=== PATIENT | male | born 1970 | race Two or more races ===

== ENCOUNTER 2024-10-21 11:57 | Inpatient (IN) | payer MEDICAID, SELFPAY ==
[2024-10-21 11:59] VITALS: BMI 21.9
[2024-10-21 12:36] VITALS: BP 107/73; PULSE 85; RESP 20; TEMP 37.1; O2SAT 97
--- NOTE | 2024-10-21 12:44 | XR_ITS ---
Examination: PA chest lateral 2 views Technique: Upright PA lateral chest 2 views Exam date and time: October 21, 2024 1304 hrs. Indications: Coughing throat pain today. Findings: Extensive bilateral lung opacity, especially in the upper lung zones which appears cavitary Normal heart size The osseous structures are demineralized Impression: Extensive bilateral infiltrate, which appears cavitary in the upper lung zones, differential would include active tuberculosis Recommend high-resolution CT chest without contrast follow-up
--- NOTE | 2024-10-21 13:38 | XR_ITS ---
Examination: CT chest, without intravenous contrast. Sagittal and coronal 2-D reconstructions. Exam date and time: October 21, 2024 1358 hrs. Indications: Coughing beginning 8 months ago CTDI:vol (mGy) 9.08 DLP: (mGycm) 346 Technique: Multiple 3.0 mm axial sections of the chest to been obtained. Bone and lung density settings are obtained. Sagittal and coronal 2-D reconstructions have been obtained. Low dose protocols were performed. One or more of the following dose reduction techniques were used; automated exposure control, adjustment of the mA and/or KV according to patient size, use of iterative reconstruction technique. Findings: No thoracic aortic aneurysm dilatation Pulmonary artery segments are not enlarged Mild bilateral hilar lymphadenopathy Extensive cavitary infiltrate in the upper lung zones, the largest septated cavitary lesion in the right upper lobe measuring 5.6 x 5.2 cm Dilated bronchi throughout the lungs diffuse pneumonia particularly miliary throughout the lungs No visualized liver or splenic lesion No gallstones No pancreatic or adrenal mass No hydronephrosis Impression: Extensive cavitary miliary parenchymal disease throughout the lungs, most severe at the right apex, including septated right upper lobe cavitary lesion 5.6 x 5.2 cm Highest on the differential list is infectious processes including active tuberculosis, pulmonary neoplasm in the right upper lobe not excluded
--- NOTE | 2024-10-21 13:39 | EDRME_ITS ---
[facility]apid [facility] Screening [facility] Arrival date/time: 10/21/24 11:57 53-year-old male presents to the emergency department complains of cough ongoing x 10 months Chief Complaint: Flu Like Symptoms Time Seen by Provider: 10/21/24 12:13 Vital signs: Vital Signs Temperature 98.8 F 10/21/24 12:36 Pulse Rate 85 10/21/24 12:36 Respiratory Rate 20 10/21/24 12:36 Blood Pressure 107/73 10/21/24 12:36 Pulse Oximetry (%) 97 10/21/24 12:36 Oxygen Delivery Method Room Air 10/21/24 12:36
[2024-10-21 14:06] VITALS: BP 127/87; PULSE 75; RESP 19; TEMP 36.7; O2SAT 98
[2024-10-21 14:28] LABS: Basophils % (Auto) 1 % (0-2.5); Eosinophils # (Auto) 0.2 Thou/mm3 (0.0-0.5); Eosinophils % (Auto) 4 % (0-10); Hematocrit 40.4 % (41.0-53.0); Hemoglobin 13.9 g/dL (13.5-16.0); Immature Granulocytes % (Auto) 0 % (0-0); Immature Granulocytes Auto 0.01 Thou/mm3 (0.00-0.00); Lymphocytes # (Auto) 1.1 Thou/mm3 (1.0-4.8); Lymphocytes % (Auto) 20 % (10-50); Mean Corpuscular HGB Conc 34.4 g/dl (31.0-37.0); Mean Corpuscular Hemoglobin 29.3 pg (25.0-35.0); Mean Corpuscular Volume 85 fL (80-100); Monocytes # (Auto) 0.6 Thou/mm3 (0.0-0.8); Monocytes % (Auto) 10 % (0-12); Neutrophils # (Auto) 3.6 Thou/mm3 (1.8-7.7); Neutrophils % (Auto) 65 % (37-80); Nucleated Red Blood Cell % 0 /100 WBC (0); Platelet Count 295 Thou/mm3 (140-440); RDW Standard Deviation 38.5 fL (35.1-43.9); Red Blood Count 4.75 Miln/mm3 (4.50-5.90); White Blood Count 5.5 Thou/mm3 (3.8-10.6)
--- NOTE | 2024-10-21 14:30 | PC.NURSE ---
HEPA FILTER PLACED IN PTS ROOM.
--- NOTE | 2024-10-21 14:43 | EDNOTE_ITS ---
<Statement entered by Nuria Tsang MD - 10/21/24 15:34> As co-signing physician, I was present and available for consult prn. I concur with the plan and care as documented by the midlevel provider. Upper Respiratory Inf. RME/HPI General Chief Complaint: Flu Like Symptoms Stated Complaint: COUGH, THROAT PAIN Time Seen by Provider: 10/21/24 12:13 Arrival date/time: 10/21/24 11:57 RME / HPI RME / HPI Narrative: 53-year-old male patient came in for evaluation regarding cough. Patient has been having cough for the last 10 months, getting worse, seen by PCP, several times, and according to them were given Robitussin which only afforded mild relief. Patient also complained of generalized body weakness, weight loss for about 5 pounds for the last 5 months. Patient arrived in this country from [place] about 1 year ago. Patient denies any fever denies any night sweats denies any other complaints denies any ill contacts. Related Data Allergies Allergy/AdvReac Type Severity Reaction Status Date / Time No Known Allergies Allergy Verified 10/21/24 11:58 Review of Systems Review of Systems Narrative Review of Systems: Review of system reviewed and within normal limits except mentioned in HPI ED Exam Narrative Physical exam: VITAL SIGNS: Reviewed. GENERAL APPEARANCE: Alert and interactive, follows commands, no acute distress, HEAD AND FACE: Non-traumatic. ENT: PERRL, pink conjunctivitis, eyelid no trauma, Mucous membrane moist. NECK: Supple, nontender, no nuchal rigidity. CHEST: No tenderness, no crepitus, no paradoxical movement, no retractions. LUNGS: Clear, well ventilated, symmetric, no rales, no wheezing, no ronchi, no stridor, good breath sounds bilaterally. HEART: Regular rate, regular rhythm, no murmur, no gallops. ABDOMEN: Soft, positive bowel sounds, nondistended, no guarding, nontender, no rebound, no masses, RECTAL: Deferred. GENITAL: Deferred. NEUROLOGICAL: Gross motor function intact sensory function intact, Appropriate for age. MUSCULOSKELETAL: low back nontender, full range of motion. EXTREMITIES: Nontender, full range of motion. SKIN: Color pink, dry, no rash, no lacerations, no abrasions, no contusions. LYMPHATICS: Deferred. Course Quality Measures none Orders Category Date Time Status COVID-19 Screening Questionnaire NOW Care 10/21/24 15:11 Active Decision to Admit X1 Care 10/21/24 15:11 Active SVN NEEDED Care 10/21/24 14:42 Active Tuberculin Skin Test (PPD) q48h Care 10/21/24 14:[address] chest wo con Stat Exams 10/21/24 13:38 Completed XR chest 2V Stat Exams 10/21/24 12:44 Completed Blood Culture (Lab) Stat Lab 10/21/24 15:06 Received CBC Stat Lab 10/21/24 14:22 Completed CMP [Comprehensive Metabolic Panel] Stat Lab 10/21/24 14:22 Completed CRP [C-Reactive Protein] Stat Lab 10/21/24 14:22 Completed Cocci Serology IgM with reflex to IgG [Cocci Serology, Lab 10/21/24 14:22 Received Unk History] Stat Cult AFB Sendout- Sputum* Q8H Lab 10/21/24 14:45 Ordered Cult AFB Sendout- Sputum* Q8H Lab 10/21/24 22:45 Ordered Cult AFB Sendout- Sputum* Q8H Lab 10/22/24 06:45 Ordered Lactate (Lactic Acid) Stat Lab 10/21/24 15:03 Received Procalcitonin Stat Lab 10/21/24 15:03 Received Quantiferon-TB* Routine Lab 10/21/24 14:42 Ordered Sputum Culture and Gram Stain Q8H Lab 10/21/24 14:45 Ordered Sputum Culture and Gram Stain Q8H Lab 10/21/24 22:45 Ordered Sputum Culture and Gram Stain Q8H Lab 10/22/24 06:45 Ordered Sodium Chloride Rt Marie 10% [NS Rt Marie 10%] Med 10/21/24 14:41 Discontinued 5 ml INH X1 ONE Sodium Chloride Rt Marie 10% [NS Rt Marie 10%] Med 10/21/24 14:41 Discontinued 5 ml INH X1 ONE Tuberculin Ppd Inj [Tubersol Inj] Med 10/21/24 14:41 Discontinued 5 unit ID X1 ONE Sputum Induction PRN RT 10/21/24 14:45 Ordered Vital Signs Vital signs: Vital Signs Temperature 98.8 F 10/21/24 12:36 Pulse Rate 85 10/21/24 12:36 Respiratory Rate 20 10/21/24 12:36 Blood Pressure 107/73 10/21/24 12:36 Pulse Oximetry (%) 97 10/21/24 12:36 Oxygen Delivery Method Room Air 10/21/24 12:36 Upper Respiratory Infection MDM Narrative MDM Narrative:: 53-year-old male patient came in for evaluation regarding cough. Patient has been having cough for the last 10 months, getting worse, seen by PCP, several times, and according to them were given Robitussin which only afforded mild relief. Patient also complained of generalized body weakness, weight loss for about 5 pounds for the last 5 months. Patient arrived in this country from [place] about 1 year ago. Patient denies any fever denies any night sweats denies any other complaints denies any ill contacts. Patient's workup all came back unremarkable except for chest x-ray which showed possible active tuberculosis. CT scan of the chest also showed Extensive ca vitary miliary parenchymal disease throughout the lungs, most severe at the right apex, including septated right upper lobe cavitary lesion 5.6 x 5.2 cm Highest on the differential list is infectious processes including active tuberculosis, pulmonary neoplasm in the right upper lobe not excluded Patient was placed on isolation. Droplet precaution. Case discussed with hospitalist, and admitted the patient for workup to rule out tuberculosis. Currently patient is satting 98% on room air Patient data External records reviewed:: None Clinical information provided by:: patient Social determinants that could affect healthcare access:: none Patient has the following chronic illnesses:: None How is presenting disease/condition affected by chronic disease/condition?: no chronic disease Evaluation data The following diagnostics were reviewed and interpreted by me:: lab results and radiology exam(s) Lab and/or radiology exams considered but not ordered:: None Interpretation Summary: Patient's workup all came back unremarkable except for chest x-ray which showed possible active tuberculosis. CT scan of the chest also showed Extensive cavitary miliary parenchymal disease throughout the lungs, most severe at the right apex, including septated right upper lobe cavitary lesion 5.6 x 5.2 cm Highest on the differential list is infectious processes including active tuberculosis, pulmonary neoplasm in the right upper lobe not excluded Medications / Prescriptions Medications or Prescriptions considered but not ordered:: None Medication administrations:: Medication Administration History Discontinued Medications Sodium Chloride (Sodium Chloride Rt 10% 15 Ml Nebu) 5 ml INH X1 ONE Stop: 10/21/24 14:42 Sodium Chloride (Sodium Chloride Rt 10% 15 Ml Nebu) 5 ml INH X1 ONE Stop: 10/21/24 14:42 Tuberculin PPD (Tuberculin Ppd Inj 5 Unit/0.1 Ml Dose) 5 unit ID X1 ONE Stop: 10/21/24 14:42 None Consultations Consultation(s) initiated? (list below): No Diagnosis Upper Respiratory Differential Diagnosis: upper respiratory infection, bronchitis and other (Tuberculosis, coccidiomycosis, pulmonary tumor) Most likely diagnosis given after review of the tests above:: Rule out tuberculosis Admission Indicated Admission indicated?: indicated Explain why admission is indicated or not indicated:: Patient is to be admitted for further management Admission Request Was there a request for admission?: Yes Admission Attestation Admission request attestation: Discussed case with [Dr Rich] from Hospitalist service regarding admission. Discussed patients ED course, exam findings, labs, and radiology results. The Hospitalist [agrees] to accept the patient for admission. Disposition Plan Disposition Plan: Admit Discharge Plan Plan Patient Disposition: Admit Acute Care w/in Hospital Prescriptions/Referrals Referrals: Keon Hodgson PA-C [Primary Care Provider] - In 1 week Problem List Clinical Impression: Cavitary lesion of lung Patient/Caregiver Discharge Instructions Print Language: Mongolian Stand Alone Forms: Mary Award Info., Patient Portal Info Letter
[2024-10-21 14:57] LABS: Alanine Aminotransferase 9 U/L (10-49); Albumin, Serum 4.3 gm/dL (3.5-5.0); Albumin/Globulin Ratio 1.2 (1.2-2.2); Alkaline Phosphatase 92 U/L (46-116); Anion Gap 7 (7-16); Aspartate Amino Transferase 17 U/L (0-34); BUN/Creatinine Ratio 14 Ratio (12-20); Bilirubin,Total 0.4 mg/dL (0.3-1.2); Blood Urea Nitrogen 11 mg/dL (9-23); C-Reactive Protein 1.4 mg/dL (0.0-0.9); Calcium 9.1 mg/dL (8.3-10.6); Calcium (Corrected) 9.1 mg/dL (8.5-10.1); Carbon Dioxide 29.2 mMol/L (20.0-31.0); Chloride 102 mMol/L (98-107); Creatinine (Component) 0.8 mg/dL (0.6-1.3); Estimated Creatinine Clearance 100.9 mL/min (>60); Globulin 3.7 gm/dL (2.3-3.5); Glucose 94 mg/dL (74-106); Osmolality,Calculated 275 (275-295); Potassium 3.6 mMol/L (3.4-5.1); Sodium 138 mMol/L (136-145); eGFR > 60 See Note
[2024-10-21 15:12] LABS: Lactate (Lactic Acid) 0.7 mMol/L (0.4-2.0)
[2024-10-21 15:41] LABS: Cocci Serology, IgM Negative (Negative)
[2024-10-21 15:42] LABS: Procalcitonin 0.06 ng/ml (0.0-0.49)
--- NOTE | 2024-10-21 16:08 | PD.RESHP ---
Documentation for date of: 10/21/24 [facility] History of Present Illness Chief complaint: cough History of present illness: 53-year-old male with no past medical history presented to the ED due to progressive cough. Patient came from [place] about 1 year ago and has developed this cough productive of yellow phlegm for the past 10 months without resolution. Patient also states having recent unintentional weight loss in the past 5 months. Patient states having night sweats and chills in the past few months however none recently. Denies any exposure to tuberculosis or anyone testing positive for TB. Patient also states he is seen by a primary care physician who had x-rays done on him and states there was water in the lung . 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 Patient lives in a trailer. At this time patient denies any fevers, night sweats, shortness of breath, chest pain, abdominal pain, nausea, vomiting, diarrhea, urinary symptoms. Patient will be admitted for tuberculosis workup. ED course: Vitals on arrival noncontributory, CHEM panel unremarkable, C-reactive protein 1.4, procalcitonin normal. Cocci negative. chest x-ray which showed possible active tuberculosis. CT scan of the chest also showed Extensive cavitary miliary parenchymal disease throughout the lungs, most severe at the right apex, including septated right upper lobe cavitary lesion 5.6 x 5.2cm PMHx: None SxHx: None Social Hx: Denies smoking, denies alcohol use, denies any illicit substance use including THC FHx: Unknown Review of Systems Review of Systems Narrative Review of Systems: Narrative ROS GENERAL: Denies fevers/chills or diaphoresis. HEENT: Denies headache or visual/hearing changes. Denies nasal discharge. NEURO: Denies unusual weakness or difficulty speaking. CARDIO: Denies chest pain or palpitations. PULM: Denies SOB, coughing, or wheezing. GI: Denies abdominal pain, N/V/C/D/reflux/gas, bright red blood per rectum or melena. Reports having BMs. URO: Denies burning/itching/pain/urinary changes. MSK/EXT/SKIN: Denies joint/skeletal/muscle pain, issues/changes in upper or lower extremities, itchiness, or superficial pain. PSYCH: Cooperative, pleasant mood & affect. The rest of the review of systems is otherwise negative. Exam Vital Signs Temp Pulse Resp BP Pulse Ox O2 Del Method 98.0 F 75 19 127/87 H 98 Room Air 10/21/24 14:06 10/21/24 14:06 10/21/24 14:06 10/21/24 14:06 10/21/24 14:06 10/21/24 14:06 Narrative Exam Physical Exam GENERAL: NAD, AAOx3 HEENT: Moist mucosa. Eyes open, symmetrical, & clear CARDIO: Heart RRR, no obvious murmurs PULM: No noted coughing/dyspnea CTA B/L, no R/W/R GI: Abdomen soft, nondistended, no pain on palpation. BSx4 SKIN/MSK/EXT: No wounds/rashes/edema/amputations, no pain on palpation. Pedal pulses present B/L NEURO: AAOx3, no focal neuro deficits, able to move all 4 extremities Results: Labs 10/23/24 04:56 10/23/24 04:56 Labs: Short CBC 10/21/24 Range/Units 14:22 WBC 5.5 (3.8-10.6) Thou/mm3 Hgb 13.9 (13.5-16.0) g/dL Hct 40.4 L (41.0-53.0) % Plt Count 295 (140-440) Thou/mm3 BMP 10/21/24 14:22 Sodium 138 Potassium 3.6 Chloride 102 Carbon Dioxide 29.2 BUN 11 Creatinine 0.8 Glucose 94 Calcium 9.1 Liver Function 10/21/24 Range/Units 14:22 Total Bilirubin 0.4 (0.3-1.2) mg/dL AST 17 (0-34) U/L ALT 9 L (10-49) U/L Alkaline Phosphatase 92 (46-116) U/L Albumin 4.3 (3.5-5.0) gm/dL Quality Measures Quality Measures none Medications Home Medications and Allergies Home Medications ?Medication ?Instructions ?Recorded ?Confirmed ?Type No Known Home Medications 10/22/24 10/22/24 History Allergies Allergy/AdvReac Type Severity Reaction Status Date / Time No Known Allergies Allergy Verified 10/21/24 11:58 Visit Medications Acetaminophen (Acetaminophen 325 Mg Tablet) 650 mg PO Q6H PRN PRN Reason: Fever >100.5 Stop: 11/20/24 15:59 Acetaminophen (Acetaminophen 325 Mg Tablet) 650 mg PO Q6H PRN PRN Reason: PAIN SCALE 1-3 (mild Stop: 11/20/24 15:59 Docusate Sodium (Docusate Sod 100 Mg Capsule) 100 mg PO QDAY TORREY; Protocol Stop: 11/21/24 08:59 Ondansetron HCl (Ondansetron Inj 2 Mg/Ml Inj 2 Ml) 4 mg IV Q6H PRN; Protocol PRN Reason: NAUSEA OR VOMITING Stop: 11/20/24 15:59 Discontinued Medications Heparin Sodium (Porcine) (Heparin Sod Inj 5000 Unit/Ml Vial) 5,000 unit SC Q8HR TORREY Stop: 11/04/24 21:59 Sodium Chloride (Sodium Chloride Rt 10% 15 Ml Nebu) 5 ml INH X1 ONE Stop: 10/21/24 14:42 Sodium Chloride (Sodium Chloride Rt 10% 15 Ml Nebu) 5 ml INH X1 ONE Stop: 10/21/24 14:42 Tuberculin PPD (Tuberculin Ppd Inj 5 Unit/0.1 Ml Dose) 5 unit ID X1 ONE Stop: 10/21/24 14:42 Assessment & Plan Plan 53-year-old male with no past medical history presented to the ED due to cough, recent unintentional weight loss and tarry lesion found on chest x-ray. Admitted for TB workup. 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 Patient denies any night sweats, hemoptysis at this time, however he does state having night sweats in the past few months. Chest x-ray shows extensive bilateral infiltrate, which appears cavitary in the upper lung zones Chest CT shows Extensive cavitary miliary parenchymal disease throughout the lungs, most severe at the right apex, including septated right upper lobe cavitary lesion 5.6 x 5.2cm - AFBs ordered - f/u quantiferon - isolation precautions - Tuberculin skin test - blood cultures ordered - sputum culture ordered - f/u Flu/COVID Case discussed with my attending Dr. Aristeo Triana MD PGY-1 Disposition: Medsurg on isolation for TB work up Fluids: None Feeding: regular Thrombo prophylaxis: SCDs Gastric Ulcer prophylaxis: not indicated CODE STATUS: Full code Attending Provider Attestation/Addendum Chelsy Ramirez DO, attest that I was physically present for the rojas portions of the service and evaluated the patient with the resident and I reviewed and discussed the case with the resident and agree with the resident's findings and plans of care as documented above Patient is a 53 year old male with no significant past medical history who presented to the ED due to persistent cough. Patient had come to seek asylum about 10 months ago through [place]. Patient states that he came with a large group of people. Patient states that he has had persistent cough, night sweats and unintentional weight loss for the past few months. He had taken antibiotics a few weeks ago with temporary improvement of his productive cough. CT chest was done in ED showing extensive cavitary miliary parenchymal disease, most severe at right apex, including septated RUL cavitary lesion 5.6 x 5.2 cm. He denies seeing any blood streaked sputum. He denies previous history of tuberculosis, BCG vaccine or exposure to TB. 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 Patient lives in a trailer with his family. states that no other family members have the same symptoms as patient. He denies any nausea, vomiting, fevers, chills, productive sputum. He states that his cough is now dry. He denies any chest pain. Will admit patient for further workup of pulmonary cavitary lesion with high suspicion for tuberculosis. Will consult ID
[2024-10-21 16:23] VITALS: BP 113/79; PULSE 68; RESP 18; O2SAT 97
[2024-10-21 17:45] LABS: Cult AFB Sendout- Sputum* See Sep Rpt
[2024-10-21 18:00] VITALS: BP 124/85; PULSE 70; RESP 16; TEMP 36.7; O2SAT 98
--- NOTE | 2024-10-21 18:28 | PC.CC ---
Invas Tech assisted with Pt concerns regarding documentation needed to prove Pt is currently being admitted. Invas Tech collaborated with attending doctor in regards to Pt concerns.
--- NOTE | 2024-10-21 19:03 | PC.NURSE ---
[place], chips, and water provided.
[2024-10-21 19:30] VITALS: BP 129/80; PULSE 73; RESP 16; TEMP 36.8; O2SAT 95
--- NOTE | 2024-10-21 19:30 | PC.NURSE ---
Stefan contact with pt in Room 6, pt in gown, connected to bedside personnel monitor, whiteboard updated, call light within reach. Pt's currently at bedside.
[2024-10-21 19:58] VITALS: BMI 21.7
[2024-10-21 20:00] VITALS: BP 110/95; PULSE 78; RESP 18; TEMP 36.7; O2SAT 97
[2024-10-22] VITALS: BP 115/82; PULSE 79; RESP 17; TEMP 37.1; O2SAT 98
--- NOTE | 2024-10-22 03:13 | PC.RT ---
AFB sputum culture collected and sent to lab
[2024-10-22 04:00] VITALS: BP 128/84; PULSE 98; RESP 18; TEMP 36.6; O2SAT 96
[2024-10-22 05:42] LABS: Basophils # (Auto) 0.1 Thou/mm3 (0.0-0.2); Basophils % (Auto) 1 % (0-2.5); Eosinophils # (Auto) 0.2 Thou/mm3 (0.0-0.5); Eosinophils % (Auto) 4 % (0-10); Hematocrit 39.4 % (41.0-53.0); Hemoglobin 13.4 g/dL (13.5-16.0); Immature Granulocytes % (Auto) 0 % (0-0); Immature Granulocytes Auto 0.02 Thou/mm3 (0.00-0.00); Lymphocytes # (Auto) 1.1 Thou/mm3 (1.0-4.8); Lymphocytes % (Auto) 19 % (10-50); Mean Corpuscular Hemoglobin 28.9 pg (25.0-35.0); Mean Corpuscular Volume 85 fL (80-100); Monocytes # (Auto) 0.7 Thou/mm3 (0.0-0.8); Monocytes % (Auto) 11 % (0-12); Neutrophils % (Auto) 65 % (37-80); Nucleated Red Blood Cell % 0 /100 WBC (0); Platelet Count 293 Thou/mm3 (140-440); RDW Standard Deviation 38.3 fL (35.1-43.9); Red Blood Count 4.64 Miln/mm3 (4.50-5.90); White Blood Count 6.1 Thou/mm3 (3.8-10.6)
[2024-10-22 06:25] LABS: Alanine Aminotransferase 7 U/L (10-49); Albumin, Serum 4.1 gm/dL (3.5-5.0); Albumin/Globulin Ratio 1.2 (1.2-2.2); Alkaline Phosphatase 84 U/L (46-116); Anion Gap 7 (7-16); Aspartate Amino Transferase 13 U/L (0-34); BUN/Creatinine Ratio 16 Ratio (12-20); Bilirubin,Total 0.3 mg/dL (0.3-1.2); Blood Urea Nitrogen 13 mg/dL (9-23); Calcium 9.2 mg/dL (8.3-10.6); Calcium (Corrected) 9.2 mg/dL (8.5-10.1); Carbon Dioxide 30.5 mMol/L (20.0-31.0); Chloride 104 mMol/L (98-107); Creatinine (Component) 0.8 mg/dL (0.6-1.3); Estimated Creatinine Clearance 99.6 mL/min (>60); Globulin 3.3 gm/dL (2.3-3.5); Glucose 77 mg/dL (74-106); Osmolality,Calculated 280 (275-295); Potassium 3.5 mMol/L (3.4-5.1); Sodium 141 mMol/L (136-145); Total Protein 7.4 gm/dL (5.7-8.2); eGFR > 60 See Note
[2024-10-22 08:00] VITALS: BP 125/92; PULSE 82; RESP 16; TEMP 36.7; O2SAT 96
[2024-10-22] MEDS: ISONIAZID 300 MG TABLET PO (10:54)
[2024-10-22] MEDS: DOCUSATE SOD 100 MG CAPSULE PO (10:55)
[2024-10-22] MEDS: rifAMPin 300 MG CAPSULE 600 MG PO (10:55)
[2024-10-22] MEDS: ETHAMBUTOL HCL 400 MG TABLET 1200 MG PO (10:55)
[2024-10-22 12:00] VITALS: BP 120/86; PULSE 80; RESP 18; TEMP 36.2; O2SAT 98
--- NOTE | 2024-10-22 13:17 | PD.RESPRO ---
Documentation for date of: 10/22/24 Subjective Subjective Interval history: Seen at bedside today. Likely experiencing actual symptoms of tuberculosis. Second AFB sputum sample likely to be collected today. Will start the patient on ripe therapy and consult infectious disease Exam Vital Signs Temp Pulse Resp BP Pulse Ox O2 Del Method 97.2 F 80 18 120/86 H 98 Room Air 10/22/24 12:00 10/22/24 12:00 10/22/24 12:00 10/22/24 12:00 10/22/24 12:00 10/22/24 12:00 Narrative Exam Physical Exam GENERAL: NAD, AAOx3 HEENT: Moist mucosa. Eyes open, symmetrical, & clear CARDIO: Heart RRR, no obvious murmurs PULM: No noted coughing/dyspnea CTA B/L, no R/W/R GI: Abdomen soft, nondistended, no pain on palpation. BSx4 SKIN/MSK/EXT: No wounds/rashes/edema/amputations, no pain on palpation. Pedal pulses present B/L NEURO: AAOx3, no focal neuro deficits, able to move all 4 extremities Objective Labs 10/23/24 04:56 10/23/24 04:56 Labs: Laboratory Results - last 24 hr 10/21/24 10/21/24 10/22/24 14:22 15:03 04:28 WBC 5.5 6.1 RBC 4.75 4.64 Hgb 13.9 13.4 L Hct 40.4 L 39.4 L MCV 85 85 MCH 29.3 28.9 MCHC 34.4 34.0 RDW Std Deviation 38.5 38.3 Plt Count 295 293 Neut % (Auto) 65 65 Lymph % (Auto) 20 19 [place] % (Auto) 10 11 Eos % (Auto) 4 4 Baso % (Auto) 1 1 Neut # (Auto) 3.6 4.0 Lymph # (Auto) 1.1 1.1 [place] # (Auto) 0.6 0.7 Eos # (Auto) 0.2 0.2 Baso # (Auto) 0.0 0.1 Immature Gran # (Auto) 0.01 H 0.02 H Absolute Nucleated RBC 0.00 0.00 Immature Gran % 0 0 Nucleated RBC % 0 0 Sodium 138 141 Potassium 3.6 3.5 Chloride 102 104 Carbon Dioxide 29.2 30.5 Anion Gap 7 7 BUN 11 13 Creatinine 0.8 0.8 Estim Creat Clear Calc 100.9 99.6 eGFR > 60 > 60 BUN/Creatinine Ratio 14 16 Glucose 94 77 Calculated Osmolality 275 280 Lactic Acid 0.7 Calcium 9.1 9.2 Corrected Calcium 9.1 9.2 Total Bilirubin 0.4 0.3 AST 17 13 ALT 9 L 7 L Alkaline Phosphatase 92 84 C-Reactive Prot, Quant 1.4 H Total Protein 8.0 7.4 Albumin 4.3 4.1 Globulin 3.7 H 3.3 Albumin/Globulin Ratio 1.2 1.2 Procalcitonin 0.06 Coccidioides IgM Ab Negative Quality Measures Quality Measures none Assessment & Plan Assessment Current Active Medications: Generic Name Dose Route Start Last Admin Trade Name Freq PRN Reason Stop Dose Admin Acetaminophen 650 mg 10/21/24 16:00 Acetaminophen 325 Mg Tablet PO 11/20/24 15:59 Q6H PRN Fever >100.5 Acetaminophen 650 mg 10/21/24 16:00 Acetaminophen 325 Mg Tablet PO 11/20/24 15:59 Q6H PRN PAIN SCALE 1-3 (mild Docusate Sodium 100 mg 10/22/24 09:00 10/22/24 10:55 Docusate Sod 100 Mg Capsule PO 11/21/24 08:59 100 mg QDAY TORREY Administration Protocol Ethambutol HCl 1,200 mg 10/22/24 10:15 10/22/24 10:55 Ethambutol Hcl 400 Mg Tablet PO 11/21/24 10:14 1,200 mg QDAY TORREY Administration Isoniazid 300 mg 10/22/24 10:15 10/22/24 10:54 Isoniazid 300 Mg Tablet PO 11/21/24 10:14 300 mg QDAY TORREY Administration Ondansetron HCl 4 mg 10/21/24 16:00 Ondansetron Inj 2 Mg/Ml Inj 2 Ml IV 11/20/24 15:59 Q6H PRN NAUSEA OR VOMITING Protocol Pyrazinamide 500 mg 10/22/24 14:00 Pyrazinamide 500 Mg Tablet PO 11/21/24 13:59 TID TORREY Rifampin 600 mg 10/22/24 10:15 10/22/24 10:55 Rifampin 300 Mg Capsule PO 11/21/24 10:14 600 mg QDAY TORREY Administration Plan 53-year-old male with no past medical history presented to the ED due to cough, recent unintentional weight loss and tarry lesion found on chest x-ray. Admitted for TB workup. 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 Patient denies any night sweats, hemoptysis at this time, however he does state having night sweats in the past few months. Chest x-ray shows extensive bilateral infiltrate, which appears cavitary in the upper lung zones Chest CT shows Extensive cavitary miliary parenchymal disease throughout the lungs, most severe at the right apex, including septated right upper lobe cavitary lesion 5.6 x 5.2cm - AFBs ordered - f/u quantiferon - isolation precautions - Tuberculin skin test canceled - blood cultures ordered - sputum culture ordered - f/u Flu/COVID ?Started the patient on ripe therapy, infectious disease consultation ordered, Case discussed with my attending Dr. Aristeo Pierre M.D. PGY-3 Disposition: Medsurg on isolation for TB work up Fluids: None Feeding: regular Thrombo prophylaxis: SCDs Gastric Ulcer prophylaxis: not indicated CODE STATUS: Full code Attending Provider Attestation/Addendum Chelsy Ramirez DO, attest that I was physically present for the rojas portions of the service and evaluated the patient with the resident and I reviewed and discussed the case with the resident and agree with the resident's findings and plans of care as documented above Patient seen and evaluated this AM. Patient has no acute complaints at this time. However, due to high suspicion for TB, will start on RIPE therapy. 2AFB smears have been obtained, pending collection of 3rd. Patient remains on isolation.
[2024-10-22 14:28] LABS: Cult AFB Sendout- Sputum* See Sep Rpt
[2024-10-22] MEDS: PYRAZINAMIDE 500 MG TABLET PO ×2 (15:00→21:30)
[2024-10-22 16:00] VITALS: BP 123/79; PULSE 66; RESP 18; TEMP 36.6; O2SAT 97
[2024-10-22 20:00] VITALS: BP 127/83; PULSE 78; RESP 20; TEMP 36.8; O2SAT 96
[2024-10-22] MEDS: ACETAMINOPHEN 325 MG TABLET 650 MG PO (21:30)
[2024-10-23] VITALS: BP 114/78; PULSE 68; RESP 20; TEMP 36.2; O2SAT 97
[2024-10-23 04:00] VITALS: BP 133/85; PULSE 67; RESP 18; TEMP 36.6; O2SAT 96
[2024-10-23 05:14] LABS: Basophils # (Auto) 0.1 Thou/mm3 (0.0-0.2); Basophils % (Auto) 1 % (0-2.5); Eosinophils # (Auto) 0.3 Thou/mm3 (0.0-0.5); Eosinophils % (Auto) 5 % (0-10); Hematocrit 40.2 % (41.0-53.0); Hemoglobin 13.5 g/dL (13.5-16.0); Immature Granulocytes % (Auto) 1 % (0-0); Immature Granulocytes Auto 0.03 Thou/mm3 (0.00-0.00); Lymphocytes # (Auto) 1.2 Thou/mm3 (1.0-4.8); Lymphocytes % (Auto) 22 % (10-50); Mean Corpuscular HGB Conc 33.6 g/dl (31.0-37.0); Mean Corpuscular Volume 87 fL (80-100); Monocytes # (Auto) 0.6 Thou/mm3 (0.0-0.8); Monocytes % (Auto) 11 % (0-12); Neutrophils # (Auto) 3.3 Thou/mm3 (1.8-7.7); Neutrophils % (Auto) 60 % (37-80); Nucleated Red Blood Cell % 0 /100 WBC (0); Platelet Count 235 Thou/mm3 (140-440); RDW Standard Deviation 39.4 fL (35.1-43.9); Red Blood Count 4.65 Miln/mm3 (4.50-5.90); White Blood Count 5.5 Thou/mm3 (3.8-10.6)
[2024-10-23] MEDS: PYRAZINAMIDE 500 MG TABLET PO ×3 (05:28→21:45)
[2024-10-23 05:48] LABS: Alanine Aminotransferase 10 U/L (10-49); Albumin, Serum 4.2 gm/dL (3.5-5.0); Albumin/Globulin Ratio 1.2 (1.2-2.2); Alkaline Phosphatase 87 U/L (46-116); Anion Gap 8 (7-16); Aspartate Amino Transferase 16 U/L (0-34); BUN/Creatinine Ratio 15 Ratio (12-20); Bilirubin,Total 0.8 mg/dL (0.3-1.2); Blood Urea Nitrogen 12 mg/dL (9-23); Calcium 9.2 mg/dL (8.3-10.6); Calcium (Corrected) 9.2 mg/dL (8.5-10.1); Carbon Dioxide 28.2 mMol/L (20.0-31.0); Chloride 102 mMol/L (98-107); Creatinine (Component) 0.8 mg/dL (0.6-1.3); Estimated Creatinine Clearance 99.6 mL/min (>60); Globulin 3.5 gm/dL (2.3-3.5); Glucose 86 mg/dL (74-106); Osmolality,Calculated 274 (275-295); Potassium 3.8 mMol/L (3.4-5.1); Sodium 138 mMol/L (136-145); Total Protein 7.7 gm/dL (5.7-8.2); eGFR > 60 See Note
[2024-10-23 08:00] VITALS: BP 125/80; PULSE 80; RESP 16; TEMP 36.1; O2SAT 98
--- NOTE | 2024-10-23 09:13 | PD.IDPROG ---
Subjective Subjective Interval history: afb's appear to only be sent for culture. not stain. be sure stain performed. if pt is stain neg then even if he has tb, it is not felt to be contagious. hx noted. on tb rx Exam Vital Signs Temp Pulse Resp BP Pulse Ox O2 Del Method 97.0 F 80 16 125/80 98 Room Air 10/23/24 08:00 10/23/24 08:00 10/23/24 08:00 10/23/24 08:00 10/23/24 08:00 10/23/24 08:00 Narrative Exam thin man with no other health problems but lives at home with and 4 children, at least 2 of which are not yet in school. did not cough during visit at all, but sputum noted at bedside Objective - Internal Medicine Labs 10/23/24 04:56 10/23/24 04:56 Labs: Laboratory Results - last 24 hr 10/23/24 04:56 WBC 5.5 RBC 4.65 Hgb 13.5 Hct 40.2 L MCV 87 MCH 29.0 MCHC 33.6 RDW Std Deviation 39.4 Plt Count 235 D Neut % (Auto) 60 Lymph % (Auto) 22 [place] % (Auto) 11 Eos % (Auto) 5 Baso % (Auto) 1 Neut # (Auto) 3.3 Lymph # (Auto) 1.2 [place] # (Auto) 0.6 Eos # (Auto) 0.3 Baso # (Auto) 0.1 Immature Gran # (Auto) 0.03 H Absolute Nucleated RBC 0.00 Immature Gran % 1 H Nucleated RBC % 0 Sodium 138 Potassium 3.8 Chloride 102 Carbon Dioxide 28.2 Anion Gap 8 BUN 12 Creatinine 0.8 Estim Creat Clear Calc 99.6 eGFR > 60 BUN/Creatinine Ratio 15 Glucose 86 Calculated Osmolality 274 L Calcium 9.2 Corrected Calcium 9.2 Total Bilirubin 0.8 D AST 16 ALT 10 Alkaline Phosphatase 87 Total Protein 7.7 Albumin 4.2 Globulin 3.5 Albumin/Globulin Ratio 1.2 Assessment & Plan A&P Narrative apical pneumonia with neg cocci IgM and neg procal (insensitive to fungal and atypical antigens) if afb stains are neg. ok to treat, but should have bronch done (possibly as outpt) as that would make CA more likely will get some other tests and see again wed Time Spent With Patient Time: Total time spent is greater than 50% in coordination of care (as documented) at patient's floor/unit and/or counseling patient:
--- NOTE | 2024-10-23 09:27 | PC.SS ---
Follow up note: Pt is TB rule out. AFBs are pending.
--- NOTE | 2024-10-23 10:10 | ESPR_ITS ---
Documentation for date of: 10/23/24 Senior resident attestation: Patient is a 53-year-old male, recent immigrant from [place], who reported no significant past medical history but presented with symptoms of persistent cough, weight loss, and history of night sweats. Patient had taken antibiotics a few weeks ago with minimal improvement, but presented to the ER again due to persistent complaint of productive cough. CT in the emergency room showed cavitary miliary parenchymal disease, severe at the right apex, cavitary lesion 5.6 x 5.2 cm. Patient was admitted to the medical floor for workup of tuberculosis and placed in isolation room. #Tuberculosis rule out?sputum AFBs, QuantiFERON, PPD ordered. Patient started on RI PE therapy due to concern for active tuberculosis, and infectious especially Dr Peraza is consulted. Will follow AFB and NAAT results Patient evaluated and examined at the bedside, plan of care discussed with rest of the team including my attending physician, except as noted. Quresh PGY2 Subjective Subjective Interval history: Patient seen today at the bedside fine awake, alert, oriented x 3. No overnight events reported. Vital signs stable at this time. Labs unremarkable at this time. AFBs were sent to the [facility] patient, pending results will continue on isolation at this time and continue current RIPE therapy for TB. ID was consulted appreciate recommendations. Exam Vital Signs Temp Pulse Resp BP Pulse Ox O2 Del Method 97.0 F 80 16 125/80 98 Room Air 10/23/24 08:00 10/23/24 08:00 10/23/24 08:00 10/23/24 08:00 10/23/24 08:00 10/23/24 08:00 Narrative Exam Physical Exam GENERAL: NAD, AAOx3 HEENT: Moist mucosa. Eyes open, symmetrical, & clear CARDIO: Heart RRR, no obvious murmurs PULM: No noted coughing/dyspnea CTA B/L, no R/W/R GI: Abdomen soft, nondistended, no pain on palpation. BSx4 SKIN/MSK/EXT: No wounds/rashes/edema/amputations, no pain on palpation. Pedal pulses present B/L NEURO: AAOx3, no focal neuro deficits, able to move all 4 extremities Objective Labs 10/24/24 05:05 10/24/24 05:05 Labs: Laboratory Results - last 24 hr 10/23/24 04:56 WBC 5.5 RBC 4.65 Hgb 13.5 Hct 40.2 L MCV 87 MCH 29.0 MCHC 33.6 RDW Std Deviation 39.4 Plt Count 235 D Neut % (Auto) 60 Lymph % (Auto) 22 [place] % (Auto) 11 Eos % (Auto) 5 Baso % (Auto) 1 Neut # (Auto) 3.3 Lymph # (Auto) 1.2 [place] # (Auto) 0.6 Eos # (Auto) 0.3 Baso # (Auto) 0.1 Immature Gran # (Auto) 0.03 H Absolute Nucleated RBC 0.00 Immature Gran % 1 H Nucleated RBC % 0 Sodium 138 Potassium 3.8 Chloride 102 Carbon Dioxide 28.2 Anion Gap 8 BUN 12 Creatinine 0.8 Estim Creat Clear Calc 99.6 eGFR > 60 BUN/Creatinine Ratio 15 Glucose 86 Calculated Osmolality 274 L Calcium 9.2 Corrected Calcium 9.2 Total Bilirubin 0.8 D AST 16 ALT 10 Alkaline Phosphatase 87 Total Protein 7.7 Albumin 4.2 Globulin 3.5 Albumin/Globulin Ratio 1.2 Quality Measures Quality Measures none Assessment & Plan Assessment Current Active Medications: Generic Name Dose Route Start Last Admin Trade Name Freq PRN Reason Stop Dose Admin Acetaminophen 650 mg 10/21/24 16:00 Acetaminophen 325 Mg Tablet PO 11/20/24 15:59 Q6H PRN Fever >100.5 Acetaminophen 650 mg 10/21/24 16:00 10/22/24 21:30 Acetaminophen 325 Mg Tablet PO 11/20/24 15:59 650 mg Q6H PRN Administration PAIN SCALE 1-3 (mild Docusate Sodium 100 mg 10/22/24 09:00 10/22/24 10:55 Docusate Sod 100 Mg Capsule PO 11/21/24 08:59 100 mg QDAY TORREY Administration Protocol Ethambutol HCl 1,200 mg 10/22/24 10:15 10/22/24 10:55 Ethambutol Hcl 400 Mg Tablet PO 11/21/24 10:14 1,200 mg QDAY TORREY Administration Isoniazid 300 mg 10/22/24 10:15 10/22/24 10:54 Isoniazid 300 Mg Tablet PO 11/21/24 10:14 300 mg QDAY TORREY Administration Ondansetron HCl 4 mg 10/21/24 16:00 Ondansetron Inj 2 Mg/Ml Inj 2 Ml IV 11/20/24 15:59 Q6H PRN NAUSEA OR VOMITING Protocol Pyrazinamide 500 mg 10/22/24 14:00 10/23/24 05:28 Pyrazinamide 500 Mg Tablet PO 11/21/24 13:59 500 mg TID TORREY Administration Rifampin 600 mg 10/22/24 10:15 10/22/24 10:55 Rifampin 300 Mg Capsule PO 11/21/24 10:14 600 mg QDAY TORREY Administration Plan 53-year-old male with no past medical history presented to the ED due to cough, recent unintentional weight loss and tarry lesion found on chest x-ray. Admitted for TB workup. 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 Patient denies any night sweats, hemoptysis at this time, however he does state having night sweats in the past few months. Chest x-ray shows extensive bilateral infiltrate, which appears cavitary in the upper lung zones Chest CT shows Extensive cavitary miliary parenchymal disease throughout the lungs, most severe at the right apex, including septated right upper lobe cavitary lesion 5.6 x 5.2cm - AFBs ordered - f/u quantiferon - isolation precautions - Tuberculin skin test canceled - blood cultures ordered - sputum culture ordered - f/u Flu/COVID ?Started the patient on ripe therapy, infectious disease consultation ordered, Case discussed with my senior Dr. Rich PGY-[address] Aristeo Triana MD PGY-1 Disposition: Medsurg on isolation for TB work up Fluids: None Feeding: regular Thrombo prophylaxis: SCDs Gastric Ulcer prophylaxis: not indicated CODE STATUS: Full code Attending Provider Attestation/Addendum Chelsy Ramirez DO, attest that I was physically present for the rojas portions of the service and evaluated the patient with the resident and I reviewed and discussed the case with the resident and agree with the resident's findings and plans of care as documented above Patient seen and eval this a.m. No acute events overnight. 2 AFB sputum's have been sent, pending 1 last 1 today. Will follow-up with ID recommendations. Patient remains asymptomatic at this time. He denies any fevers, shortness of breath, chills, night sweats otherwise.
[2024-10-23] MEDS: rifAMPin 300 MG CAPSULE 600 MG PO (10:55)
[2024-10-23] MEDS: DOCUSATE SOD 100 MG CAPSULE PO (10:55)
[2024-10-23] MEDS: ETHAMBUTOL HCL 400 MG TABLET 1200 MG PO (10:55)
[2024-10-23] MEDS: ISONIAZID 300 MG TABLET PO (10:55)
[2024-10-23 12:00] VITALS: BP 125/65; PULSE 66; RESP 17; TEMP 36.5; O2SAT 95
[2024-10-23 12:00] LABS: Cult AFB Sendout- Sputum* See Sep Rpt
--- NOTE | 2024-10-23 12:01 | ESCONSULT_ITS ---
RE: WILLEM HOLLOWAY : 1970 DATE OF CONSULTATION: 10/23/2024 REFERRING PHYSICIAN: Dr. Alberts, hospitalist. REASON FOR CONSULTATION: Apical pulmonary process HISTORY OF PRESENT ILLNESS: The patient is an unfortunate 53-year-old man. He reports he lives with his and four children, two of them are very young, one is just 1 year of age. He has had illness for 10 months. He has resp sx but is not that ill at the moment. He was started on mycobacterial treatment initially by others. It usually does not speed up the process overtly. He is looking at probably 6 to 12 months of treatment if positive. This likely is TB, but he reports only a 5-pound weight loss and only recent fevers. His family members may need to be tested if he is positive. We are going to get some other tests in the next couple of days for HIV and hepatitis C, but the rojas will be making sure his sputum shows afb, but the holiday on Wednesday delays the information. so you may need to call the health department lab tomorrow to see what the results are from the AFBs. I will check on him again on wednesday if still here. note that if afb neg, the likely needs an outpt bal from pulm. cc: Dr. Alberts DT: 10:09:48 TT: 10:43:00 Ref: [id number] - TID: [id number] MTDD
[2024-10-23 12:52] LABS: HIV (1&2) Antibody Rapid Non-Reactive
[2024-10-23 12:57] LABS: Hepatitis C Antibody Non Reactive (Non React)
[2024-10-23 12:58] LABS: Hepatitis A Antibody IgM Non Reactive (Non React); Hepatitis B Core Antibody IgM Non Reactive (Non React); Hepatitis B Surface Antigen Non Reactive (Non React); Hepatitis C Antibody Non Reactive (Non React)
[2024-10-23 14:58] LABS: Cocci Serology, IgG Negative (Negative)
[2024-10-23 16:00] VITALS: BP 136/74; PULSE 77; RESP 16; TEMP 36.2; O2SAT 95
[2024-10-23 20:00] VITALS: BP 116/79; PULSE 80; RESP 18; TEMP 36.5; O2SAT 96
[2024-10-24] VITALS: BP 115/79; PULSE 81; RESP 18; TEMP 36.3; O2SAT 98
[2024-10-24 04:00] VITALS: BP 112/71; PULSE 77; RESP 18; TEMP 36.4; O2SAT 96
[2024-10-24] MEDS: PYRAZINAMIDE 500 MG TABLET PO ×3 (05:19→21:15)
[2024-10-24 06:19] LABS: Basophils % (Auto) 1 % (0-2.5); Eosinophils # (Auto) 0.3 Thou/mm3 (0.0-0.5); Eosinophils % (Auto) 6 % (0-10); Hematocrit 42.5 % (41.0-53.0); Hemoglobin 14.8 g/dL (13.5-16.0); Immature Granulocytes % (Auto) 0 % (0-0); Immature Granulocytes Auto 0.02 Thou/mm3 (0.00-0.00); Lymphocytes # (Auto) 1.4 Thou/mm3 (1.0-4.8); Lymphocytes % (Auto) 28 % (10-50); Mean Corpuscular HGB Conc 34.8 g/dl (31.0-37.0); Mean Corpuscular Hemoglobin 29.4 pg (25.0-35.0); Mean Corpuscular Volume 84 fL (80-100); Monocytes # (Auto) 0.5 Thou/mm3 (0.0-0.8); Monocytes % (Auto) 10 % (0-12); Neutrophils # (Auto) 2.9 Thou/mm3 (1.8-7.7); Neutrophils % (Auto) 56 % (37-80); Nucleated Red Blood Cell % 0 /100 WBC (0); Platelet Count 304 Thou/mm3 (140-440); RDW Standard Deviation 38.1 fL (35.1-43.9); Red Blood Count 5.04 Miln/mm3 (4.50-5.90); White Blood Count 5.1 Thou/mm3 (3.8-10.6)
[2024-10-24 07:04] LABS: Alanine Aminotransferase 11 U/L (10-49); Albumin, Serum 4.4 gm/dL (3.5-5.0); Albumin/Globulin Ratio 1.2 (1.2-2.2); Alkaline Phosphatase 94 U/L (46-116); Anion Gap 7 (7-16); Aspartate Amino Transferase 15 U/L (0-34); BUN/Creatinine Ratio 16 Ratio (12-20); Bilirubin,Total 0.6 mg/dL (0.3-1.2); Blood Urea Nitrogen 14 mg/dL (9-23); Calcium 9.3 mg/dL (8.3-10.6); Calcium (Corrected) 9.3 mg/dL (8.5-10.1); Carbon Dioxide 29.3 mMol/L (20.0-31.0); Chloride 101 mMol/L (98-107); Creatinine (Component) 0.9 mg/dL (0.6-1.3); Estimated Creatinine Clearance 88.6 mL/min (>60); Globulin 3.6 gm/dL (2.3-3.5); Glucose 82 mg/dL (74-106); Osmolality,Calculated 273 (275-295); Potassium 3.8 mMol/L (3.4-5.1); Sodium 137 mMol/L (136-145); eGFR > 60 See Note
[2024-10-24 07:32] VITALS: BP 120/80; PULSE 92; RESP 18; TEMP 36.3; O2SAT 97
--- NOTE | 2024-10-24 09:44 | PC.SS ---
Follow up note 10-23-24: Pt is rule out TB quarantine room. SS spok to patient by phone regarding his d/c plan. Pt is alert/oriented. Pt was admitted for TB R/O. Pt confirmed demographic and contact information is correct on facesheet. [place] [address] Pt resides with and family (3 dtrs and son). Pt ambulates independently without assistance or DME. Pt is ok with all ADLs. Patient?s pharmacy of choice is. Pt named his , Shelia Craven medical decision maker if he is unable. Patient?s choice is to return home upon d/c. Pt states not diabetic and is not on dialysis. Pt states he followed up with PCP last week. D/C plan: Return home Next of Kin: Shelia Craven, , phone# [phone] PCP: Dr. Keon Hodgson from [facility] Address: Correct on facesheet
[2024-10-24] MEDS: ISONIAZID 300 MG TABLET PO (09:50)
[2024-10-24] MEDS: DOCUSATE SOD 100 MG CAPSULE PO (09:50)
[2024-10-24] MEDS: ETHAMBUTOL HCL 400 MG TABLET 1200 MG PO (09:50)
[2024-10-24] MEDS: rifAMPin 300 MG CAPSULE 600 MG PO (09:50)
[2024-10-24 10:30] LABS: Quantiferon-TB* See Sep Rpt
[2024-10-24 12:00] VITALS: BP 124/78; PULSE 89; RESP 18; TEMP 36.3; O2SAT 97
--- NOTE | 2024-10-24 12:14 | PD.RESPRO ---
Documentation for date of: 10/24/24 Senior resident attestation: Patient is a 53-year-old male, recent immigrant from [place], who reported no significant past medical history but presented with symptoms of persistent cough, weight loss, and history of night sweats. Patient had taken antibiotics a few weeks ago with minimal improvement, but presented to the ER again due to persistent complaint of productive cough. CT in the emergency room showed cavitary miliary parenchymal disease, severe at the right apex, cavitary lesion 5.6 x 5.2 cm. Patient was admitted to the medical floor for workup of tuberculosis and placed in isolation room. #Tuberculosis rule out?sputum AFBs, QuantiFERON, PPD ordered. Patient started on RI PE therapy due to concern for active tuberculosis, and infectious especially Dr Peraza is consulted. Will follow AFB and NAAT results Patient evaluated and examined at the bedside, plan of care discussed with rest of the team including my attending physician, except as noted. Quresh PGY2 Subjective Subjective Interval history: Patient seen today at the bedside fine awake, alert, oriented x 3. No overnight events reported. States no active complaints. Vital signs stable at this time. Labs unremarkable at this time. AFBs were sent to the [facility] , pending results will continue on isolation at this time and continue current RIPE therapy for TB. ID was consulted appreciate recommendations. Exam Vital Signs Temp Pulse Resp BP Pulse Ox O2 Del Method 97.3 F 92 18 120/80 97 Room Air 10/24/24 07:32 10/24/24 07:32 10/24/24 07:32 10/24/24 07:32 10/24/24 07:32 10/24/24 07:32 Narrative Exam Physical Exam GENERAL: NAD, AAOx3 HEENT: Moist mucosa. Eyes open, symmetrical, & clear CARDIO: Heart RRR, no obvious murmurs PULM: No noted coughing/dyspnea CTA B/L, no R/W/R GI: Abdomen soft, nondistended, no pain on palpation. BSx4 SKIN/MSK/EXT: No wounds/rashes/edema/amputations, no pain on palpation. Pedal pulses present B/L NEURO: AAOx3, no focal neuro deficits, able to move all 4 extremities Objective Labs 10/25/24 04:47 10/25/24 04:47 Labs: Laboratory Results - last 24 hr 10/21/24 10/23/24 10/23/24 14:22 11:18 11:18 WBC RBC Hgb Hct MCV MCH MCHC RDW Std Deviation Plt Count Neut % (Auto) Lymph % (Auto) [place] % (Auto) Eos % (Auto) Baso % (Auto) Neut # (Auto) Lymph # (Auto) [place] # (Auto) Eos # (Auto) Baso # (Auto) Immature Gran # (Auto) Absolute Nucleated RBC Immature Gran % Nucleated RBC % Sodium Potassium Chloride Carbon Dioxide Anion Gap BUN Creatinine Estim Creat Clear Calc eGFR BUN/Creatinine Ratio Glucose Calculated Osmolality Calcium Corrected Calcium Total Bilirubin AST ALT Alkaline Phosphatase Total Protein Albumin Globulin Albumin/Globulin Ratio Coccidioides IgG Ab Negative Hepatitis A IgM Ab Non Reactive Hep Bs Antigen Non Reactive Hep B Core IgM Ab Non Reactive Hepatitis C Antibody Non Reactive Non Reactive HIV 1&2 Antibody Rapid Non-Reactive 10/24/24 05:05 WBC 5.1 RBC 5.04 Hgb 14.8 Hct 42.5 MCV 84 MCH 29.4 MCHC 34.8 RDW Std Deviation 38.1 Plt Count 304 D Neut % (Auto) 56 Lymph % (Auto) 28 [place] % (Auto) 10 Eos % (Auto) 6 Baso % (Auto) 1 Neut # (Auto) 2.9 Lymph # (Auto) 1.4 [place] # (Auto) 0.5 Eos # (Auto) 0.3 Baso # (Auto) 0.0 Immature Gran # (Auto) 0.02 H Absolute Nucleated RBC 0.00 Immature Gran % 0 Nucleated RBC % 0 Sodium 137 Potassium 3.8 Chloride 101 Carbon Dioxide 29.3 Anion Gap 7 BUN 14 Creatinine 0.9 Estim Creat Clear Calc 88.6 eGFR > 60 BUN/Creatinine Ratio 16 Glucose 82 Calculated Osmolality 273 L Calcium 9.3 Corrected Calcium 9.3 Total Bilirubin 0.6 AST 15 ALT 11 Alkaline Phosphatase 94 Total Protein 8.0 Albumin 4.4 Globulin 3.6 H Albumin/Globulin Ratio 1.2 [place]occid[place]ides IgG Ab Hepatitis A IgM Ab Hep Bs Antigen Hep B Core IgM Ab Hepatitis C Antibody HIV 1&2 Antibody Rapid Quality Measures Quality Measures none Assessment & Plan Assessment Current Active Medications: Generic Name Dose Route Start Last Admin Trade Name Freq PRN Reason Stop Dose Admin Acetaminophen 650 mg 10/21/24 16:00 Acetaminophen 325 Mg Tablet PO 11/20/24 15:59 Q6H PRN Fever >100.5 Acetaminophen 650 mg 10/21/24 16:00 10/22/24 21:30 Acetaminophen 325 Mg Tablet PO 11/20/24 15:59 650 mg Q6H PRN Administration PAIN SCALE 1-3 (mild Docusate Sodium 100 mg 10/22/24 09:00 10/24/24 09:50 Docusate Sod 100 Mg Capsule PO 11/21/24 08:59 100 mg QDAY TORREY Administration Protocol Ethambutol HCl 1,200 mg 10/22/24 10:15 10/24/24 09:50 Ethambutol Hcl 400 Mg Tablet PO 11/21/24 10:14 1,200 mg QDAY TORREY Administration Isoniazid 300 mg 10/22/24 10:15 10/24/24 09:50 Isoniazid 300 Mg Tablet PO 11/21/24 10:14 300 mg QDAY TORREY Administration Ondansetron HCl 4 mg 10/21/24 16:00 Ondansetron Inj 2 Mg/Ml Inj 2 Ml IV 11/20/24 15:59 Q6H PRN NAUSEA OR VOMITING Protocol Pyrazinamide 500 mg 10/22/24 14:00 10/24/24 05:19 Pyrazinamide 500 Mg Tablet PO 11/21/24 13:59 500 mg TID TORREY Administration Rifampin 600 mg 10/22/24 10:15 10/24/24 09:50 Rifampin 300 Mg Capsule PO 11/21/24 10:14 600 mg QDAY TORREY Administration Plan 53-year-old male with no past medical history presented to the ED due to cough, recent unintentional weight loss and tarry lesion found on chest x-ray. Admitted for TB workup. 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 Patient denies any night sweats, hemoptysis at this time, however he does state having night sweats in the past few months. Chest x-ray shows extensive bilateral infiltrate, which appears cavitary in the upper lung zones Chest CT shows Extensive cavitary miliary parenchymal disease throughout the lungs, most severe at the right apex, including septated right upper lobe cavitary lesion 5.6 x 5.2cm Blood culture-negative 48 hours Influenza negative, COVID-negative Sputum cultures negative - AFBs ordered - f/u quantiferon - isolation precautions - Tuberculin skin test -Follow-up HIV -Follow-up Aspergillus ?Started the patient on RIPE therapy -ID consulted, appreciate recommendation Case discussed with my senior Dr. Rich PGY-[address] Aristeo Triana MD PGY-1 Disposition: Medsurg on isolation for TB work up Fluids: None Feeding: regular Thrombo prophylaxis: SCDs Gastric Ulcer prophylaxis: not indicated CODE STATUS: Full code Attending Provider Attestation/Addendum IChelsy, , attest that I was physically present for the rojas portions of the service and evaluated the patient with the resident and I reviewed and discussed the case with the resident and agree with the resident's findings and plans of care as documented above Patient seen and evaluated this AM. He has no acute complaints. Pending AFB.
--- NOTE | 2024-10-24 14:27 | PC.PT ---
This PT opened the EMR, because patient's name is on PT schedule board and states PT eval done on 10/21, but upon chart review, Patient didnt have PT eval done nor did have PT eval ordered.
[2024-10-24 16:00] VITALS: BP 114/82; PULSE 80; RESP 18; TEMP 36.3; O2SAT 97
[2024-10-24 16:08] VITALS: BMI 21.2
[2024-10-24 20:00] VITALS: BP 122/80; PULSE 79; RESP 17; TEMP 36.9; O2SAT 97
[2024-10-25] VITALS: BP 110/80; PULSE 77; RESP 16; TEMP 36.7; O2SAT 98
[2024-10-25 04:00] VITALS: BP 119/84; PULSE 71; RESP 20; TEMP 37.2; O2SAT 98
[2024-10-25] MEDS: PYRAZINAMIDE 500 MG TABLET PO ×3 (05:06→21:46)
[2024-10-25 06:11] LABS: Basophils # (Auto) 0.1 Thou/mm3 (0.0-0.2); Basophils % (Auto) 1 % (0-2.5); Eosinophils # (Auto) 0.5 Thou/mm3 (0.0-0.5); Eosinophils % (Auto) 10 % (0-10); Hematocrit 41.2 % (41.0-53.0); Immature Granulocytes % (Auto) 1 % (0-0); Immature Granulocytes Auto 0.04 Thou/mm3 (0.00-0.00); Lymphocytes # (Auto) 1.2 Thou/mm3 (1.0-4.8); Lymphocytes % (Auto) 22 % (10-50); Mean Corpuscular Volume 85 fL (80-100); Monocytes # (Auto) 0.5 Thou/mm3 (0.0-0.8); Monocytes % (Auto) 10 % (0-12); Neutrophils # (Auto) 2.9 Thou/mm3 (1.8-7.7); Neutrophils % (Auto) 56 % (37-80); Nucleated Red Blood Cell % 0 /100 WBC (0); Platelet Count 308 Thou/mm3 (140-440); Red Blood Count 4.83 Miln/mm3 (4.50-5.90); White Blood Count 5.2 Thou/mm3 (3.8-10.6)
[2024-10-25 06:49] LABS: Alanine Aminotransferase < 7 U/L (10-49); Albumin, Serum 4.2 gm/dL (3.5-5.0); Albumin/Globulin Ratio 1.2 (1.2-2.2); Alkaline Phosphatase 100 U/L (46-116); Anion Gap 7 (7-16); Aspartate Amino Transferase 13 U/L (0-34); BUN/Creatinine Ratio 22 Ratio (12-20); Bilirubin,Total 0.4 mg/dL (0.3-1.2); Blood Urea Nitrogen 20 mg/dL (9-23); Calcium 9.3 mg/dL (8.3-10.6); Calcium (Corrected) 9.3 mg/dL (8.5-10.1); Carbon Dioxide 28.1 mMol/L (20.0-31.0); Chloride 101 mMol/L (98-107); Creatinine (Component) 0.9 mg/dL (0.6-1.3); Estimated Creatinine Clearance 86.6 mL/min (>60); Globulin 3.6 gm/dL (2.3-3.5); Glucose 88 mg/dL (74-106); Osmolality,Calculated 273 (275-295); Potassium 3.8 mMol/L (3.4-5.1); Sodium 136 mMol/L (136-145); Total Protein 7.8 gm/dL (5.7-8.2); eGFR > 60 See Note
[2024-10-25 08:00] VITALS: BP 110/73; PULSE 80; RESP 18; TEMP 36.7; O2SAT 97
--- NOTE | 2024-10-25 09:20 | PC.SS ---
Follow up note: If AFBs return and are negative pt will dc home today.
[2024-10-25] MEDS: ISONIAZID 300 MG TABLET PO (09:49)
[2024-10-25] MEDS: rifAMPin 300 MG CAPSULE 600 MG PO (09:49)
[2024-10-25] MEDS: DOCUSATE SOD 100 MG CAPSULE PO (09:49)
[2024-10-25] MEDS: ETHAMBUTOL HCL 400 MG TABLET 1200 MG PO (10:37)
[2024-10-25 11:57] VITALS: BP 104/71; PULSE 79; RESP 18; TEMP 36.7; O2SAT 95
--- NOTE | 2024-10-25 13:21 | PD.RESPRO ---
Documentation for date of: 10/25/24 Senior resident attestation: Patient is a 53-year-old male, recent immigrant from [place], who reported no significant past medical history but presented with symptoms of persistent cough, weight loss, and history of night sweats. Patient had taken antibiotics a few weeks ago with minimal improvement, but presented to the ER again due to persistent complaint of productive cough. CT in the emergency room showed cavitary miliary parenchymal disease, severe at the right apex, cavitary lesion 5.6 x 5.2 cm. Patient was admitted to the medical floor for workup of tuberculosis and placed in isolation room. #Tuberculosis rule out?sputum AFBs, QuantiFERON, PPD ordered. Patient started on RI PE therapy due to concern for active tuberculosis, and infectious especially Dr Peraza is consulted. Will follow AFB and NAAT results Patient evaluated and examined at the bedside, plan of care discussed with rest of the team including my attending physician, except as noted. Quresh PGY2 Subjective Subjective Interval history: Patient seen today at the bedside fine awake, alert, oriented x 3. No overnight events reported. States no active complaints. Vital signs stable at this time. Labs unremarkable at this time. AFBs were sent to the [facility] , pending results will continue on isolation at this time and continue current RIPE therapy for TB. ID was consulted appreciate recommendations. Exam Vital Signs Temp Pulse Resp BP Pulse Ox O2 Del Method 98.1 F 79 18 104/71 95 Room Air 10/25/24 11:57 10/25/24 11:57 10/25/24 11:57 10/25/24 11:57 10/25/24 11:57 10/25/24 11:57 Narrative Exam Physical Exam GENERAL: NAD, AAOx3 HEENT: Moist mucosa. Eyes open, symmetrical, & clear CARDIO: Heart RRR, no obvious murmurs PULM: No noted coughing/dyspnea CTA B/L, no R/W/R GI: Abdomen soft, nondistended, no pain on palpation. BSx4 SKIN/MSK/EXT: No wounds/rashes/edema/amputations, no pain on palpation. Pedal pulses present B/L NEURO: AAOx3, no focal neuro deficits, able to move all 4 extremities Objective Labs 10/26/24 05:45 10/26/24 05:45 Labs: Laboratory Results - last 24 hr 10/25/24 04:47 WBC 5.2 RBC 4.83 Hgb 14.0 Hct 41.2 MCV 85 MCH 29.0 MCHC 34.0 RDW Std Deviation 38.0 Plt Count 308 Neut % (Auto) 56 Lymph % (Auto) 22 [place] % (Auto) 10 Eos % (Auto) 10 Baso % (Auto) 1 Neut # (Auto) 2.9 Lymph # (Auto) 1.2 [place] # (Auto) 0.5 Eos # (Auto) 0.5 Baso # (Auto) 0.1 Immature Gran # (Auto) 0.04 H Absolute Nucleated RBC 0.00 Immature Gran % 1 H Nucleated RBC % 0 Sodium 136 Potassium 3.8 Chloride 101 Carbon Dioxide 28.1 Anion Gap 7 BUN 20 Creatinine 0.9 Estim Creat Clear Calc 86.6 eGFR > 60 BUN/Creatinine Ratio 22 H Glucose 88 Calculated Osmolality 273 L Calcium 9.3 Corrected Calcium 9.3 Total Bilirubin 0.4 AST 13 ALT < 7 L Alkaline Phosphatase 100 Total Protein 7.8 Albumin 4.2 Globulin 3.6 H Albumin/Globulin Ratio 1.2 Quality Measures Quality Measures none Assessment & Plan Assessment Current Active Medications: Generic Name Dose Route Start Last Admin Trade Name Freq PRN Reason Stop Dose Admin Acetaminophen 650 mg 10/21/24 16:00 Acetaminophen 325 Mg Tablet PO 11/20/24 15:59 Q6H PRN Fever >100.5 Acetaminophen 650 mg 10/21/24 16:00 10/22/24 21:30 Acetaminophen 325 Mg Tablet PO 11/20/24 15:59 650 mg Q6H PRN Administration PAIN SCALE 1-3 (mild Docusate Sodium 100 mg 10/22/24 09:00 10/25/24 09:49 Docusate Sod 100 Mg Capsule PO 11/21/24 08:59 100 mg QDAY TORREY Administration Protocol Ethambutol HCl 1,200 mg 10/22/24 10:15 10/25/24 10:37 Ethambutol Hcl 400 Mg Tablet PO 11/21/24 10:14 1,200 mg QDAY TORREY Administration Isoniazid 300 mg 10/22/24 10:15 10/25/24 09:49 Isoniazid 300 Mg Tablet PO 11/21/24 10:14 300 mg QDAY TORREY Administration Ondansetron HCl 4 mg 10/21/24 16:00 Ondansetron Inj 2 Mg/Ml Inj 2 Ml IV 11/20/24 15:59 Q6H PRN NAUSEA OR VOMITING Protocol Pyrazinamide 500 mg 10/22/24 14:00 10/25/24 05:06 Pyrazinamide 500 Mg Tablet PO 11/21/24 13:59 500 mg TID TORREY Administration Rifampin 600 mg 10/22/24 10:15 10/25/24 09:49 Rifampin 300 Mg Capsule PO 11/21/24 10:14 600 mg QDAY TORREY Administration Plan 53-year-old male with no past medical history presented to the ED due to cough, recent unintentional weight loss and tarry lesion found on chest x-ray. Admitted for TB workup. 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 Patient denies any night sweats, hemoptysis at this time, however he does state having night sweats in the past few months. Chest x-ray shows extensive bilateral infiltrate, which appears cavitary in the upper lung zones Chest CT shows Extensive cavitary miliary parenchymal disease throughout the lungs, most severe at the right apex, including septated right upper lobe cavitary lesion 5.6 x 5.2cm Blood culture-negative 48 hours Influenza negative, COVID-negative Sputum cultures negative - AFBs ordered - f/u quantiferon - isolation precautions -Tuberculin skin test -Follow-up HIV -Follow-up Aspergillus -Started the patient on RIPE therapy -ID consulted, appreciate recommendation Case discussed with my senior Dr. Rich PGY-[address] Aristeo Triana MD PGY-1 Disposition: Medsurg on isolation for TB work up Fluids: None Feeding: regular Thrombo prophylaxis: SCDs Gastric Ulcer prophylaxis: not indicated CODE STATUS: Full code Attending Provider Attestation/Addendum Chelsy Ramirez DO, attest that I was physically present for the rojas portions of the service and evaluated the patient with the resident and I reviewed and discussed the case with the resident and agree with the resident's findings and plans of care as documented above Patient seen and evaluated this AM. Patient has no active complaints. Resting in bed comfortably. Tolerating RIPE therapy. AFBS pending
--- NOTE | 2024-10-25 14:07 | ESPR_ITS ---
Subjective Subjective Interval history: afb's pending. cocci neg.neg procal can be seen in viral processes as well as other no-bacterial processes Exam Vital Signs Temp Pulse Resp BP Pulse Ox O2 Del Method 98.1 F 79 18 104/71 95 Room Air 10/25/24 11:57 10/25/24 11:57 10/25/24 11:57 10/25/24 11:57 10/25/24 11:57 10/25/24 11:57 Narrative Exam afb's pending. cocci neg. exam limited Objective - Internal Medicine Labs 10/25/24 04:47 10/25/24 04:47 Labs: Laboratory Results - last 24 hr 10/25/24 04:47 WBC 5.2 RBC 4.83 Hgb 14.0 Hct 41.2 MCV 85 MCH 29.0 MCHC 34.0 RDW Std Deviation 38.0 Plt Count 308 Neut % (Auto) 56 Lymph % (Auto) 22 [place] % (Auto) 10 Eos % (Auto) 10 Baso % (Auto) 1 Neut # (Auto) 2.9 Lymph # (Auto) 1.2 [place] # (Auto) 0.5 Eos # (Auto) 0.5 Baso # (Auto) 0.1 Immature Gran # (Auto) 0.04 H Absolute Nucleated RBC 0.00 Immature Gran % 1 H Nucleated RBC % 0 Sodium 136 Potassium 3.8 Chloride 101 Carbon Dioxide 28.1 Anion Gap 7 BUN 20 Creatinine 0.9 Estim Creat Clear Calc 86.6 eGFR > 60 BUN/Creatinine Ratio 22 H Glucose 88 Calculated Osmolality 273 L Calcium 9.3 Corrected Calcium 9.3 Total Bilirubin 0.4 AST 13 ALT < 7 L Alkaline Phosphatase 100 Total Protein 7.8 Albumin 4.2 Globulin 3.6 H Albumin/Globulin Ratio 1.2 Assessment & Plan A&P Narrative apical pneumonia with neg cocci IgM and neg procal (insensitive to fungal and atypical antigens) if afb stains are neg. ok to treat, but should have bronch done (possibly as outpt) if neg as CA also a considerationat his age will review again wednesday if still here. Time Spent With Patient Time: Total time spent is greater than 50% in coordination of care (as documented) at patient's floor/unit and/or counseling patient:
[2024-10-25 16:00] VITALS: BP 110/75; PULSE 71; RESP 18; TEMP 36.3; O2SAT 97
[2024-10-25 20:00] VITALS: BP 113/82; PULSE 70; RESP 18; TEMP 36.9; O2SAT 96
[2024-10-26] VITALS: BP 113/82; PULSE 74; RESP 18; TEMP 36.6; O2SAT 97
[2024-10-26 04:00] VITALS: BP 112/79; PULSE 81; RESP 18; TEMP 36.4; O2SAT 96
[2024-10-26] MEDS: PYRAZINAMIDE 500 MG TABLET PO ×3 (05:14→21:56)
[2024-10-26 06:06] LABS: Basophils # (Auto) 0.1 Thou/mm3 (0.0-0.2); Basophils % (Auto) 1 % (0-2.5); Eosinophils # (Auto) 0.6 Thou/mm3 (0.0-0.5); Eosinophils % (Auto) 8 % (0-10); Hematocrit 43.1 % (41.0-53.0); Hemoglobin 14.9 g/dL (13.5-16.0); Immature Granulocytes % (Auto) 1 % (0-0); Immature Granulocytes Auto 0.03 Thou/mm3 (0.00-0.00); Lymphocytes # (Auto) 1.2 Thou/mm3 (1.0-4.8); Lymphocytes % (Auto) 18 % (10-50); Mean Corpuscular HGB Conc 34.6 g/dl (31.0-37.0); Mean Corpuscular Hemoglobin 29.4 pg (25.0-35.0); Mean Corpuscular Volume 85 fL (80-100); Monocytes # (Auto) 0.5 Thou/mm3 (0.0-0.8); Monocytes % (Auto) 7 % (0-12); Neutrophils # (Auto) 4.3 Thou/mm3 (1.8-7.7); Neutrophils % (Auto) 65 % (37-80); Nucleated Red Blood Cell % 0 /100 WBC (0); Platelet Count 327 Thou/mm3 (140-440); RDW Standard Deviation 38.5 fL (35.1-43.9); Red Blood Count 5.07 Miln/mm3 (4.50-5.90); White Blood Count 6.6 Thou/mm3 (3.8-10.6)
[2024-10-26 06:41] LABS: Alanine Aminotransferase < 7 U/L (10-49); Albumin, Serum 4.4 gm/dL (3.5-5.0); Albumin/Globulin Ratio 1.2 (1.2-2.2); Alkaline Phosphatase 96 U/L (46-116); Anion Gap 7 (7-16); Aspartate Amino Transferase 14 U/L (0-34); BUN/Creatinine Ratio 15 Ratio (12-20); Bilirubin,Total 0.4 mg/dL (0.3-1.2); Blood Urea Nitrogen 12 mg/dL (9-23); Calcium 9.6 mg/dL (8.3-10.6); Calcium (Corrected) 9.6 mg/dL (8.5-10.1); Carbon Dioxide 28.9 mMol/L (20.0-31.0); Chloride 101 mMol/L (98-107); Creatinine (Component) 0.8 mg/dL (0.6-1.3); Estimated Creatinine Clearance 97.4 mL/min (>60); Globulin 3.7 gm/dL (2.3-3.5); Glucose 88 mg/dL (74-106); Osmolality,Calculated 272 (275-295); Potassium 3.8 mMol/L (3.4-5.1); Sodium 137 mMol/L (136-145); Total Protein 8.1 gm/dL (5.7-8.2); eGFR > 60 See Note
[2024-10-26 07:57] VITALS: BP 123/71; PULSE 80; RESP 17; TEMP 36.6; O2SAT 98
--- NOTE | 2024-10-26 08:42 | PC.IP ---
Pt.'s QFT and AFB sputum are postive for TB. Per Tyson DEL ROSARIO request, pt.'s EMR fax to [facility], pt. to receive 1 week of TB treatment regimen as an inpatient; after the 1 wk of treatment, collect 3 AFB sputum. [facility] will follow up with pt.'s immediate family. Dr. Harris aware of [facility]'s treatment plan and request.
[2024-10-26] MEDS: DOCUSATE SOD 100 MG CAPSULE PO (09:39)
[2024-10-26] MEDS: ETHAMBUTOL HCL 400 MG TABLET 1200 MG PO (09:40)
[2024-10-26] MEDS: ISONIAZID 300 MG TABLET PO (09:40)
[2024-10-26] MEDS: rifAMPin 300 MG CAPSULE 600 MG PO (09:44)
[2024-10-26 12:00] VITALS: BP 113/77; PULSE 80; RESP 17; TEMP 36.6; O2SAT 98
--- NOTE | 2024-10-26 12:23 | PD.RESPRO ---
Documentation for date of: 10/26/24 Senior resident attestation: Patient is a 53-year-old male, recent immigrant from [place], who reported no significant past medical history but presented with symptoms of persistent cough, weight loss, and history of night sweats. Patient had taken antibiotics a few weeks ago with minimal improvement, but presented to the ER again due to persistent complaint of productive cough. CT in the emergency room showed cavitary miliary parenchymal disease, severe at the right apex, cavitary lesion 5.6 x 5.2 cm. Patient was admitted to the medical floor for workup of tuberculosis and placed in isolation room. #Tuberculosis rule out?sputum AFBs, QuantiFERON, PPD ordered. Patient started on RI PE therapy due to concern for active tuberculosis, and infectious especially Dr Peraza is consulted. Will follow AFB and NAAT results Patient evaluated and examined at the bedside, plan of care discussed with rest of the team including my attending physician, except as noted. Quresh PGY2 Subjective Subjective Interval history: Patient seen today at the bedside fine awake, alert, oriented x 3. No overnight events reported. States no active complaints at this time. Vital signs stable at this time. Labs have been unremarkable for the past few days will switch lab draws to q. other day. AFBs came back positive for tuberculosis patient already on RI PE therapy, plan is to continue 7 days of treatment and then we will repeat AFBs as per infection control recommendations. Exam Vital Signs Temp Pulse Resp BP Pulse Ox O2 Del Method 97.9 F 80 17 113/77 98 Room Air 10/26/24 12:00 10/26/24 12:00 10/26/24 12:10/26/24 12:10/26/24 12:10/26/24 12:00 Narrative Exam Physical Exam GENERAL: NAD, AAOx3 HEENT: Moist mucosa. Eyes open, symmetrical, & clear CARDIO: Heart RRR, no obvious murmurs PULM: No noted coughing/dyspnea CTA B/L, no R/W/R GI: Abdomen soft, nondistended, no pain on palpation. BSx4 SKIN/MSK/EXT: No wounds/rashes/edema/amputations, no pain on palpation. Pedal pulses present B/L NEURO: AAOx3, no focal neuro deficits, able to move all 4 extremities Objective Labs 10/26/24 05:45 10/26/24 05:45 Labs: Laboratory Results - last 24 hr 10/21/24 10/22/24 10/23/24 17:40 11:10 11:00 WBC RBC Hgb Hct MCV MCH MCHC RDW Std Deviation Plt Count Neut % (Auto) Lymph % (Auto) [place] % (Auto) Eos % (Auto) Baso % (Auto) Neut # (Auto) Lymph # (Auto) [place] # (Auto) Eos # (Auto) Baso # (Auto) Immature Gran # (Auto) Absolute Nucleated RBC Immature Gran % Nucleated RBC % Sodium Potassium Chloride Carbon Dioxide Anion Gap BUN Creatinine Estim Creat Clear Calc eGFR BUN/Creatinine Ratio Glucose Calculated Osmolality Calcium Corrected Calcium Total Bilirubin AST ALT Alkaline Phosphatase Total Protein Albumin Globulin Albumin/Globulin Ratio Mycobacterial Culture See Sep Rpt See Sep Rpt See Sep Rpt TB Test (QFT) 10/24/24 10/26/24 10:01 05:45 WBC 6.6 RBC 5.07 Hgb 14.9 Hct 43.1 MCV 85 MCH 29.4 MCHC 34.6 RDW Std Deviation 38.5 Plt Count 327 Neut % (Auto) 65 Lymph % (Auto) 18 [place] % (Auto) 7 Eos % (Auto) 8 Baso % (Auto) 1 Neut # (Auto) 4.3 Lymph # (Auto) 1.2 [place] # (Auto) 0.5 Eos # (Auto) 0.6 H Baso # (Auto) 0.1 Immature Gran # (Auto) 0.03 H Absolute Nucleated RBC 0.00 Immature Gran % 1 H Nucleated RBC % 0 Sodium 137 Potassium 3.8 Chloride 101 Carbon Dioxide 28.9 Anion Gap 7 BUN 12 Creatinine 0.8 Estim Creat Clear Calc 97.4 eGFR > 60 BUN/Creatinine Ratio 15 Glucose 88 Calculated Osmolality 272 L Calcium 9.6 Corrected Calcium 9.6 Total Bilirubin 0.4 AST 14 ALT < 7 L Alkaline Phosphatase 96 Total Protein 8.1 Albumin 4.4 Globulin 3.7 H Albumin/Globulin Ratio 1.2 Mycobacterial Culture TB Test (QFT) See Sep Rpt Quality Measures Quality Measures none Assessment & Plan Assessment Current Active Medications: Generic Name Dose Route Start Last Admin Trade Name Freq PRN Reason Stop Dose Admin Acetaminophen 650 mg 10/21/24 16:00 Acetaminophen 325 Mg Tablet PO 11/20/24 15:59 Q6H PRN Fever >100.5 Acetaminophen 650 mg 10/21/24 16:00 10/22/24 21:30 Acetaminophen 325 Mg Tablet PO 11/20/24 15:59 650 mg Q6H PRN Administration PAIN SCALE 1-3 (mild Docusate Sodium 100 mg 10/22/24 09:00 10/26/24 09:39 Docusate Sod 100 Mg Capsule PO 11/21/24 08:59 100 mg QDAY TORREY Administration Protocol Ethambutol HCl 1,200 mg 10/22/24 10:15 10/26/24 09:40 Ethambutol Hcl 400 Mg Tablet PO 11/21/24 10:14 1,200 mg QDAY TORREY Administration Isoniazid 300 mg 10/22/24 10:15 10/26/24 09:40 Isoniazid 300 Mg Tablet PO 11/21/24 10:14 300 mg QDAY TORREY Administration Ondansetron HCl 4 mg 10/21/24 16:00 Ondansetron Inj 2 Mg/Ml Inj 2 Ml IV 11/20/24 15:59 Q6H PRN NAUSEA OR VOMITING Protocol Pyrazinamide 500 mg 10/22/24 14:00 10/26/24 05:14 Pyrazinamide 500 Mg Tablet PO 11/21/24 13:59 500 mg TID TORREY Administration Rifampin 600 mg 10/22/24 10:15 10/26/24 09:44 Rifampin 300 Mg Capsule PO 11/21/24 10:14 600 mg QDAY TORREY Administration Plan 53-year-old male with no past medical history presented to the ED due to cough, recent unintentional weight loss and tarry lesion found on chest x-ray. Admitted for TB workup. 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 Patient denies any night sweats, hemoptysis at this time, however he does state having night sweats in the past few months. Chest x-ray shows extensive bilateral infiltrate, which appears cavitary in the upper lung zones Chest CT shows Extensive cavitary miliary parenchymal disease throughout the lungs, most severe at the right apex, including septated right upper lobe cavitary lesion 5.6 x 5.2cm Blood culture-negative 48 hours Influenza negative, COVID-negative Sputum cultures negative AFBs came back positive for tuberculosis, plan is to continue 7 days of treatment and repeat AFBs -Will repeat AFBs on 10/29/2024 -f/u quantiferon -isolation precautions -Follow-up HIV -Follow-up Aspergillus -on RIPE therapy -ID consulted, appreciate recommendation Case discussed with my senior Dr. Rich PGY-[address] Aristeo Triana MD PGY-1 Disposition: Medsurg on isolation for TB work up Fluids: None Feeding: regular Thrombo prophylaxis: SCDs Gastric Ulcer prophylaxis: not indicated CODE STATUS: Full code Attending Provider Attestation/Addendum Chelsy Ramirez DO, attest that I was physically present for the rojas portions of the service and evaluated the patient with the resident and I reviewed and discussed the case with the resident and agree with the resident's findings and plans of care as documented above Patient seen and evaluated this AM. AFBs are positive x2. Per infection control, patient will need to retest after receiving 1 week of RIPE therapy. Will repeat AFBs starting 10/29. Will f/u with ID recommendations. patient is otherwise feeling well and denies any active complaints at this time.
[2024-10-26 15:33] LABS: Index Value <0.50
[2024-10-26 16:00] VITALS: BP 116/78; PULSE 78; RESP 16; TEMP 36.6; O2SAT 99
[2024-10-26 20:00] VITALS: BP 119/86; PULSE 76; RESP 20; TEMP 37; O2SAT 96
[2024-10-27] VITALS: BP 125/69; PULSE 64; RESP 20; TEMP 36.9; O2SAT 95
[2024-10-27 04:00] VITALS: BP 126/87; PULSE 85; RESP 20; TEMP 37; O2SAT 94
[2024-10-27] MEDS: PYRAZINAMIDE 500 MG TABLET PO ×3 (05:25→21:42)
[2024-10-27 06:59] LABS: Aspergillus Ag, Ser* NOT DETECTED; HIV Ag/Ab, 4th Gen NON-REACTIVE
[2024-10-27 08:00] VITALS: BP 123/82; PULSE 70; RESP 18; TEMP 36.4; O2SAT 97
[2024-10-27] MEDS: DOCUSATE SOD 100 MG CAPSULE PO (08:25)
[2024-10-27] MEDS: rifAMPin 300 MG CAPSULE 600 MG PO (08:25)
[2024-10-27] MEDS: ISONIAZID 300 MG TABLET PO (08:25)
[2024-10-27] MEDS: ETHAMBUTOL HCL 400 MG TABLET 1200 MG PO (08:25)
--- NOTE | 2024-10-27 08:57 | PC.SS ---
Follow up note: Pending AFBs on Wednesday. Pt will return home upon dc.
--- NOTE | 2024-10-27 09:20 | ESPR_ITS ---
Subjective Subjective Interval history: single pos afb noted. 3 ordered. Exam Vital Signs Temp Pulse Resp BP Pulse Ox O2 Del Method 97.5 F 70 18 123/82 97 Room Air 10/27/24 08:00 10/27/24 08:00 10/27/24 08:00 10/27/24 08:00 10/27/24 08:00 10/27/24 08:00 Narrative Exam benign exam. wearing mask as precaution but having us wear masks is more important. Objective - Internal Medicine Labs 10/26/24 05:45 10/26/24 05:45 Labs: Laboratory Results - last 24 hr 10/23/24 11:18 HIV 1&2 Ag/Ab, 4th Gen NON-REACTIVE Aspergillus Ag (EIA) NOT DETECTED Aspergillus Index Value <0.50 Assessment & Plan A&P Narrative apical pneumonia with neg cocci IgM and neg procal (insensitive to fungal and atypical antigens) and pos afb smear x 1 so far (I assume the others are pending) with single pos afb, rx to be long. 6-12 mo. recommend more afb smears next weekend as it usually takes 2 weeks to become non contagious. health dept may determine the isolation status and their criteria for release if he lives with young children (pre school age or less) then they should be tested for tb. (I think he does). will check in again on wednesday. hiv and hep c neg. citizen of [place] speaking resident interacted with family to answer all questions. Time Spent With Patient Time: Total time spent is greater than 50% in coordination of care (as documented) at patient's floor/unit and/or counseling patient:
--- NOTE | 2024-10-27 10:05 | PC.NURSE ---
Patients and daughter came to visit patient. Doctors educated and daughter about TB. We notified family the county will reach out to the for proper testing of all family members. All questions answered. Will continue to monitor patient
[2024-10-27 12:00] VITALS: BP 125/80; PULSE 68; RESP 18; TEMP 36.6; O2SAT 98
--- NOTE | 2024-10-27 14:07 | PD.RESPRO ---
Documentation for date of: 10/27/24 Senior resident attestation: Patient is a 53-year-old male, recent immigrant from [place], who reported no significant past medical history but presented with symptoms of persistent cough, weight loss, and history of night sweats. Patient had taken antibiotics a few weeks ago with minimal improvement, but presented to the ER again due to persistent complaint of productive cough. CT in the emergency room showed cavitary miliary parenchymal disease, severe at the right apex, cavitary lesion 5.6 x 5.2 cm. Patient was admitted to the medical floor for workup of tuberculosis and placed in isolation room. #Active Tuberculosis ?sputum AFBs, QuantiFERON, PPD ordered. Patient started on RI PE therapy due to concern for active tuberculosis, and infectious especially Dr Peraza is consulted. AFB smear positive and NAAT results show no rifampin resistance, per infection control will need repeat AFB on wednesday and will require hospital stay until AFB clears, also possible early discharge if at home isolation is possible, if cleared by infectious, case management made aware for need of family members testing for TB. Patient evaluated and examined at the bedside, plan of care discussed with rest of the team including my attending physician, except as noted. Quresh PGY2 Subjective Subjective Interval history: Patient seen today at the bedside fine awake, alert, oriented x 3. No overnight events reported. States no active complaints at this time. Vital signs stable at this time. Explained to the patient extensively and spoke to the family patient will require prolonged hospital stay due to tuberculosis treatment regimen. Will require follow-up AFBs to be negative. Exam Vital Signs Temp Pulse Resp BP Pulse Ox O2 Del Method 97.8 F 68 18 125/80 98 Room Air 10/27/24 12:00 10/27/24 12:00 10/27/24 12:00 10/27/24 12:10/27/24 12:10/27/24 12:00 Narrative Exam Physical Exam GENERAL: NAD, AAOx3 HEENT: Moist mucosa. Eyes open, symmetrical, & clear CARDIO: Heart RRR, no obvious murmurs PULM: No noted coughing/dyspnea CTA B/L, no R/W/R GI: Abdomen soft, nondistended, no pain on palpation. BSx4 SKIN/MSK/EXT: No wounds/rashes/edema/amputations, no pain on palpation. Pedal pulses present B/L NEURO: AAOx3, no focal neuro deficits, able to move all 4 extremities Objective Labs 10/28/24 04:44 10/28/24 04:44 Labs: Laboratory Results - last 24 hr 10/23/24 11:18 HIV 1&2 Ag/Ab, 4th Gen NON-REACTIVE Aspergillus Ag (EIA) NOT DETECTED Aspergillus Index Value <0.50 Quality Measures Quality Measures none Assessment & Plan Assessment Current Active Medications: Generic Name Dose Route Start Last Admin Trade Name Freq PRN Reason Stop Dose Admin Acetaminophen 650 mg 10/21/24 16:00 Acetaminophen 325 Mg Tablet PO 11/20/24 15:59 Q6H PRN Fever >100.5 Acetaminophen 650 mg 10/21/24 16:00 10/22/24 21:30 Acetaminophen 325 Mg Tablet PO 11/20/24 15:59 650 mg Q6H PRN Administration PAIN SCALE 1-3 (mild Docusate Sodium 100 mg 10/22/24 09:00 10/27/24 08:25 Docusate Sod 100 Mg Capsule PO 11/21/24 08:59 100 mg QDAY TORREY Administration Protocol Ethambutol HCl 1,200 mg 10/22/24 10:15 10/27/24 08:25 Ethambutol Hcl 400 Mg Tablet PO 11/21/24 10:14 1,200 mg QDAY TORREY Administration Isoniazid 300 mg 10/22/24 10:15 10/27/24 08:25 Isoniazid 300 Mg Tablet PO 11/21/24 10:14 300 mg QDAY TORREY Administration Ondansetron HCl 4 mg 10/21/24 16:00 Ondansetron Inj 2 Mg/Ml Inj 2 Ml IV 11/20/24 15:59 Q6H PRN NAUSEA OR VOMITING Protocol Pyrazinamide 500 mg 10/22/24 14:00 10/27/24 13:24 Pyrazinamide 500 Mg Tablet PO 11/21/24 13:59 500 mg TID TORREY Administration Rifampin 600 mg 10/22/24 10:15 10/27/24 08:25 Rifampin 300 Mg Capsule PO 11/21/24 10:14 600 mg QDAY TORREY Administration Plan 53-year-old male with no past medical history presented to the ED due to cough, recent unintentional weight loss and tarry lesion found on chest x-ray. Admitted for TB workup. 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 Patient denies any night sweats, hemoptysis at this time, however he does state having night sweats in the past few months. Chest x-ray shows extensive bilateral infiltrate, which appears cavitary in the upper lung zones Chest CT shows Extensive cavitary miliary parenchymal disease throughout the lungs, most severe at the right apex, including septated right upper lobe cavitary lesion 5.6 x 5.2cm Blood culture-negative 48 hours Influenza negative, COVID-negative, HIV negative, Aspergillus negative Sputum cultures negative AFBs came back positive for tuberculosis, plan is to continue 7 days of treatment and repeat AFBs -Will repeat AFBs on 10/29/2024 -f/u quantiferon -isolation precautions -on RIPE therapy -ID consulted, appreciate recommendation Case discussed with my senior Dr. Rich PGY-[address] Noel Triana MD PGY-1 Disposition: Medsurg on isolation for TB work up Fluids: None Feeding: regular Thrombo prophylaxis: SCDs Gastric Ulcer prophylaxis: not indicated CODE STATUS: Full code Attending Provider Attestation/Addendum 53-year-old male with no previous medical history who presented to the ER with cough, weight loss and night sweats. Underwent CT imaging with findings of right upper lobe cavitary lesion and subsequently found to have active TB on RIPE therapy.I reviewed above note and agree with findings and plans. I have also personally examined the patient with medicine team and went over assessment and plan with medical team including internet marketing intern and resident physician.
[2024-10-27 16:00] VITALS: BP 118/71; PULSE 72; RESP 18; TEMP 36.2; O2SAT 97
[2024-10-27 20:00] VITALS: BP 123/84; PULSE 86; RESP 17; TEMP 36.6; O2SAT 95
[2024-10-28] VITALS: BP 107/76; PULSE 74; RESP 17; TEMP 36.4; O2SAT 97
[2024-10-28 04:00] VITALS: BP 117/74; PULSE 70; RESP 19; TEMP 36.2; O2SAT 91
[2024-10-28 05:53] LABS: Basophils # (Auto) 0.1 Thou/mm3 (0.0-0.2); Basophils % (Auto) 1 % (0-2.5); Eosinophils # (Auto) 0.5 Thou/mm3 (0.0-0.5); Eosinophils % (Auto) 8 % (0-10); Hematocrit 43.4 % (41.0-53.0); Hemoglobin 14.7 g/dL (13.5-16.0); Immature Granulocytes % (Auto) 1 % (0-0); Immature Granulocytes Auto 0.04 Thou/mm3 (0.00-0.00); Lymphocytes # (Auto) 1.4 Thou/mm3 (1.0-4.8); Lymphocytes % (Auto) 22 % (10-50); Mean Corpuscular HGB Conc 33.9 g/dl (31.0-37.0); Mean Corpuscular Hemoglobin 29.1 pg (25.0-35.0); Mean Corpuscular Volume 86 fL (80-100); Monocytes # (Auto) 0.5 Thou/mm3 (0.0-0.8); Monocytes % (Auto) 8 % (0-12); Neutrophils # (Auto) 3.9 Thou/mm3 (1.8-7.7); Neutrophils % (Auto) 60 % (37-80); Nucleated Red Blood Cell % 0 /100 WBC (0); Platelet Count 341 Thou/mm3 (140-440); RDW Standard Deviation 38.7 fL (35.1-43.9); Red Blood Count 5.05 Miln/mm3 (4.50-5.90); White Blood Count 6.4 Thou/mm3 (3.8-10.6)
[2024-10-28] MEDS: PYRAZINAMIDE 500 MG TABLET PO ×3 (06:11→21:49)
[2024-10-28 06:41] LABS: Alanine Aminotransferase 9 U/L (10-49); Albumin, Serum 4.4 gm/dL (3.5-5.0); Albumin/Globulin Ratio 1.3 (1.2-2.2); Alkaline Phosphatase 104 U/L (46-116); Anion Gap 7 (7-16); Aspartate Amino Transferase 16 U/L (0-34); BUN/Creatinine Ratio 15 Ratio (12-20); Bilirubin,Total 0.3 mg/dL (0.3-1.2); Blood Urea Nitrogen 12 mg/dL (9-23); Calcium 9.2 mg/dL (8.3-10.6); Calcium (Corrected) 9.2 mg/dL (8.5-10.1); Carbon Dioxide 30.8 mMol/L (20.0-31.0); Chloride 101 mMol/L (98-107); Creatinine (Component) 0.8 mg/dL (0.6-1.3); Estimated Creatinine Clearance 97.4 mL/min (>60); Globulin 3.5 gm/dL (2.3-3.5); Glucose 87 mg/dL (74-106); Osmolality,Calculated 276 (275-295); Potassium 3.7 mMol/L (3.4-5.1); Sodium 139 mMol/L (136-145); Total Protein 7.9 gm/dL (5.7-8.2); eGFR > 60 See Note
[2024-10-28 08:00] VITALS: BP 108/75; PULSE 76; RESP 18; TEMP 36.8; O2SAT 96
[2024-10-28] MEDS: ETHAMBUTOL HCL 400 MG TABLET 1200 MG PO (09:24)
[2024-10-28] MEDS: rifAMPin 300 MG CAPSULE 600 MG PO (09:24)
[2024-10-28] MEDS: DOCUSATE SOD 100 MG CAPSULE PO (09:24)
[2024-10-28] MEDS: ISONIAZID 300 MG TABLET PO (09:24)
[2024-10-28 12:00] VITALS: BP 124/81; PULSE 74; RESP 16; TEMP 36.7; O2SAT 97
--- NOTE | 2024-10-28 13:44 | PD.RESPRO ---
Documentation for date of: 10/28/24 Subjective Subjective Interval history: Patient seen today at the bedside fine awake, alert, oriented x 3. No overnight events reported. States no active complaints at this time. Labs will be drawn every other day. AFBs were ordered for tomorrow Wednesday night to be sent on Wednesday morning. At this time we will continue RI PE therapy for Tb. Exam Vital Signs Temp Pulse Resp BP Pulse Ox O2 Del Method 98.1 F 74 16 124/81 97 Room Air 10/28/24 12:00 10/28/24 12:00 10/28/24 12:00 10/28/24 12:00 10/28/24 12:10/28/24 12:00 Narrative Exam Physical Exam GENERAL: NAD, AAOx3 HEENT: Moist mucosa. Eyes open, symmetrical, & clear CARDIO: Heart RRR, no obvious murmurs PULM: No noted coughing/dyspnea CTA B/L, no R/W/R GI: Abdomen soft, nondistended, no pain on palpation. BSx4 SKIN/MSK/EXT: No wounds/rashes/edema/amputations, no pain on palpation. Pedal pulses present B/L NEURO: AAOx3, no focal neuro deficits, able to move all 4 extremities Objective Labs 10/28/24 04:44 10/28/24 04:44 Labs: Laboratory Results - last 24 hr 10/28/24 04:44 WBC 6.4 RBC 5.05 Hgb 14.7 Hct 43.4 MCV 86 MCH 29.1 MCHC 33.9 RDW Std Deviation 38.7 Plt Count 341 Neut % (Auto) 60 Lymph % (Auto) 22 [place] % (Auto) 8 Eos % (Auto) 8 Baso % (Auto) 1 Neut # (Auto) 3.9 Lymph # (Auto) 1.4 [place] # (Auto) 0.5 Eos # (Auto) 0.5 Baso # (Auto) 0.1 Immature Gran # (Auto) 0.04 H Absolute Nucleated RBC 0.00 Immature Gran % 1 H Nucleated RBC % 0 Sodium 139 Potassium 3.7 Chloride 101 Carbon Dioxide 30.8 Anion Gap 7 BUN 12 Creatinine 0.8 Estim Creat Clear Calc 97.4 eGFR > 60 BUN/Creatinine Ratio 15 Glucose 87 Calculated Osmolality 276 Calcium 9.2 Corrected Calcium 9.2 Total Bilirubin 0.3 AST 16 ALT 9 L Alkaline Phosphatase 104 Total Protein 7.9 Albumin 4.4 Globulin 3.5 Albumin/Globulin Ratio 1.3 Quality Measures Quality Measures none Assessment & Plan Assessment Current Active Medications: Generic Name Dose Route Start Last Admin Trade Name Freq PRN Reason Stop Dose Admin Acetaminophen 650 mg 10/21/24 16:00 Acetaminophen 325 Mg Tablet PO 11/20/24 15:59 Q6H PRN Fever >100.5 Acetaminophen 650 mg 10/21/24 16:00 10/22/24 21:30 Acetaminophen 325 Mg Tablet PO 11/20/24 15:59 650 mg Q6H PRN Administration PAIN SCALE 1-3 (mild Docusate Sodium 100 mg 10/22/24 09:00 10/28/24 09:24 Docusate Sod 100 Mg Capsule PO 11/21/24 08:59 100 mg QDAY TORREY Administration Protocol Ethambutol HCl 1,200 mg 10/22/24 10:15 10/28/24 09:24 Ethambutol Hcl 400 Mg Tablet PO 11/21/24 10:14 1,200 mg QDAY TORREY Administration Isoniazid 300 mg 10/22/24 10:15 10/28/24 09:24 Isoniazid 300 Mg Tablet PO 11/21/24 10:14 300 mg QDAY TORREY Administration Ondansetron HCl 4 mg 10/21/24 16:00 Ondansetron Inj 2 Mg/Ml Inj 2 Ml IV 11/20/24 15:59 Q6H PRN NAUSEA OR VOMITING Protocol Pyrazinamide 500 mg 10/22/24 14:00 10/28/24 06:11 Pyrazinamide 500 Mg Tablet PO 11/21/24 13:59 500 mg TID TORREY Administration Rifampin 600 mg 10/22/24 10:15 10/28/24 09:24 Rifampin 300 Mg Capsule PO 11/21/24 10:14 600 mg QDAY TORREY Administration Plan 53-year-old male with no past medical history presented to the ED due to cough, recent unintentional weight loss and tarry lesion found on chest x-ray. Admitted for TB workup. 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 Patient denies any night sweats, hemoptysis at this time, however he does state having night sweats in the past few months. Chest x-ray shows extensive bilateral infiltrate, which appears cavitary in the upper lung zones Chest CT shows Extensive cavitary miliary parenchymal disease throughout the lungs, most severe at the right apex, including septated right upper lobe cavitary lesion 5.6 x 5.2cm Blood culture-negative 48 hours Influenza negative, COVID-negative, HIV negative, Aspergillus negative Sputum cultures negative AFBs came back positive for tuberculosis, plan is to continue 7 days of treatment and repeat AFBs Wednesday night, to be sent on Wednesday -Will repeat AFBs on 10/29/2024 -isolation precautions -on RIPE therapy -ID consulted, appreciate recommendation Case discussed with my attending Dr. Noel Triana MD PGY-1 Disposition: Medsurg on isolation for TB work up Fluids: None Feeding: regular Thrombo prophylaxis: SCDs Gastric Ulcer prophylaxis: not indicated CODE STATUS: Full code Attending Provider Attestation/Addendum 53-year-old male with no previous medical history who presented to the ER with cough, weight loss and night sweats. Underwent CT imaging with findings of right upper lobe cavitary lesion and subsequently found to have active TB on RIPE therapy.I reviewed above note and agree with findings and plans. I have also personally examined the patient with medicine team and went over assessment and plan with medical team including learning and development intern and resident physician.
[2024-10-28 14:40] LABS: Cult AFB Sendout- Sputum* See Sep Rpt
[2024-10-28 16:00] VITALS: BP 107/73; PULSE 76; RESP 16; TEMP 36.4; O2SAT 97
[2024-10-28 20:00] VITALS: BP 127/77; PULSE 70; RESP 16; TEMP 36.6; O2SAT 97
[2024-10-29] VITALS: BP 122/68; PULSE 70; RESP 16; TEMP 36.6; O2SAT 95
[2024-10-29 04:00] VITALS: BP 112/85; PULSE 83; RESP 16; TEMP 36.6; O2SAT 97
[2024-10-29] MEDS: PYRAZINAMIDE 500 MG TABLET PO ×3 (06:04→21:35)
[2024-10-29 08:00] VITALS: BP 118/82; PULSE 78; RESP 18; TEMP 36.2; O2SAT 98
--- NOTE | 2024-10-29 09:09 | PD.HHPROG ---
Documentation for date of: 10/29/24 Subjective - Hospitalist Subjective Interval history: No acute events overnight. Patient is on room air and denies any specific symptoms. Review of Systems Review of Systems Narrative Review of Systems: General: Denies fevers or chills. Lungs: Denies shortness of breath Abdomen: Denies diarrhea, constipation, bright red blood per rectum or melena. Neurology: Denies any changes in vision, weakness or difficulty speaking. The rest of review of system is otherwise negative except what is mentioned above Exam Vital Signs Temp Pulse Resp BP Pulse Ox O2 Del Method 97.2 F 78 18 118/82 98 Room Air 10/29/24 08:00 10/29/24 08:00 10/29/24 08:00 10/29/24 08:00 10/29/24 08:00 10/29/24 08:00 Narrative General: Alert and oriented to name, date of and place , anxious HEENT: Moist mucous membranes Neck: Supple Lungs: No accessory use, normal respiratory effort. Symmetrical chest rise. Ext: No edema Skin: No rash Objective - Hospitalist Labs Diagram: 10/28/24 04:44 10/28/24 04:44 Assessment & Plan Patient Synopsis 53-year-old male with no previous medical history who presented to the ER with cough, weight loss and night sweats. Underwent CT imaging with findings of right upper lobe cavitary lesion and subsequently found to have active TB. 1. Active tuberculosis ? AFB smears continues to be positive ? Continue RIPE therapy and plan to continue close monitoring LFTs ? On isolation and plan to repeat AFB smears tonight Healthcare Maintenance: DVT prophylaxis: Lovenox 40 mg daily GI prophylaxis: Protonix 40 mg daily Diet: Regular diet Long: Lines: PIV CODE STATUS: Full code Reason for hospitalization: Active TB on ripe therapy and in need of airborne isolation Time Spent with Patient Time: Total time spent is greater than 50% in coordination of care (as documented) at patient's floor/unit and/or counseling patient: Time with patient: 25 - 35 minutes Reason for Continued Stay Reason for continued stay: further monitoring Quality Measures Quality Measures none
[2024-10-29] MEDS: rifAMPin 300 MG CAPSULE 600 MG PO (09:13)
[2024-10-29] MEDS: ETHAMBUTOL HCL 400 MG TABLET 1200 MG PO (09:13)
[2024-10-29] MEDS: DOCUSATE SOD 100 MG CAPSULE PO (09:13)
[2024-10-29] MEDS: ISONIAZID 300 MG TABLET PO (09:13)
[2024-10-29 11:18] VITALS: BP 117/69; PULSE 67; RESP 16; TEMP 36.5; O2SAT 98
[2024-10-29 15:56] VITALS: BP 110/64; PULSE 89; RESP 16; TEMP 36.2; O2SAT 98
[2024-10-29 20:00] VITALS: BP 120/70; PULSE 77; RESP 16; TEMP 36.3; O2SAT 97
[2024-10-30] VITALS: BP 118/74; PULSE 78; RESP 16; TEMP 36.5; O2SAT 95
[2024-10-30 04:00] VITALS: BP 111/78; PULSE 72; RESP 16; TEMP 36.3; O2SAT 97
[2024-10-30] MEDS: PYRAZINAMIDE 500 MG TABLET PO (05:47)
[2024-10-30 06:09] LABS: Basophils # (Auto) 0.1 Thou/mm3 (0.0-0.2); Basophils % (Auto) 1 % (0-2.5); Eosinophils # (Auto) 0.7 Thou/mm3 (0.0-0.5); Eosinophils % (Auto) 12 % (0-10); Hematocrit 41.8 % (41.0-53.0); Hemoglobin 14.2 g/dL (13.5-16.0); Immature Granulocytes % (Auto) 1 % (0-0); Immature Granulocytes Auto 0.03 Thou/mm3 (0.00-0.00); Lymphocytes # (Auto) 1.1 Thou/mm3 (1.0-4.8); Lymphocytes % (Auto) 19 % (10-50); Mean Corpuscular Volume 86 fL (80-100); Monocytes # (Auto) 0.5 Thou/mm3 (0.0-0.8); Monocytes % (Auto) 9 % (0-12); Neutrophils # (Auto) 3.1 Thou/mm3 (1.8-7.7); Neutrophils % (Auto) 58 % (37-80); Nucleated Red Blood Cell % 0 /100 WBC (0); Platelet Count 327 Thou/mm3 (140-440); RDW Standard Deviation 38.7 fL (35.1-43.9); Red Blood Count 4.89 Miln/mm3 (4.50-5.90); White Blood Count 5.4 Thou/mm3 (3.8-10.6)
[2024-10-30 06:54] LABS: Alanine Aminotransferase 11 U/L (10-49); Albumin/Globulin Ratio 1.1 (1.2-2.2); Alkaline Phosphatase 95 U/L (46-116); Anion Gap 8 (7-16); Aspartate Amino Transferase 14 U/L (0-34); BUN/Creatinine Ratio 11 Ratio (12-20); Bilirubin,Total 0.2 mg/dL (0.3-1.2); Blood Urea Nitrogen 9 mg/dL (9-23); Calcium 8.8 mg/dL (8.3-10.6); Calcium (Corrected) 8.8 mg/dL (8.5-10.1); Chloride 102 mMol/L (98-107); Creatinine (Component) 0.8 mg/dL (0.6-1.3); Estimated Creatinine Clearance 97.4 mL/min (>60); Globulin 3.5 gm/dL (2.3-3.5); Glucose 76 mg/dL (74-106); Osmolality,Calculated 275 (275-295); Potassium 3.9 mMol/L (3.4-5.1); Sodium 139 mMol/L (136-145); Total Protein 7.5 gm/dL (5.7-8.2); eGFR > 60 See Note
[2024-10-30 08:00] VITALS: BP 113/78; PULSE 70; RESP 18; TEMP 36.5; O2SAT 96
[2024-10-30] MEDS: DOCUSATE SOD 100 MG CAPSULE PO (09:32)
[2024-10-30] MEDS: ISONIAZID 300 MG TABLET PO (09:32)
[2024-10-30] MEDS: rifAMPin 300 MG CAPSULE 600 MG PO (09:32)
[2024-10-30] MEDS: PYRAZINAMIDE 500 MG TABLET 1000 MG PO (09:33)
[2024-10-30] MEDS: ENOXAPARIN SOD INJ 40 MG/0.4 ML SYRINGE SC (09:33)
[2024-10-30] MEDS: PANTOPRAZOLE 40 MG TABLET PO (09:33)
[2024-10-30] MEDS: ETHAMBUTOL HCL 400 MG TABLET 1200 MG PO (09:33)
--- NOTE | 2024-10-30 09:35 | ESPR_ITS ---
Subjective Subjective Interval history: pos afb noted from last week. 3 ordered. only 1 available. on rx since 10/22 per orders Exam Vital Signs Temp Pulse Resp BP Pulse Ox O2 Del Method 97.7 F 70 18 113/78 96 Room Air 10/30/24 08:00 10/30/24 08:00 10/30/24 08:00 10/30/24 08:00 10/30/24 08:00 10/30/24 08:00 Narrative Exam limited eval Objective - Internal Medicine Labs 10/30/24 05:02 10/30/24 05:02 Labs: Laboratory Results - last 24 hr 10/30/24 05:02 WBC 5.4 RBC 4.89 Hgb 14.2 Hct 41.8 MCV 86 MCH 29.0 MCHC 34.0 RDW Std Deviation 38.7 Plt Count 327 Neut % (Auto) 58 Lymph % (Auto) 19 [place] % (Auto) 9 Eos % (Auto) 12 H Baso % (Auto) 1 Neut # (Auto) 3.1 Lymph # (Auto) 1.1 [place] # (Auto) 0.5 Eos # (Auto) 0.7 H Baso # (Auto) 0.1 Immature Gran # (Auto) 0.03 H Absolute Nucleated RBC 0.00 Immature Gran % 1 H Nucleated RBC % 0 Sodium 139 Potassium 3.9 Chloride 102 Carbon Dioxide 29.0 Anion Gap 8 BUN 9 Creatinine 0.8 Estim Creat Clear Calc 97.4 eGFR > 60 BUN/Creatinine Ratio 11 L Glucose 76 Calculated Osmolality 275 Calcium 8.8 Corrected Calcium 8.8 Total Bilirubin 0.2 L AST 14 ALT 11 Alkaline Phosphatase 95 Total Protein 7.5 Albumin 4.0 Globulin 3.5 Albumin/Globulin Ratio 1.1 L Assessment & Plan A&P Narrative apical pneumonia with neg cocci IgM and neg procal (insensitive to fungal and atypical antigens) and pos afb smear x 1 so far (I assume the others are pending) with single pos afb, rx to be long. 6-12 mo. recommend more afb smears this coming weekend as it usually takes 2 weeks to become non contagious. health dept may determine the isolation status and their criteria for release he lives with young children (pre school age or less) then they should be tested for tb. . will check in again on wednesday. hiv and hep c neg. persian speaking resident interacted with family to answer all questions. health dept to determine readiness for release Time Spent With Patient Time: Total time spent is greater than 50% in coordination of care (as documented) at patient's floor/unit and/or counseling patient:
[2024-10-30 12:00] VITALS: BP 107/72; PULSE 68; RESP 19; TEMP 36.6; O2SAT 96
--- NOTE | 2024-10-30 12:39 | PD.RESPRO ---
Documentation for date of: 10/30/24 Senior resident attestation: Patient is a 53-year-old male, was evaluated for cavitary lesion and weight loss night sweats, diagnosed with tuberculosis started on RIPE, infectious especially Dr Peraza is following, pending repeat AFBs, waiting for clearance from infection prevention and [facility] for release into the community. Continue to monitor liver function for medication adverse event. Patient evaluated and examined at the bedside, plan of care discussed with rest of the team including my attending physician, except as noted. Quresh PGY2 Subjective Subjective Interval history: Patient seen today at the bedside fine awake, alert, oriented x 3. No overnight events reported. States no active complaints at this time. Vital signs stable at this time. Labs unremarkable. AFBs sent today we will follow-up results. Will continue with RI PE therapy for tuberculosis. Exam Vital Signs Temp Pulse Resp BP Pulse Ox O2 Del Method 97.7 F 70 18 113/78 96 Room Air 10/30/24 08:00 10/30/24 08:00 10/30/24 08:00 10/30/24 08:00 10/30/24 08:00 10/30/24 08:00 Narrative Exam Physical Exam GENERAL: NAD, AAOx3 HEENT: Moist mucosa. Eyes open, symmetrical, & clear CARDIO: Heart RRR, no obvious murmurs PULM: No noted coughing/dyspnea CTA B/L, no R/W/R GI: Abdomen soft, nondistended, no pain on palpation. BSx4 SKIN/MSK/EXT: No wounds/rashes/edema/amputations, no pain on palpation. Pedal pulses present B/L NEURO: AAOx3, no focal neuro deficits, able to move all 4 extremities Objective Labs 10/30/24 05:02 10/30/24 05:02 Labs: Laboratory Results - last 24 hr 10/30/24 05:02 WBC 5.4 RBC 4.89 Hgb 14.2 Hct 41.8 MCV 86 MCH 29.0 MCHC 34.0 RDW Std Deviation 38.7 Plt Count 327 Neut % (Auto) 58 Lymph % (Auto) 19 [place] % (Auto) 9 Eos % (Auto) 12 H Baso % (Auto) 1 Neut # (Auto) 3.1 Lymph # (Auto) 1.1 [place] # (Auto) 0.5 Eos # (Auto) 0.7 H Baso # (Auto) 0.1 Immature Gran # (Auto) 0.03 H Absolute Nucleated RBC 0.00 Immature Gran % 1 H Nucleated RBC % 0 Sodium 139 Potassium 3.9 Chloride 102 Carbon Dioxide 29.0 Anion Gap 8 BUN 9 Creatinine 0.8 Estim Creat Clear Calc 97.4 eGFR > 60 BUN/Creatinine Ratio 11 L Glucose 76 Calculated Osmolality 275 Calcium 8.8 Corrected Calcium 8.8 Total Bilirubin 0.2 L AST 14 ALT 11 Alkaline Phosphatase 95 Total Protein 7.5 Albumin 4.0 Globulin 3.5 Albumin/Globulin Ratio 1.1 L Quality Measures Quality Measures none Assessment & Plan Assessment Current Active Medications: Generic Name Dose Route Start Last Admin Trade Name Freq PRN Reason Stop Dose Admin Acetaminophen 650 mg 10/21/24 16:00 Acetaminophen 325 Mg Tablet PO 11/20/24 15:59 Q6H PRN Fever >100.5 Acetaminophen 650 mg 10/21/24 16:00 10/22/24 21:30 Acetaminophen 325 Mg Tablet PO 11/20/24 15:59 650 mg Q6H PRN Administration PAIN SCALE 1-3 (mild Docusate Sodium 100 mg 10/22/24 09:00 10/30/24 09:32 Docusate Sod 100 Mg Capsule PO 11/21/24 08:59 100 mg QDAY TORREY Administration Protocol Enoxaparin Sodium 40 mg 10/30/24 09:00 10/30/24 09:33 Enoxaparin Sod Inj 40 Mg/0.4 Ml Syringe SC 11/13/24 08:59 40 mg QDAY TORREY Administration Ethambutol HCl 1,200 mg 10/22/24 10:15 10/30/24 09:33 Ethambutol Hcl 400 Mg Tablet PO 11/21/24 10:14 1,200 mg QDAY TORREY Administration Isoniazid 300 mg 10/22/24 10:15 10/30/24 09:32 Isoniazid 300 Mg Tablet PO 11/21/24 10:14 300 mg QDAY TORREY Administration Ondansetron HCl 4 mg 10/21/24 16:00 Ondansetron Inj 2 Mg/Ml Inj 2 Ml IV 11/20/24 15:59 Q6H PRN NAUSEA OR VOMITING Protocol Pantoprazole Sodium 40 mg 10/30/24 09:00 10/30/24 09:33 Pantoprazole 40 Mg Tablet PO 11/29/24 08:59 40 mg QDAY TORREY Administration Pyrazinamide 1,500 mg 10/31/24 09:00 Pyrazinamide 500 Mg Tablet PO 11/30/24 08:59 DAILY TORREY Rifampin 600 mg 10/22/24 10:15 10/30/24 09:32 Rifampin 300 Mg Capsule PO 11/21/24 10:14 600 mg QDAY TORREY Administration Plan 53-year-old male with no past medical history presented to the ED due to cough, recent unintentional weight loss and tarry lesion found on chest x-ray. Admitted for TB workup. 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 Patient denies any night sweats, hemoptysis at this time, however he does state having night sweats in the past few months. Chest x-ray shows extensive bilateral infiltrate, which appears cavitary in the upper lung zones Chest CT shows Extensive cavitary miliary parenchymal disease throughout the lungs, most severe at the right apex, including septated right upper lobe cavitary lesion 5.6 x 5.2cm Blood culture-negative 48 hours Influenza negative, COVID-negative, HIV negative, Aspergillus negative Sputum cultures negative AFBs came back positive for tuberculosis, plan is to continue 7 days of treatment and repeat AFBs Wednesday night, to be sent on Wednesday -Repeat AFBs (3) sent -isolation precautions -on RIPE therapy -ID consulted, appreciate recommendation Case discussed with my senior Dr. Rich PGY-[address] Aristeo Triana MD PGY-1 Disposition: Medsurg on isolation for TB work up Fluids: None Feeding: regular Thrombo prophylaxis: SCDs Gastric Ulcer prophylaxis: not indicated CODE STATUS: Full code Attending Provider Attestation/Addendum Chelsy Ramirez DO, attest that I was physically present for the rojas portions of the service and evaluated the patient with the resident and I reviewed and discussed the case with the resident and agree with the resident's findings and plans of care as documented above Patient seen and evaluated this Am. No acute events overnight. Pending repeat AFBs. Patient has no active complaints and remains on RA
[2024-10-30 15:56] LABS: Cult AFB Sendout- Sputum* See Sep Rpt
[2024-10-30 16:00] VITALS: BP 116/73; PULSE 77; RESP 18; TEMP 36.4; O2SAT 97
[2024-10-30 20:00] VITALS: BP 116/74; PULSE 71; RESP 20; TEMP 36.4; O2SAT 95
[2024-10-31] VITALS: BP 122/76; PULSE 80; RESP 21; TEMP 36.1; O2SAT 94
[2024-10-31 06:25] LABS: Cult AFB Sendout- Sputum* See Sep Rpt
[2024-10-31 08:00] VITALS: BP 122/71; PULSE 83; RESP 16; TEMP 36.9; O2SAT 96
--- NOTE | 2024-10-31 08:52 | PC.NURSE ---
[facility] 0[facility] 0700.
[2024-10-31] MEDS: ETHAMBUTOL HCL 400 MG TABLET 1200 MG PO (09:30)
[2024-10-31] MEDS: rifAMPin 300 MG CAPSULE 600 MG PO (09:30)
[2024-10-31] MEDS: PYRAZINAMIDE 500 MG TABLET 1500 MG PO (09:30)
[2024-10-31] MEDS: DOCUSATE SOD 100 MG CAPSULE PO (09:31)
[2024-10-31] MEDS: PANTOPRAZOLE 40 MG TABLET PO (09:31)
[2024-10-31] MEDS: ENOXAPARIN SOD INJ 40 MG/0.4 ML SYRINGE SC (09:31)
[2024-10-31] MEDS: ISONIAZID 300 MG TABLET PO (09:31)
[2024-10-31 12:00] VITALS: BP 108/83; PULSE 75; RESP 15; TEMP 36.2; O2SAT 96
--- NOTE | 2024-10-31 15:36 | PD.RESPRO ---
Documentation for date of: 10/31/24 -------- Senior resident attestation: Patient is a 53-year-old male, was evaluated for cavitary lesion and weight loss night sweats, diagnosed with tuberculosis started on RIPE, infectious especially Dr Peraza is following, pending repeat AFBs, waiting for clearance from infection prevention and [facility] for release into the community. Continue to monitor liver function for medication adverse event. Patient evaluated and examined at the bedside, plan of care discussed with rest of the team including my attending physician, except as noted. Quresh PGY2 Subjective Subjective Interval history: Patient seen today at the bedside fine awake, alert, oriented x 3. No overnight events reported. States no active complaints at this time. Vital signs stable at this time. Labs unremarkable. AFBs sent today we will follow-up results. Will continue with RIPE therapy for tuberculosis. Exam Vital Signs Temp Pulse Resp BP Pulse Ox O2 Del Method 97.1 F 75 15 108/83 96 Room Air 10/31/24 12:00 10/31/24 12:10/31/24 12:10/31/24 12:10/31/24 12:10/31/24 12:00 Narrative Exam Physical Exam GENERAL: NAD, AAOx3 HEENT: Moist mucosa. Eyes open, symmetrical, & clear CARDIO: Heart RRR, no obvious murmurs PULM: No noted coughing/dyspnea CTA B/L, no R/W/R GI: Abdomen soft, nondistended, no pain on palpation. BSx4 SKIN/MSK/EXT: No wounds/rashes/edema/amputations, no pain on palpation. Pedal pulses present B/L NEURO: AAOx3, no focal neuro deficits, able to move all 4 extremities Objective Labs 11/01/24 05:30 11/01/24 05:30 Quality Measures Quality Measures none Assessment & Plan Assessment Current Active Medications: Generic Name Dose Route Start Last Admin Trade Name Freq PRN Reason Stop Dose Admin Acetaminophen 650 mg 10/21/24 16:00 Acetaminophen 325 Mg Tablet PO 11/20/24 15:59 Q6H PRN Fever >100.5 Acetaminophen 650 mg 10/21/24 16:00 10/22/24 21:30 Acetaminophen 325 Mg Tablet PO 11/20/24 15:59 650 mg Q6H PRN Administration PAIN SCALE 1-3 (mild Docusate Sodium 100 mg 10/22/24 09:00 10/31/24 09:31 Docusate Sod 100 Mg Capsule PO 11/21/24 08:59 100 mg QDAY TORREY Administration Protocol Enoxaparin Sodium 40 mg 10/30/24 09:00 10/31/24 09:31 Enoxaparin Sod Inj 40 Mg/0.4 Ml Syringe SC 11/13/24 08:59 40 mg QDAY TORREY Administration Ethambutol HCl 1,200 mg 10/22/24 10:15 10/31/24 09:30 Ethambutol Hcl 400 Mg Tablet PO 11/21/24 10:14 1,200 mg QDAY TORREY Administration Isoniazid 300 mg 10/22/24 10:15 10/31/24 09:31 Isoniazid 300 Mg Tablet PO 11/21/24 10:14 300 mg QDAY TORREY Administration Ondansetron HCl 4 mg 10/21/24 16:00 Ondansetron Inj 2 Mg/Ml Inj 2 Ml IV 11/20/24 15:59 Q6H PRN NAUSEA OR VOMITING Protocol Pantoprazole Sodium 40 mg 10/30/24 09:00 10/31/24 09:31 Pantoprazole 40 Mg Tablet PO 11/29/24 08:59 40 mg QDAY TORREY Administration Pyrazinamide 1,500 mg 10/31/24 09:00 10/31/24 09:30 Pyrazinamide 500 Mg Tablet PO 11/30/24 08:59 1,500 mg DAILY TORREY Administration Rifampin 600 mg 10/22/24 10:15 10/31/24 09:30 Rifampin 300 Mg Capsule PO 11/21/24 10:14 600 mg QDAY TORREY Administration Plan 53-year-old male with no past medical history presented to the ED due to cough, recent unintentional weight loss and tarry lesion found on chest x-ray. Admitted for TB workup. 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 Patient denies any night sweats, hemoptysis at this time, however he does state having night sweats in the past few months. Chest x-ray shows extensive bilateral infiltrate, which appears cavitary in the upper lung zones Chest CT shows Extensive cavitary miliary parenchymal disease throughout the lungs, most severe at the right apex, including septated right upper lobe cavitary lesion 5.6 x 5.2cm Blood culture-negative 48 hours Influenza negative, COVID-negative, HIV negative, Aspergillus negative Sputum cultures negative AFBs came back positive for tuberculosis, plan is to continue 7 days of treatment and repeat AFBs Wednesday, to be sent on Wednesday -Repeat AFBs (3) sent -isolation precautions -on RIPE therapy -ID consulted, appreciate recommendation Case discussed with my senior Dr. Rich PGY-[address] Aristeo Triana MD PGY-1 Disposition: Medsurg on isolation for TB work up Fluids: None Feeding: regular Thrombo prophylaxis: SCDs Gastric Ulcer prophylaxis: not indicated CODE STATUS: Full code Attending Provider Attestation/Addendum IChelsy, , attest that I was physically present for the rojas portions of the service and evaluated the patient with the resident and I reviewed and discussed the case with the resident and agree with the resident's findings and plans of care as documented above No acute events overnight. Continue ripe therapy. Pending repeat AFBs.
[2024-10-31 16:00] VITALS: BP 116/75; PULSE 72; RESP 15; TEMP 36.2; O2SAT 97
--- NOTE | 2024-10-31 16:10 | PC.SS ---
Follow up note: Pending AFBs. Pt will return home upon dc.
[2024-10-31 20:00] VITALS: BP 112/69; PULSE 72; RESP 17; TEMP 36.7; O2SAT 98
[2024-11-01] VITALS (7 sets, daily range): BP systolic 114–120; BP diastolic 68–84; PULSE 64–82; RESP 16–19; TEMP 36.1–36.6; O2SAT 97–98; BMI 21.2
[2024-11-01 06:41] LABS: Basophils % (Auto) 1 % (0-2.5); Eosinophils # (Auto) 0.6 Thou/mm3 (0.0-0.5); Eosinophils % (Auto) 10 % (0-10); Hemoglobin 14.3 g/dL (13.5-16.0); Immature Granulocytes % (Auto) 1 % (0-0); Immature Granulocytes Auto 0.04 Thou/mm3 (0.00-0.00); Lymphocytes # (Auto) 0.9 Thou/mm3 (1.0-4.8); Lymphocytes % (Auto) 14 % (10-50); Mean Corpuscular Hemoglobin 28.9 pg (25.0-35.0); Mean Corpuscular Volume 85 fL (80-100); Monocytes # (Auto) 0.6 Thou/mm3 (0.0-0.8); Monocytes % (Auto) 10 % (0-12); Neutrophils # (Auto) 4.3 Thou/mm3 (1.8-7.7); Neutrophils % (Auto) 65 % (37-80); Nucleated Red Blood Cell % 0 /100 WBC (0); Platelet Count 354 Thou/mm3 (140-440); RDW Standard Deviation 38.1 fL (35.1-43.9); Red Blood Count 4.94 Miln/mm3 (4.50-5.90); White Blood Count 6.5 Thou/mm3 (3.8-10.6)
[2024-11-01 07:11] LABS: Alanine Aminotransferase 12 U/L (10-49); Albumin, Serum 4.2 gm/dL (3.5-5.0); Albumin/Globulin Ratio 1.2 (1.2-2.2); Alkaline Phosphatase 95 U/L (46-116); Anion Gap 9 (7-16); Aspartate Amino Transferase 17 U/L (0-34); BUN/Creatinine Ratio 17 Ratio (12-20); Bilirubin,Total 0.3 mg/dL (0.3-1.2); Blood Urea Nitrogen 12 mg/dL (9-23); Calcium 9.2 mg/dL (8.3-10.6); Calcium (Corrected) 9.2 mg/dL (8.5-10.1); Chloride 100 mMol/L (98-107); Creatinine (Component) 0.7 mg/dL (0.6-1.3); Estimated Creatinine Clearance 111.3 mL/min (>60); Globulin 3.5 gm/dL (2.3-3.5); Glucose 82 mg/dL (74-106); Osmolality,Calculated 274 (275-295); Potassium 3.5 mMol/L (3.4-5.1); Sodium 138 mMol/L (136-145); Total Protein 7.7 gm/dL (5.7-8.2); eGFR > 60 See Note
[2024-11-01] MEDS: DOCUSATE SOD 100 MG CAPSULE PO (08:54)
[2024-11-01] MEDS: rifAMPin 300 MG CAPSULE 600 MG PO (08:54)
[2024-11-01] MEDS: PANTOPRAZOLE 40 MG TABLET PO (08:55)
[2024-11-01] MEDS: ISONIAZID 300 MG TABLET PO (09:01)
[2024-11-01] MEDS: PYRAZINAMIDE 500 MG TABLET 1500 MG PO (11:01)
[2024-11-01] MEDS: ETHAMBUTOL HCL 400 MG TABLET 1200 MG PO (11:02)
--- NOTE | 2024-11-01 11:58 | PC.SS ---
Follow up note: Pending sputum results and AFBs. Pt will return home upon dc.
--- NOTE | 2024-11-01 15:07 | ESPR_ITS ---
Subjective Subjective Interval history: three sputums ordered 10/30 Exam Vital Signs Temp Pulse Resp BP Pulse Ox O2 Del Method 97.6 F 78 18 114/77 98 Room Air 11/01/24 12:00 11/01/24 12:00 11/01/24 12:00 11/01/24 12:00 11/01/24 12:00 11/01/24 12:00 Narrative Exam limited visit Objective - Internal Medicine Labs 11/01/24 05:30 11/01/24 05:30 Labs: Laboratory Results - last 24 hr 10/28/24 11/01/24 11:50 05:30 WBC 6.5 RBC 4.94 Hgb 14.3 Hct 42.0 MCV 85 MCH 28.9 MCHC 34.0 RDW Std Deviation 38.1 Plt Count 354 Neut % (Auto) 65 Lymph % (Auto) 14 [place] % (Auto) 10 Eos % (Auto) 10 Baso % (Auto) 1 Neut # (Auto) 4.3 Lymph # (Auto) 0.9 L [place] # (Auto) 0.6 Eos # (Auto) 0.6 H Baso # (Auto) 0.0 Immature Gran # (Auto) 0.04 H Absolute Nucleated RBC 0.00 Immature Gran % 1 H Nucleated RBC % 0 Sodium 138 Potassium 3.5 Chloride 100 Carbon Dioxide 29.0 Anion Gap 9 BUN 12 Creatinine 0.7 Estim Creat Clear Calc 111.3 eGFR > 60 BUN/Creatinine Ratio 17 Glucose 82 Calculated Osmolality 274 L Calcium 9.2 Corrected Calcium 9.2 Total Bilirubin 0.3 AST 17 ALT 12 Alkaline Phosphatase 95 Total Protein 7.7 Albumin 4.2 Globulin 3.5 Albumin/Globulin Ratio 1.2 Mycobacterial Culture See Sep Rpt Assessment & Plan A&P Narrative apical pneumonia with neg cocci IgM and neg procal (insensitive to fungal and atypical antigens) and pos afb smear x 1 so far two pos afb, rx to be long. 6-12 mo. later sputum also pos. recommend more afb smears this coming weekend as it usually takes 2 weeks to become non contagious. health dept may determine the isolation status and their criteria for release he lives with young children (pre school age or less) then they should be tested for tb. . will check in again on Wednesday. hiv and hep c neg. tongan speaking resident interacted with family to answer all questions. health dept to determine readiness for release Time Spent With Patient Time: Total time spent is greater than 50% in coordination of care (as documented) at patient's floor/unit and/or counseling patient:
--- NOTE | 2024-11-01 16:04 | ESPR_ITS ---
Documentation for date of: 11/01/24 Subjective Subjective Interval history: Patient seen today at the bedside fine awake, alert, oriented x 3. No overnight events reported. States no active complaints at this time. Vital signs stable at this time. Labs unremarkable. AFBs sent today we will follow-up results. Will continue with RIPE therapy for tuberculosis. Exam Vital Signs Temp Pulse Resp BP Pulse Ox O2 Del Method 97.6 F 80 18 118/76 98 Room Air 11/01/24 16:00 11/01/24 16:00 11/01/24 16:00 11/01/24 16:11/01/24 16:00 11/01/24 16:00 Narrative Exam Physical Exam GENERAL: NAD, AAOx3 HEENT: Moist mucosa. Eyes open, symmetrical, & clear CARDIO: Heart RRR, no obvious murmurs PULM: No noted coughing/dyspnea CTA B/L, no R/W/R GI: Abdomen soft, nondistended, no pain on palpation. BSx4 SKIN/MSK/EXT: No wounds/rashes/edema/amputations, no pain on palpation. Pedal pulses present B/L NEURO: AAOx3, no focal neuro deficits, able to move all 4 extremities Objective Labs 11/01/24 05:30 11/01/24 05:30 Labs: Laboratory Results - last 24 hr 10/28/24 11/01/24 11:50 05:30 WBC 6.5 RBC 4.94 Hgb 14.3 Hct 42.0 MCV 85 MCH 28.9 MCHC 34.0 RDW Std Deviation 38.1 Plt Count 354 Neut % (Auto) 65 Lymph % (Auto) 14 [place] % (Auto) 10 Eos % (Auto) 10 Baso % (Auto) 1 Neut # (Auto) 4.3 Lymph # (Auto) 0.9 L [place] # (Auto) 0.6 Eos # (Auto) 0.6 H Baso # (Auto) 0.0 Immature Gran # (Auto) 0.04 H Absolute Nucleated RBC 0.00 Immature Gran % 1 H Nucleated RBC % 0 Sodium 138 Potassium 3.5 Chloride 100 Carbon Dioxide 29.0 Anion Gap 9 BUN 12 Creatinine 0.7 Estim Creat Clear Calc 111.3 eGFR > 60 BUN/Creatinine Ratio 17 Glucose 82 Calculated Osmolality 274 L Calcium 9.2 Corrected Calcium 9.2 Total Bilirubin 0.3 AST 17 ALT 12 Alkaline Phosphatase 95 Total Protein 7.7 Albumin 4.2 Globulin 3.5 Albumin/Globulin Ratio 1.2 Mycobacterial Culture See Sep Rpt Quality Measures Quality Measures none Assessment & Plan Assessment Current Active Medications: Generic Name Dose Route Start Last Admin Trade Name Freq PRN Reason Stop Dose Admin Acetaminophen 650 mg 10/21/24 16:00 Acetaminophen 325 Mg Tablet PO 11/20/24 15:59 Q6H PRN Fever >100.5 Acetaminophen 650 mg 10/21/24 16:00 10/22/24 21:30 Acetaminophen 325 Mg Tablet PO 11/20/24 15:59 650 mg Q6H PRN Administration PAIN SCALE 1-3 (mild Docusate Sodium 100 mg 10/22/24 09:00 11/01/24 08:54 Docusate Sod 100 Mg Capsule PO 11/21/24 08:59 100 mg QDAY TORREY Administration Protocol Enoxaparin Sodium 40 mg 10/30/24 09:00 11/01/24 09:04 Enoxaparin Sod Inj 40 Mg/0.4 Ml Syringe SC 11/13/24 08:59 Not Given QDAY TORREY Ethambutol HCl 1,200 mg 10/22/24 10:15 11/01/24 11:02 Ethambutol Hcl 400 Mg Tablet PO 11/21/24 10:14 1,200 mg QDAY TORREY Administration Isoniazid 300 mg 10/22/24 10:15 11/01/24 09:01 Isoniazid 300 Mg Tablet PO 11/21/24 10:14 300 mg QDAY TORREY Administration Ondansetron HCl 4 mg 10/21/24 16:00 Ondansetron Inj 2 Mg/Ml Inj 2 Ml IV 11/20/24 15:59 Q6H PRN NAUSEA OR VOMITING Protocol Pantoprazole Sodium 40 mg 10/30/24 09:00 11/01/24 08:55 Pantoprazole 40 Mg Tablet PO 11/29/24 08:59 40 mg QDAY TORREY Administration Pyrazinamide 1,500 mg 10/31/24 09:00 11/01/24 11:01 Pyrazinamide 500 Mg Tablet PO 11/30/24 08:59 1,500 mg DAILY TORREY Administration Rifampin 600 mg 10/22/24 10:15 11/01/24 08:54 Rifampin 300 Mg Capsule PO 11/21/24 10:14 600 mg QDAY TORREY Administration Plan 53-year-old male with no past medical history presented to the ED due to cough, recent unintentional weight loss and tarry lesion found on chest x-ray. Admitted for TB workup. 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 Patient denies any night sweats, hemoptysis at this time, however he does state having night sweats in the past few months. Chest x-ray shows extensive bilateral infiltrate, which appears cavitary in the upper lung zones Chest CT shows Extensive cavitary miliary parenchymal disease throughout the lungs, most severe at the right apex, including septated right upper lobe cavitary lesion 5.6 x 5.2cm Blood culture-negative 48 hours Influenza negative, COVID-negative, HIV negative, Aspergillus negative Sputum cultures negative AFBs came back positive for tuberculosis, plan is to continue 7 days of treatment and repeat AFBs Wednesday night, to be sent on Wednesday -Repeat AFBs (3) sent -isolation precautions -on RIPE therapy -ID consulted, appreciate recommendation Case discussed with my senior Dr. Pierre PGY-[address] Aristeo Triana MD PGY-1 Disposition: Medsurg on isolation for TB work up Fluids: None Feeding: regular Thrombo prophylaxis: SCDs Gastric Ulcer prophylaxis: not indicated CODE STATUS: Full code Attending Provider Attestation/Addendum Chelsy Ramirez DO, attest that I was physically present for the rojas portions of the service and evaluated the patient with the resident and I reviewed and discussed the case with the resident and agree with the resident's findings and plans of care as documented above Continue current management, pending repeat AFBs. No acute events overnight.
[2024-11-02 04:00] VITALS: BP 109/78; PULSE 80; RESP 18; TEMP 36.2; O2SAT 96
[2024-11-02 08:00] VITALS: BP 132/78; PULSE 84; RESP 18; TEMP 36.2; O2SAT 96
[2024-11-02] MEDS: PYRAZINAMIDE 500 MG TABLET 1500 MG PO (09:15)
[2024-11-02] MEDS: ETHAMBUTOL HCL 400 MG TABLET 1200 MG PO (09:16)
[2024-11-02] MEDS: rifAMPin 300 MG CAPSULE 600 MG PO (09:18)
[2024-11-02] MEDS: PANTOPRAZOLE 40 MG TABLET PO (09:18)
[2024-11-02] MEDS: ENOXAPARIN SOD INJ 40 MG/0.4 ML SYRINGE SC (09:18)
[2024-11-02] MEDS: DOCUSATE SOD 100 MG CAPSULE PO (09:18)
[2024-11-02] MEDS: ISONIAZID 300 MG TABLET PO (09:18)
[2024-11-02 12:00] VITALS: BP 109/74; PULSE 88; RESP 18; TEMP 36.2; O2SAT 96
--- NOTE | 2024-11-02 14:20 | PD.RESPRO ---
Documentation for date of: 11/02/24 Senior resident attestation: Patient is a 53-year-old male, was evaluated for cavitary lesion and weight loss night sweats, diagnosed with tuberculosis started on RIPE, infectious especially Dr Peraza is following, pending repeat AFBs, waiting for clearance from infection prevention and [facility] for release into the community. Continue to monitor liver function for medication adverse event. Patient evaluated and examined at the bedside, plan of care discussed with rest of the team including my attending physician, except as noted. Quresh PGY2 Subjective Subjective Interval history: Patient seen today at the bedside fine awake, alert, oriented x 3. No overnight events reported. States no active complaints at this time. Vital signs stable at this time. Labs unremarkable. AFBs came back positive. Repeat AFBs ordered. Exam Vital Signs Temp Pulse Resp BP Pulse Ox O2 Del Method 97.2 F 88 18 109/74 96 Room Air 11/02/24 12:00 11/02/24 12:00 11/02/24 12:00 11/02/24 12:00 11/02/24 12:00 11/02/24 12:00 Narrative Exam Physical Exam GENERAL: NAD, AAOx3 HEENT: Moist mucosa. Eyes open, symmetrical, & clear CARDIO: Heart RRR, no obvious murmurs PULM: No noted coughing/dyspnea CTA B/L, no R/W/R GI: Abdomen soft, nondistended, no pain on palpation. BSx4 SKIN/MSK/EXT: No wounds/rashes/edema/amputations, no pain on palpation. Pedal pulses present B/L NEURO: AAOx3, no focal neuro deficits, able to move all 4 extremities Objective Labs 11/01/24 05:30 11/01/24 05:30 Labs: Laboratory Results - last 24 hr 10/30/24 10/31/24 15:40 00:53 Mycobacterial Culture See Sep Rpt See Sep Rpt Quality Measures Quality Measures none Assessment & Plan Assessment Current Active Medications: Generic Name Dose Route Start Last Admin Trade Name Freq PRN Reason Stop Dose Admin Acetaminophen 650 mg 10/21/24 16:00 Acetaminophen 325 Mg Tablet PO 11/20/24 15:59 Q6H PRN Fever >100.5 Acetaminophen 650 mg 10/21/24 16:00 10/22/24 21:30 Acetaminophen 325 Mg Tablet PO 11/20/24 15:59 650 mg Q6H PRN Administration PAIN SCALE 1-3 (mild Docusate Sodium 100 mg 10/22/24 09:00 11/02/24 09:18 Docusate Sod 100 Mg Capsule PO 11/21/24 08:59 100 mg QDAY TORREY Administration Protocol Enoxaparin Sodium 40 mg 10/30/24 09:00 11/02/24 09:18 Enoxaparin Sod Inj 40 Mg/0.4 Ml Syringe SC 11/13/24 08:59 40 mg QDAY TORREY Administration Ethambutol HCl 1,200 mg 10/22/24 10:15 11/02/24 09:16 Ethambutol Hcl 400 Mg Tablet PO 11/21/24 10:14 1,200 mg QDAY TORREY Administration Isoniazid 300 mg 10/22/24 10:15 11/02/24 09:18 Isoniazid 300 Mg Tablet PO 11/21/24 10:14 300 mg QDAY TORREY Administration Ondansetron HCl 4 mg 10/21/24 16:00 Ondansetron Inj 2 Mg/Ml Inj 2 Ml IV 11/20/24 15:59 Q6H PRN NAUSEA OR VOMITING Protocol Pantoprazole Sodium 40 mg 10/30/24 09:00 11/02/24 09:18 Pantoprazole 40 Mg Tablet PO 11/29/24 08:59 40 mg QDAY TORREY Administration Pyrazinamide 1,500 mg 10/31/24 09:00 11/02/24 09:15 Pyrazinamide 500 Mg Tablet PO 11/30/24 08:59 1,500 mg DAILY TORREY Administration Rifampin 600 mg 10/22/24 10:15 11/02/24 09:18 Rifampin 300 Mg Capsule PO 11/21/24 10:14 600 mg QDAY TORREY Administration Plan 53-year-old male with no past medical history presented to the ED due to cough, recent unintentional weight loss and tarry lesion found on chest x-ray. Admitted for TB workup. 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 Patient denies any night sweats, hemoptysis at this time, however he does state having night sweats in the past few months. Chest x-ray shows extensive bilateral infiltrate, which appears cavitary in the upper lung zones Chest CT shows Extensive cavitary miliary parenchymal disease throughout the lungs, most severe at the right apex, including septated right upper lobe cavitary lesion 5.6 x 5.2cm Blood culture-negative 48 hours Influenza negative, COVID-negative, HIV negative, Aspergillus negative Sputum cultures negative AFBs came back positive for tuberculosis, plan is to continue 7 days of treatment and repeat AFBs Wednesday night, to be sent on Wednesday AFBs came back positive for tuberculosis, will repeat AFBs -Repeat AFBs (3) sent -isolation precautions -on RIPE therapy -ID consulted, appreciate recommendation Case discussed with my senior Dr. Rich PGY-[address] Aristeo Triana MD PGY-1 Disposition: Medsurg on isolation for TB Fluids: None Feeding: regular Thrombo prophylaxis: SCDs Gastric Ulcer prophylaxis: not indicated CODE STATUS: Full code Attending Provider Attestation/Addendum Chelsy Ramirez DO, attest that I was physically present for the rojas portions of the service and evaluated the patient with the resident and I reviewed and discussed the case with the resident and agree with the resident's findings and plans of care as documented above Patient remains asymptomatic. No acute events overnight. Continue with current management as AFBs remain positive despite 1 week of RIPE therapy
[2024-11-02 16:00] VITALS: BP 113/87; PULSE 86; RESP 18; TEMP 36.2; O2SAT 96
[2024-11-02 20:00] VITALS: BP 131/76; PULSE 79; RESP 18; TEMP 36.2; O2SAT 95
[2024-11-03] VITALS: BP 116/74; PULSE 79; RESP 16; TEMP 36.4; O2SAT 97
--- NOTE | 2024-11-03 03:16 | PC.RT ---
Per Dr Rose PIERRE, AFB reordered with correct times for collection. To start on 11/03/2024 @ 0830 and 8hrs apart after.
[2024-11-03 04:00] VITALS: BP 114/72; PULSE 80; RESP 16; TEMP 36.3; O2SAT 95
[2024-11-03 08:00] VITALS: BP 107/60; PULSE 67; RESP 15; TEMP 36.7; O2SAT 97
--- NOTE | 2024-11-03 08:18 | ESPR_ITS ---
Documentation for date of: 11/03/24 Subjective Subjective Interval history: Overnight events, labs reviewed. The patient examined this a.m. at bedside. The patient has no active complaints. Will order sputum AFB x3 to demonstrate clearning. Exam Vital Signs Temp Pulse Resp BP Pulse Ox O2 Del Method 97.3 F 80 16 114/72 95 Room Air 11/03/24 04:00 11/03/24 04:00 11/03/24 04:00 11/03/24 04:00 11/03/24 04:00 11/03/24 04:00 Narrative Exam Physical Exam GENERAL: NAD, AAOx3 HEENT: Moist mucosa. Eyes open, symmetrical, & clear CARDIO: Heart RRR, no obvious murmurs PULM: No noted coughing/dyspnea CTA B/L, no R/W/R GI: Abdomen soft, nondistended, no pain on palpation. BSx4 SKIN/MSK/EXT: No wounds/rashes/edema/amputations, no pain on palpation. Pedal pulses present B/L NEURO: AAOx3, no focal neuro deficits, able to move all 4 extremities Objective Labs 11/01/24 05:30 11/01/24 05:30 Quality Measures Quality Measures none Assessment & Plan Assessment Current Active Medications: Generic Name Dose Route Start Last Admin Trade Name Freq PRN Reason Stop Dose Admin Acetaminophen 650 mg 10/21/24 16:00 Acetaminophen 325 Mg Tablet PO 11/20/24 15:59 Q6H PRN Fever >100.5 Acetaminophen 650 mg 10/21/24 16:00 10/22/24 21:30 Acetaminophen 325 Mg Tablet PO 11/20/24 15:59 650 mg Q6H PRN Administration PAIN SCALE 1-3 (mild Docusate Sodium 100 mg 10/22/24 09:00 11/02/24 09:18 Docusate Sod 100 Mg Capsule PO 11/21/24 08:59 100 mg QDAY TORREY Administration Protocol Enoxaparin Sodium 40 mg 10/30/24 09:00 11/02/24 09:18 Enoxaparin Sod Inj 40 Mg/0.4 Ml Syringe SC 11/13/24 08:59 40 mg QDAY TORREY Administration Ethambutol HCl 1,200 mg 10/22/24 10:15 11/02/24 09:16 Ethambutol Hcl 400 Mg Tablet PO 11/21/24 10:14 1,200 mg QDAY TORREY Administration Isoniazid 300 mg 10/22/24 10:15 11/02/24 09:18 Isoniazid 300 Mg Tablet PO 11/21/24 10:14 300 mg QDAY TORREY Administration Ondansetron HCl 4 mg 10/21/24 16:00 Ondansetron Inj 2 Mg/Ml Inj 2 Ml IV 11/20/24 15:59 Q6H PRN NAUSEA OR VOMITING Protocol Pantoprazole Sodium 40 mg 10/30/24 09:00 11/02/24 09:18 Pantoprazole 40 Mg Tablet PO 11/29/24 08:59 40 mg QDAY TORREY Administration Pyrazinamide 1,500 mg 10/31/24 09:00 11/02/24 09:15 Pyrazinamide 500 Mg Tablet PO 11/30/24 08:59 1,500 mg DAILY TORREY Administration Rifampin 600 mg 10/22/24 10:15 11/02/24 09:18 Rifampin 300 Mg Capsule PO 11/21/24 10:14 600 mg QDAY TORREY Administration Plan 53-year-old male with no past medical history presented to the ED due to cough, recent unintentional weight loss and tarry lesion found on chest x-ray. Admitted for TB workup. 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 Patient denies any night sweats, hemoptysis at this time, however he does state having night sweats in the past few months. Chest x-ray shows extensive bilateral infiltrate, which appears cavitary in the upper lung zones Chest CT shows Extensive cavitary miliary parenchymal disease throughout the lungs, most severe at the right apex, including septated right upper lobe cavitary lesion 5.6 x 5.2cm Blood culture-negative 48 hours Influenza negative, COVID-negative, HIV negative, Aspergillus negative Sputum cultures negative AFBs came back positive for tuberculosis, plan is to continue 7 days of treatment and repeat AFBs Wednesday night, to be sent on Wednesday AFBs came back positive for tuberculosis, will repeat AFBs -Repeat AFBs (3) sent -isolation precautions -on RIPE therapy -ID consulted, appreciate recommendation Case discussed with my attending Dr. Aristeo Rich PGY-2 Disposition: Medsurg on isolation for TB Fluids: None Feeding: regular Thrombo prophylaxis: SCDs Gastric Ulcer prophylaxis: not indicated CODE STATUS: Full code Attending Provider Attestation/Addendum Chelsy Ramirez DO, attest that I was physically present for the rojas portions of the service and evaluated the patient with the resident and I reviewed and discussed the case with the resident and agree with the resident's findings and plans of care as documented above No acute events overnight. AFBs remain positive. Continue with current management
[2024-11-03] MEDS: rifAMPin 300 MG CAPSULE 600 MG PO (09:23)
[2024-11-03] MEDS: PANTOPRAZOLE 40 MG TABLET PO (09:23)
[2024-11-03] MEDS: ETHAMBUTOL HCL 400 MG TABLET 1200 MG PO (09:24)
[2024-11-03] MEDS: ISONIAZID 300 MG TABLET PO (09:24)
[2024-11-03] MEDS: DOCUSATE SOD 100 MG CAPSULE PO (09:24)
[2024-11-03] MEDS: PYRAZINAMIDE 500 MG TABLET 1500 MG PO (09:25)
--- NOTE | 2024-11-03 09:31 | PD.IDPROG ---
Subjective Subjective Interval history: multiple afbs back on different days. most positive but not strongly so. status of home eval not clear. Exam Vital Signs Temp Pulse Resp BP Pulse Ox O2 Del Method 98.1 F 67 15 107/60 97 Room Air 11/03/24 08:00 11/03/24 08:00 11/03/24 08:00 11/03/24 08:00 11/03/24 08:00 11/03/24 04:00 Narrative Exam limited visit Objective - Internal Medicine Labs 11/01/24 05:30 11/01/24 05:30 Assessment & Plan A&P Narrative apical pneumonia with neg cocci IgM and neg procal (insensitive to fungal and atypical antigens) and pos afb smear rx to be long. 6-12 mo. later sputum also pos. recommend more afb smears each weekend it usually takes about 2 weeks to become non contagious. health dept may determine the isolation status and their criteria for release he lives with young children (pre school age or less) then they should be tested for tb. . will check in again on Wednesday. hiv and hep c neg. health dept to determine readiness for release Time Spent With Patient Time: Total time spent is greater than 50% in coordination of care (as documented) at patient's floor/unit and/or counseling patient:
[2024-11-03 12:00] VITALS: BP 124/61; PULSE 84; RESP 16; TEMP 36.2; O2SAT 97
--- NOTE | 2024-11-03 12:10 | PC.SS ---
Follow up note: AFBs sent out. Pt is requiring 3 negative AFBs before d/c. Pt will return home upon dc.
[2024-11-03 16:00] VITALS: BP 113/75; PULSE 71; RESP 16; TEMP 36.2; O2SAT 98
[2024-11-03 20:00] VITALS: BP 124/84; PULSE 75; RESP 18; TEMP 36.4; O2SAT 97
[2024-11-03 22:01] LABS: Cult AFB Sendout- Sputum* See Sep Rpt
--- NOTE | 2024-11-03 22:03 | PC.RT ---
1st AFB collected and sent to Lab at 2150.
[2024-11-04] VITALS: BP 112/76; PULSE 79; RESP 17; TEMP 36.4; O2SAT 97
[2024-11-04 04:00] VITALS: BP 110/77; PULSE 75; RESP 18; TEMP 36.4; O2SAT 97
[2024-11-04 06:59] LABS: Alanine Aminotransferase 13 U/L (10-49); Albumin, Serum 3.8 gm/dL (3.5-5.0); Alkaline Phosphatase 93 U/L (46-116); Aspartate Amino Transferase 14 U/L (0-34); Bilirubin,Direct < 0.1 mg/dL (0.0-0.3); Bilirubin,Total 0.2 mg/dL (0.3-1.2); Total Protein 7.2 gm/dL (5.7-8.2)
[2024-11-04 08:00] VITALS: BP 122/81; PULSE 78; RESP 18; TEMP 36.1; O2SAT 98
[2024-11-04] MEDS: DOCUSATE SOD 100 MG CAPSULE PO (09:45)
[2024-11-04] MEDS: rifAMPin 300 MG CAPSULE 600 MG PO (09:45)
[2024-11-04] MEDS: PANTOPRAZOLE 40 MG TABLET PO (09:45)
[2024-11-04] MEDS: ISONIAZID 300 MG TABLET PO (09:46)
[2024-11-04] MEDS: PYRAZINAMIDE 500 MG TABLET 1500 MG PO (11:56)
[2024-11-04] MEDS: ETHAMBUTOL HCL 400 MG TABLET 1200 MG PO (11:56)
[2024-11-04 12:00] VITALS: BP 111/71; PULSE 71; RESP 17; TEMP 36.6; O2SAT 98
--- NOTE | 2024-11-04 14:09 | PD.RESPRO ---
Documentation for date of: 11/04/24 Subjective Subjective Interval history: Overnight events, labs reviewed. The patient examined this a.m. at bedside. The patient has no active complaints. ordered AFB x3 to demonstrate clearning. pending results. Exam Vital Signs Temp Pulse Resp BP Pulse Ox O2 Del Method 97.6 F 75 18 110/77 97 Aerosol Mask 11/04/24 04:00 11/04/24 04:00 11/04/24 04:00 11/04/24 04:00 11/04/24 04:00 11/03/24 12:00 Narrative Exam Physical Exam GENERAL: NAD, AAOx3 HEENT: Moist mucosa. Eyes open, symmetrical, & clear CARDIO: Heart RRR, no obvious murmurs PULM: No noted coughing/dyspnea CTA B/L, no R/W/R GI: Abdomen soft, nondistended, no pain on palpation. BSx4 SKIN/MSK/EXT: No wounds/rashes/edema/amputations, no pain on palpation. Pedal pulses present B/L NEURO: AAOx3, no focal neuro deficits, able to move all 4 extremities Objective Labs 11/01/24 05:30 11/01/24 05:30 Labs: Laboratory Results - last 24 hr 11/04/24 06:01 Total Bilirubin 0.2 L Direct Bilirubin < 0.1 AST 14 ALT 13 Alkaline Phosphatase 93 Total Protein 7.2 Albumin 3.8 Quality Measures Quality Measures none Assessment & Plan Assessment Current Active Medications: Generic Name Dose Route Start Last Admin Trade Name Freq PRN Reason Stop Dose Admin Acetaminophen 650 mg 10/21/24 16:00 Acetaminophen 325 Mg Tablet PO 11/20/24 15:59 Q6H PRN Fever >100.5 Acetaminophen 650 mg 10/21/24 16:00 10/22/24 21:30 Acetaminophen 325 Mg Tablet PO 11/20/24 15:59 650 mg Q6H PRN Administration PAIN SCALE 1-3 (mild Docusate Sodium 100 mg 10/22/24 09:00 11/04/24 09:45 Docusate Sod 100 Mg Capsule PO 11/21/24 08:59 100 mg QDAY TORREY Administration Protocol Enoxaparin Sodium 40 mg 11/04/24 09:00 11/04/24 09:51 Enoxaparin Sod Inj 40 Mg/0.4 Ml Syringe SC 11/13/24 08:59 Not Given QDAY TORREY Ethambutol HCl 1,200 mg 10/22/24 10:15 11/04/24 11:56 Ethambutol Hcl 400 Mg Tablet PO 11/21/24 10:14 1,200 mg QDAY TORREY Administration Isoniazid 300 mg 10/22/24 10:15 11/04/24 09:46 Isoniazid 300 Mg Tablet PO 11/21/24 10:14 300 mg QDAY TORREY Administration Ondansetron HCl 4 mg 10/21/24 16:00 Ondansetron Inj 2 Mg/Ml Inj 2 Ml IV 11/20/24 15:59 Q6H PRN NAUSEA OR VOMITING Protocol Pantoprazole Sodium 40 mg 10/30/24 09:00 11/04/24 09:45 Pantoprazole 40 Mg Tablet PO 11/29/24 08:59 40 mg QDAY TORREY Administration Pyrazinamide 1,500 mg 10/31/24 09:00 11/04/24 11:56 Pyrazinamide 500 Mg Tablet PO 11/30/24 08:59 1,500 mg DAILY TORREY Administration Rifampin 600 mg 10/22/24 10:15 11/04/24 09:45 Rifampin 300 Mg Capsule PO 11/21/24 10:14 600 mg QDAY TORREY Administration Sodium Chloride 5 ml 11/03/24 20:37 Sodium Chloride Rt 10% 15 Ml Nebu INH 11/04/24 20:36 PRN PRN SPUTUM INDUCTION Plan 53-year-old male with no past medical history presented to the ED due to cough, recent unintentional weight loss and tarry lesion found on chest x-ray. Admitted for TB workup. 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 Patient denies any night sweats, hemoptysis at this time, however he does state having night sweats in the past few months. Chest x-ray shows extensive bilateral infiltrate, which appears cavitary in the upper lung zones Chest CT shows Extensive cavitary miliary parenchymal disease throughout the lungs, most severe at the right apex, including septated right upper lobe cavitary lesion 5.6 x 5.2cm Blood culture-negative 48 hours Influenza negative, COVID-negative, HIV negative, Aspergillus negative Sputum cultures negative AFBs came back positive for tuberculosis, plan is to continue 7 days of treatment and repeat AFBs Wednesday night, to be sent on Wednesday AFBs came back positive for tuberculosis, will repeat AFBs -Repeat AFBs (3) sent -isolation precautions -on RIPE therapy -ID consulted, appreciate recommendation Case discussed with my attending Dr. Cj Rich PGY-2 Disposition: Medsurg on isolation for TB Fluids: None Feeding: regular Thrombo prophylaxis: SCDs Gastric Ulcer prophylaxis: not indicated CODE STATUS: Full code Attending Provider Attestation/Addendum Discussed with housestaff. Continue treatment for tuberculosis, follow ID recs. Repeat AFB testing.
[2024-11-04 14:20] LABS: Cult AFB Sendout- Sputum* See Sep Rpt
[2024-11-04 16:00] VITALS: BP 114/72; PULSE 78; RESP 18; TEMP 36.4; O2SAT 98
[2024-11-04 18:23] LABS: Cult AFB Sendout- Sputum* See Sep Rpt
[2024-11-04 20:00] VITALS: BP 121/72; PULSE 62; RESP 18; TEMP 36.3; O2SAT 99
[2024-11-05] VITALS: BP 108/70; PULSE 64; RESP 18; TEMP 36.2; O2SAT 98
[2024-11-05 04:00] VITALS: BP 108/73; PULSE 71; RESP 18; TEMP 36.4; O2SAT 97
[2024-11-05 08:00] VITALS: BP 99/74; PULSE 83; RESP 16; TEMP 36.2; O2SAT 98
[2024-11-05] MEDS: ETHAMBUTOL HCL 400 MG TABLET 1200 MG PO (08:50)
[2024-11-05] MEDS: rifAMPin 300 MG CAPSULE 600 MG PO (08:51)
[2024-11-05] MEDS: DOCUSATE SOD 100 MG CAPSULE PO (08:51)
[2024-11-05] MEDS: PANTOPRAZOLE 40 MG TABLET PO (08:51)
[2024-11-05] MEDS: PYRAZINAMIDE 500 MG TABLET 1500 MG PO (08:51)
[2024-11-05] MEDS: ISONIAZID 300 MG TABLET PO (08:51)
[2024-11-05 12:00] VITALS: BP 95/68; PULSE 68; RESP 18; TEMP 36.7; O2SAT 97
--- NOTE | 2024-11-05 14:04 | PD.RESPRO ---
Documentation for date of: 11/05/24 Subjective Subjective Interval history: The is evaluated the bedside, asymptomatic currently. Pending [facility]/infection prevention recommendations for release. Exam Vital Signs Temp Pulse Resp BP Pulse Ox O2 Del Method 98.1 F 68 18 95/68 97 Room Air 11/05/24 12:00 11/05/24 12:00 11/05/24 12:00 11/05/24 12:00 11/05/24 12:00 11/05/24 12:00 Narrative Exam Physical Exam GENERAL: NAD, AAOx3 HEENT: Moist mucosa. Eyes open, symmetrical, & clear CARDIO: Heart RRR, no obvious murmurs PULM: No noted coughing/dyspnea CTA B/L, no R/W/R GI: Abdomen soft, nondistended, no pain on palpation. BSx4 SKIN/MSK/EXT: No wounds/rashes/edema/amputations, no pain on palpation. Pedal pulses present B/L NEURO: AAOx3, no focal neuro deficits, able to move all 4 extremities Objective Labs 11/01/24 05:30 11/01/24 05:30 Quality Measures Quality Measures none Assessment & Plan Assessment Current Active Medications: Generic Name Dose Route Start Last Admin Trade Name Freq PRN Reason Stop Dose Admin Acetaminophen 650 mg 10/21/24 16:00 Acetaminophen 325 Mg Tablet PO 11/20/24 15:59 Q6H PRN Fever >100.5 Acetaminophen 650 mg 10/21/24 16:00 10/22/24 21:30 Acetaminophen 325 Mg Tablet PO 11/20/24 15:59 650 mg Q6H PRN Administration PAIN SCALE 1-3 (mild Docusate Sodium 100 mg 10/22/24 09:00 11/05/24 08:51 Docusate Sod 100 Mg Capsule PO 11/21/24 08:59 100 mg QDAY TORREY Administration Protocol Enoxaparin Sodium 40 mg 11/04/24 09:00 11/05/24 09:00 Enoxaparin Sod Inj 40 Mg/0.4 Ml Syringe SC 11/13/24 08:59 Not Given QDAY TORREY Ethambutol HCl 1,200 mg 10/22/24 10:15 11/05/24 08:50 Ethambutol Hcl 400 Mg Tablet PO 11/21/24 10:14 1,200 mg QDAY TORREY Administration Isoniazid 300 mg 10/22/24 10:15 11/05/24 08:51 Isoniazid 300 Mg Tablet PO 11/21/24 10:14 300 mg QDAY TORREY Administration Ondansetron HCl 4 mg 10/21/24 16:00 Ondansetron Inj 2 Mg/Ml Inj 2 Ml IV 11/20/24 15:59 Q6H PRN NAUSEA OR VOMITING Protocol Pantoprazole Sodium 40 mg 10/30/24 09:00 11/05/24 08:51 Pantoprazole 40 Mg Tablet PO 11/29/24 08:59 40 mg QDAY TORREY Administration Pyrazinamide 1,500 mg 10/31/24 09:00 11/05/24 08:51 Pyrazinamide 500 Mg Tablet PO 11/30/24 08:59 1,500 mg DAILY TORREY Administration Rifampin 600 mg 10/22/24 10:15 11/05/24 08:51 Rifampin 300 Mg Capsule PO 11/21/24 10:14 600 mg QDAY TORREY Administration Plan 53-year-old male with no past medical history presented to the ED due to cough, recent unintentional weight loss and tarry lesion found on chest x-ray. Admitted for TB workup. 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 Patient denies any night sweats, hemoptysis at this time, however he does state having night sweats in the past few months. Chest x-ray shows extensive bilateral infiltrate, which appears cavitary in the upper lung zones Chest CT shows Extensive cavitary miliary parenchymal disease throughout the lungs, most severe at the right apex, including septated right upper lobe cavitary lesion 5.6 x 5.2cm Blood culture-negative 48 hours Influenza negative, COVID-negative, HIV negative, Aspergillus negative Sputum cultures negative AFBs came back positive for tuberculosis, plan is to continue 7 days of treatment and repeat AFBs Wednesday night, to be sent on Wednesday AFBs came back positive for tuberculosis, will repeat AFBs -Repeat AFBs (3) sent -isolation precautions -on RIPE therapy -ID consulted, appreciate recommendation Case discussed with my attending Dr. Cj Rich PGY-2 Disposition: Medsurg on isolation for TB Fluids: None Feeding: regular Thrombo prophylaxis: SCDs Gastric Ulcer prophylaxis: not indicated CODE STATUS: Full code Attending Provider Attestation/Addendum Discussed with housestaff. Continue treatment for tuberculosis, follow ID recs. Repeat AFB testing. Patient is not hypoxic on room air. He is afebrile. Body weight 65.22 kg
[2024-11-05 16:00] VITALS: BP 103/69; PULSE 76; RESP 16; TEMP 36.7; O2SAT 97
[2024-11-05 20:00] VITALS: BP 116/74; PULSE 60; RESP 18; TEMP 36.6; O2SAT 97
[2024-11-06] VITALS: BP 115/70; PULSE 67; RESP 18; TEMP 36.3; O2SAT 97
[2024-11-06 04:00] VITALS: BP 108/74; PULSE 74; RESP 20; TEMP 37.1; O2SAT 97
[2024-11-06 08:00] VITALS: BP 107/77; PULSE 73; RESP 17; TEMP 36.3; O2SAT 97
[2024-11-06] MEDS: ISONIAZID 300 MG TABLET PO (08:49)
[2024-11-06] MEDS: PYRAZINAMIDE 500 MG TABLET 1500 MG PO (08:50)
[2024-11-06] MEDS: DOCUSATE SOD 100 MG CAPSULE PO (08:50)
[2024-11-06] MEDS: PANTOPRAZOLE 40 MG TABLET PO (08:50)
[2024-11-06] MEDS: ETHAMBUTOL HCL 400 MG TABLET 1200 MG PO (08:50)
[2024-11-06] MEDS: rifAMPin 300 MG CAPSULE 600 MG PO (08:50)
--- NOTE | 2024-11-06 09:03 | PD.IDPROG ---
Subjective Subjective Interval history: young children at home makes release challenging. home eval pending yet Exam Vital Signs Temp Pulse Resp BP Pulse Ox O2 Del Method 98.8 F 74 20 108/74 97 Room Air 11/06/24 04:00 11/06/24 04:00 11/06/24 04:00 11/06/24 04:00 11/06/24 04:00 11/06/24 04:00 Narrative Exam limited eval Objective - Internal Medicine Labs 11/01/24 05:30 11/01/24 05:30 Assessment & Plan A&P Narrative apical pneumonia with neg cocci IgM and neg procal (insensitive to fungal and atypical antigens) and pos afb smear rx to be long. 6-12 mo. later sputum also pos. recommend more afb smears each weekend after second week it usually takes about 2 weeks to become non contagious. health dept may determine the isolation status and their criteria for release he lives with young children (pre school age or less) then they should be tested for tb. . will check in again on Wednesday. . hiv and hep c neg. health dept to determine readiness for release Time Spent With Patient Time: Total time spent is greater than 50% in coordination of care (as documented) at patient's floor/unit and/or counseling patient:
--- NOTE | 2024-11-06 09:06 | PD.IDPROG ---
Subjective Subjective Interval history: vitamin b6 fell off list, so added back Exam Vital Signs Temp Pulse Resp BP Pulse Ox O2 Del Method 98.8 F 74 20 108/74 97 Room Air 11/06/24 04:00 11/06/24 04:00 11/06/24 04:00 11/06/24 04:00 11/06/24 04:00 11/06/24 04:00 Narrative Exam limited eval today Objective - Internal Medicine Labs 11/01/24 05:30 11/01/24 05:30 Assessment & Plan A&P Narrative apical pneumonia with neg cocci IgM and neg procal (insensitive to fungal and atypical antigens) and pos afb smear rx to be long. 6-12 mo. later sputum also pos. recommend more afb smears each weekend after second week it usually takes about 2 weeks to become non contagious. health dept may determine the isolation status and their criteria for release he lives with young children (pre school age or less) then they should be tested for tb. . will check in again on Wednesday. . hiv and hep c neg. health dept to determine readiness for release Time Spent With Patient Time: Total time spent is greater than 50% in coordination of care (as documented) at patient's floor/unit and/or counseling patient:
--- NOTE | 2024-11-06 09:55 | PC.SS ---
Follow up note: AFBs Sent. Pt is requiring 3 negative AFBs. Pt will return home upon dc.
[2024-11-06 12:00] VITALS: BP 122/91; PULSE 87; RESP 17; TEMP 36.2; O2SAT 98
[2024-11-06 16:00] VITALS: BP 115/76; PULSE 67; RESP 17; TEMP 36.2; O2SAT 97
[2024-11-06 20:00] VITALS: BP 111/73; PULSE 79; RESP 16; TEMP 36.2; O2SAT 98
[2024-11-07] VITALS: BP 100/70; PULSE 65; RESP 16; TEMP 36.7; O2SAT 98
[2024-11-07 04:00] VITALS: BP 102/65; PULSE 64; RESP 16; TEMP 36.7; O2SAT 98
[2024-11-07 07:49] VITALS: BP 112/76; PULSE 84; RESP 16; TEMP 36.7; O2SAT 98
[2024-11-07] MEDS: PYRAZINAMIDE 500 MG TABLET 1500 MG PO (09:45)
[2024-11-07] MEDS: ISONIAZID 300 MG TABLET PO (09:45)
[2024-11-07] MEDS: PANTOPRAZOLE 40 MG TABLET PO (09:45)
[2024-11-07] MEDS: PYRIDOXINE 50 MG TABLET PO (09:45)
[2024-11-07] MEDS: ETHAMBUTOL HCL 400 MG TABLET 1200 MG PO (09:46)
[2024-11-07] MEDS: DOCUSATE SOD 100 MG CAPSULE PO (09:46)
[2024-11-07] MEDS: rifAMPin 300 MG CAPSULE 600 MG PO (09:50)
[2024-11-07 11:51] VITALS: BP 118/74; PULSE 88; RESP 16; TEMP 36.7; O2SAT 98
--- NOTE | 2024-11-07 15:20 | ESPR_ITS ---
Documentation for date of: 11/07/24 Subjective Subjective Interval history: The is evaluated the bedside, asymptomatic currently. Pending [facility]/infection prevention recommendations for release. Exam Vital Signs Temp Pulse Resp BP Pulse Ox O2 Del Method 98.1 F 88 16 118/74 98 Room Air 11/07/24 11:51 11/07/24 11:51 11/07/24 11:51 11/07/24 11:51 11/07/24 11:51 11/07/24 11:51 Narrative Exam Physical Exam GENERAL: NAD, AAOx3 HEENT: Moist mucosa. Eyes open, symmetrical, & clear CARDIO: Heart RRR, no obvious murmurs PULM: No noted coughing/dyspnea CTA B/L, no R/W/R GI: Abdomen soft, nondistended, no pain on palpation. BSx4 SKIN/MSK/EXT: No wounds/rashes/edema/amputations, no pain on palpation. Pedal pulses present B/L NEURO: AAOx3, no focal neuro deficits, able to move all 4 extremities Objective Labs 11/01/24 05:30 11/01/24 05:30 Quality Measures Quality Measures none Assessment & Plan Assessment Current Active Medications: Generic Name Dose Route Start Last Admin Trade Name Freq PRN Reason Stop Dose Admin Acetaminophen 650 mg 10/21/24 16:00 Acetaminophen 325 Mg Tablet PO 11/20/24 15:59 Q6H PRN Fever >100.5 Acetaminophen 650 mg 10/21/24 16:00 10/22/24 21:30 Acetaminophen 325 Mg Tablet PO 11/20/24 15:59 650 mg Q6H PRN Administration PAIN SCALE 1-3 (mild Docusate Sodium 100 mg 10/22/24 09:00 11/07/24 09:46 Docusate Sod 100 Mg Capsule PO 11/21/24 08:59 100 mg QDAY TORREY Administration Protocol Enoxaparin Sodium 40 mg 11/04/24 09:00 11/07/24 09:47 Enoxaparin Sod Inj 40 Mg/0.4 Ml Syringe SC 11/13/24 08:59 Not Given QDAY TORREY Ethambutol HCl 1,200 mg 10/22/24 10:15 11/07/24 09:46 Ethambutol Hcl 400 Mg Tablet PO 11/21/24 10:14 1,200 mg QDAY TORREY Administration Isoniazid 300 mg 10/22/24 10:15 11/07/24 09:45 Isoniazid 300 Mg Tablet PO 11/21/24 10:14 300 mg QDAY TORREY Administration Ondansetron HCl 4 mg 10/21/24 16:00 Ondansetron Inj 2 Mg/Ml Inj 2 Ml IV 11/20/24 15:59 Q6H PRN NAUSEA OR VOMITING Protocol Pantoprazole Sodium 40 mg 10/30/24 09:00 11/07/24 09:45 Pantoprazole 40 Mg Tablet PO 11/29/24 08:59 40 mg QDAY TORREY Administration Pyrazinamide 1,500 mg 10/31/24 09:00 11/07/24 09:45 Pyrazinamide 500 Mg Tablet PO 11/30/24 08:59 1,500 mg DAILY TORREY Administration Pyridoxine HCl 50 mg 11/07/24 09:00 11/07/24 09:45 Pyridoxine 50 Mg Tablet PO 01/30/26 12:00 50 mg QDAY TORREY Administration Rifampin 600 mg 10/22/24 10:15 11/07/24 09:50 Rifampin 300 Mg Capsule PO 11/21/24 10:14 600 mg QDAY TORREY Administration Plan 53-year-old male with no past medical history presented to the ED due to cough, recent unintentional weight loss and tarry lesion found on chest x-ray. Admitted for TB workup. 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 Patient denies any night sweats, hemoptysis at this time, however he does state having night sweats in the past few months. Chest x-ray shows extensive bilateral infiltrate, which appears cavitary in the upper lung zones Chest CT shows Extensive cavitary miliary parenchymal disease throughout the lungs, most severe at the right apex, including septated right upper lobe cavitary lesion 5.6 x 5.2cm Blood culture-negative 48 hours Influenza negative, COVID-negative, HIV negative, Aspergillus negative Sputum cultures negative AFBs came back positive for tuberculosis, plan is to continue 7 days of treatment and repeat AFBs Wednesday, to be sent on Wednesday AFBs came back positive for tuberculosis, will repeat AFBs -Repeat AFBs (3) sent -isolation precautions -on RIPE therapy -ID consulted, appreciate recommendation Hospital Management: Disposition: Medsurg on isolation for TB Fluids: None Feeding: regular Thrombo prophylaxis: SCDs Gastric Ulcer prophylaxis: not indicated CODE STATUS: Full code Patient seen and examined with attending Dr. Phylicia Husain, PGY-1 Attending Provider Attestation/Addendum I have discussed and was present for the essential components of the history, physical examination, diagnosis, and treatment plan with the resident. I agree with the patient's care as documented by the resident and amended herein by me. Lamont Whatley, . No acute events overnight, patient remained stable, discharge pending results of repeat AFBs, will continue RIPE therapy for now Although this document has been carefully reviewed, there may still be some phonetic and other typographical errors. These errors are purely grammatical due to imperfections in the software program and should not be construed in any way to compromise the substance of the patient's medical care during this visit.
[2024-11-07 16:00] VITALS: BP 116/74; PULSE 77; RESP 16; TEMP 36.7; O2SAT 96
--- NOTE | 2024-11-07 16:17 | PC.SS ---
Follow up note; Pt is still waiting for AFBs results. Pt will return home upon dc.
[2024-11-07 20:00] VITALS: BP 103/69; PULSE 65; RESP 17; TEMP 36.1; O2SAT 96
[2024-11-08] VITALS (7 sets, daily range): BP systolic 98–115; BP diastolic 68–83; PULSE 59–96; RESP 16–18; TEMP 36.2–36.5; O2SAT 93–98; BMI 21.2
[2024-11-08] MEDS: PANTOPRAZOLE 40 MG TABLET PO (08:39)
[2024-11-08] MEDS: DOCUSATE SOD 100 MG CAPSULE PO (08:39)
[2024-11-08] MEDS: ISONIAZID 300 MG TABLET PO (08:39)
[2024-11-08] MEDS: PYRAZINAMIDE 500 MG TABLET 1500 MG PO (08:41)
[2024-11-08] MEDS: PYRIDOXINE 50 MG TABLET PO (08:42)
[2024-11-08] MEDS: ETHAMBUTOL HCL 400 MG TABLET 1200 MG PO (08:42)
[2024-11-08] MEDS: rifAMPin 300 MG CAPSULE 600 MG PO (08:46)
--- NOTE | 2024-11-08 09:16 | PC.SS ---
Follow up note: Pending results of repeat AFBs. Per physician's's note: [facility]/Infection Prevention recommendations for release is still pending. Pt will return home upon dc. Per bedside nurse, pt has been ambulating independently without assistance to restroom.
--- NOTE | 2024-11-08 11:43 | PD.RESPRO ---
Documentation for date of: 11/08/24 Subjective Subjective Interval history: 11/08/2024: No acute overnight events to report. Patient continues to be treated for TB and we will send another 3 samples of AFB sputum to be right this weekend. Per report, patient family member also has been tested positive for TB; as result, patient's disposition has been modified. Awaiting health department recommendations based off TB results. Infectious disease physician, Dr Peraza, consulted and appreciate recommendations. Exam Vital Signs Temp Pulse Resp BP Pulse Ox O2 Del Method 97.3 F 78 18 110/74 94 L Room Air 11/08/24 08:00 11/08/24 08:00 11/08/24 08:00 11/08/24 08:00 11/08/24 08:00 11/08/24 08:00 Narrative Exam Physical Exam Deferred at this time Objective Labs 11/01/24 05:30 11/01/24 05:30 Quality Measures Quality Measures none Assessment & Plan Assessment Current Active Medications: Generic Name Dose Route Start Last Admin Trade Name Freq PRN Reason Stop Dose Admin Acetaminophen 650 mg 10/21/24 16:00 Acetaminophen 325 Mg Tablet PO 11/20/24 15:59 Q6H PRN Fever >100.5 Acetaminophen 650 mg 10/21/24 16:00 10/22/24 21:30 Acetaminophen 325 Mg Tablet PO 11/20/24 15:59 650 mg Q6H PRN Administration PAIN SCALE 1-3 (mild Docusate Sodium 100 mg 10/22/24 09:00 11/08/24 08:39 Docusate Sod 100 Mg Capsule PO 11/21/24 08:59 100 mg QDAY TORREY Administration Protocol Enoxaparin Sodium 40 mg 11/04/24 09:00 11/08/24 08:41 Enoxaparin Sod Inj 40 Mg/0.4 Ml Syringe SC 11/13/24 08:59 Not Given QDAY TORREY Ethambutol HCl 1,200 mg 10/22/24 10:15 11/08/24 08:42 Ethambutol Hcl 400 Mg Tablet PO 11/21/24 10:14 1,200 mg QDAY TORREY Administration Isoniazid 300 mg 10/22/24 10:15 11/08/24 08:39 Isoniazid 300 Mg Tablet PO 11/21/24 10:14 300 mg QDAY TORREY Administration Ondansetron HCl 4 mg 10/21/24 16:00 Ondansetron Inj 2 Mg/Ml Inj 2 Ml IV 11/20/24 15:59 Q6H PRN NAUSEA OR VOMITING Protocol Pantoprazole Sodium 40 mg 10/30/24 09:00 11/08/24 08:39 Pantoprazole 40 Mg Tablet PO 11/29/24 08:59 40 mg QDAY TORREY Administration Pyrazinamide 1,500 mg 10/31/24 09:00 11/08/24 08:41 Pyrazinamide 500 Mg Tablet PO 11/30/24 08:59 1,500 mg DAILY TORREY Administration Pyridoxine HCl 50 mg 11/07/24 09:00 11/08/24 08:42 Pyridoxine 50 Mg Tablet PO 01/30/26 12:00 50 mg QDAY TORREY Administration Rifampin 600 mg 10/22/24 10:15 11/08/24 08:46 Rifampin 300 Mg Capsule PO 11/21/24 10:14 600 mg QDAY TORREY Administration Plan 53-year-old male with no past medical history presented to the ED due to cough, recent unintentional weight loss and tarry lesion found on chest x-ray. Admitted for TB workup. 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 Patient denies any night sweats, hemoptysis at this time, however he does state having night sweats in the past few months. Chest x-ray shows extensive bilateral infiltrate, which appears cavitary in the upper lung zones Chest CT shows Extensive cavitary miliary parenchymal disease throughout the lungs, most severe at the right apex, including septated right upper lobe cavitary lesion 5.6 x 5.2cm Blood culture-negative 48 hours Influenza negative, COVID-negative, HIV negative, Aspergillus negative Sputum cultures negative AFBs came back positive for tuberculosis, plan is to continue 7 days of treatment and repeat AFBs Wednesday night, to be sent on Wednesday AFBs came back positive for tuberculosis, will repeat AFBs Plan: Repeat AFBs (3) sent Isolation precautions On RIPE therapy ID consulted, appreciate recommendation Hospital Management: Disposition: Medsurg on isolation for TB Fluids: None Diet: regular Thrombo prophylaxis: SCDs Gastric Ulcer prophylaxis: not indicated CODE STATUS: Full code Patient seen and examined with attending Dr. Phylicia Husain, PGY-1 Attending Provider Attestation/Addendum I have discussed and was present for the essential components of the history, physical examination, diagnosis, and treatment plan with the resident. I agree with the patient's care as documented by the resident and amended herein by me. Lamont Whatley, DO. Patient seen and evaluated this AM. Vital signs stable, patient afebrile overnight, patient remains in good spirits. All AFBs thus far positive. The patient's family is currently being tested, thus far a baby in the household is positive. Pending further recommendations from the [facility] which likely will not be in until the family is fully tested and results are known. Will continue RIPE therapy for now. Will continue to send AFBs weekly. Although this document has been carefully reviewed, there may still be some phonetic and other typographical errors. These errors are purely grammatical due to imperfections in the software program and should not be construed in any way to compromise the substance of the patient's medical care during this visit.
--- NOTE | 2024-11-08 12:47 | PD.IDPROG ---
Subjective Subjective Interval history: was asked today about going to a motel for rx. no objection but pt not on rx long. would be timely to get sputums for afb this weekend (often take 2 weeks to sterilize sputum). S pending note that all smears are positive. so am not expecting health dept to discharge him as he becomes their responsibility on release. they usually like the pt to stay in house a long time. Exam Vital Signs Temp Pulse Resp BP Pulse Ox O2 Del Method 97.6 F 68 17 112/83 98 Room Air 11/08/24 12:00 11/08/24 12:00 11/08/24 12:00 11/08/24 12:00 11/08/24 12:00 11/08/24 12:00 Narrative Exam limited eval Objective - Internal Medicine Labs 11/01/24 05:30 11/01/24 05:30 Assessment & Plan A&P Narrative apical pneumonia with neg cocci IgM and neg procal (insensitive to fungal and atypical antigens) and pos afb smears rx to be long. 6-12 mo. later sputum also pos. recommend more afb smears each weekend starting this weekend. it usually takes about 2 weeks to become non contagious. health dept may determine the isolation status and their criteria for release no objection to outpt f/u by health dept but it is at their discretion. he lives with young children (pre school age or less) then they should be tested for tb. apparenlty one is positive. we do not have any details though . will check in again on Wednesday. hiv and hep c neg. Time Spent With Patient Time: Total time spent is greater than 50% in coordination of care (as documented) at patient's floor/unit and/or counseling patient:
--- NOTE | 2024-11-08 22:00 | PC.NURSE ---
Spoke to Sandi RT regarding sputum induction collection for the pts. Per RT Sandi she will talk to MD Marquez regarding the order.
--- NOTE | 2024-11-08 23:35 | PC.RT ---
Specimen cup left bedside with pt, says he will collect sample tonight as he coughs up phlegm. Pt is aware of collection process and has been reminded to collect at least 5MLs of sputum
[2024-11-09 04:00] VITALS: BP 118/77; PULSE 74; RESP 18; TEMP 36.2; O2SAT 97
[2024-11-09 05:12] LABS: Cult AFB Sendout- Sputum* See Sep Rpt
--- NOTE | 2024-11-09 06:55 | PC.NURSE ---
MD Mccoy called and said he will call pharmacy to give order for pts pain meds. Will informed AM nurse.
[2024-11-09 08:00] VITALS: BP 113/77; PULSE 74; RESP 16; TEMP 36.3; O2SAT 97
[2024-11-09] MEDS: DOCUSATE SOD 100 MG CAPSULE PO (08:30)
[2024-11-09] MEDS: rifAMPin 300 MG CAPSULE 600 MG PO (08:30)
[2024-11-09] MEDS: PANTOPRAZOLE 40 MG TABLET PO (08:30)
[2024-11-09] MEDS: PYRAZINAMIDE 500 MG TABLET 1500 MG PO (08:31)
[2024-11-09] MEDS: ETHAMBUTOL HCL 400 MG TABLET 1200 MG PO (08:31)
[2024-11-09] MEDS: ISONIAZID 300 MG TABLET PO (08:31)
[2024-11-09] MEDS: PYRIDOXINE 50 MG TABLET PO (08:32)
[2024-11-09 12:00] VITALS: BP 121/82; PULSE 88; RESP 16; TEMP 36.2; O2SAT 96
--- NOTE | 2024-11-09 13:32 | PD.RESPRO ---
Documentation for date of: 11/09/24 Subjective Subjective Interval history: 11/08/2024: No acute overnight events to report. Patient continues to be treated for TB. Awaiting health department recommendations based off TB results. Infectious disease physician, Dr Peraza, consulted and appreciate recommendations. Exam Vital Signs Temp Pulse Resp BP Pulse Ox O2 Del Method 97.1 F 88 16 121/82 96 Room Air 11/09/24 12:00 11/09/24 12:00 11/09/24 12:00 11/09/24 12:00 11/09/24 12:00 11/09/24 12:00 Narrative Exam Physical Exam Deferred at this time Objective Labs 11/01/24 05:30 11/01/24 05:30 Labs: Laboratory Results - last 24 hr 11/03/24 11/04/24 11/04/24 21:50 13:35 18:19 Mycobacterial Culture See Sep Rpt See Sep Rpt See Sep Rpt Quality Measures Quality Measures none Assessment & Plan Assessment Current Active Medications: Generic Name Dose Route Start Last Admin Trade Name Freq PRN Reason Stop Dose Admin Acetaminophen 650 mg 10/21/24 16:00 Acetaminophen 325 Mg Tablet PO 11/20/24 15:59 Q6H PRN Fever >100.5 Acetaminophen 650 mg 10/21/24 16:00 10/22/24 21:30 Acetaminophen 325 Mg Tablet PO 11/20/24 15:59 650 mg Q6H PRN Administration PAIN SCALE 1-3 (mild Docusate Sodium 100 mg 10/22/24 09:00 11/09/24 08:30 Docusate Sod 100 Mg Capsule PO 11/21/24 08:59 100 mg QDAY TORREY Administration Protocol Enoxaparin Sodium 40 mg 11/04/24 09:00 11/09/24 08:32 Enoxaparin Sod Inj 40 Mg/0.4 Ml Syringe SC 11/13/24 08:59 Not Given QDAY TORREY Ethambutol HCl 1,200 mg 10/22/24 10:15 11/09/24 08:31 Ethambutol Hcl 400 Mg Tablet PO 11/21/24 10:14 1,200 mg QDAY TORREY Administration Isoniazid 300 mg 10/22/24 10:15 11/09/24 08:31 Isoniazid 300 Mg Tablet PO 11/21/24 10:14 300 mg QDAY TORREY Administration Ondansetron HCl 4 mg 10/21/24 16:00 Ondansetron Inj 2 Mg/Ml Inj 2 Ml IV 11/20/24 15:59 Q6H PRN NAUSEA OR VOMITING Protocol Pantoprazole Sodium 40 mg 10/30/24 09:00 11/09/24 08:30 Pantoprazole 40 Mg Tablet PO 11/29/24 08:59 40 mg QDAY TORREY Administration Pyrazinamide 1,500 mg 10/31/24 09:00 11/09/24 08:31 Pyrazinamide 500 Mg Tablet PO 11/30/24 08:59 1,500 mg DAILY TORREY Administration Pyridoxine HCl 50 mg 11/07/24 09:00 11/09/24 08:32 Pyridoxine 50 Mg Tablet PO 01/30/26 12:00 50 mg QDAY TORREY Administration Rifampin 600 mg 10/22/24 10:15 11/09/24 08:30 Rifampin 300 Mg Capsule PO 11/21/24 10:14 600 mg QDAY TORREY Administration Plan 53-year-old male with no past medical history presented to the ED due to cough, recent unintentional weight loss and tarry lesion found on chest x-ray. Admitted for TB workup. 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 Patient denies any night sweats, hemoptysis at this time, however he does state having night sweats in the past few months. Chest x-ray shows extensive bilateral infiltrate, which appears cavitary in the upper lung zones Chest CT shows Extensive cavitary miliary parenchymal disease throughout the lungs, most severe at the right apex, including septated right upper lobe cavitary lesion 5.6 x 5.2cm Blood culture-negative 48 hours Influenza negative, COVID-negative, HIV negative, Aspergillus negative Sputum cultures negative AFBs came back positive for tuberculosis, plan is to continue 7 days of treatment and repeat AFBs Wednesday night, to be sent on Wednesday AFBs came back positive for tuberculosis, will repeat AFBs Plan: Repeat AFBs (3) pending Isolation precautions On RIPE therapy ID consulted, appreciate recommendation Hospital Management: Disposition: Medsurg on isolation for TB Fluids: None Diet: regular Thrombo prophylaxis: SCDs Gastric Ulcer prophylaxis: not indicated CODE STATUS: Full code Patient seen and examined with attending Dr. Phylicia Husain, PGY-1 Attending Provider Attestation/Addendum I have discussed and was present for the essential components of the history, physical examination, diagnosis, and treatment plan with the resident. I agree with the patient's care as documented by the resident and amended herein by me. Lamont Whatley, DO. Patient seen and evaluated this AM. No change today, vital signs stable, patient afebrile. See note from previous day but essentially the patient's family is currently being worked up for tuberculosis, there is at least 1 known positive child in the family, the rest of the results are pending. All AFBs for our patient have come back positive thus far. Once the patient's family's testing results are known the county can make a decision and formulate a plan for discharge and quarantine. For now, infectious disease consulted, appreciate recommendations, will continue RIPE therapy. Although this document has been carefully reviewed, there may still be some phonetic and other typographical errors. These errors are purely grammatical due to imperfections in the software program and should not be construed in any way to compromise the substance of the patient's medical care during this visit.
[2024-11-09 14:21] LABS: Cult AFB Sendout- Sputum* See Sep Rpt
[2024-11-09 16:00] VITALS: BP 113/73; PULSE 74; RESP 16; TEMP 36.2; O2SAT 97
--- NOTE | 2024-11-09 19:21 | PC.NURSE ---
Spoke to pts and daughter iraj translated, explained to pt that I need to change his IV site DT been there for a long time and to prevent getting infection, pts refused saying if im going to removed that old one and dont put a new one again because it hurts when I insert a new one, explained to him that he needs emergency access and I need to put another one but pt still refused. He said just leave that old one and he understand the consequences.
[2024-11-09 20:00] VITALS: BP 114/73; PULSE 69; RESP 17; TEMP 36.5; O2SAT 96
[2024-11-09 22:15] LABS: Cult AFB Sendout- Sputum* See Sep Rpt
[2024-11-10] VITALS: BP 107/71; PULSE 68; RESP 18; TEMP 36.2; O2SAT 98
[2024-11-10 04:00] VITALS: BP 111/72; PULSE 68; RESP 17; TEMP 36.3; O2SAT 96
--- NOTE | 2024-11-10 06:09 | PD.IDPROG ---
Subjective Subjective Interval history: afb/s pending. Exam Vital Signs Temp Pulse Resp BP Pulse Ox O2 Del Method 97.4 F 68 17 111/72 96 Room Air 11/10/24 04:00 11/10/24 04:00 11/10/24 04:00 11/10/24 04:00 11/10/24 04:00 11/10/24 04:00 Narrative Exam limited eval Objective - Internal Medicine Labs 11/01/24 05:30 11/01/24 05:30 Labs: Laboratory Results - last 24 hr 11/03/24 11/04/24 11/04/24 21:50 13:35 18:19 Mycobacterial Culture See Sep Rpt See Sep Rpt See Sep Rpt Assessment & Plan A&P Narrative apical pneumonia with neg cocci IgM and neg procal (insensitive to fungal and atypical antigens) and pos afb smears with repeats pending at this time rx to be long. 6-12 mo. later sputum also pos. recommend more afb smears each /Wednesday starting this /Wednesday. it usually takes about 2 weeks to become non contagious. health dept may determine the isolation status and their criteria for release no objection to outpt f/u by health dept but it is at their discretion. he lives with young children (pre school age or less) then they should be tested for tb. apparently one is positive. we do not have any details though . will check in again on Wednesday. hiv and hep c neg. Time Spent With Patient Time: Total time spent is greater than 50% in coordination of care (as documented) at patient's floor/unit and/or counseling patient:
[2024-11-10 08:00] VITALS: BP 120/78; PULSE 78; RESP 17; TEMP 36.7; O2SAT 98
--- NOTE | 2024-11-10 09:20 | PD.ADDPROG ---
Addendum Progress Note Addendum Date of report being addended: 11/10/24 Narrative: called health dept lab. they have 2 sputums from the other day. will get one more as precaution.
--- NOTE | 2024-11-10 09:20 | PC.SS ---
Follow up note: Waiting for state clearance for TB results. Pt will be return home upon dc.
[2024-11-10] MEDS: ENOXAPARIN SOD INJ 40 MG/0.4 ML SYRINGE SC (10:45)
[2024-11-10] MEDS: PYRAZINAMIDE 500 MG TABLET 1500 MG PO (10:45)
[2024-11-10] MEDS: DOCUSATE SOD 100 MG CAPSULE PO (10:45)
[2024-11-10] MEDS: PANTOPRAZOLE 40 MG TABLET PO (10:45)
[2024-11-10] MEDS: ETHAMBUTOL HCL 400 MG TABLET 1200 MG PO (10:47)
[2024-11-10] MEDS: PYRIDOXINE 50 MG TABLET PO (10:52)
[2024-11-10] MEDS: rifAMPin 300 MG CAPSULE 600 MG PO (11:12)
[2024-11-10] MEDS: ISONIAZID 300 MG TABLET PO (11:13)
--- NOTE | 2024-11-10 11:34 | ESPR_ITS ---
<Statement entered by Sidney Cohen MD - 11/17/24 09:14> I reviewed above note and agree with findings and plans. I have also personally examined the patient with medicine team and went over assessment and plan with medical team including business services intern and resident physician. <Statement entered by Michael Carrera MD - 11/11/24 17:32> I discussed with and supervised the business services intern physician involved in the care of this patient. Patient assessment and plan was discussed with entire medicine team, including my attending. I agree with the assessment and plan as documented by business services intern doctor. Patient care was discussed with my attending physician Dr. Noel Carrera, PGY-2 Documentation for date of: 11/10/24 Subjective Subjective Interval history: 11/10/2024: No acute overnight events to report. Patient continues to be treated for TB. Awaiting health department recommendations based off TB results. Infectious disease physician, Dr Peraza, consulted and appreciate recommendations. Exam Vital Signs Temp Pulse Resp BP Pulse Ox O2 Del Method 98.0 F 78 17 120/78 98 Room Air 11/10/24 08:00 11/10/24 08:00 11/10/24 08:00 11/10/24 08:00 11/10/24 08:00 11/10/24 08:00 Narrative Exam Physical Exam Deferred at this time Objective Labs 11/01/24 05:30 11/01/24 05:30 Quality Measures Quality Measures none Assessment & Plan Assessment Current Active Medications: Generic Name Dose Route Start Last Admin Trade Name Freq PRN Reason Stop Dose Admin Acetaminophen 650 mg 10/21/24 16:00 Acetaminophen 325 Mg Tablet PO 11/20/24 15:59 Q6H PRN Fever >100.5 Acetaminophen 650 mg 10/21/24 16:00 10/22/24 21:30 Acetaminophen 325 Mg Tablet PO 11/20/24 15:59 650 mg Q6H PRN Administration PAIN SCALE 1-3 (mild Docusate Sodium 100 mg 10/22/24 09:00 11/10/24 10:45 Docusate Sod 100 Mg Capsule PO 11/21/24 08:59 100 mg QDAY TORREY Administration Protocol Enoxaparin Sodium 40 mg 11/04/24 09:00 11/10/24 10:45 Enoxaparin Sod Inj 40 Mg/0.4 Ml Syringe SC 11/13/24 08:59 40 mg QDAY TORREY Administration Ethambutol HCl 1,200 mg 10/22/24 10:15 11/10/24 10:47 Ethambutol Hcl 400 Mg Tablet PO 11/21/24 10:14 1,200 mg QDAY TORREY Administration Isoniazid 300 mg 10/22/24 10:15 11/10/24 11:13 Isoniazid 300 Mg Tablet PO 11/21/24 10:14 300 mg QDAY TORREY Administration Ondansetron HCl 4 mg 10/21/24 16:00 Ondansetron Inj 2 Mg/Ml Inj 2 Ml IV 11/20/24 15:59 Q6H PRN NAUSEA OR VOMITING Protocol Pantoprazole Sodium 40 mg 10/30/24 09:00 11/10/24 10:45 Pantoprazole 40 Mg Tablet PO 11/29/24 08:59 40 mg QDAY TORREY Administration Pyrazinamide 1,500 mg 10/31/24 09:00 11/10/24 10:45 Pyrazinamide 500 Mg Tablet PO 11/30/24 08:59 1,500 mg DAILY TORREY Administration Pyridoxine HCl 50 mg 11/07/24 09:00 11/10/24 10:52 Pyridoxine 50 Mg Tablet PO 01/30/26 12:00 50 mg QDAY TORREY Administration Rifampin 600 mg 10/22/24 10:15 11/10/24 11:12 Rifampin 300 Mg Capsule PO 11/21/24 10:14 600 mg QDAY TORREY Administration Plan 53-year-old male with no past medical history presented to the ED due to cough, recent unintentional weight loss and tarry lesion found on chest x-ray. Admitted for TB workup. 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 Patient denies any night sweats, hemoptysis at this time, however he does state having night sweats in the past few months. Chest x-ray shows extensive bilateral infiltrate, which appears cavitary in the upper lung zones Chest CT shows Extensive cavitary miliary parenchymal disease throughout the lungs, most severe at the right apex, including septated right upper lobe cavitary lesion 5.6 x 5.2cm Blood culture-negative 48 hours Influenza negative, COVID-negative, HIV negative, Aspergillus negative Sputum cultures negative AFBs came back positive for tuberculosis, plan is to continue 7 days of treatment and repeat AFBs Wednesday night, to be sent on Wednesday AFBs came back positive for tuberculosis, will repeat AFBs Plan: Repeat AFBs (3) pending Isolation precautions On RIPE therapy ID consulted, appreciate recommendation Hospital Management: Disposition: Medsurg on isolation for TB Fluids: None Diet: regular Thrombo prophylaxis: SCDs Gastric Ulcer prophylaxis: not indicated CODE STATUS: Full code Patient seen and examined with attending Dr. Cohen and senior resident Dr. Debi Husain, PGY-1
[2024-11-10 12:00] VITALS: BP 124/83; PULSE 84; RESP 17; TEMP 36.1; O2SAT 96
[2024-11-10 15:01] LABS: Cult AFB Sendout- Sputum* See Sep Rpt
[2024-11-10 16:00] VITALS: BP 117/63; PULSE 67; RESP 17; TEMP 36.9; O2SAT 98
[2024-11-10 20:00] VITALS: BP 117/76; PULSE 66; RESP 18; TEMP 36.3; O2SAT 97
[2024-11-11] VITALS: BP 124/73; PULSE 67; RESP 20; TEMP 36.4; O2SAT 94
[2024-11-11 04:00] VITALS: BP 113/68; PULSE 72; RESP 17; TEMP 36.1; O2SAT 95
[2024-11-11 07:52] VITALS: BP 117/76; PULSE 72; RESP 18; TEMP 36.1; O2SAT 97
[2024-11-11] MEDS: rifAMPin 300 MG CAPSULE 600 MG PO (09:12)
[2024-11-11] MEDS: ETHAMBUTOL HCL 400 MG TABLET 1200 MG PO (09:13)
[2024-11-11] MEDS: PYRAZINAMIDE 500 MG TABLET 1500 MG PO (09:13)
[2024-11-11] MEDS: DOCUSATE SOD 100 MG CAPSULE PO (09:14)
[2024-11-11] MEDS: PANTOPRAZOLE 40 MG TABLET PO (09:14)
[2024-11-11] MEDS: PYRIDOXINE 50 MG TABLET PO (09:14)
[2024-11-11] MEDS: ISONIAZID 300 MG TABLET PO (10:51)
[2024-11-11 11:57] VITALS: BP 123/78; PULSE 65; RESP 18; TEMP 36.2; O2SAT 98
--- NOTE | 2024-11-11 13:14 | ESPR_ITS ---
<Statement entered by Sidney Cohen MD - 11/17/24 13:44> I reviewed above note and agree with findings and plans. I have also personally examined the patient with medicine team and went over assessment and plan with medical team including r d internship and resident physician. Documentation for date of: 11/11/24 Subjective Subjective Interval history: 11/11/2024: No acute overnight events to report. Patient continues to be treated for TB. Awaiting health department recommendations based off TB results. Infectious disease physician, Dr Peraza, consulted and appreciate recommendations. AFB smears from 11/08 to 11/10 have been sent and are pending; hope is that they will be sterilized. Will consider sending additional set sometime next week. Exam Vital Signs Temp Pulse Resp BP Pulse Ox O2 Del Method 97.2 F 65 18 123/78 98 Room Air 11/11/24 11:57 11/11/24 11:57 11/11/24 11:57 11/11/24 11:57 11/11/24 11:57 11/11/24 11:57 Narrative Exam Physical Exam Deferred at this time Objective Labs 11/01/24 05:30 11/01/24 05:30 Quality Measures Quality Measures none Assessment & Plan Assessment Current Active Medications: Generic Name Dose Route Start Last Admin Trade Name Freq PRN Reason Stop Dose Admin Acetaminophen 650 mg 10/21/24 16:00 Acetaminophen 325 Mg Tablet PO 11/20/24 15:59 Q6H PRN Fever >100.5 Acetaminophen 650 mg 10/21/24 16:00 10/22/24 21:30 Acetaminophen 325 Mg Tablet PO 11/20/24 15:59 650 mg Q6H PRN Administration PAIN SCALE 1-3 (mild Docusate Sodium 100 mg 10/22/24 09:00 11/11/24 09:14 Docusate Sod 100 Mg Capsule PO 11/21/24 08:59 100 mg QDAY TORREY Administration Protocol Enoxaparin Sodium 40 mg 11/04/24 09:00 11/11/24 10:21 Enoxaparin Sod Inj 40 Mg/0.4 Ml Syringe SC 11/13/24 08:59 Not Given QDAY TORREY Ethambutol HCl 1,200 mg 10/22/24 10:15 11/11/24 09:13 Ethambutol Hcl 400 Mg Tablet PO 11/21/24 10:14 1,200 mg QDAY TORREY Administration Isoniazid 300 mg 10/22/24 10:15 11/11/24 10:51 Isoniazid 300 Mg Tablet PO 11/21/24 10:14 300 mg QDAY TORREY Administration Ondansetron HCl 4 mg 10/21/24 16:00 Ondansetron Inj 2 Mg/Ml Inj 2 Ml IV 11/20/24 15:59 Q6H PRN NAUSEA OR VOMITING Protocol Pantoprazole Sodium 40 mg 10/30/24 09:00 11/11/24 09:14 Pantoprazole 40 Mg Tablet PO 11/29/24 08:59 40 mg QDAY TORREY Administration Pyrazinamide 1,500 mg 10/31/24 09:00 11/11/24 09:13 Pyrazinamide 500 Mg Tablet PO 11/30/24 08:59 1,500 mg DAILY TORREY Administration Pyridoxine HCl 50 mg 11/07/24 09:00 11/11/24 09:14 Pyridoxine 50 Mg Tablet PO 01/30/26 12:00 50 mg QDAY TORREY Administration Rifampin 600 mg 10/22/24 10:15 11/11/24 09:12 Rifampin 300 Mg Capsule PO 11/21/24 10:14 600 mg QDAY TORREY Administration Plan 53-year-old male with no past medical history presented to the ED due to cough, recent unintentional weight loss and tarry lesion found on chest x-ray. Admitted for TB workup. 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 Patient denies any night sweats, hemoptysis at this time, however he does state having night sweats in the past few months. Chest x-ray shows extensive bilateral infiltrate, which appears cavitary in the upper lung zones Chest CT shows Extensive cavitary miliary parenchymal disease throughout the lungs, most severe at the right apex, including septated right upper lobe cavitary lesion 5.6 x 5.2cm Blood culture-negative 48 hours Influenza negative, COVID-negative, HIV negative, Aspergillus negative Sputum cultures negative AFBs came back positive for tuberculosis, plan is to continue 7 days of treatment and repeat AFBs Wednesday night, to be sent on Wednesday AFBs came back positive for tuberculosis, will repeat AFBs Plan: Repeat AFBs (3) pending Isolation precautions On RIPE therapy ID consulted, appreciate recommendation Hospital Management: Fluids: None Diet: regular GI prophylaxis: not indicated DVT prophylaxis: Lovenox Disposition: Medsurg on isolation for TB Code: Full Patient seen and examined with attending Dr. Noel Husain, PGY-1
[2024-11-11 16:00] VITALS: BP 119/72; PULSE 73; RESP 18; TEMP 36.2; O2SAT 98
[2024-11-11 20:00] VITALS: BP 120/76; PULSE 70; RESP 18; TEMP 36.6; O2SAT 97
[2024-11-12] VITALS: BP 108/74; PULSE 68; RESP 18; TEMP 36.6; O2SAT 97
[2024-11-12 04:00] VITALS: BP 117/75; PULSE 67; RESP 16; TEMP 36.1; O2SAT 99
[2024-11-12 08:00] VITALS: BP 109/65; PULSE 69; RESP 16; TEMP 36.2; O2SAT 95
[2024-11-12] MEDS: DOCUSATE SOD 100 MG CAPSULE PO (09:04)
[2024-11-12] MEDS: ISONIAZID 300 MG TABLET PO (09:04)
[2024-11-12] MEDS: ENOXAPARIN SOD INJ 40 MG/0.4 ML SYRINGE SC (09:04)
[2024-11-12] MEDS: PANTOPRAZOLE 40 MG TABLET PO (09:04)
[2024-11-12] MEDS: ETHAMBUTOL HCL 400 MG TABLET 1200 MG PO (09:04)
[2024-11-12] MEDS: PYRAZINAMIDE 500 MG TABLET 1500 MG PO (09:04)
[2024-11-12] MEDS: PYRIDOXINE 50 MG TABLET PO (09:05)
[2024-11-12] MEDS: rifAMPin 300 MG CAPSULE 600 MG PO (09:09)
[2024-11-12 12:00] VITALS: BP 115/72; PULSE 70; RESP 18; TEMP 36.6; O2SAT 98
[2024-11-12 16:00] VITALS: BP 109/67; PULSE 69; RESP 16; TEMP 36.2; O2SAT 97
--- NOTE | 2024-11-12 18:47 | ESPR_ITS ---
<Statement entered by Sidney Cohen MD - 11/20/24 15:02> I reviewed above note and agree with findings and plans. I have also personally examined the patient with medicine team and went over assessment and plan with medical team including undergraduate internship and resident physician. Documentation for date of: 11/12/24 Subjective Subjective Interval history: No acute overnight events to report. Patient continues to be treated for TB. AFB smears from 11/08 to 11/10 have been sent and are pending. Infectious disease Dr. Peraza following up on patient. Exam Vital Signs Temp Pulse Resp BP Pulse Ox O2 Del Method 97.2 F 69 16 109/67 97 Room Air 11/12/24 16:00 11/12/24 16:00 11/12/24 16:00 11/12/24 16:00 11/12/24 16:00 11/12/24 16:00 Narrative Exam Physical Exam Deferred at this time Objective Labs 11/01/24 05:30 11/01/24 05:30 Quality Measures Quality Measures none Assessment & Plan Assessment Current Active Medications: Generic Name Dose Route Start Last Admin Trade Name Freq PRN Reason Stop Dose Admin Acetaminophen 650 mg 10/21/24 16:00 Acetaminophen 325 Mg Tablet PO 11/20/24 15:59 Q6H PRN Fever >100.5 Acetaminophen 650 mg 10/21/24 16:00 10/22/24 21:30 Acetaminophen 325 Mg Tablet PO 11/20/24 15:59 650 mg Q6H PRN Administration PAIN SCALE 1-3 (mild Docusate Sodium 100 mg 10/22/24 09:00 11/12/24 09:04 Docusate Sod 100 Mg Capsule PO 11/21/24 08:59 100 mg QDAY TORREY Administration Protocol Enoxaparin Sodium 40 mg 11/04/24 09:00 11/12/24 09:04 Enoxaparin Sod Inj 40 Mg/0.4 Ml Syringe SC 11/13/24 08:59 40 mg QDAY TORREY Administration Ethambutol HCl 1,200 mg 10/22/24 10:15 11/12/24 09:04 Ethambutol Hcl 400 Mg Tablet PO 11/21/24 10:14 1,200 mg QDAY TORREY Administration Isoniazid 300 mg 10/22/24 10:15 11/12/24 09:04 Isoniazid 300 Mg Tablet PO 11/21/24 10:14 300 mg QDAY TORREY Administration Ondansetron HCl 4 mg 10/21/24 16:00 Ondansetron Inj 2 Mg/Ml Inj 2 Ml IV 11/20/24 15:59 Q6H PRN NAUSEA OR VOMITING Protocol Pantoprazole Sodium 40 mg 10/30/24 09:00 11/12/24 09:04 Pantoprazole 40 Mg Tablet PO 11/29/24 08:59 40 mg QDAY TORREY Administration Pyrazinamide 1,500 mg 10/31/24 09:00 11/12/24 09:04 Pyrazinamide 500 Mg Tablet PO 11/30/24 08:59 1,500 mg DAILY TORREY Administration Pyridoxine HCl 50 mg 11/07/24 09:00 11/12/24 09:05 Pyridoxine 50 Mg Tablet PO 01/30/26 12:00 50 mg QDAY TORREY Administration Rifampin 600 mg 10/22/24 10:15 11/12/24 09:09 Rifampin 300 Mg Capsule PO 11/21/24 10:14 600 mg QDAY TORREY Administration Plan 53-year-old male with no past medical history presented to the ED due to cough, recent unintentional weight loss and tarry lesion found on chest x-ray. Admitted for TB workup. 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 Patient denies any night sweats, hemoptysis at this time, however he does state having night sweats in the past few months. Chest x-ray shows extensive bilateral infiltrate, which appears cavitary in the upper lung zones Chest CT shows Extensive cavitary miliary parenchymal disease throughout the lungs, most severe at the right apex, including septated right upper lobe cavitary lesion 5.6 x 5.2cm Blood culture-negative 48 hours Influenza negative, COVID-negative, HIV negative, Aspergillus negative Sputum cultures negative AFBs came back positive for tuberculosis, plan is to continue 7 days of treatment and repeat AFBs Wednesday night, to be sent on Wednesday AFBs came back positive for tuberculosis, will repeat AFBs Plan: Repeat AFBs (3) pending Isolation precautions On RIPE therapy ID consulted, appreciate recommendation Hospital Management: Fluids: None Diet: regular GI prophylaxis: not indicated DVT prophylaxis: Lovenox Disposition: Medsurg on isolation for TB Code: Full This patient care was discussed with my attending Dr. Noel Carrera MD PGY-2 Disclaimer: Minor errors in laminating machine operator may be present since this note was dictated by speech recognition software.
[2024-11-12 20:00] VITALS: BP 111/71; PULSE 65; RESP 16; TEMP 36.2; O2SAT 94
[2024-11-13] VITALS: BP 108/67; PULSE 61; RESP 16; TEMP 36.3; O2SAT 95
[2024-11-13 04:00] VITALS: BP 108/71; PULSE 65; RESP 16; TEMP 36.4; O2SAT 99
[2024-11-13 08:00] VITALS: BP 115/71; PULSE 65; RESP 18; TEMP 36.3; O2SAT 98
--- NOTE | 2024-11-13 08:52 | PD.IDPROG ---
Subjective Subjective Interval history: afb still pos from late last week Exam Vital Signs Temp Pulse Resp BP Pulse Ox O2 Del Method 97.3 F 65 18 115/71 98 Room Air 11/13/24 08:00 11/13/24 08:00 11/13/24 08:00 11/13/24 08:00 11/13/24 08:00 11/13/24 08:00 Narrative Exam limited visit Objective - Internal Medicine Labs 11/01/24 05:30 11/01/24 05:30 Labs: Laboratory Results - last 24 hr 11/08/24 11/09/24 11/09/24 04:31 14:11 22:00 Mycobacterial Culture See Sep Rpt See Sep Rpt See Sep Rpt Assessment & Plan A&P Narrative apical pneumonia with neg cocci IgM and neg procal (insensitive to fungal and atypical antigens) and pos afb smears with repeats also pos. cx pending rx to be long. 6-12 mo. later sputum also pos. recommend more afb smears each /Wednesday . it usually takes about 2 weeks to become non contagious. health dept may determine the isolation status and their criteria for release no objection to outpt f/u by health dept but it is at their discretion. he lives with young children (pre school age or less) then they should be tested for tb. apparently one is positive. we do not have any details though . will check in again on Wednesday. hiv and hep c neg. Time Spent With Patient Time: Total time spent is greater than 50% in coordination of care (as documented) at patient's floor/unit and/or counseling patient:
[2024-11-13] MEDS: ETHAMBUTOL HCL 400 MG TABLET 1200 MG PO (10:46)
[2024-11-13] MEDS: PYRIDOXINE 50 MG TABLET PO (10:46)
[2024-11-13] MEDS: PANTOPRAZOLE 40 MG TABLET PO (10:46)
[2024-11-13] MEDS: ISONIAZID 300 MG TABLET PO (10:46)
[2024-11-13] MEDS: rifAMPin 300 MG CAPSULE 600 MG PO (10:46)
[2024-11-13] MEDS: DOCUSATE SOD 100 MG CAPSULE PO (10:46)
[2024-11-13] MEDS: PYRAZINAMIDE 500 MG TABLET 1500 MG PO (10:47)
[2024-11-13 12:00] VITALS: BP 104/74; PULSE 62; RESP 17; TEMP 36.2; O2SAT 97
--- NOTE | 2024-11-13 15:32 | ESPR_ITS ---
<Statement entered by Sidney Cohen MD - 11/20/24 15:03> I reviewed above note and agree with findings and plans. I have also personally examined the patient with medicine team and went over assessment and plan with medical team including internal wholesaler and resident physician. Documentation for date of: 11/13/24 Subjective Subjective Interval history: 11/13/2024: No acute overnight events reported. Patient's last set of AFB results came back positive; moreover, will need to order additional set. Plan is to send next set starting tomorrow 11/14. Infectious disease consult in place; appreciate recommendations. Exam Vital Signs Temp Pulse Resp BP Pulse Ox O2 Del Method 97.1 F 62 17 104/74 97 Room Air 11/13/24 12:00 11/13/24 12:00 11/13/24 12:00 11/13/24 12:00 11/13/24 12:00 11/13/24 12:00 Narrative Exam Physical Exam Deferred at this time Objective Labs 11/01/24 05:30 11/01/24 05:30 Labs: Laboratory Results - last 24 hr 11/08/24 11/09/24 11/09/24 04:31 14:11 22:00 Mycobacterial Culture See Sep Rpt See Sep Rpt See Sep Rpt Quality Measures Quality Measures none Assessment & Plan Assessment Current Active Medications: Generic Name Dose Route Start Last Admin Trade Name Freq PRN Reason Stop Dose Admin Acetaminophen 650 mg 10/21/24 16:00 Acetaminophen 325 Mg Tablet PO 11/20/24 15:59 Q6H PRN Fever >100.5 Acetaminophen 650 mg 10/21/24 16:00 10/22/24 21:30 Acetaminophen 325 Mg Tablet PO 11/20/24 15:59 650 mg Q6H PRN Administration PAIN SCALE 1-3 (mild Docusate Sodium 100 mg 10/22/24 09:00 11/13/24 10:46 Docusate Sod 100 Mg Capsule PO 11/21/24 08:59 100 mg QDAY TORREY Administration Protocol Ethambutol HCl 1,200 mg 10/22/24 10:15 11/13/24 10:46 Ethambutol Hcl 400 Mg Tablet PO 11/21/24 10:14 1,200 mg QDAY TORREY Administration Isoniazid 300 mg 10/22/24 10:15 11/13/24 10:46 Isoniazid 300 Mg Tablet PO 11/21/24 10:14 300 mg QDAY TORREY Administration Ondansetron HCl 4 mg 10/21/24 16:00 Ondansetron Inj 2 Mg/Ml Inj 2 Ml IV 11/20/24 15:59 Q6H PRN NAUSEA OR VOMITING Protocol Pantoprazole Sodium 40 mg 10/30/24 09:00 11/13/24 10:46 Pantoprazole 40 Mg Tablet PO 11/29/24 08:59 40 mg QDAY TORREY Administration Pyrazinamide 1,500 mg 10/31/24 09:00 11/13/24 10:47 Pyrazinamide 500 Mg Tablet PO 11/30/24 08:59 1,500 mg DAILY TORREY Administration Pyridoxine HCl 50 mg 11/07/24 09:00 11/13/24 10:46 Pyridoxine 50 Mg Tablet PO 01/30/26 12:00 50 mg QDAY TORREY Administration Rifampin 600 mg 10/22/24 10:15 11/13/24 10:46 Rifampin 300 Mg Capsule PO 11/21/24 10:14 600 mg QDAY TORREY Administration Plan 53-year-old male with no past medical history presented to the ED due to cough, recent unintentional weight loss and tarry lesion found on chest x-ray. Admitted for TB workup. 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 Patient denies any night sweats, hemoptysis at this time, however he does state having night sweats in the past few months. Chest x-ray shows extensive bilateral infiltrate, which appears cavitary in the upper lung zones Chest CT shows Extensive cavitary miliary parenchymal disease throughout the lungs, most severe at the right apex, including septated right upper lobe cavitary lesion 5.6 x 5.2cm Blood culture-negative 48 hours Influenza negative, COVID-negative, HIV negative, Aspergillus negative Sputum cultures negative AFBs came back positive for tuberculosis, plan is to continue 7 days of treatment and repeat AFBs Wednesday night, to be sent on Wednesday AFBs came back positive for tuberculosis, will repeat AFBs AFBs from 11/09 + resulted on 11/13 are positive for tuberculosis Plan: Next AFB will be sent 11/14 Isolation precautions On RIPE therapy ID consulted, appreciate recommendation Hospital Management: Fluids: None Diet: regular GI prophylaxis: not indicated DVT prophylaxis: Lovenox Disposition: Medsurg on isolation for TB Code: Full Patient seen and examined with attending Dr. Noel Husain, PGY-1
[2024-11-13 16:00] VITALS: BP 110/82; PULSE 88; RESP 17; TEMP 36.3; O2SAT 96
[2024-11-13 20:00] VITALS: BP 103/70; PULSE 62; RESP 20; TEMP 37; O2SAT 97
[2024-11-14] VITALS: BP 109/68; PULSE 67; RESP 18; TEMP 37.1; O2SAT 92
[2024-11-14 04:00] VITALS: BP 109/73; PULSE 69; RESP 18; TEMP 37; O2SAT 97
[2024-11-14 08:00] VITALS: BP 117/79; PULSE 64; RESP 16; TEMP 36.2; O2SAT 96
[2024-11-14] MEDS: ETHAMBUTOL HCL 400 MG TABLET 1200 MG PO (08:59)
[2024-11-14] MEDS: PANTOPRAZOLE 40 MG TABLET PO (08:59)
[2024-11-14] MEDS: rifAMPin 300 MG CAPSULE 600 MG PO (08:59)
[2024-11-14] MEDS: ISONIAZID 300 MG TABLET PO (08:59)
[2024-11-14] MEDS: PYRAZINAMIDE 500 MG TABLET 1500 MG PO (08:59)
[2024-11-14] MEDS: PYRIDOXINE 50 MG TABLET PO (08:59)
[2024-11-14] MEDS: DOCUSATE SOD 100 MG CAPSULE PO (08:59)
[2024-11-14 12:00] VITALS: BP 100/67; PULSE 60; RESP 16; TEMP 36.3; O2SAT 98
--- NOTE | 2024-11-14 13:57 | ESPR_ITS ---
<Statement entered by Sidney Cohen MD - 11/20/24 15:04> I reviewed above note and agree with findings and plans. I have also personally examined the patient with medicine team and went over assessment and plan with medical team including production intern and resident physician. Documentation for date of: 11/14/24 Subjective Subjective Interval history: 11/14/2024: No acute overnight events reported. Patient's last set of AFB results came back positive; moreover, next set will be sent out starting at 22:00 on 11/14. Infectious disease consult in place; appreciate recommendations. Exam Vital Signs Temp Pulse Resp BP Pulse Ox O2 Del Method 97.1 F 64 16 117/79 96 Room Air 11/14/24 08:00 11/14/24 08:00 11/14/24 08:00 11/14/24 08:00 11/14/24 08:00 11/14/24 08:00 Narrative Exam Physical Exam Deferred at this time Objective Labs 11/01/24 05:30 11/01/24 05:30 Quality Measures Quality Measures none Assessment & Plan Assessment Current Active Medications: Generic Name Dose Route Start Last Admin Trade Name Freq PRN Reason Stop Dose Admin Acetaminophen 650 mg 10/21/24 16:00 Acetaminophen 325 Mg Tablet PO 11/20/24 15:59 Q6H PRN Fever >100.5 Acetaminophen 650 mg 10/21/24 16:00 10/22/24 21:30 Acetaminophen 325 Mg Tablet PO 11/20/24 15:59 650 mg Q6H PRN Administration PAIN SCALE 1-3 (mild Docusate Sodium 100 mg 10/22/24 09:00 11/14/24 08:59 Docusate Sod 100 Mg Capsule PO 11/21/24 08:59 100 mg QDAY TORREY Administration Protocol Ethambutol HCl 1,200 mg 10/22/24 10:15 11/14/24 08:59 Ethambutol Hcl 400 Mg Tablet PO 11/21/24 10:14 1,200 mg QDAY TORREY Administration Isoniazid 300 mg 10/22/24 10:15 11/14/24 08:59 Isoniazid 300 Mg Tablet PO 11/21/24 10:14 300 mg QDAY TORREY Administration Ondansetron HCl 4 mg 10/21/24 16:00 Ondansetron Inj 2 Mg/Ml Inj 2 Ml IV 11/20/24 15:59 Q6H PRN NAUSEA OR VOMITING Protocol Pantoprazole Sodium 40 mg 10/30/24 09:00 11/14/24 08:59 Pantoprazole 40 Mg Tablet PO 11/29/24 08:59 40 mg QDAY TORREY Administration Pyrazinamide 1,500 mg 10/31/24 09:00 11/14/24 08:59 Pyrazinamide 500 Mg Tablet PO 11/30/24 08:59 1,500 mg DAILY TORREY Administration Pyridoxine HCl 50 mg 11/07/24 09:00 11/14/24 08:59 Pyridoxine 50 Mg Tablet PO 01/30/26 12:00 50 mg QDAY TORREY Administration Rifampin 600 mg 10/22/24 10:15 11/14/24 08:59 Rifampin 300 Mg Capsule PO 11/21/24 10:14 600 mg QDAY TORREY Administration Plan 53-year-old male with no past medical history presented to the ED due to cough, recent unintentional weight loss and tarry lesion found on chest x-ray. Admitted for TB workup. 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 Patient denies any night sweats, hemoptysis at this time, however he does state having night sweats in the past few months. Chest x-ray shows extensive bilateral infiltrate, which appears cavitary in the upper lung zones Chest CT shows Extensive cavitary miliary parenchymal disease throughout the lungs, most severe at the right apex, including septated right upper lobe cavitary lesion 5.6 x 5.2cm Blood culture-negative 48 hours Influenza negative, COVID-negative, HIV negative, Aspergillus negative Sputum cultures negative AFBs came back positive for tuberculosis, plan is to continue 7 days of treatment and repeat AFBs Wednesday night, to be sent on Wednesday AFBs came back positive for tuberculosis, will repeat AFBs AFBs from 11/09 + resulted on 11/13 are positive for tuberculosis Plan: Next AFB sent 11/14 Isolation precautions On RIPE therapy ID consulted, appreciate recommendation Hospital Management: Fluids: None Diet: regular GI prophylaxis: not indicated DVT prophylaxis: Lovenox Disposition: Medsurg on isolation for TB Code: Full Patient seen and examined with attending Dr. Noel Husain, PGY-1
[2024-11-14 16:00] VITALS: BP 115/67; PULSE 60; RESP 16; TEMP 36; O2SAT 100
[2024-11-14 18:52] LABS: Cult AFB Sendout- Sputum* See Sep Rpt
[2024-11-14 20:00] VITALS: BP 114/66; PULSE 60; RESP 20; TEMP 36.6; O2SAT 98
--- NOTE | 2024-11-14 23:32 | PC.RT ---
spoke to DR. Bullard to verify AFB order, per . we still need X3 q8 afbs, first one done at 22:30 pt able to expectorate thin frothy yellow sputum, sent to lab.
[2024-11-14 23:38] LABS: Cult AFB Sendout- Sputum* See Sep Rpt
[2024-11-15] VITALS: BP 103/62; PULSE 71; RESP 20; TEMP 36.6; O2SAT 92
[2024-11-15 03:56] LABS: Cult AFB Sendout- Sputum* See Sep Rpt
[2024-11-15 04:00] VITALS: BP 119/67; PULSE 68; RESP 18; TEMP 36.6; O2SAT 98
[2024-11-15 06:50] LABS: Cult AFB Sendout- Sputum* See Sep Rpt
[2024-11-15 08:00] VITALS: BP 114/77; PULSE 67; RESP 17; TEMP 36.7; O2SAT 98
[2024-11-15] MEDS: rifAMPin 300 MG CAPSULE 600 MG PO (09:04)
[2024-11-15] MEDS: PYRAZINAMIDE 500 MG TABLET 1500 MG PO (09:05)
[2024-11-15] MEDS: PYRIDOXINE 50 MG TABLET PO (09:05)
[2024-11-15] MEDS: ETHAMBUTOL HCL 400 MG TABLET 1200 MG PO (09:05)
[2024-11-15] MEDS: DOCUSATE SOD 100 MG CAPSULE PO (09:05)
[2024-11-15] MEDS: ISONIAZID 300 MG TABLET PO (09:05)
[2024-11-15] MEDS: PANTOPRAZOLE 40 MG TABLET PO (09:05)
--- NOTE | 2024-11-15 09:24 | PC.SS ---
Follow up note: AFBs sent out Wednesday. [place] the [place]. SS spoke to nurse yesterday, pt has been ambulating independently.
[2024-11-15 12:00] VITALS: BP 113/77; PULSE 65; RESP 17; TEMP 36.7; O2SAT 98
--- NOTE | 2024-11-15 12:37 | PC.NURSE ---
Notified RT I left patients sputum specimen outside patients room. RT will come and send specimen to lab. Will continue to monitor patient.
[2024-11-15 13:41] VITALS: BMI 21.2
--- NOTE | 2024-11-15 13:50 | ESPR_ITS ---
<Statement entered by Michael Carrera MD - 11/16/24 14:56> I discussed with and supervised the financial services intern physician involved in the care of this patient. Patient assessment and plan was discussed with entire medicine team, including my attending. I agree with the assessment and plan as documented by financial services intern doctor. Patient care was discussed with my attending physician Dr. Clyde Carrera, PGY-2 Documentation for date of: 11/15/24 Subjective Subjective Interval history: 11/15/2024: No acute overnight events reported. Next set of AFB tests are being sent out. Patient continues to be treated with RIPE; infectious disease consulted - appreciate recommendations. Exam Vital Signs Temp Pulse Resp BP Pulse Ox O2 Del Method 98.0 F 65 17 113/77 98 Room Air 11/15/24 12:00 11/15/24 12:00 11/15/24 12:00 11/15/24 12:00 11/15/24 12:00 11/15/24 12:00 Narrative Exam Physical Exam Deferred at this time Objective Labs 11/01/24 05:30 11/01/24 05:30 Labs: Laboratory Results - last 24 hr 11/10/24 13:40 Mycobacterial Culture See Sep Rpt Quality Measures Quality Measures none Assessment & Plan Assessment Current Active Medications: Generic Name Dose Route Start Last Admin Trade Name Freq PRN Reason Stop Dose Admin Acetaminophen 650 mg 10/21/24 16:00 Acetaminophen 325 Mg Tablet PO 11/20/24 15:59 Q6H PRN Fever >100.5 Acetaminophen 650 mg 10/21/24 16:00 10/22/24 21:30 Acetaminophen 325 Mg Tablet PO 11/20/24 15:59 650 mg Q6H PRN Administration PAIN SCALE 1-3 (mild Docusate Sodium 100 mg 10/22/24 09:00 11/15/24 09:05 Docusate Sod 100 Mg Capsule PO 11/21/24 08:59 100 mg QDAY TORREY Administration Protocol Ethambutol HCl 1,200 mg 10/22/24 10:15 11/15/24 09:05 Ethambutol Hcl 400 Mg Tablet PO 11/21/24 10:14 1,200 mg QDAY TORREY Administration Isoniazid 300 mg 10/22/24 10:15 11/15/24 09:05 Isoniazid 300 Mg Tablet PO 11/21/24 10:14 300 mg QDAY TORREY Administration Ondansetron HCl 4 mg 10/21/24 16:00 Ondansetron Inj 2 Mg/Ml Inj 2 Ml IV 11/20/24 15:59 Q6H PRN NAUSEA OR VOMITING Protocol Pantoprazole Sodium 40 mg 10/30/24 09:00 11/15/24 09:05 Pantoprazole 40 Mg Tablet PO 11/29/24 08:59 40 mg QDAY TORREY Administration Pyrazinamide 1,500 mg 10/31/24 09:00 11/15/24 09:05 Pyrazinamide 500 Mg Tablet PO 11/30/24 08:59 1,500 mg DAILY TORREY Administration Pyridoxine HCl 50 mg 11/07/24 09:00 11/15/24 09:05 Pyridoxine 50 Mg Tablet PO 01/30/26 12:00 50 mg QDAY TORREY Administration Rifampin 600 mg 10/22/24 10:15 11/15/24 09:04 Rifampin 300 Mg Capsule PO 11/21/24 10:14 600 mg QDAY TORREY Administration Sodium Chloride 15 ml 11/14/24 15:46 Sodium Chloride Rt 10% 15 Ml Nebu INH 12/14/24 15:45 PRN PRN SOLN Plan 53-year-old male with no past medical history presented to the ED due to cough, recent unintentional weight loss and tarry lesion found on chest x-ray. Admitted for TB workup. 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 Patient denies any night sweats, hemoptysis at this time, however he does state having night sweats in the past few months. Chest x-ray shows extensive bilateral infiltrate, which appears cavitary in the upper lung zones Chest CT shows Extensive cavitary miliary parenchymal disease throughout the lungs, most severe at the right apex, including septated right upper lobe cavitary lesion 5.6 x 5.2cm Blood culture-negative 48 hours Influenza negative, COVID-negative, HIV negative, Aspergillus negative Sputum cultures negative AFBs came back positive for tuberculosis, plan is to continue 7 days of treatment and repeat AFBs Wednesday night, to be sent on Wednesday AFBs came back positive for tuberculosis, will repeat AFBs AFBs from 11/09 + resulted on 11/13 are positive for tuberculosis Plan: Next AFB sent 11/14 no-11/15 Isolation precautions On RIPE therapy ID consulted, appreciate recommendation Hospital Management: Fluids: None Diet: regular GI prophylaxis: not indicated DVT prophylaxis: Lovenox Disposition: Medsurg on isolation for TB Code: Full Patient seen and examined with attending Dr. Tang and senior resident Dr. Debi Husain, PGY-1 Attending Provider Attestation/Addendum I attest that I was physically present for the evaluation, physical examination, lab and imaging review of the patient with the residents. I discussed the case with the residents and agree with the findings and plans of care as documented above. Indiana Tang MD
--- NOTE | 2024-11-15 14:37 | PD.IDPROG ---
Subjective Subjective Interval history: on rx for active tb. await full eval of home situation. Exam Vital Signs Temp Pulse Resp BP Pulse Ox O2 Del Method 98.0 F 65 17 113/77 98 Room Air 11/15/24 12:00 11/15/24 12:00 11/15/24 12:00 11/15/24 12:00 11/15/24 12:00 11/15/24 12:00 Narrative Exam limited visit Objective - Internal Medicine Labs 11/01/24 05:30 11/01/24 05:30 Labs: Laboratory Results - last 24 hr 11/10/24 13:40 Mycobacterial Culture See Sep Rpt Assessment & Plan A&P Narrative apical pneumonia with neg cocci IgM and neg procal (insensitive to fungal and atypical antigens) and pos afb smears with repeats also pos. cx pending rx to be long. 6-12 mo. later sputum also pos. recommend more afb smears each /Wednesday . it usually takes about 2 weeks to become non contagious. health dept may determine the isolation status and their criteria for release no objection to outpt f/u by health dept but it is at their discretion. he lives with young children (pre school age or less) then they should be tested for tb. apparently one is positive. we do not have any details though . will check in again on Wednesday. hiv and hep c neg. Time Spent With Patient Time: Total time spent is greater than 50% in coordination of care (as documented) at patient's floor/unit and/or counseling patient:
[2024-11-15 15:28] LABS: Cult AFB Sendout- Sputum* See Sep Rpt
[2024-11-15 16:00] VITALS: BP 118/70; PULSE 68; RESP 18; TEMP 36.6; O2SAT 99
[2024-11-15 20:00] VITALS: BP 105/66; PULSE 63; RESP 18; TEMP 36.7; O2SAT 97
--- NOTE | 2024-11-15 21:43 | PC.NURSE ---
Pt refused IV insertion at this time.
[2024-11-16] VITALS: BP 111/73; PULSE 61; RESP 18; TEMP 36.6; O2SAT 98
[2024-11-16 04:00] VITALS: BP 113/76; PULSE 72; RESP 18; TEMP 36.5; O2SAT 98
[2024-11-16 08:00] VITALS: BP 108/75; PULSE 76; RESP 16; TEMP 36.6; O2SAT 97
[2024-11-16] MEDS: PYRAZINAMIDE 500 MG TABLET 1500 MG PO (10:19)
[2024-11-16] MEDS: ISONIAZID 300 MG TABLET PO (10:20)
[2024-11-16] MEDS: DOCUSATE SOD 100 MG CAPSULE PO (10:20)
[2024-11-16] MEDS: ETHAMBUTOL HCL 400 MG TABLET 1200 MG PO (10:20)
[2024-11-16] MEDS: rifAMPin 300 MG CAPSULE 600 MG PO (10:20)
[2024-11-16] MEDS: PANTOPRAZOLE 40 MG TABLET PO (10:20)
[2024-11-16] MEDS: PYRIDOXINE 50 MG TABLET PO (10:21)
[2024-11-16 12:00] VITALS: BP 110/75; PULSE 80; RESP 18; TEMP 36.3; O2SAT 96
--- NOTE | 2024-11-16 14:16 | ESPR_ITS ---
<Statement entered by Michael Carrera MD - 11/16/24 18:23> I discussed with and supervised the advertising intern physician involved in the care of this patient. Patient assessment and plan was discussed with entire medicine team, including my attending. I agree with the assessment and plan as documented by advertising intern doctor. Patient care was discussed with my attending physician Dr. Eduar Carrera, PGY-2 Documentation for date of: 11/16/24 Subjective Subjective Interval history: 11/16/2024: No acute overnight events reported. Awaiting results from latest AFB set. Patient continues to be treated with RIPE; infectious disease consulted - appreciate recommendations. Exam Vital Signs Temp Pulse Resp BP Pulse Ox O2 Del Method 97.4 F 80 18 110/75 96 Room Air 11/16/24 12:00 11/16/24 12:00 11/16/24 12:00 11/16/24 12:00 11/16/24 12:00 11/16/24 12:00 Narrative Exam Physical Exam Deferred at this time Objective Labs 11/01/24 05:30 11/01/24 05:30 Quality Measures Quality Measures none Assessment & Plan Assessment Current Active Medications: Generic Name Dose Route Start Last Admin Trade Name Freq PRN Reason Stop Dose Admin Acetaminophen 650 mg 10/21/24 16:00 Acetaminophen 325 Mg Tablet PO 11/20/24 15:59 Q6H PRN Fever >100.5 Acetaminophen 650 mg 10/21/24 16:00 10/22/24 21:30 Acetaminophen 325 Mg Tablet PO 11/20/24 15:59 650 mg Q6H PRN Administration PAIN SCALE 1-3 (mild Docusate Sodium 100 mg 10/22/24 09:00 11/16/24 10:20 Docusate Sod 100 Mg Capsule PO 11/21/24 08:59 100 mg QDAY TORREY Administration Protocol Ethambutol HCl 1,200 mg 10/22/24 10:15 11/16/24 10:20 Ethambutol Hcl 400 Mg Tablet PO 11/21/24 10:14 1,200 mg QDAY TORREY Administration Isoniazid 300 mg 10/22/24 10:15 11/16/24 10:20 Isoniazid 300 Mg Tablet PO 11/21/24 10:14 300 mg QDAY TORREY Administration Ondansetron HCl 4 mg 10/21/24 16:00 Ondansetron Inj 2 Mg/Ml Inj 2 Ml IV 11/20/24 15:59 Q6H PRN NAUSEA OR VOMITING Protocol Pantoprazole Sodium 40 mg 10/30/24 09:00 11/16/24 10:20 Pantoprazole 40 Mg Tablet PO 11/29/24 08:59 40 mg QDAY TORREY Administration Pyrazinamide 1,500 mg 10/31/24 09:00 11/16/24 10:19 Pyrazinamide 500 Mg Tablet PO 11/30/24 08:59 1,500 mg DAILY TORREY Administration Pyridoxine HCl 50 mg 11/07/24 09:00 11/16/24 10:21 Pyridoxine 50 Mg Tablet PO 01/30/26 12:00 50 mg QDAY TORREY Administration Rifampin 600 mg 10/22/24 10:15 11/16/24 10:20 Rifampin 300 Mg Capsule PO 11/21/24 10:14 600 mg QDAY TORREY Administration Sodium Chloride 15 ml 11/14/24 15:46 Sodium Chloride Rt 10% 15 Ml Nebu INH 12/14/24 15:45 PRN PRN SOLN Plan 53-year-old male with no past medical history presented to the ED due to cough, recent unintentional weight loss and tarry lesion found on chest x-ray. Admitted for TB workup. 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 Patient denies any night sweats, hemoptysis at this time, however he does state having night sweats in the past few months. Chest x-ray shows extensive bilateral infiltrate, which appears cavitary in the upper lung zones Chest CT shows Extensive cavitary miliary parenchymal disease throughout the lungs, most severe at the right apex, including septated right upper lobe cavitary lesion 5.6 x 5.2cm Blood culture-negative 48 hours Influenza negative, COVID-negative, HIV negative, Aspergillus negative Sputum cultures negative AFBs came back positive for tuberculosis, plan is to continue 7 days of treatment and repeat AFBs Wednesday night, to be sent on Wednesday AFBs came back positive for tuberculosis, will repeat AFBs AFBs from 11/09 + resulted on 2/10 are positive for tuberculosis Plan: Pending AFB 11/14-11/15 sent out Isolation precautions On RIPE therapy ID consulted, appreciate recommendation Hospital Management: Fluids: None Diet: regular GI prophylaxis: not indicated DVT prophylaxis: Lovenox Disposition: Medsurg on isolation for TB Code: Full Patient seen and examined with attending Dr. Tang and senior resident Dr. Debi Husain, PGY-1 Attending Provider Attestation/Addendum I attest that I was physically present for the evaluation, physical examination, lab and imaging review of the patient with the residents. I discussed the case with the residents and agree with the findings and plans of care as documented above. Patient is a 54 years old male with no known past medical history presented with cough and weight loss and was admitted for management of pulmonary tuberculosis. Continues to be on ripe therapy. AFB from 11/13 are positive for Mycobacterium tuberculosis. Send another sputum for AFB. Continues to be on isolation. Being followed by ID. Indiana Tang MD
[2024-11-16 16:00] VITALS: BP 108/70; PULSE 63; RESP 18; TEMP 36.1; O2SAT 96
[2024-11-16 20:00] VITALS: BP 99/73; PULSE 69; RESP 16; TEMP 36.3; O2SAT 97
[2024-11-17] VITALS: BP 114/68; PULSE 68; RESP 18; TEMP 36.2; O2SAT 96
[2024-11-17 04:00] VITALS: BP 103/75; PULSE 67; RESP 16; TEMP 36.1; O2SAT 97
[2024-11-17 08:00] VITALS: BP 113/74; PULSE 82; RESP 18; TEMP 36.4; O2SAT 97
[2024-11-17] MEDS: rifAMPin 300 MG CAPSULE 600 MG PO (08:09)
[2024-11-17] MEDS: ISONIAZID 300 MG TABLET PO (08:09)
[2024-11-17] MEDS: PYRAZINAMIDE 500 MG TABLET 1500 MG PO (08:09)
[2024-11-17] MEDS: DOCUSATE SOD 100 MG CAPSULE PO (08:09)
[2024-11-17] MEDS: ETHAMBUTOL HCL 400 MG TABLET 1200 MG PO (08:09)
[2024-11-17] MEDS: PYRIDOXINE 50 MG TABLET PO (08:09)
[2024-11-17] MEDS: PANTOPRAZOLE 40 MG TABLET PO (08:10)
--- NOTE | 2024-11-17 08:55 | PC.IP ---
Follow up with Tyson DEL ROSARIO from [facility] regarding discharging planning. Per Tyson DEL ROSARIO, waiting on the pt.'s child that tested positive for TB to start treatment/medication. Tyson DEL ROSARIO will be following with pt.'s to see if the child has started treatment.
--- NOTE | 2024-11-17 09:03 | PD.IDPROG ---
Subjective Subjective Interval history: afb #'s low on smear. will look again in about a week. Exam Vital Signs Temp Pulse Resp BP Pulse Ox O2 Del Method 97.0 F 67 16 103/75 97 Room Air 11/17/24 04:00 11/17/24 04:00 11/17/24 04:00 11/17/24 04:00 11/17/24 04:00 11/17/24 04:00 Narrative Exam limited visit Objective - Internal Medicine Labs 11/01/24 05:30 11/01/24 05:30 Labs: Laboratory Results - last 24 hr 11/14/24 11/14/24 11/15/24 18:20 22:30 03:15 Mycobacterial Culture See Sep Rpt See Sep Rpt See Sep Rpt 11/15/24 11/15/24 06:32 15:18 Mycobacterial Culture See Sep Rpt See Sep Rpt Assessment & Plan A&P Narrative apical pneumonia with neg cocci IgM and neg procal (insensitive to fungal and atypical antigens) and pos afb smears with repeats also pos. cx pending rx to be long. 6-12 mo. later sputum also pos. recommend more afb smears each /Wednesday . it usually takes about 2 weeks to become non contagious. health dept may determine the isolation status and their criteria for release no objection to outpt f/u by health dept but it is at their discretion. he lives with young children (pre school age or less) then they should be tested for tb. apparently one is positive. we do not have any details though . will check in again on Wednesday. hiv and hep c neg. Time Spent With Patient Time: Total time spent is greater than 50% in coordination of care (as documented) at patient's floor/unit and/or counseling patient:
--- NOTE | 2024-11-17 09:15 | PC.SS ---
Follow up note: AFBs results to come back possibly by Wednesday. Pt will return home upon dc.
[2024-11-17 11:51] VITALS: BP 112/72; PULSE 85; RESP 18; TEMP 36.4; O2SAT 97
--- NOTE | 2024-11-17 14:34 | ESPR_ITS ---
<Statement entered by Michael Carrera MD - 11/18/24 16:55> I discussed with and supervised the paid internship physician involved in the care of this patient. Patient assessment and plan was discussed with entire medicine team, including my attending. I agree with the assessment and plan as documented by paid internship doctor. Patient care was discussed with my attending physician Dr. Clyde Carrera, PGY-2 Documentation for date of: 11/17/24 Subjective Subjective Interval history: 11/17/2024: No acute overnight events reported. Last set of AFB 11/14-11/15 is still positive. Will send out another set of AFBs. Exam Vital Signs Temp Pulse Resp BP Pulse Ox O2 Del Method 97.6 F 85 18 112/72 97 Room Air 11/17/24 11:51 11/17/24 11:51 11/17/24 11:51 11/17/24 11:51 11/17/24 11:51 11/17/24 11:51 Narrative Exam Physical Exam Deferred at this time Objective Labs 11/01/24 05:30 11/01/24 05:30 Labs: Laboratory Results - last 24 hr 11/14/24 11/14/24 11/15/24 18:20 22:30 03:15 Mycobacterial Culture See Sep Rpt See Sep Rpt See Sep Rpt 11/15/24 11/15/24 06:32 15:18 Mycobacterial Culture See Sep Rpt See Sep Rpt Quality Measures Quality Measures none Assessment & Plan Assessment Current Active Medications: Generic Name Dose Route Start Last Admin Trade Name Freq PRN Reason Stop Dose Admin Acetaminophen 650 mg 10/21/24 16:00 Acetaminophen 325 Mg Tablet PO 11/20/24 15:59 Q6H PRN Fever >100.5 Acetaminophen 650 mg 10/21/24 16:00 10/22/24 21:30 Acetaminophen 325 Mg Tablet PO 11/20/24 15:59 650 mg Q6H PRN Administration PAIN SCALE 1-3 (mild Docusate Sodium 100 mg 10/22/24 09:00 11/17/24 08:09 Docusate Sod 100 Mg Capsule PO 11/21/24 08:59 100 mg QDAY TORREY Administration Protocol Ethambutol HCl 1,200 mg 10/22/24 10:15 11/17/24 08:09 Ethambutol Hcl 400 Mg Tablet PO 11/21/24 10:14 1,200 mg QDAY TORREY Administration Isoniazid 300 mg 10/22/24 10:15 11/17/24 08:09 Isoniazid 300 Mg Tablet PO 11/21/24 10:14 300 mg QDAY TORREY Administration Ondansetron HCl 4 mg 10/21/24 16:00 Ondansetron Inj 2 Mg/Ml Inj 2 Ml IV 11/20/24 15:59 Q6H PRN NAUSEA OR VOMITING Protocol Pantoprazole Sodium 40 mg 10/30/24 09:00 11/17/24 08:10 Pantoprazole 40 Mg Tablet PO 11/29/24 08:59 40 mg QDAY TORREY Administration Pyrazinamide 1,500 mg 10/31/24 09:00 11/17/24 08:09 Pyrazinamide 500 Mg Tablet PO 11/30/24 08:59 1,500 mg DAILY TORREY Administration Pyridoxine HCl 50 mg 11/07/24 09:00 11/17/24 08:09 Pyridoxine 50 Mg Tablet PO 01/30/26 12:00 50 mg QDAY TORREY Administration Rifampin 600 mg 10/22/24 10:15 11/17/24 08:09 Rifampin 300 Mg Capsule PO 11/21/24 10:14 600 mg QDAY TORREY Administration Sodium Chloride 5 ml 11/17/24 10:37 Sodium Chloride Rt 10% 15 Ml Nebu INH 12/17/24 10:36 PRN PRN SPUTUM INDUCTION Plan 53-year-old male with no past medical history presented to the ED due to cough, recent unintentional weight loss and tarry lesion found on chest x-ray. Admitted for TB workup. 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 Patient denies any night sweats, hemoptysis at this time, however he does state having night sweats in the past few months. Chest x-ray shows extensive bilateral infiltrate, which appears cavitary in the upper lung zones Chest CT shows Extensive cavitary miliary parenchymal disease throughout the lungs, most severe at the right apex, including septated right upper lobe cavitary lesion 5.6 x 5.2cm Blood culture-negative 48 hours Influenza negative, COVID-negative, HIV negative, Aspergillus negative Sputum cultures negative AFBs came back positive for tuberculosis, plan is to continue 7 days of treatment and repeat AFBs Wednesday night, to be sent on Wednesday AFBs came back positive for tuberculosis, will repeat AFBs AFBs from 11/09 + resulted on 11/13 are positive for tuberculosis Plan: Pending AFB 11/17-11/18 sent out Isolation precautions On RIPE therapy ID consulted, appreciate recommendation Hospital Management: Fluids: None Diet: regular GI prophylaxis: not indicated DVT prophylaxis: Lovenox Disposition: Medsur on isolation for TB Code: Full Patient seen and examined with attending Dr. Tang and senior resident Dr. Debi Husain, PGY-1 Attending Provider Attestation/Addendum I attest that I was physically present for the evaluation, physical examination, lab and imaging review of the patient with the residents. I discussed the case with the residents and agree with the findings and plans of care as documented above. At bedside today, patient appears comfortable. Denies any complaints. Saturating well on room air. Continues to be on ripe therapy. Continues to be on isolation. Indiana Tang MD
[2024-11-17 16:00] VITALS: BP 110/82; PULSE 75; RESP 18; TEMP 36.1; O2SAT 99
[2024-11-17 20:00] VITALS: BP 100/77; PULSE 64; RESP 18; TEMP 36.3; O2SAT 98
[2024-11-17] MEDS: ONDANSETRON ODT 4 MG TABRAP PO (21:48)
[2024-11-18] VITALS: BP 116/76; PULSE 60; RESP 16; TEMP 36.1; O2SAT 97
[2024-11-18 04:00] VITALS: BP 120/71; PULSE 69; RESP 20; TEMP 37.2; O2SAT 96
[2024-11-18 08:00] VITALS: BP 115/79; PULSE 76; RESP 17; TEMP 36.3; O2SAT 99
[2024-11-18] MEDS: PYRAZINAMIDE 500 MG TABLET 1500 MG PO (10:25)
[2024-11-18] MEDS: ISONIAZID 300 MG TABLET PO (10:25)
[2024-11-18] MEDS: rifAMPin 300 MG CAPSULE 600 MG PO (10:25)
[2024-11-18] MEDS: PYRIDOXINE 50 MG TABLET PO (10:26)
[2024-11-18] MEDS: ETHAMBUTOL HCL 400 MG TABLET 1200 MG PO (10:26)
[2024-11-18 11:59] VITALS: BP 113/75; PULSE 74; RESP 18; TEMP 36.2; O2SAT 97
[2024-11-18] MEDS: ONDANSETRON ODT 4 MG TABRAP PO (12:16)
--- NOTE | 2024-11-18 14:16 | ESPR_ITS ---
<Statement entered by Michael Carrera MD - 11/19/24 06:28> I discussed with and supervised the statistics intern physician involved in the care of this patient. Patient assessment and plan was discussed with entire medicine team, including my attending. I agree with the assessment and plan as documented by statistics intern doctor. Patient care was discussed with my attending physician Dr. Eduar Carrera, PGY-2 Documentation for date of: 11/18/24 Subjective Subjective Interval history: 11/18/2024: No acute overnight events reported. Patient updated regarding AFB samples which are being sent out again; patient understands the reason he is still under isolation. Next set 11/17 - 11/18 have been sent; will monitor for results. Exam Vital Signs Temp Pulse Resp BP Pulse Ox O2 Del Method 97.2 F 74 18 113/75 97 Room Air 11/18/24 11:59 11/18/24 11:59 11/18/24 11:59 11/18/24 11:59 11/18/24 11:59 11/18/24 11:59 Narrative Exam Physical Exam Deferred at this time Objective Labs 11/01/24 05:30 11/01/24 05:30 Quality Measures Quality Measures none Assessment & Plan Assessment Current Active Medications: Generic Name Dose Route Start Last Admin Trade Name Freq PRN Reason Stop Dose Admin Acetaminophen 650 mg 10/21/24 16:00 Acetaminophen 325 Mg Tablet PO 11/20/24 15:59 Q6H PRN Fever >100.5 Acetaminophen 650 mg 10/21/24 16:00 10/22/24 21:30 Acetaminophen 325 Mg Tablet PO 11/20/24 15:59 650 mg Q6H PRN Administration PAIN SCALE 1-3 (mild Ethambutol HCl 1,200 mg 10/22/24 10:15 11/18/24 10:26 Ethambutol Hcl 400 Mg Tablet PO 11/21/24 10:14 1,200 mg QDAY TORREY Administration Isoniazid 300 mg 10/22/24 10:15 11/18/24 10:25 Isoniazid 300 Mg Tablet PO 11/21/24 10:14 300 mg QDAY TORREY Administration Ondansetron HCl 4 mg 11/17/24 19:56 11/18/24 12:16 Ondansetron Odt 4 Mg Tabrap PO 12/17/24 19:55 4 mg Q6HR PRN Administration NAUSEA OR VOMITING Protocol Pyrazinamide 1,500 mg 10/31/24 09:00 11/18/24 10:25 Pyrazinamide 500 Mg Tablet PO 11/30/24 08:59 1,500 mg DAILY TORREY Administration Pyridoxine HCl 50 mg 11/07/24 09:00 11/18/24 10:26 Pyridoxine 50 Mg Tablet PO 01/30/26 12:00 50 mg QDAY TORREY Administration Rifampin 600 mg 10/22/24 10:15 11/18/24 10:25 Rifampin 300 Mg Capsule PO 11/21/24 10:14 600 mg QDAY TORREY Administration Sodium Chloride 5 ml 11/17/24 10:37 Sodium Chloride Rt 10% 15 Ml Nebu INH 12/17/24 10:36 PRN PRN SPUTUM INDUCTION Plan 53-year-old male with no past medical history presented to the ED due to cough, recent unintentional weight loss and tarry lesion found on chest x-ray. Admitted for TB workup. 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 Patient denies any night sweats, hemoptysis at this time, however he does state having night sweats in the past few months. Chest x-ray shows extensive bilateral infiltrate, which appears cavitary in the upper lung zones Chest CT shows Extensive cavitary miliary parenchymal disease throughout the lungs, most severe at the right apex, including septated right upper lobe cavitary lesion 5.6 x 5.2cm Blood culture-negative 48 hours Influenza negative, COVID-negative, HIV negative, Aspergillus negative Sputum cultures negative AFBs came back positive for tuberculosis, plan is to continue 7 days of treatment and repeat AFBs Wednesday night, to be sent on Wednesday AFBs came back positive for tuberculosis, will repeat AFBs AFBs from 11/09 + resulted on 11/13 are positive for tuberculosis Plan: Pending AFB 11/17-11/18 results Isolation precautions On RIPE therapy ID consulted, appreciate recommendation Hospital Management: Fluids: None Diet: regular GI prophylaxis: not indicated DVT prophylaxis: Lovenox Disposition: Medsurg on isolation for TB Code: Full Patient seen and examined with attending Dr. Tang and senior resident Dr. Debi Husain, PGY-1 Attending Provider Attestation/Addendum I attest that I was physically present for the evaluation, physical examination, lab and imaging review of the patient with the residents. I discussed the case with the residents and agree with the findings and plans of care as documented above. Patient continues to be stable at bedside. Has normal vitals, saturating well on room air. As per case management, health department stated that once the patient started starts therapy for tuberculosis patient will be able to discharge home. Discussed with patient and his family on phone, they stated that the child has not been started on any therapy yet. Patient continues to be on isolation and ripe therapy. Indiana Tang MD
[2024-11-18 16:00] VITALS: BP 111/74; PULSE 76; RESP 18; TEMP 36.2; O2SAT 98
--- NOTE | 2024-11-18 19:47 | PC.NURSE ---
patient c/o chest pain and upper back pain, deep breaths making it worse. pain is about 4-5/10 per patient. Patient states it started yesterday morning 11/17 when he was having nausea and vomited his medication with his food. He had some nausea today again with the medication but no vomiting. Patient states pain worse today. Called Dr. Marquez regarding this, patient's vitals are stable. Patient has no other complaints at this time. Request that in the AM when he has his medication to have a mclain meal with it.
[2024-11-18] MEDS: ACETAMINOPHEN 325 MG TABLET 650 MG PO (19:59)
[2024-11-18 20:00] VITALS: BP 126/83; PULSE 89; RESP 30; TEMP 36.2; O2SAT 97
[2024-11-19] VITALS: BP 105/72; PULSE 63; RESP 16; TEMP 36.2; O2SAT 95
[2024-11-19 04:00] VITALS: BP 105/71; PULSE 68; RESP 18; TEMP 36.4; O2SAT 97
[2024-11-19 08:00] VITALS: BP 107/70; PULSE 77; RESP 16; TEMP 36.3; O2SAT 96
[2024-11-19] MEDS: rifAMPin 300 MG CAPSULE 600 MG PO (08:35)
[2024-11-19] MEDS: ISONIAZID 300 MG TABLET PO (08:36)
[2024-11-19] MEDS: PYRIDOXINE 50 MG TABLET PO (08:36)
[2024-11-19] MEDS: ETHAMBUTOL HCL 400 MG TABLET 1200 MG PO (08:36)
[2024-11-19] MEDS: PYRAZINAMIDE 500 MG TABLET 1500 MG PO (08:37)
[2024-11-19] MEDS: ONDANSETRON ODT 4 MG TABRAP PO (08:59)
--- NOTE | 2024-11-19 10:38 | ESPR_ITS ---
<Statement entered by Michael Carrera MD - 11/20/24 07:02> I discussed with and supervised the kinesiology internship physician involved in the care of this patient. Patient assessment and plan was discussed with entire medicine team, including my attending. I agree with the assessment and plan as documented by kinesiology internship doctor. Patient care was discussed with my attending physician Dr. Clyde Carrera, PGY-2 Documentation for date of: 11/19/24 Subjective Subjective Interval history: Patient is Telugu-speaking and interaction facilitated by registered healthcare store sales consultant. Patient was seen and examined at bedside this AM. No acute exents overnight. Patient tolerating diet, adequate urine output and mentation is at baseline. Patient complains of generalized chest pain 2/10 and shortness of breath at rest for the past 2 days Will order troponin and EKG. AFB from 11/17 - 11/18 currently pending. Exam Vital Signs Temp Pulse Resp BP Pulse Ox O2 Del Method 97.3 F 77 16 107/70 96 Room Air 11/19/24 08:00 11/19/24 08:00 11/19/24 08:00 11/19/24 08:00 11/19/24 08:00 11/19/24 08:00 Narrative Exam Constitutional Alert, oriented x 3 and comfortable. Middle-age male HEENT Vision grossly intact. Patent nares. Trachea midline Respiratory Chest normal on inspection and clear auscultation bilaterally Cardiovascular S1 and S2 audible, RRR. No murmurs carotid bruit. No gross JVD. Abdominal Soft and non tender to palpation in all quadrants. BS + Genitourinary No bladder tenderness, no flank pain. Normal to palpation Musculoskeletal Extremities tone within normal limits. No LE edema. Neurological CN II - XII grossly intact. Extremity motor and sensation grossly intact. Skin Warm, dry and intact. No apparent lesions. Psychiatric Patient has good affect, is cooperative Objective Labs 11/20/24 05:33 11/20/24 05:33 Quality Measures Quality Measures none Assessment & Plan Assessment Current Active Medications: Generic Name Dose Route Start Last Admin Trade Name Freq PRN Reason Stop Dose Admin Acetaminophen 650 mg 10/21/24 16:00 Acetaminophen 325 Mg Tablet PO 11/20/24 15:59 Q6H PRN Fever >100.5 Acetaminophen 650 mg 10/21/24 16:00 11/18/24 19:59 Acetaminophen 325 Mg Tablet PO 02/17/25 15:59 650 mg Q6H PRN Administration PAIN SCALE 1-3 (mild Ethambutol HCl 1,200 mg 10/22/24 10:15 11/19/24 08:36 Ethambutol Hcl 400 Mg Tablet PO 11/21/24 10:14 1,200 mg QDAY TORREY Administration Isoniazid 300 mg 10/22/24 10:15 11/19/24 08:36 Isoniazid 300 Mg Tablet PO 11/21/24 10:14 300 mg QDAY TORREY Administration Ondansetron HCl 4 mg 11/17/24 19:56 11/19/24 08:59 Ondansetron Odt 4 Mg Tabrap PO 12/17/24 19:55 4 mg Q6HR PRN Administration NAUSEA OR VOMITING Protocol Pyrazinamide 1,500 mg 10/31/24 09:00 11/19/24 08:37 Pyrazinamide 500 Mg Tablet PO 11/30/24 08:59 1,500 mg DAILY TORREY Administration Pyridoxine HCl 50 mg 11/07/24 09:00 11/19/24 08:36 Pyridoxine 50 Mg Tablet PO 01/30/26 12:00 50 mg QDAY TORREY Administration Rifampin 600 mg 10/22/24 10:15 11/19/24 08:35 Rifampin 300 Mg Capsule PO 11/21/24 10:14 600 mg QDAY TORREY Administration Sodium Chloride 5 ml 11/17/24 10:37 Sodium Chloride Rt 10% 15 Ml Nebu INH 12/17/24 10:36 PRN PRN SPUTUM INDUCTION Plan 53-year-old male with no past medical history presented to the ED due to cough, recent unintentional weight loss and tarry lesion found on chest x-ray. Admitted for TB workup. 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 Patient denies any night sweats, hemoptysis at this time, however he does state having night sweats in the past few months. Chest x-ray shows extensive bilateral infiltrate, which appears cavitary in the upper lung zones Chest CT shows Extensive cavitary miliary parenchymal disease throughout the lungs, most severe at the right apex, including septated right upper lobe cavitary lesion 5.6 x 5.2cm Blood culture-negative 48 hours Influenza negative, COVID-negative, HIV negative, Aspergillus negative Sputum cultures negative AFBs came back positive for tuberculosis, plan is to continue 7 days of treatment and repeat AFBs Wednesday night, to be sent on Wednesday AFBs came back positive for tuberculosis, will repeat AFBs AFBs from 11/09 + resulted on 11/13 are positive for tuberculosis Plan: Pending AFB 11/17-11/18 results Isolation precautions On RIPE therapy ID consulted, appreciate recommendation #Chest pain #Shortness of breath Patient complains of generalized chest pain 11/13 and shortness of breath at rest for the past 2 days Will order troponin and EKG. Troponin <0.002 EKG significant for rate 71, sinus rhythm, early repolarization abnormality. Health maintenance: Disposition: Pending negative AFBs Diet: Regular Lines: pIVs GI Prophylaxis: None Thrombo Prophylaxis: Lovenox Code status: FULL CODE Plan of care discussed with Attending Dr. Tang and PGY2 Dr. Debi Garcia MD PGY 1 Attending Provider Attestation/Addendum I attest that I was physically present for the evaluation, physical examination, lab and imaging review of the patient with the residents. I discussed the case with the residents and agree with the findings and plans of care as documented above. Patient is comfortable, saturating well in room air at bedside. He did complain of some chest pain bilaterally in the morning, EKG and troponin were obtained both unremarkable. We will closely monitor him for further episodes. Continues to be on ripe therapy and isolation. Awaiting clearance by health department. Indiana Tang MD
--- NOTE | 2024-11-19 10:45 | EKG_ITS ---
[facility] Test Date: 2024-11-19 Pat Name: WILLEM HOLLOWAY [facility] Gender: Male [employer]: KATHLEEN : 1970 Requested By: Michael Carrera Order Number: [id number] Reading MD: Michael Carrera Measurements Intervals Mack Rate: 71 P: 50 AK: 180 QRS: 81 QRSD: 88 T: 70 QT: 362 QTc: 394 Interpretive Statements SINUS RHYTHM EARLY REPOLARIZATION [ST ELEVATION WITH NORMALLY INFLECTED T WAVE] No previous ECG available for comparison /[id number]/[email or web address]/[id number]
[2024-11-19 12:00] VITALS: BP 106/74; PULSE 76; RESP 16; TEMP 36.3; O2SAT 97
[2024-11-19 12:20] LABS: Troponin I < 0.002 ng/mL (0.0-0.045)
[2024-11-19] MEDS: ENOXAPARIN SOD INJ 40 MG/0.4 ML SYRINGE SC (14:39)
[2024-11-19 16:00] VITALS: BP 112/76; PULSE 69; RESP 16; TEMP 36.3; O2SAT 97
[2024-11-19 20:00] VITALS: BP 98/77; PULSE 68; RESP 18; TEMP 36.6; O2SAT 96
[2024-11-20] VITALS: BP 103/70; PULSE 74; RESP 18; TEMP 36.4; O2SAT 96
[2024-11-20 04:00] VITALS: BP 124/84; PULSE 73; RESP 18; TEMP 36.2; O2SAT 96
[2024-11-20 06:57] LABS: Basophils # (Auto) 0.1 Thou/mm3 (0.0-0.2); Basophils % (Auto) 1 % (0-2.5); Eosinophils # (Auto) 0.5 Thou/mm3 (0.0-0.5); Eosinophils % (Auto) 9 % (0-10); Hematocrit 40.7 % (41.0-53.0); Hemoglobin 13.8 g/dL (13.5-16.0); Immature Granulocytes % (Auto) 1 % (0-0); Immature Granulocytes Auto 0.04 Thou/mm3 (0.00-0.00); Lymphocytes # (Auto) 1.1 Thou/mm3 (1.0-4.8); Lymphocytes % (Auto) 20 % (10-50); Mean Corpuscular HGB Conc 33.9 g/dl (31.0-37.0); Mean Corpuscular Hemoglobin 29.4 pg (25.0-35.0); Mean Corpuscular Volume 87 fL (80-100); Monocytes # (Auto) 0.5 Thou/mm3 (0.0-0.8); Monocytes % (Auto) 9 % (0-12); Neutrophils # (Auto) 3.3 Thou/mm3 (1.8-7.7); Neutrophils % (Auto) 61 % (37-80); Nucleated Red Blood Cell % 0 /100 WBC (0); Platelet Count 227 Thou/mm3 (140-440); RDW Standard Deviation 39.4 fL (35.1-43.9); White Blood Count 5.4 Thou/mm3 (3.8-10.6)
[2024-11-20 07:01] LABS: Anion Gap 7 (7-16); BUN/Creatinine Ratio 16 Ratio (12-20); Blood Urea Nitrogen 11 mg/dL (9-23); Calcium 8.9 mg/dL (8.3-10.6); Carbon Dioxide 29.9 mMol/L (20.0-31.0); Chloride 102 mMol/L (98-107); Creatinine (Component) 0.7 mg/dL (0.6-1.3); Glucose 81 mg/dL (74-106); Osmolality,Calculated 275 (275-295); Potassium 3.6 mMol/L (3.4-5.1); Sodium 139 mMol/L (136-145); eGFR > 60 See Note
[2024-11-20 08:00] VITALS: BP 111/70; PULSE 65; RESP 16; TEMP 36.1; O2SAT 97
--- NOTE | 2024-11-20 09:23 | ESPR_ITS ---
Subjective Subjective Interval history: s pending. be sure to renew the tb meds as they may tomorrow. Exam Vital Signs Temp Pulse Resp BP Pulse Ox O2 Del Method 96.9 F 65 16 111/70 97 Room Air 11/20/24 08:00 11/20/24 08:00 11/20/24 08:00 11/20/24 08:00 11/20/24 08:00 11/20/24 08:00 Narrative Exam limited visit Objective - Internal Medicine Labs 11/20/24 05:33 11/20/24 05:33 Labs: Laboratory Results - last 24 hr 11/19/24 11/20/24 11:33 05:33 WBC 5.4 RBC 4.70 Hgb 13.8 Hct 40.7 L MCV 87 MCH 29.4 MCHC 33.9 RDW Std Deviation 39.4 Plt Count 227 D Neut % (Auto) 61 Lymph % (Auto) 20 [place] % (Auto) 9 Eos % (Auto) 9 Baso % (Auto) 1 Neut # (Auto) 3.3 Lymph # (Auto) 1.1 [place] # (Auto) 0.5 Eos # (Auto) 0.5 Baso # (Auto) 0.1 Immature Gran # (Auto) 0.04 H Absolute Nucleated RBC 0.00 Immature Gran % 1 H Nucleated RBC % 0 Sodium 139 Potassium 3.6 Chloride 102 Carbon Dioxide 29.9 Anion Gap 7 BUN 11 Creatinine 0.7 Estim Creat Clear Calc 110.0 eGFR > 60 BUN/Creatinine Ratio 16 Glucose 81 Calculated Osmolality 275 Calcium 8.9 Troponin I < 0.002 Assessment & Plan A&P Narrative apical pneumonia with neg cocci IgM and neg procal (insensitive to fungal and atypical antigens) and pos afb smears with repeats also pos. cx pending rx to be long. 6-12 mo. later sputum also pos. recommend more afb smears each /Wednesday . it usually takes about 2 weeks to become non contagious. health dept may determine the isolation status and their criteria for release no objection to outpt f/u by health dept but it is at their discretion. he lives with young children (pre school age or less) then they should be tested for tb. apparently one is positive (by word of mouth) we do not have any details though . will check in again on Wednesday. hiv and hep c neg. Time Spent With Patient Time: Total time spent is greater than 50% in coordination of care (as documented) at patient's floor/unit and/or counseling patient:
--- NOTE | 2024-11-20 10:28 | PC.SS ---
Dr. Tang requested SS contact patient's family to confirm if child in the home has begun TB medication. SS contacted patient's spouse Shelia [phone] to confirm, she explained she has not received medication. She further explained medication would not be available until 11/21/24 due to holiday. Patient's spouse Shelia stated both children (8YO, 8month old)in the home tested positive for TB. Patient's spouse Bubban stated she was concerned with patient and his inability to tolerate medication. She reports patient continues to vomit after consuming medication and believes it is inappropriate for patient to discharge.
[2024-11-20] MEDS: ENOXAPARIN SOD INJ 40 MG/0.4 ML SYRINGE SC (11:20)
[2024-11-20] MEDS: PYRAZINAMIDE 500 MG TABLET 1500 MG PO (11:20)
[2024-11-20] MEDS: ETHAMBUTOL HCL 400 MG TABLET 1200 MG PO (11:21)
[2024-11-20] MEDS: ACETAMINOPHEN 325 MG TABLET 650 MG PO (11:21)
[2024-11-20] MEDS: PYRIDOXINE 50 MG TABLET PO (11:21)
[2024-11-20] MEDS: ISONIAZID 300 MG TABLET PO (11:22)
[2024-11-20] MEDS: rifAMPin 300 MG CAPSULE 600 MG PO (11:22)
[2024-11-20] MEDS: ONDANSETRON ODT 4 MG TABRAP PO (11:31)
[2024-11-20 12:00] VITALS: BP 126/81; PULSE 91; RESP 19; TEMP 36; O2SAT 98
[2024-11-20 15:58] VITALS: BP 110/66; PULSE 62; RESP 18; TEMP 36.4; O2SAT 95
--- NOTE | 2024-11-20 17:47 | ESPR_ITS ---
Documentation for date of: 11/20/24 Subjective Subjective Interval history: Per caseworkers, at-home children's have not received TB medications. Per family, due to holiday they were unable to get in contact with their doctor. Exam Vital Signs Temp Pulse Resp BP Pulse Ox O2 Del Method 97.6 F 62 18 110/66 95 Room Air 11/20/24 15:58 11/20/24 15:58 11/20/24 15:58 11/20/24 15:58 11/20/24 15:58 11/20/24 15:58 Narrative Exam Constitutional Alert, oriented x 3 and comfortable. Middle-age male HEENT Vision grossly intact. Patent nares. Trachea midline Respiratory Chest normal on inspection and clear auscultation bilaterally Cardiovascular S1 and S2 audible, RRR. No murmurs carotid bruit. No gross JVD. Abdominal Soft and non tender to palpation in all quadrants. BS + Genitourinary No bladder tenderness, no flank pain. Normal to palpation Musculoskeletal Extremities tone within normal limits. No LE edema. Neurological CN II - XII grossly intact. Extremity motor and sensation grossly intact. Skin Warm, dry and intact. No apparent lesions. Psychiatric Patient has good affect, is cooperative Objective Labs 11/20/24 05:33 11/20/24 05:33 Labs: Laboratory Results - last 24 hr 11/20/24 05:33 WBC 5.4 RBC 4.70 Hgb 13.8 Hct 40.7 L MCV 87 MCH 29.4 MCHC 33.9 RDW Std Deviation 39.4 Plt Count 227 D Neut % (Auto) 61 Lymph % (Auto) 20 [place] % (Auto) 9 Eos % (Auto) 9 Baso % (Auto) 1 Neut # (Auto) 3.3 Lymph # (Auto) 1.1 [place] # (Auto) 0.5 Eos # (Auto) 0.5 Baso # (Auto) 0.1 Immature Gran # (Auto) 0.04 H Absolute Nucleated RBC 0.00 Immature Gran % 1 H Nucleated RBC % 0 Sodium 139 Potassium 3.6 Chloride 102 Carbon Dioxide 29.9 Anion Gap 7 BUN 11 Creatinine 0.7 Estim Creat Clear Calc 110.0 eGFR > 60 BUN/Creatinine Ratio 16 Glucose 81 Calculated Osmolality 275 Calcium 8.9 Quality Measures Quality Measures none Assessment & Plan Assessment Current Active Medications: Generic Name Dose Route Start Last Admin Trade Name Freq PRN Reason Stop Dose Admin Enoxaparin Sodium 40 mg 11/19/24 14:15 11/20/24 11:20 Enoxaparin Sod Inj 40 Mg/0.4 Ml Syringe SC 12/03/24 14:14 40 mg QDAY TORREY Administration Ethambutol HCl 1,200 mg 10/22/24 10:15 11/20/24 11:21 Ethambutol Hcl 400 Mg Tablet PO 11/21/24 10:14 1,200 mg QDAY TORREY Administration Isoniazid 300 mg 10/22/24 10:15 11/20/24 11:22 Isoniazid 300 Mg Tablet PO 11/21/24 10:14 300 mg QDAY TORREY Administration Ondansetron HCl 4 mg 11/17/24 19:56 11/20/24 11:31 Ondansetron Odt 4 Mg Tabrap PO 12/17/24 19:55 4 mg Q6HR PRN Administration NAUSEA OR VOMITING Protocol Pyrazinamide 1,500 mg 10/31/24 09:00 11/20/24 11:20 Pyrazinamide 500 Mg Tablet PO 11/30/24 08:59 1,500 mg DAILY TORREY Administration Pyridoxine HCl 50 mg 11/07/24 09:00 11/20/24 11:21 Pyridoxine 50 Mg Tablet PO 01/30/26 12:00 50 mg QDAY TORREY Administration Rifampin 600 mg 10/22/24 10:15 11/20/24 11:22 Rifampin 300 Mg Capsule PO 11/21/24 10:14 600 mg QDAY TORREY Administration Sodium Chloride 5 ml 11/17/24 10:37 Sodium Chloride Rt 10% 15 Ml Nebu INH 12/17/24 10:36 PRN PRN SPUTUM INDUCTION Plan 53-year-old male with no past medical history presented to the ED due to cough, recent unintentional weight loss and tarry lesion found on chest x-ray. Admitted for TB workup. 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 Patient denies any night sweats, hemoptysis at this time, however he does state having night sweats in the past few months. Chest x-ray shows extensive bilateral infiltrate, which appears cavitary in the upper lung zones Chest CT shows Extensive cavitary miliary parenchymal disease throughout the lungs, most severe at the right apex, including septated right upper lobe cavitary lesion 5.6 x 5.2cm Blood culture-negative 48 hours Influenza negative, COVID-negative, HIV negative, Aspergillus negative Sputum cultures negative AFBs came back positive for tuberculosis, plan is to continue 7 days of treatment and repeat AFBs Wednesday night, to be sent on Wednesday AFBs came back positive for tuberculosis, will repeat AFBs AFBs from 11/09 + resulted on 11/13 are positive for tuberculosis Plan: Pending AFB 11/17-11/18 results Isolation precautions On RIPE therapy ID consulted, appreciate recommendation #Chest pain #Shortness of breath Patient complains of generalized chest pain 11/13 and shortness of breath at rest for the past 2 days Will order troponin and EKG. Troponin <0.002 EKG significant for rate 71, sinus rhythm, early repolarization abnormality. Health maintenance: Disposition: Pending negative AFBs Diet: Regular Lines: pIVs GI Prophylaxis: None Thrombo Prophylaxis: Lovenox Code status: FULL CODE Plan of care discussed with Attending Dr. Tang and PGY2 Dr. Debi Garcia MD PGY 1 Attending Provider Attestation/Addendum I attest that I was physically present for the evaluation, physical examination, lab and imaging review of the patient with the residents. I discussed the case with the residents and agree with the findings and plans of care as documented above. Indiana Tang MD
[2024-11-20 20:00] VITALS: BP 123/59; PULSE 82; RESP 18; TEMP 36; O2SAT 97
[2024-11-21] VITALS: BP 117/72; PULSE 61; RESP 16; TEMP 36.5; O2SAT 98
[2024-11-21 04:00] VITALS: BP 128/84; PULSE 74; RESP 18; TEMP 36.4; O2SAT 96
[2024-11-21 08:00] VITALS: BP 111/72; PULSE 71; RESP 18; TEMP 36.3; O2SAT 95
[2024-11-21] MEDS: PYRIDOXINE 50 MG TABLET PO (10:11)
[2024-11-21] MEDS: ETHAMBUTOL HCL 400 MG TABLET 1200 MG PO (10:11)
[2024-11-21] MEDS: PYRAZINAMIDE 500 MG TABLET 1500 MG PO (10:11)
[2024-11-21] MEDS: rifAMPin 300 MG CAPSULE 600 MG PO (10:11)
[2024-11-21] MEDS: ISONIAZID 300 MG TABLET PO (10:12)
[2024-11-21] MEDS: ONDANSETRON ODT 4 MG TABRAP PO (10:12)
[2024-11-21 12:00] VITALS: BP 113/71; PULSE 94; RESP 18; TEMP 36.2; O2SAT 95
--- NOTE | 2024-11-21 12:48 | ESPR_ITS ---
<Statement entered by Michael Carrera MD - 11/22/24 13:46> I discussed with and supervised the legal internship physician involved in the care of this patient. Patient assessment and plan was discussed with entire medicine team, including my attending. I agree with the assessment and plan as documented by legal internship doctor. Patient care was discussed with my attending physician Dr. Clyde Carrera, PGY-2 Documentation for date of: 11/21/24 Subjective Subjective Interval history: 11/21/2024: No acute overnight events to report. Patient remains asymptomatic and continues to be treated with RIPE. Per social work job titles, patient's child is in the process of receiving treatment. Once that issue is settled, the patient may be able to discharge. Exam Vital Signs Temp Pulse Resp BP Pulse Ox O2 Del Method 97.2 F 94 18 113/71 95 Room Air 11/21/24 12:00 11/21/24 12:00 11/21/24 12:00 11/21/24 12:00 11/21/24 12:00 11/21/24 12:00 Narrative Exam Physical Exam Deferred at this time Objective Labs 11/20/24 05:33 11/20/24 05:33 Quality Measures Quality Measures none Assessment & Plan Assessment Current Active Medications: Generic Name Dose Route Start Last Admin Trade Name Freq PRN Reason Stop Dose Admin Enoxaparin Sodium 40 mg 11/19/24 14:15 11/21/24 10:18 Enoxaparin Sod Inj 40 Mg/0.4 Ml Syringe SC 12/03/24 14:14 Not Given QDAY TORREY Ethambutol HCl 1,200 mg 10/22/24 10:15 11/21/24 10:11 Ethambutol Hcl 400 Mg Tablet PO 12/01/24 10:14 1,200 mg QDAY TORREY Administration Isoniazid 300 mg 10/22/24 10:15 11/21/24 10:12 Isoniazid 300 Mg Tablet PO 12/01/24 10:14 300 mg QDAY TORREY Administration Ondansetron HCl 4 mg 11/17/24 19:56 11/21/24 10:12 Ondansetron Odt 4 Mg Tabrap PO 12/17/24 19:55 4 mg Q6HR PRN Administration NAUSEA OR VOMITING Protocol Pyrazinamide 1,500 mg 10/31/24 09:00 11/21/24 10:11 Pyrazinamide 500 Mg Tablet PO 11/30/24 08:59 1,500 mg DAILY TORREY Administration Pyridoxine HCl 50 mg 11/07/24 09:00 11/21/24 10:11 Pyridoxine 50 Mg Tablet PO 01/30/26 12:00 50 mg QDAY TORREY Administration Rifampin 600 mg 10/22/24 10:15 11/21/24 10:11 Rifampin 300 Mg Capsule PO 12/01/24 10:14 600 mg QDAY TORREY Administration Sodium Chloride 5 ml 11/17/24 10:37 Sodium Chloride Rt 10% 15 Ml Nebu INH 12/17/24 10:36 PRN PRN SPUTUM INDUCTION Plan 53-year-old male with no past medical history presented to the ED due to cough, recent unintentional weight loss and tarry lesion found on chest x-ray. Admitted for TB workup. 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 Patient denies any night sweats, hemoptysis at this time, however he does state having night sweats in the past few months. Chest x-ray shows extensive bilateral infiltrate, which appears cavitary in the upper lung zones Chest CT shows Extensive cavitary miliary parenchymal disease throughout the lungs, most severe at the right apex, including septated right upper lobe cavitary lesion 5.6 x 5.2cm Blood culture-negative 48 hours Influenza negative, COVID-negative, HIV negative, Aspergillus negative Sputum cultures negative AFBs came back positive for tuberculosis, plan is to continue 7 days of treatment and repeat AFBs Wednesday night, to be sent on Wednesday AFBs came back positive for tuberculosis, will repeat AFBs AFBs from 11/09 + resulted on 11/13 are positive for tuberculosis AFB 11/17-11/18 results are positive Plan: Will resend by the end of this week Isolation precautions On RIPE therapy ID consulted, appreciate recommendation #Chest pain, stable #Shortness of breath, stable Patient complains of generalized chest pain 2/10 and shortness of breath at rest for the past 2 days Will order troponin and EKG. Troponin <0.002 EKG significant for rate 71, sinus rhythm, early repolarization abnormality. Plan: Will monitor for acute changes Health Management: Disposition: Pending negative AFBs Diet: Regular Lines: pIVs GI Prophylaxis: None Thrombo Prophylaxis: Lovenox Code status: FULL CODE Patient seen and examined with attending Dr. Tang and senior resident Dr. Debi Husain, PGY-1 Attending Provider Attestation/Addendum I attest that I was physically present for the evaluation, physical examination, lab and imaging review of the patient with the residents. I discussed the case with the residents and agree with the findings and plans of care as documented above. Indiana Tang MD
[2024-11-21 16:00] VITALS: BP 128/88; PULSE 74; RESP 18; TEMP 36.2; O2SAT 94
[2024-11-21] MEDS: ACETAMINOPHEN 325 MG TABLET 650 MG PO (19:51)
[2024-11-21 20:00] VITALS: BP 114/77; PULSE 79; RESP 18; TEMP 36.9; O2SAT 96
[2024-11-22] VITALS: BP 107/75; PULSE 72; RESP 16; TEMP 36.3; O2SAT 98
[2024-11-22 04:00] VITALS: BP 108/75; PULSE 67; RESP 18; TEMP 36.2; O2SAT 97
[2024-11-22 08:00] VITALS: BP 114/66; PULSE 79; RESP 18; TEMP 36.1; O2SAT 95
[2024-11-22 08:50] VITALS: BMI 21.2
[2024-11-22] MEDS: ISONIAZID 300 MG TABLET PO (09:08)
[2024-11-22] MEDS: ETHAMBUTOL HCL 400 MG TABLET 1200 MG PO (09:08)
[2024-11-22] MEDS: rifAMPin 300 MG CAPSULE 600 MG PO (09:08)
[2024-11-22] MEDS: PYRIDOXINE 50 MG TABLET PO (09:09)
[2024-11-22] MEDS: PYRAZINAMIDE 500 MG TABLET 1500 MG PO (09:09)
[2024-11-22] MEDS: ONDANSETRON ODT 4 MG TABRAP PO (09:09)
--- NOTE | 2024-11-22 11:37 | PD.RESPRO ---
Documentation for date of: 11/22/24 Subjective Subjective Interval history: 11/22/2024: No acute events to report. Recent the patient's AFB sent (11/22 - 11/23). Per delinquency prevention social worker and infection control, patient's family number needs to be treated or patient needs negative AFBs in order to be discharged safely. Will continue monitor for any acute changes. Exam Vital Signs Temp Pulse Resp BP Pulse Ox O2 Del Method 96.9 F 79 18 114/66 95 Room Air 11/22/24 08:00 11/22/24 08:00 11/22/24 08:00 11/22/24 08:00 11/22/24 08:00 11/22/24 08:00 Narrative Exam Physical Exam Deferred at this time Objective Labs 11/20/24 05:33 11/20/24 05:33 Quality Measures Quality Measures none Assessment & Plan Assessment Current Active Medications: Generic Name Dose Route Start Last Admin Trade Name Freq PRN Reason Stop Dose Admin Acetaminophen 650 mg 11/21/24 17:29 11/21/24 19:51 Acetaminophen 325 Mg Tablet PO 12/21/24 17:28 650 mg Q6HR PRN Administration PAIN Enoxaparin Sodium 40 mg 11/19/24 14:15 11/21/24 10:18 Enoxaparin Sod Inj 40 Mg/0.4 Ml Syringe SC 12/03/24 14:14 Not Given QDAY TORREY Ethambutol HCl 1,200 mg 10/22/24 10:15 11/22/24 09:08 Ethambutol Hcl 400 Mg Tablet PO 12/01/24 10:14 1,200 mg QDAY TORREY Administration Isoniazid 300 mg 10/22/24 10:15 11/22/24 09:08 Isoniazid 300 Mg Tablet PO 12/01/24 10:14 300 mg QDAY TORREY Administration Ondansetron HCl 4 mg 11/17/24 19:56 11/22/24 09:09 Ondansetron Odt 4 Mg Tabrap PO 12/17/24 19:55 4 mg Q6HR PRN Administration NAUSEA OR VOMITING Protocol Pyrazinamide 1,500 mg 10/31/24 09:00 11/22/24 09:09 Pyrazinamide 500 Mg Tablet PO 11/30/24 08:59 1,500 mg DAILY TORREY Administration Pyridoxine HCl 50 mg 11/07/24 09:00 11/22/24 09:09 Pyridoxine 50 Mg Tablet PO 01/30/26 12:00 50 mg QDAY TORREY Administration Rifampin 600 mg 10/22/24 10:15 11/22/24 09:08 Rifampin 300 Mg Capsule PO 12/01/24 10:14 600 mg QDAY TORREY Administration Sodium Chloride 5 ml 11/22/24 08:42 Sodium Chloride Rt 10% 15 Ml Nebu INH 12/22/24 08:41 PRN PRN secretions Plan 53-year-old male with no past medical history presented to the ED due to cough, recent unintentional weight loss and tarry lesion found on chest x-ray. Admitted for TB workup. 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 Patient denies any night sweats, hemoptysis at this time, however he does state having night sweats in the past few months. Chest x-ray shows extensive bilateral infiltrate, which appears cavitary in the upper lung zones Chest CT shows Extensive cavitary miliary parenchymal disease throughout the lungs, most severe at the right apex, including septated right upper lobe cavitary lesion 5.6 x 5.2cm Blood culture-negative 48 hours Influenza negative, COVID-negative, HIV negative, Aspergillus negative Sputum cultures negative AFBs came back positive for tuberculosis, plan is to continue 7 days of treatment and repeat AFBs Wednesday night, to be sent on Wednesday AFBs came back positive for tuberculosis, will repeat AFBs AFBs from 11/09 + resulted on 11/13 are positive for tuberculosis AFB 11/17-11/18 results are positive Plan: Resent AFB 11/22-11/23 set Isolation precautions On RIPE therapy ID consulted, appreciate recommendation #Chest pain, stable #Shortness of breath, stable Patient complains of generalized chest pain 2/10 and shortness of breath at rest for the past 2 days Will order troponin and EKG. Troponin <0.002 EKG significant for rate 71, sinus rhythm, early repolarization abnormality. Plan: Will monitor for acute changes Health Management: Disposition: Pending negative AFBs Diet: Regular Lines: pIVs GI Prophylaxis: None Thrombo Prophylaxis: Lovenox Code status: FULL CODE Patient seen and examined with attending Dr. Alberts and senior resident Dr. Debi Husain, PGY-1 Attending Provider Attestation/Addendum Chelsy Ramirez DO, attest that I was physically present for the rojas portions of the service and evaluated the patient with the resident and I reviewed and discussed the case with the resident and agree with the resident's findings and plans of care as documented above Patient sen and evaluated this AM. He states that he is doing well. He reported some soreness in his left shoulder, but improved with topical ointment. Anticipating discharge on Wednesday per infection control.
[2024-11-22 12:00] VITALS: BP 112/76; PULSE 73; RESP 18; TEMP 36.4; O2SAT 98
--- NOTE | 2024-11-22 13:54 | PD.IDPROG ---
Subjective Subjective Interval history: will get more afb's and await cx and S. pos cx noted. Exam Vital Signs Temp Pulse Resp BP Pulse Ox O2 Del Method 97.5 F 73 18 112/76 98 Room Air 11/22/24 12:00 11/22/24 12:00 11/22/24 12:00 11/22/24 12:00 11/22/24 12:00 11/22/24 12:00 Narrative Exam limited eval today Objective - Internal Medicine Labs 11/20/24 05:33 11/20/24 05:33 Assessment & Plan A&P Narrative apical pneumonia with neg cocci IgM and neg procal (insensitive to fungal and atypical antigens) and pos afb smears with repeats also pos. cx pos from 10/21 rx to be long. 6-12 mo. later sputum also pos. recommend more afb smears each /Wednesday . it usually takes about 2 weeks to become non contagious. health dept may determine the isolation status and their criteria for release no objection to outpt f/u by health dept but it is at their discretion. hotel stays can help if that can be arranged he lives with young children (pre school age or less) then they should be tested for tb. apparently one is positive (by word of mouth) we do not have any details though . will check in again on Wednesday. hiv and hep c neg. Time Spent With Patient Time: Total time spent is greater than 50% in coordination of care (as documented) at patient's floor/unit and/or counseling patient:
[2024-11-22 14:09] LABS: Cult AFB Sendout- Sputum* See Sep Rpt
[2024-11-22 14:49] LABS: Cult AFB Sendout- Sputum* See Sep Rpt
--- NOTE | 2024-11-22 15:09 | PC.SS ---
Follow up note: Pt is waiting for [facility] clearance. AFBs were sent out today. Pt will return home upon dc. SS spoke to nurse, Faye who is covering for bedside nurse, Bere and she explained pt has been ambulating independently without assistance in his room.
[2024-11-22 16:00] VITALS: BP 114/77; PULSE 70; RESP 19; TEMP 36.2; O2SAT 97
[2024-11-22 20:00] VITALS: BP 106/77; PULSE 72; RESP 18; TEMP 36.4; O2SAT 97
[2024-11-22 22:18] LABS: Cult AFB Sendout- Sputum* See Sep Rpt
[2024-11-23] VITALS: BP 115/66; PULSE 75; RESP 20; TEMP 36.4; O2SAT 97
--- NOTE | 2024-11-23 02:15 | PC.RT ---
pt able to expectorate AFB obtained at 22:15 and sent to lab.
[2024-11-23 04:00] VITALS: BP 117/83; PULSE 80; RESP 18; TEMP 36.4; O2SAT 97
[2024-11-23 08:00] VITALS: BP 103/77; PULSE 71; RESP 16; TEMP 36.6; O2SAT 92
[2024-11-23] MEDS: ETHAMBUTOL HCL 400 MG TABLET 1200 MG PO (08:27)
[2024-11-23] MEDS: PYRAZINAMIDE 500 MG TABLET 1500 MG PO (08:27)
[2024-11-23] MEDS: PYRIDOXINE 50 MG TABLET PO (08:27)
[2024-11-23] MEDS: ISONIAZID 300 MG TABLET PO (08:27)
[2024-11-23] MEDS: rifAMPin 300 MG CAPSULE 600 MG PO (08:27)
[2024-11-23] MEDS: ONDANSETRON ODT 4 MG TABRAP PO (08:27)
--- NOTE | 2024-11-23 11:07 | ESPR_ITS ---
<Statement entered by Michael Carrera MD - 11/24/24 07:36> I discussed with and supervised the mba internship physician involved in the care of this patient. Patient assessment and plan was discussed with entire medicine team, including my attending. I agree with the assessment and plan as documented by mba internship doctor. Patient care was discussed with my attending physician Dr. Aristeo Carrera, PGY-2 Documentation for date of: 11/23/24 Subjective Subjective Interval history: Patient is Vincentian-speaking and interaction facilitated by registered healthcare machine operator hay stacker. Patient was seen and examined at bedside this AM. No acute exents overnight. Patient tolerating diet, adequate urine output and mentation is at baseline. Patient currently asymptomatic. Denies cough, shortness of breath, chest pain and palpitations. Pending results of AFBs from 11/22 - 11/23. Possible discharge on 11/28/2024 pending [facility] department recommendations. Exam Vital Signs Temp Pulse Resp BP Pulse Ox O2 Del Method 97.9 F 71 16 139/86 H 92 L Room Air 11/23/24 08:00 11/23/24 08:00 11/23/24 08:00 11/23/24 08:00 11/23/24 08:00 11/23/24 08:00 Narrative Exam Constitutional Alert, oriented x 3 and comfortable. Middle-age male HEENT Vision grossly intact. Patent nares. Trachea midline Respiratory Chest normal on inspection and clear auscultation bilaterally Cardiovascular S1 and S2 audible, RRR. No murmurs carotid bruit. No gross JVD. Abdominal Soft and non tender to palpation in all quadrants. BS + Genitourinary No bladder tenderness, no flank pain. Normal to palpation Musculoskeletal Extremities tone within normal limits. No LE edema. Neurological CN II - XII grossly intact. Extremity motor and sensation grossly intact. Skin Warm, dry and intact. No apparent lesions. Psychiatric Patient has good affect, is cooperative Objective Labs 11/20/24 05:33 11/20/24 05:33 Labs: Laboratory Results - last 24 hr 11/22/24 09:12 Mycobacterial Culture Cancelled Quality Measures Quality Measures none Assessment & Plan Assessment Current Active Medications: Generic Name Dose Route Start Last Admin Trade Name Freq PRN Reason Stop Dose Admin Acetaminophen 650 mg 11/21/24 17:29 11/21/24 19:51 Acetaminophen 325 Mg Tablet PO 12/21/24 17:28 650 mg Q6HR PRN Administration PAIN Enoxaparin Sodium 40 mg 11/19/24 14:15 11/23/24 08:28 Enoxaparin Sod Inj 40 Mg/0.4 Ml Syringe SC 12/03/24 14:14 Not Given QDAY TORREY Ethambutol HCl 1,200 mg 10/22/24 10:15 11/23/24 08:27 Ethambutol Hcl 400 Mg Tablet PO 12/01/24 10:14 1,200 mg QDAY TORREY Administration Isoniazid 300 mg 10/22/24 10:15 11/23/24 08:27 Isoniazid 300 Mg Tablet PO 12/01/24 10:14 300 mg QDAY TORREY Administration Ondansetron HCl 4 mg 11/17/24 19:56 11/23/24 08:27 Ondansetron Odt 4 Mg Tabrap PO 12/17/24 19:55 4 mg Q6HR PRN Administration NAUSEA OR VOMITING Protocol Pyrazinamide 1,500 mg 10/31/24 09:00 11/23/24 08:27 Pyrazinamide 500 Mg Tablet PO 11/30/24 08:59 1,500 mg DAILY TORREY Administration Pyridoxine HCl 50 mg 11/07/24 09:00 11/23/24 08:27 Pyridoxine 50 Mg Tablet PO 01/30/26 12:00 50 mg QDAY TORREY Administration Rifampin 600 mg 10/22/24 10:15 11/23/24 08:27 Rifampin 300 Mg Capsule PO 12/01/24 10:14 600 mg QDAY TORREY Administration Sodium Chloride 5 ml 11/22/24 08:42 Sodium Chloride Rt 10% 15 Ml Nebu INH 12/22/24 08:41 PRN PRN secretions Plan 53-year-old male with no past medical history presented to the ED due to cough, recent unintentional weight loss and tarry lesion found on chest x-ray. Admitted for TB workup. 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 Patient denies any night sweats, hemoptysis at this time, however he does state having night sweats in the past few months. Chest x-ray shows extensive bilateral infiltrate, which appears cavitary in the upper lung zones Chest CT shows Extensive cavitary miliary parenchymal disease throughout the lungs, most severe at the right apex, including septated right upper lobe cavitary lesion 5.6 x 5.2cm Blood culture-negative 48 hours Influenza negative, COVID-negative, HIV negative, Aspergillus negative Sputum cultures negative AFBs came back positive for tuberculosis, plan is to continue 7 days of treatment and repeat AFBs Wednesday night, to be sent on Wednesday AFBs came back positive for tuberculosis, will repeat AFBs AFBs from 11/09 + resulted on 11/13 are positive for tuberculosis AFB 11/17-11/18 results are positive Possible discharge on 11/28/2024 pending [facility] department recommendations. Plan: - Pending AFB 11/22-11/23 results - Isolation precautions - On RIPE therapy - ID consulted, appreciate recommendation #Chest pain- resolved #Shortness of breath - resolved Patient complained of generalized chest pain 2/10 and shortness of breath at rest for the past 2 days Troponin <0.002 EKG significant for rate 71, sinus rhythm, early repolarization abnormality. No further workup warranted. Health maintenance: Disposition: Pending AFB 11/22-11/23 results. Possible discharge on 11/28/2024 pending [facility] department recommendations. Diet: Regular Lines: pIVs GI Prophylaxis: None Thrombo Prophylaxis: Enoxaparin 40 Mg SC daily Code status: FULL CODE Plan of care discussed with Attending Dr. Alberts and PGY2 Dr. Debi Garcia MD PGY 1 Attending Provider Attestation/Addendum James, Chelsy Alberts DO, attest that I was physically present for the rojas portions of the service and evaluated the patient with the resident and I reviewed and discussed the case with the resident and agree with the resident's findings and plans of care as documented above No acute events overnight. Will order ALT as requested by [facility]. Plan for DC on Wednesday.
[2024-11-23 12:00] VITALS: BP 110/71; PULSE 70; RESP 16; TEMP 36.3; O2SAT 93
[2024-11-23 13:00] LABS: Cult AFB Sendout- Sputum* See Sep Rpt
[2024-11-23 16:00] VITALS: BP 105/64; PULSE 64; RESP 17; TEMP 36.3; O2SAT 97
[2024-11-23 16:13] LABS: Alanine Aminotransferase 25 U/L (10-49); Albumin, Serum 3.7 gm/dL (3.5-5.0); Alkaline Phosphatase 101 U/L (46-116); Aspartate Amino Transferase 28 U/L (0-34); Bilirubin,Direct 0.2 mg/dL (0.0-0.3); Bilirubin,Total 0.4 mg/dL (0.3-1.2); Total Protein 7.1 gm/dL (5.7-8.2)
--- NOTE | 2024-11-23 16:19 | PC.SS ---
Follow up note: More AFBs were ordered. Pt will return home once he cleared from [facility].
[2024-11-23 20:00] VITALS: BP 109/67; PULSE 79; RESP 18; TEMP 36.6; O2SAT 95
[2024-11-24] VITALS: BP 120/73; PULSE 77; RESP 18; TEMP 36.2; O2SAT 96
[2024-11-24 04:00] VITALS: BP 121/73; PULSE 82; RESP 17; TEMP 36.3; O2SAT 97
[2024-11-24] MEDS: MG HYD/AL HYD/SIME (Maalox Reg) SUSP 30 ML UDC PO (04:15)
[2024-11-24 07:53] VITALS: BP 104/67; PULSE 67; RESP 16; TEMP 36.5; O2SAT 98
[2024-11-24] MEDS: ETHAMBUTOL HCL 400 MG TABLET 1200 MG PO (08:20)
[2024-11-24] MEDS: PYRAZINAMIDE 500 MG TABLET 1500 MG PO (08:21)
[2024-11-24] MEDS: PYRIDOXINE 50 MG TABLET PO (08:21)
[2024-11-24] MEDS: ONDANSETRON ODT 4 MG TABRAP PO (08:22)
[2024-11-24] MEDS: ISONIAZID 300 MG TABLET PO (08:22)
[2024-11-24] MEDS: rifAMPin 300 MG CAPSULE 600 MG PO (08:22)
--- NOTE | 2024-11-24 10:03 | PC.SS ---
Follow up note: Pending [facility] Clearance possible d/c is Wednesday. Pt will return home upon dc.
--- NOTE | 2024-11-24 11:34 | ESPR_ITS ---
<Statement entered by Michael Carrera MD - 11/24/24 15:57> I discussed with and supervised the internet marketing coordinator physician involved in the care of this patient. Patient assessment and plan was discussed with entire medicine team, including my attending. I agree with the assessment and plan as documented by internet marketing coordinator doctor. Patient care was discussed with my attending physician Dr. Aristeo Carrera, PGY-2 Documentation for date of: 11/24/24 Subjective Subjective Interval history: Patient is North Korean-speaking and interaction facilitated by registered healthcare billing representative. Patient was seen and examined at bedside this AM. No acute exents overnight. Patient tolerating diet, adequate urine output and mentation is at baseline. Patient currently asymptomatic. Denies cough, shortness of breath, chest pain and palpitations. Pending results of AFBs from 11/22 - 11/23. Possible discharge on 11/28/[address] [facility] department recommendations. Exam Vital Signs Temp Pulse Resp BP Pulse Ox O2 Del Method 97.7 F 67 16 104/67 98 Room Air 11/24/24 07:53 11/24/24 07:53 11/24/24 07:53 11/24/24 07:53 11/24/24 07:53 11/24/24 07:53 Narrative Exam Constitutional Alert, oriented x 3 and comfortable. Middle-age male HEENT Vision grossly intact. Patent nares. Trachea midline Respiratory Chest normal on inspection and clear auscultation bilaterally Cardiovascular S1 and S2 audible, RRR. No murmurs carotid bruit. No gross JVD. Abdominal Soft and non tender to palpation in all quadrants. BS + Genitourinary No bladder tenderness, no flank pain. Normal to palpation Musculoskeletal Extremities tone within normal limits. No LE edema. Neurological CN II - XII grossly intact. Extremity motor and sensation grossly intact. Skin Warm, dry and intact. No apparent lesions. Psychiatric Patient has good affect, is cooperative Objective Labs 11/20/24 05:33 11/20/24 05:33 Labs: Laboratory Results - last 24 hr 11/23/24 15:12 Total Bilirubin 0.4 Direct Bilirubin 0.2 AST 28 ALT 25 Alkaline Phosphatase 101 Total Protein 7.1 Albumin 3.7 Quality Measures Quality Measures none Assessment & Plan Assessment Current Active Medications: Generic Name Dose Route Start Last Admin Trade Name Freq PRN Reason Stop Dose Admin Acetaminophen 650 mg 11/21/24 17:29 11/21/24 19:51 Acetaminophen 325 Mg Tablet PO 12/21/24 17:28 650 mg Q6HR PRN Administration PAIN Enoxaparin Sodium 40 mg 11/19/24 14:15 11/24/24 08:23 Enoxaparin Sod Inj 40 Mg/0.4 Ml Syringe SC 12/03/24 14:14 Not Given QDAY TORREY Ethambutol HCl 1,200 mg 10/22/24 10:15 11/24/24 08:20 Ethambutol Hcl 400 Mg Tablet PO 12/01/24 10:14 1,200 mg QDAY TORREY Administration Isoniazid 300 mg 10/22/24 10:15 11/24/24 08:22 Isoniazid 300 Mg Tablet PO 12/01/24 10:14 300 mg QDAY TORREY Administration Ondansetron HCl 4 mg 11/17/24 19:56 11/24/24 08:22 Ondansetron Odt 4 Mg Tabrap PO 12/17/24 19:55 4 mg Q6HR PRN Administration NAUSEA OR VOMITING Protocol Pyrazinamide 1,500 mg 10/31/24 09:00 11/24/24 08:21 Pyrazinamide 500 Mg Tablet PO 11/30/24 08:59 1,500 mg DAILY TORREY Administration Pyridoxine HCl 50 mg 11/07/24 09:00 11/24/24 08:21 Pyridoxine 50 Mg Tablet PO 01/30/26 12:00 50 mg QDAY TORREY Administration Rifampin 600 mg 10/22/24 10:15 11/24/24 08:22 Rifampin 300 Mg Capsule PO 12/01/24 10:14 600 mg QDAY TORREY Administration Sodium Chloride 5 ml 11/22/24 08:42 Sodium Chloride Rt 10% 15 Ml Nebu INH 12/22/24 08:41 PRN PRN secretions Plan 53-year-old male with no past medical history presented to the ED due to cough, recent unintentional weight loss and tarry lesion found on chest x-ray. Admitted for TB workup. 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 Patient denies any night sweats, hemoptysis at this time, however he does state having night sweats in the past few months. Chest x-ray shows extensive bilateral infiltrate, which appears cavitary in the upper lung zones Chest CT shows Extensive cavitary miliary parenchymal disease throughout the lungs, most severe at the right apex, including septated right upper lobe cavitary lesion 5.6 x 5.2cm Blood culture-negative 48 hours Influenza negative, COVID-negative, HIV negative, Aspergillus negative Sputum cultures negative AFBs came back positive for tuberculosis, plan is to continue 7 days of treatment and repeat AFBs Wednesday night, to be sent on Wednesday AFBs came back positive for tuberculosis, will repeat AFBs AFBs from 11/09 + resulted on 11/13 are positive for tuberculosis AFB 11/17-11/18 results are positive Possible discharge on 11/28/[address] [facility] department recommendations. [11/24/2024] direct bilirubin 0.2, AST 28, ALT 25, ALP 101. Plan: - Pending AFB 11/22-11/23 results - Isolation precautions - On RIPE therapy - ID consulted, appreciate recommendation #Chest pain- resolved #Shortness of breath - resolved Patient complained of generalized chest pain 2/10 and shortness of breath at rest for the past 2 days Troponin <0.002 EKG significant for rate 71, sinus rhythm, early repolarization abnormality. No further workup warranted. Health maintenance: Disposition: Pending AFB 11/22-11/23 results. Possible discharge on 11/28/[address] [facility] department recommendations. Diet: Regular Lines: pIVs GI Prophylaxis: None Thrombo Prophylaxis: Enoxaparin 40 Mg SC daily Code status: FULL CODE Plan of care discussed with Attending Dr. Alberts and PGY2 Dr. Debi Garcia MD PGY 1 Attending Provider Attestation/Addendum I, Chelsy Alberts, DO, attest that I was physically present for the rojas portions of the service and evaluated the patient with the resident and I reviewed and discussed the case with the resident and agree with the resident's findings and plans of care as documented above Patient seen and evaluated this AM. No acute events overnight. He denies any nause or vomiting. Continue with current managment.
[2024-11-24 12:00] VITALS: BP 116/83; RESP 15; TEMP 36.2; O2SAT 98
[2024-11-24 16:00] VITALS: BP 104/77; PULSE 78; RESP 17; TEMP 36.6; O2SAT 98
[2024-11-24 20:00] VITALS: BP 106/65; PULSE 64; RESP 20; TEMP 36.4; O2SAT 97
[2024-11-25] VITALS: BP 109/68; PULSE 61; RESP 18; TEMP 36.4; O2SAT 99
[2024-11-25 04:00] VITALS: BP 116/72; PULSE 62; RESP 16; TEMP 36.2; O2SAT 96
[2024-11-25 07:31] VITALS: BP 105/65; PULSE 72; RESP 16; TEMP 36.2; O2SAT 96
[2024-11-25] MEDS: PYRIDOXINE 50 MG TABLET PO (08:07)
[2024-11-25] MEDS: PYRAZINAMIDE 500 MG TABLET 1500 MG PO (08:08)
[2024-11-25] MEDS: ETHAMBUTOL HCL 400 MG TABLET 1200 MG PO (08:08)
[2024-11-25] MEDS: ISONIAZID 300 MG TABLET PO (08:08)
[2024-11-25] MEDS: ONDANSETRON ODT 4 MG TABRAP PO (08:09)
[2024-11-25] MEDS: rifAMPin 300 MG CAPSULE 600 MG PO (08:09)
--- NOTE | 2024-11-25 08:53 | ESPR_ITS ---
<Statement entered by Michael Carrera MD - 11/25/24 17:05> I discussed with and supervised the cad intern physician involved in the care of this patient. Patient assessment and plan was discussed with entire medicine team, including my attending. I agree with the assessment and plan as documented by cad intern doctor. Patient care was discussed with my attending physician Dr. Aristeo Carrera, PGY-2 Documentation for date of: 11/25/24 Subjective Subjective Interval history: Patient is Nigerian-speaking and interaction facilitated by registered healthcare cider maker. Patient was seen and examined at bedside this AM. No acute exents overnight. Patient tolerating diet, adequate urine output and mentation is at baseline. Patient currently asymptomatic. Denies cough, shortness of breath, chest pain and palpitations. Pending results of AFBs from 11/22 - 11/23. Possible discharge on 11/28/[address] [facility] department recommendations. Exam Vital Signs Temp Pulse Resp BP Pulse Ox O2 Del Method 97.1 F 72 16 105/65 96 Room Air 11/25/24 07:31 11/25/24 07:31 11/25/24 07:31 11/25/24 07:31 11/25/24 07:31 11/25/24 07:31 Narrative Exam Constitutional Alert, oriented x 3 and comfortable. Middle-aged male HEENT Vision grossly intact. Patent nares. Trachea midline Respiratory Chest normal on inspection and clear auscultation bilaterally Cardiovascular S1 and S2 audible, RRR. No murmurs carotid bruit. No gross JVD. Abdominal Soft and non tender to palpation in all quadrants. BS + Genitourinary No bladder tenderness, no flank pain. Normal to palpation Musculoskeletal Extremities tone within normal limits. No LE edema. Neurological CN II - XII grossly intact. Extremity motor and sensation grossly intact. Skin Warm, dry and intact. No apparent lesions. Psychiatric Patient has good affect, is cooperative Objective Labs 11/20/24 05:33 11/20/24 05:33 Quality Measures Quality Measures none Assessment & Plan Assessment Current Active Medications: Generic Name Dose Route Start Last Admin Trade Name Freq PRN Reason Stop Dose Admin Acetaminophen 650 mg 11/21/24 17:29 11/21/24 19:51 Acetaminophen 325 Mg Tablet PO 12/21/24 17:28 650 mg Q6HR PRN Administration PAIN Enoxaparin Sodium 40 mg 11/19/24 14:15 11/25/24 08:19 Enoxaparin Sod Inj 40 Mg/0.4 Ml Syringe SC 12/03/24 14:14 Not Given QDAY TORREY Ethambutol HCl 1,200 mg 10/22/24 10:15 11/25/24 08:08 Ethambutol Hcl 400 Mg Tablet PO 12/01/24 10:14 1,200 mg QDAY TORREY Administration Isoniazid 300 mg 10/22/24 10:15 11/25/24 08:08 Isoniazid 300 Mg Tablet PO 12/01/24 10:14 300 mg QDAY TORREY Administration Ondansetron HCl 4 mg 11/17/24 19:56 11/25/24 08:09 Ondansetron Odt 4 Mg Tabrap PO 12/17/24 19:55 4 mg Q6HR PRN Administration NAUSEA OR VOMITING Protocol Pyrazinamide 1,500 mg 10/31/24 09:00 11/25/24 08:08 Pyrazinamide 500 Mg Tablet PO 11/30/24 08:59 1,500 mg DAILY TORREY Administration Pyridoxine HCl 50 mg 11/07/24 09:00 11/25/24 08:07 Pyridoxine 50 Mg Tablet PO 01/30/26 12:00 50 mg QDAY TORREY Administration Rifampin 600 mg 10/22/24 10:15 11/25/24 08:09 Rifampin 300 Mg Capsule PO 12/01/24 10:14 600 mg QDAY TORREY Administration Sodium Chloride 5 ml 11/22/24 08:42 Sodium Chloride Rt 10% 15 Ml Nebu INH 12/22/24 08:41 PRN PRN secretions Plan 53-year-old male with no past medical history presented to the ED due to cough, recent unintentional weight loss and tarry lesion found on chest x-ray. Admitted for TB workup. 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 Patient denies any night sweats, hemoptysis at this time, however he does state having night sweats in the past few months. Chest x-ray shows extensive bilateral infiltrate, which appears cavitary in the upper lung zones Chest CT shows Extensive cavitary miliary parenchymal disease throughout the lungs, most severe at the right apex, including septated right upper lobe cavitary lesion 5.6 x 5.2cm Blood culture-negative 48 hours Influenza negative, COVID-negative, HIV negative, Aspergillus negative Sputum cultures negative AFBs positive for tuberculosis, plan is to continue 7 days of treatment and repeat AFBs Wednesday night, to be sent on Wednesday AFBs positive for tuberculosis, will repeat AFBs AFBs from 11/09 + resulted on 11/13 are positive for tuberculosis AFB 11/17-11/18 results are positive Possible discharge on 11/28/[address] [facility] department recommendations. [11/24/2024] direct bilirubin 0.2, AST 28, ALT 25, ALP 101. Plan: - Pending AFB 11/22-11/23 results - Isolation precautions - On RIPE therapy - ID consulted, appreciate recommendation #Chest pain- resolved #Shortness of breath - resolved Patient complained of generalized chest pain 2/10 and shortness of breath at rest for the past 2 days Troponin <0.002 EKG significant for rate 71, sinus rhythm, early repolarization abnormality. No further workup warranted. Health maintenance: Disposition: Pending AFB 11/22-11/23 results. Possible discharge on 11/28/[address] [facility] department recommendations. Diet: Regular Lines: pIVs GI Prophylaxis: None Thrombo Prophylaxis: Enoxaparin 40 Mg SC daily Code status: FULL CODE Plan of care discussed with Attending Dr. Alberts and PGY2 Dr. Debi Garcia MD PGY 1 Attending Provider Attestation/Addendum James, Chelsy Alberts DO, attest that I was physically present for the rojas portions of the service and evaluated the patient with the resident and I reviewed and discussed the case with the resident and agree with the resident's findings and plans of care as documented above Patient seen and evaluated this AM. No acute events overnight. Continue with current management and plan for discharge on Wednesday.
[2024-11-25 13:45] VITALS: BP 116/74; PULSE 86; RESP 16; TEMP 36.2; O2SAT 96
[2024-11-25 22:00] VITALS: BP 117/77; PULSE 68; RESP 18; TEMP 36.6; O2SAT 98
[2024-11-26] VITALS: BP 114/74; PULSE 62; RESP 16; TEMP 36.1; O2SAT 97
[2024-11-26 06:00] VITALS: BP 110/74; PULSE 64; RESP 18; TEMP 36.4; O2SAT 98
[2024-11-26] MEDS: rifAMPin 300 MG CAPSULE 600 MG PO (08:23)
[2024-11-26] MEDS: ISONIAZID 300 MG TABLET PO (08:24)
[2024-11-26] MEDS: ETHAMBUTOL HCL 400 MG TABLET 1200 MG PO (08:24)
[2024-11-26] MEDS: PYRIDOXINE 50 MG TABLET PO (08:24)
[2024-11-26] MEDS: PYRAZINAMIDE 500 MG TABLET 1500 MG PO (08:24)
[2024-11-26] MEDS: ONDANSETRON ODT 4 MG TABRAP PO (08:24)
--- NOTE | 2024-11-26 10:41 | ESPR_ITS ---
Documentation for date of: 11/26/24 Subjective Subjective Interval history: No overnight events. Patient is hemodynamically stable, on room air, saturating 98%. Most recent labs are stable with no clinically significant changes. Patient denies any new or worsening symptoms. AFBs from 11/22 - 11/23 are still pending. Possible discharge on 11/28/2024 based on pulmonary public health department recommendation. Exam Vital Signs Temp Pulse Resp BP Pulse Ox O2 Del Method 97.6 F 64 18 110/74 98 Room Air 11/26/24 06:00 11/26/24 06:00 11/26/24 06:00 11/26/24 06:00 11/26/24 06:00 11/26/24 06:00 Narrative Exam Constitutional Alert, oriented x 3 and comfortable. Middle-aged male HEENT Vision grossly intact. Patent nares. Trachea midline Respiratory Chest normal on inspection and clear auscultation bilaterally Cardiovascular S1 and S2 audible, RRR. No murmurs carotid bruit. No gross JVD. Abdominal Soft and non tender to palpation in all quadrants. BS + Genitourinary No bladder tenderness, no flank pain. Normal to palpation Musculoskeletal Extremities tone within normal limits. No LE edema. Neurological CN II - XII grossly intact. Extremity motor and sensation grossly intact. Skin Warm, dry and intact. No apparent lesions. Psychiatric Patient has good affect, is cooperative Objective Labs 11/20/24 05:33 11/20/24 05:33 Quality Measures Quality Measures none Assessment & Plan Assessment Current Active Medications: Generic Name Dose Route Start Last Admin Trade Name Freq PRN Reason Stop Dose Admin Acetaminophen 650 mg 11/21/24 17:29 11/21/24 19:51 Acetaminophen 325 Mg Tablet PO 12/21/24 17:28 650 mg Q6HR PRN Administration PAIN Enoxaparin Sodium 40 mg 11/19/24 14:15 11/26/24 08:25 Enoxaparin Sod Inj 40 Mg/0.4 Ml Syringe SC 12/03/24 14:14 Not Given QDAY TORREY Ethambutol HCl 1,200 mg 10/22/24 10:15 11/26/24 08:24 Ethambutol Hcl 400 Mg Tablet PO 12/01/24 10:14 1,200 mg QDAY TORREY Administration Isoniazid 300 mg 10/22/24 10:15 11/26/24 08:24 Isoniazid 300 Mg Tablet PO 12/01/24 10:14 300 mg QDAY TORREY Administration Ondansetron HCl 4 mg 11/17/24 19:56 11/26/24 08:24 Ondansetron Odt 4 Mg Tabrap PO 12/17/24 19:55 4 mg Q6HR PRN Administration NAUSEA OR VOMITING Protocol Pyrazinamide 1,500 mg 10/31/24 09:00 11/26/24 08:24 Pyrazinamide 500 Mg Tablet PO 11/30/24 08:59 1,500 mg DAILY TORREY Administration Pyridoxine HCl 50 mg 11/07/24 09:00 11/26/24 08:24 Pyridoxine 50 Mg Tablet PO 01/30/26 12:00 50 mg QDAY TORREY Administration Rifampin 600 mg 10/22/24 10:15 11/26/24 08:23 Rifampin 300 Mg Capsule PO 12/01/24 10:14 600 mg QDAY TORREY Administration Sodium Chloride 5 ml 11/22/24 08:42 Sodium Chloride Rt 10% 15 Ml Nebu INH 12/22/24 08:41 PRN PRN secretions Plan 53-year-old male with no past medical history presented to the ED due to cough, recent unintentional weight loss and tarry lesion found on chest x-ray. Admitted for TB workup. 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 Patient denies any night sweats, hemoptysis at this time, however he does state having night sweats in the past few months. Chest x-ray shows extensive bilateral infiltrate, which appears cavitary in the upper lung zones Chest CT shows Extensive cavitary miliary parenchymal disease throughout the lungs, most severe at the right apex, including septated right upper lobe cavitary lesion 5.6 x 5.2cm Blood culture-negative 48 hours Influenza negative, COVID-negative, HIV negative, Aspergillus negative Sputum cultures negative AFBs positive for tuberculosis, plan is to continue 7 days of treatment and repeat AFBs Wednesday night, to be sent on Wednesday AFBs positive for tuberculosis, will repeat AFBs AFBs from 11/09 + resulted on 11/13 are positive for tuberculosis AFB 11/17-11/18 results are positive Possible discharge on 11/28/[address] [facility] department recommendations. [11/24/2024] direct bilirubin 0.2, AST 28, ALT 25, ALP 101. Plan: - Pending AFB 11/22-11/23 results - Isolation precautions - On RIPE therapy - ID consulted, appreciate recommendation #Chest pain- resolved #Shortness of breath - resolved Patient complained of generalized chest pain 2/10 and shortness of breath at rest for the past 2 days Troponin <0.002 EKG significant for rate 71, sinus rhythm, early repolarization abnormality. No further workup warranted. Health maintenance: Disposition: Pending AFB 11/22-11/23 results. Possible discharge on 11/28/[address] [facility] department recommendations. Diet: Regular Lines: pIVs GI Prophylaxis: None Thrombo Prophylaxis: Enoxaparin 40 Mg SC daily Code status: FULL CODE IAden MD PGY3 reviewed and discussed the case with attending physician Dr. Alberts Attending Provider Attestation/Addendum IChelsy, DO, attest that I was physically present for the rojas portions of the service and evaluated the patient with the resident and I reviewed and discussed the case with the resident and agree with the resident's findings and plans of care as documented above Patient seen and evaluated this AM. No acute events overnight. Pending [facility] clearance.
[2024-11-26 14:00] VITALS: BP 111/67; PULSE 68; RESP 18; TEMP 36.2; O2SAT 95
[2024-11-26 22:00] VITALS: BP 108/74; PULSE 64; RESP 15; TEMP 36.2; O2SAT 98
[2024-11-27 06:00] VITALS: BP 112/73; PULSE 70; RESP 15; TEMP 36.9; O2SAT 98
[2024-11-27 08:01] LABS: Basophils % (Auto) 1 % (0-2.5); Eosinophils # (Auto) 0.4 Thou/mm3 (0.0-0.5); Eosinophils % (Auto) 9 % (0-10); Hematocrit 40.7 % (41.0-53.0); Immature Granulocytes % (Auto) 1 % (0-0); Immature Granulocytes Auto 0.06 Thou/mm3 (0.00-0.00); Lymphocytes # (Auto) 1.2 Thou/mm3 (1.0-4.8); Lymphocytes % (Auto) 26 % (10-50); Mean Corpuscular HGB Conc 34.4 g/dl (31.0-37.0); Mean Corpuscular Hemoglobin 29.4 pg (25.0-35.0); Mean Corpuscular Volume 86 fL (80-100); Monocytes # (Auto) 0.5 Thou/mm3 (0.0-0.8); Monocytes % (Auto) 10 % (0-12); Neutrophils # (Auto) 2.6 Thou/mm3 (1.8-7.7); Neutrophils % (Auto) 54 % (37-80); Nucleated Red Blood Cell % 0 /100 WBC (0); Platelet Count 256 Thou/mm3 (140-440); RDW Standard Deviation 39.6 fL (35.1-43.9); Red Blood Count 4.76 Miln/mm3 (4.50-5.90); White Blood Count 4.8 Thou/mm3 (3.8-10.6)
[2024-11-27 08:25] LABS: Alanine Aminotransferase 23 U/L (10-49); Albumin, Serum 3.7 gm/dL (3.5-5.0); Albumin/Globulin Ratio 1.1 (1.2-2.2); Alkaline Phosphatase 83 U/L (46-116); Anion Gap 6 (7-16); Aspartate Amino Transferase 22 U/L (0-34); BUN/Creatinine Ratio 11 Ratio (12-20); Bilirubin,Total 0.3 mg/dL (0.3-1.2); Blood Urea Nitrogen 8 mg/dL (9-23); Calcium 8.8 mg/dL (8.3-10.6); Carbon Dioxide 31.8 mMol/L (20.0-31.0); Chloride 101 mMol/L (98-107); Creatinine (Component) 0.7 mg/dL (0.6-1.3); Globulin 3.3 gm/dL (2.3-3.5); Glucose 86 mg/dL (74-106); Osmolality,Calculated 274 (275-295); Potassium 3.8 mMol/L (3.4-5.1); Sodium 139 mMol/L (136-145); eGFR > 60 See Note
[2024-11-27] MEDS: rifAMPin 300 MG CAPSULE 600 MG PO (08:28)
[2024-11-27] MEDS: ETHAMBUTOL HCL 400 MG TABLET 1200 MG PO (08:28)
[2024-11-27] MEDS: ISONIAZID 300 MG TABLET PO (08:28)
[2024-11-27] MEDS: PYRAZINAMIDE 500 MG TABLET 1500 MG PO (08:29)
[2024-11-27] MEDS: PYRIDOXINE 50 MG TABLET PO (08:29)
--- NOTE | 2024-11-27 09:18 | ESPR_ITS ---
Documentation for date of: 11/27/24 Subjective Subjective Interval history: 11/27/2024: No acute overnight events to report. Patient is expected to be discharged on 11/28 pending [facility] clearance. Exam Vital Signs Temp Pulse Resp BP Pulse Ox O2 Del Method 98.5 F 70 15 112/73 98 Room Air 11/27/24 06:00 11/27/24 06:00 11/27/24 06:00 11/27/24 06:00 11/27/24 06:00 11/27/24 06:00 Narrative Exam Physical Exam Deferred at this time Objective Labs 11/27/24 07:32 11/27/24 07:32 Labs: Laboratory Results - last 24 hr 11/22/24 11/22/24 11/22/24 14:00 14:34 22:15 WBC RBC Hgb Hct MCV MCH MCHC RDW Std Deviation Plt Count Neut % (Auto) Lymph % (Auto) [place] % (Auto) Eos % (Auto) Baso % (Auto) Neut # (Auto) Lymph # (Auto) [place] # (Auto) Eos # (Auto) Baso # (Auto) Immature Gran # (Auto) Absolute Nucleated RBC Immature Gran % Nucleated RBC % Sodium Potassium Chloride Carbon Dioxide Anion Gap BUN Creatinine Estim Creat Clear Calc eGFR BUN/Creatinine Ratio Glucose Calculated Osmolality Calcium Corrected Calcium Total Bilirubin AST ALT Alkaline Phosphatase Total Protein Albumin Globulin Albumin/Globulin Ratio Mycobacterial Culture See Sep Rpt See Sep Rpt See Sep Rpt 11/23/24 11/27/24 12:45 07:32 WBC 4.8 RBC 4.76 Hgb 14.0 Hct 40.7 L MCV 86 MCH 29.4 MCHC 34.4 RDW Std Deviation 39.6 Plt Count 256 Neut % (Auto) 54 Lymph % (Auto) 26 [place] % (Auto) 10 Eos % (Auto) 9 Baso % (Auto) 1 Neut # (Auto) 2.6 Lymph # (Auto) 1.2 [place] # (Auto) 0.5 Eos # (Auto) 0.4 Baso # (Auto) 0.0 Immature Gran # (Auto) 0.06 H Absolute Nucleated RBC 0.00 Immature Gran % 1 H Nucleated RBC % 0 Sodium 139 Potassium 3.8 Chloride 101 Carbon Dioxide 31.8 H Anion Gap 6 L BUN 8 L Creatinine 0.7 Estim Creat Clear Calc 110.0 eGFR > 60 BUN/Creatinine Ratio 11 L Glucose 86 Calculated Osmolality 274 L Calcium 8.8 Corrected Calcium 9.0 Total Bilirubin 0.3 AST 22 ALT 23 Alkaline Phosphatase 83 Total Protein 7.0 Albumin 3.7 Globulin 3.3 Albumin/Globulin Ratio 1.1 L Mycobacterial Culture See Sep Rpt Quality Measures Quality Measures none Assessment & Plan Assessment Current Active Medications: Generic Name Dose Route Start Last Admin Trade Name Freq PRN Reason Stop Dose Admin Acetaminophen 650 mg 11/21/24 17:29 11/21/24 19:51 Acetaminophen 325 Mg Tablet PO 12/21/24 17:28 650 mg Q6HR PRN Administration PAIN Enoxaparin Sodium 40 mg 11/19/24 14:15 11/27/24 08:28 Enoxaparin Sod Inj 40 Mg/0.4 Ml Syringe SC 12/03/24 14:14 Not Given QDAY TORREY Ethambutol HCl 1,200 mg 10/22/24 10:15 11/27/24 08:28 Ethambutol Hcl 400 Mg Tablet PO 12/01/24 10:14 1,200 mg QDAY TORREY Administration Isoniazid 300 mg 10/22/24 10:15 11/27/24 08:28 Isoniazid 300 Mg Tablet PO 12/01/24 10:14 300 mg QDAY TORREY Administration Ondansetron HCl 4 mg 11/17/24 19:56 11/26/24 08:24 Ondansetron Odt 4 Mg Tabrap PO 12/17/24 19:55 4 mg Q6HR PRN Administration NAUSEA OR VOMITING Protocol Pyrazinamide 1,500 mg 10/31/24 09:00 11/27/24 08:29 Pyrazinamide 500 Mg Tablet PO 11/30/24 08:59 1,500 mg DAILY TORREY Administration Pyridoxine HCl 50 mg 11/07/24 09:00 11/27/24 08:29 Pyridoxine 50 Mg Tablet PO 01/30/26 12:00 50 mg QDAY TORREY Administration Rifampin 600 mg 10/22/24 10:15 11/27/24 08:28 Rifampin 300 Mg Capsule PO 12/01/24 10:14 600 mg QDAY TORREY Administration Sodium Chloride 5 ml 11/22/24 08:42 Sodium Chloride Rt 10% 15 Ml Nebu INH 12/22/24 08:41 PRN PRN secretions Plan 53-year-old male with no past medical history presented to the ED due to cough, recent unintentional weight loss and tarry lesion found on chest x-ray. Admitted for TB workup. 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 Patient denies any night sweats, hemoptysis at this time, however he does state having night sweats in the past few months. Chest x-ray shows extensive bilateral infiltrate, which appears cavitary in the upper lung zones Chest CT shows Extensive cavitary miliary parenchymal disease throughout the lungs, most severe at the right apex, including septated right upper lobe cavitary lesion 5.6 x 5.2cm Blood culture-negative 48 hours Influenza negative, COVID-negative, HIV negative, Aspergillus negative Sputum cultures negative AFBs positive for tuberculosis, plan is to continue 7 days of treatment and repeat AFBs Wednesday night, to be sent on Wednesday AFBs positive for tuberculosis, will repeat AFBs AFBs from 11/09 resulted on 11/13 are positive for tuberculosis AFB 11/17-11/18 results are positive Possible discharge on 11/28/2024 pending [facility] department recommendations. Plan: pending AFB 11/22-11/23 results Isolation precautions On RIPE therapy ID consulted, appreciate recommendation #Chest pain- resolved #Shortness of breath - resolved Patient complained of generalized chest pain 2/10 and shortness of breath at rest for the past 2 days Troponin <0.002 EKG significant for rate 71, sinus rhythm, early repolarization abnormality. No further workup warranted. Hospital Management: Disposition: Pending AFB 11/22-11/23 results. Possible discharge on 11/28/2024 pending [facility] department recommendations. Diet: Regular Lines: pIVs GI Prophylaxis: None DVT prophylaxis: Enoxaparin 40 Mg SC daily Code status: FULL CODE Patient seen and examined with attending Dr. Aristeo Husain, PGY-1 Attending Provider Attestation/Addendum Chelsy Ramirez DO, attest that I was physically present for the rojas portions of the service and evaluated the patient with the resident and I reviewed and discussed the case with the resident and agree with the resident's findings and plans of care as documented above Patient seen and evaluated this AM. No acute events overnight. Pending county clearance. No episodes of vomiting.
--- NOTE | 2024-11-27 09:48 | PC.SS ---
Update: Patient TB results positive. Possible d/c tomorrow.
--- NOTE | 2024-11-27 10:13 | PD.IDPROG ---
Subjective Subjective Interval history: tb looks S so we can stop the ethambutol. Exam Vital Signs Temp Pulse Resp BP Pulse Ox O2 Del Method 98.5 F 70 15 112/73 98 Room Air 11/27/24 06:00 11/27/24 06:00 11/27/24 06:00 11/27/24 06:00 11/27/24 06:00 11/27/24 06:00 Narrative Exam limited visit Objective - Internal Medicine Labs 11/27/24 07:32 11/27/24 07:32 Labs: Laboratory Results - last 24 hr 11/22/24 11/22/24 11/22/24 14:00 14:34 22:15 WBC RBC Hgb Hct MCV MCH MCHC RDW Std Deviation Plt Count Neut % (Auto) Lymph % (Auto) [place] % (Auto) Eos % (Auto) Baso % (Auto) Neut # (Auto) Lymph # (Auto) [place] # (Auto) Eos # (Auto) Baso # (Auto) Immature Gran # (Auto) Absolute Nucleated RBC Immature Gran % Nucleated RBC % Sodium Potassium Chloride Carbon Dioxide Anion Gap BUN Creatinine Estim Creat Clear Calc eGFR BUN/Creatinine Ratio Glucose Calculated Osmolality Calcium Corrected Calcium Total Bilirubin AST ALT Alkaline Phosphatase Total Protein Albumin Globulin Albumin/Globulin Ratio Mycobacterial Culture See Jun Rpt See Jun Rpt See Jun Rpt 11/23/24 11/27/24 12:45 07:32 WBC 4.8 RBC 4.76 Hgb 14.0 Hct 40.7 L MCV 86 MCH 29.4 MCHC 34.4 RDW Std Deviation 39.6 Plt Count 256 Neut % (Auto) 54 Lymph % (Auto) 26 [place] % (Auto) 10 Eos % (Auto) 9 Baso % (Auto) 1 Neut # (Auto) 2.6 Lymph # (Auto) 1.2 [place] # (Auto) 0.5 Eos # (Auto) 0.4 Baso # (Auto) 0.0 Immature Gran # (Auto) 0.06 H Absolute Nucleated RBC 0.00 Immature Gran % 1 H Nucleated RBC % 0 Sodium 139 Potassium 3.8 Chloride 101 Carbon Dioxide 31.8 H Anion Gap 6 L BUN 8 L Creatinine 0.7 Estim Creat Clear Calc 110.0 eGFR > 60 BUN/Creatinine Ratio 11 L Glucose 86 Calculated Osmolality 274 L Calcium 8.8 Corrected Calcium 9.0 Total Bilirubin 0.3 AST 22 ALT 23 Alkaline Phosphatase 83 Total Protein 7.0 Albumin 3.7 Globulin 3.3 Albumin/Globulin Ratio 1.1 L Mycobacterial Culture See Sep Rpt Assessment & Plan A&P Narrative apical pneumonia with neg cocci IgM and neg procal (insensitive to fungal and atypical antigens) and pos afb smears with repeats also pos. cx pos from 10/21 rx to be long. 6-12 mo. later sputum also pos. recommend more afb smears each /Wednesday . it usually takes about 2 weeks to become non contagious. health dept may determine the isolation status and their criteria for release no objection to outpt f/u by health dept but it is at their discretion. hotel stays can help if that can be arranged he lives with young children (pre school age or less) then they should be tested for tb. apparently one is positive (by word of mouth) we do not have any details though . will check in again on Wednesday. hiv and hep c neg. Time Spent With Patient Time: Total time spent is greater than 50% in coordination of care (as documented) at patient's floor/unit and/or counseling patient:
[2024-11-27 12:00] VITALS: BP 100/68; PULSE 68; RESP 18; TEMP 36.3; O2SAT 98
--- NOTE | 2024-11-27 14:46 | PC.IP ---
Per Jh DEL ROSARIO notified IP Department that Dr. Orr wants patient's child that tested positive for active TB, to start TB medication prior pt. being discharged. Also continue sputum collection for AFBs. Raven Sanchez RN was notified of Dr. Orr's request.
[2024-11-27 22:00] VITALS: BP 104/62; PULSE 77; RESP 16; TEMP 36.4; O2SAT 98
[2024-11-28 06:00] VITALS: BP 100/68; PULSE 61; RESP 16; TEMP 36.3; O2SAT 97
[2024-11-28] MEDS: rifAMPin 300 MG CAPSULE 600 MG PO (09:22)
[2024-11-28] MEDS: ONDANSETRON ODT 4 MG TABRAP PO (09:22)
[2024-11-28] MEDS: ISONIAZID 300 MG TABLET PO (09:22)
[2024-11-28] MEDS: PYRAZINAMIDE 500 MG TABLET 1500 MG PO (09:23)
[2024-11-28] MEDS: PYRIDOXINE 50 MG TABLET PO (11:15)
[2024-11-28 14:00] VITALS: BP 109/63; PULSE 80; RESP 17; TEMP 36.3; O2SAT 94
--- NOTE | 2024-11-28 14:23 | PC.SS ---
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 They want him to go in tomorrow 11/29/24 at 0930 for intake paperwork. Pt is to bring ID and insurance cards. SS updated team, pt is pending to urinate on his own prior to DC.
--- NOTE | 2024-11-28 15:46 | PC.SS ---
SS utilizing [id number] contacted pts Shelia in regards to the family in house starting medications. Per Shelia, 1 child has started medication, 1 child will start this evening, and the 3rd child has an appointment on 12/01 at 0930 to get medication. was negative and reports she does not need medication. SS updated team.
--- NOTE | 2024-11-28 15:50 | ESPR_ITS ---
<Statement entered by Michael Carrera MD - 11/29/24 05:59> I discussed with and supervised the jewelry internship physician involved in the care of this patient. Patient assessment and plan was discussed with entire medicine team, including my attending. I agree with the assessment and plan as documented by jewelry internship doctor. Patient care was discussed with my attending physician Dr. Aristeo Carrera, PGY-2 Documentation for date of: 11/28/24 Subjective Subjective Interval history: 11/28/2024: No acute overnight events to report. Patient continues to be at baseline clinical status. Discontinued ethambutol per ID recommendations. Per social services designee; patient has three children of differing age; one is getting treatment for TB, the other is about to start treatment and the last child is going to be seen this week by PCP. Will continue to monitor for any acute changes. Exam Vital Signs Temp Pulse Resp BP Pulse Ox O2 Del Method 97.4 F 80 17 109/63 94 L Room Air 11/28/24 14:00 11/28/24 14:00 11/28/24 14:00 11/28/24 14:00 11/28/24 14:00 11/28/24 14:00 Narrative Exam Physical Exam Deferred at this time Objective Labs 11/27/24 07:32 11/27/24 07:32 Quality Measures Quality Measures none Assessment & Plan Assessment Current Active Medications: Generic Name Dose Route Start Last Admin Trade Name Freq PRN Reason Stop Dose Admin Acetaminophen 650 mg 11/21/24 17:29 11/21/24 19:51 Acetaminophen 325 Mg Tablet PO 12/21/24 17:28 650 mg Q6HR PRN Administration PAIN Enoxaparin Sodium 40 mg 11/19/24 14:15 11/28/24 09:25 Enoxaparin Sod Inj 40 Mg/0.4 Ml Syringe SC 12/03/24 14:14 Not Given QDAY TORREY Isoniazid 300 mg 10/22/24 10:15 11/28/24 09:22 Isoniazid 300 Mg Tablet PO 12/01/24 10:14 300 mg QDAY TORREY Administration Ondansetron HCl 4 mg 11/17/24 19:56 11/28/24 09:22 Ondansetron Odt 4 Mg Tabrap PO 12/17/24 19:55 4 mg Q6HR PRN Administration NAUSEA OR VOMITING Protocol Pyrazinamide 1,500 mg 10/31/24 09:00 11/28/24 09:23 Pyrazinamide 500 Mg Tablet PO 11/30/24 08:59 1,500 mg DAILY TORREY Administration Pyridoxine HCl 50 mg 11/07/24 09:00 11/28/24 11:15 Pyridoxine 50 Mg Tablet PO 01/30/26 12:00 50 mg QDAY TORREY Administration Rifampin 600 mg 10/22/24 10:15 11/28/24 09:22 Rifampin 300 Mg Capsule PO 12/01/24 10:14 600 mg QDAY TORREY Administration Sodium Chloride 5 ml 11/22/24 08:42 Sodium Chloride Rt 10% 15 Ml Nebu INH 12/22/24 08:41 PRN PRN secretions Plan 53-year-old male with no past medical history presented to the ED due to cough, recent unintentional weight loss and tarry lesion found on chest x-ray. Admitted for TB workup. 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 Patient denies any night sweats, hemoptysis at this time, however he does state having night sweats in the past few months. Chest x-ray shows extensive bilateral infiltrate, which appears cavitary in the upper lung zones Chest CT shows Extensive cavitary miliary parenchymal disease throughout the lungs, most severe at the right apex, including septated right upper lobe cavitary lesion 5.6 x 5.2cm Blood culture-negative 48 hours Influenza negative, COVID-negative, HIV negative, Aspergillus negative Sputum cultures negative AFBs positive for tuberculosis, plan is to continue 7 days of treatment and repeat AFBs Wednesday night, to be sent on Wednesday AFBs positive for tuberculosis, will repeat AFBs AFBs from 11/09 + resulted on 11/13 are positive for tuberculosis AFB 11/17-11/18 results are positive Possible discharge on 11/29/2024 pending [facility] recommendations. Plan: pending AFB 11/22-11/23 results Isolation precautions On Rifampin, isoniazid, pyrazinamid and pyridoxine therapy ID consulted, appreciate recommendation #Chest pain- resolved #Shortness of breath - resolved Patient complained of generalized chest pain 2/10 and shortness of breath at rest for the past 2 days Troponin <0.002 EKG significant for rate 71, sinus rhythm, early repolarization abnormality. No further workup warranted. Hospital Management: Disposition: Pending AFB 11/22-11/23 results. Possible discharge on 11/28/2024 pending [facility] department recommendations. Diet: Regular Lines: pIVs GI Prophylaxis: None DVT prophylaxis: Enoxaparin 40 Mg SC daily Code status: FULL CODE Patient seen and examined with attending Dr. Alberts and senior resident Dr. Debi Husain, PGY-1 Attending Provider Attestation/Addendum I, Chelsy Alberts, DO, attest that I was physically present for the rojas portions of the service and evaluated the patient with the resident and I reviewed and discussed the case with the resident and agree with the resident's findings and plans of care as documented above Patient seen and evaluated this AM. He states that his 11yo has started treatment and another one of his children is starting treatment today. His third child is to f/u with PCP. His and 18yo have tested negative. Pending [facility] clearance for discharge. AFBs remain positive. Currently on rifampin, INH and pyrazinamide. Ethambutol discontinued by ID.
[2024-11-28 22:00] VITALS: BP 99/71; PULSE 62; RESP 18; TEMP 36.6; O2SAT 98
[2024-11-29 06:00] VITALS: BP 122/75; PULSE 98; RESP 18; TEMP 36.6; O2SAT 95
[2024-11-29] MEDS: PYRIDOXINE 50 MG TABLET PO (08:10)
[2024-11-29] MEDS: ISONIAZID 300 MG TABLET PO (08:10)
[2024-11-29] MEDS: rifAMPin 300 MG CAPSULE 600 MG PO (08:10)
[2024-11-29] MEDS: ONDANSETRON ODT 4 MG TABRAP PO (08:10)
[2024-11-29] MEDS: PYRAZINAMIDE 500 MG TABLET 1500 MG PO (08:10)
--- NOTE | 2024-11-29 10:00 | PC.SS ---
Follow up note: Waiting for [facility] clearance. Waiting for his child to start treatment. Pt will return home upon dc.
--- NOTE | 2024-11-29 10:17 | ESPR_ITS ---
Documentation for date of: 11/29/24 Subjective Subjective Interval history: 11/29/2024: No acute overnight events to report. Patient continues to be at baseline clinical status. Dr. Peraza ordered weekly AFB cultures which are to be sent from 11/29-11/30. Pending recommendations from Health Department. Exam Vital Signs Temp Pulse Resp BP Pulse Ox O2 Del Method 97.3 F 66 17 110/77 99 Room Air 11/30/24 08:00 11/30/24 08:00 11/30/24 08:00 11/30/24 08:00 11/30/24 08:00 11/30/24 08:00 Narrative Exam Physical Exam Deferred at this time Objective Labs 11/27/24 07:32 11/27/24 07:32 Labs: Laboratory Results - last 24 hr 11/30/24 00:15 Mycobacterial Culture See Sep Rpt Quality Measures Quality Measures none Assessment & Plan Assessment Current Active Medications: Generic Name Dose Route Start Last Admin Trade Name Freq PRN Reason Stop Dose Admin Acetaminophen 650 mg 11/21/24 17:29 11/21/24 19:51 Acetaminophen 325 Mg Tablet PO 12/21/24 17:28 650 mg Q6HR PRN Administration PAIN Enoxaparin Sodium 40 mg 11/19/24 14:15 11/29/24 17:44 Enoxaparin Sod Inj 40 Mg/0.4 Ml Syringe SC 12/03/24 14:14 Not Given QDAY TORREY Isoniazid 300 mg 10/22/24 10:15 11/30/24 09:19 Isoniazid 300 Mg Tablet PO 12/01/24 10:14 300 mg QDAY TORREY Administration Ondansetron HCl 4 mg 11/17/24 19:56 11/29/24 08:10 Ondansetron Odt 4 Mg Tabrap PO 12/17/24 19:55 4 mg Q6HR PRN Administration NAUSEA OR VOMITING Protocol Pyridoxine HCl 50 mg 11/07/24 09:00 11/30/24 09:13 Pyridoxine 50 Mg Tablet PO 01/30/26 12:00 50 mg QDAY TORREY Administration Rifampin 600 mg 10/22/24 10:15 11/30/24 09:19 Rifampin 300 Mg Capsule PO 12/01/24 10:14 600 mg QDAY TORREY Administration Sodium Chloride 5 ml 11/22/24 08:42 Sodium Chloride Rt 10% 15 Ml Nebu INH 12/22/24 08:41 PRN PRN secretions Sodium Chloride 5 ml 11/29/24 19:07 Sodium Chloride Rt 10% 15 Ml Nebu INH 12/29/24 19:06 PRN PRN sputum Plan 53-year-old male with no past medical history presented to the ED due to cough, recent unintentional weight loss and tarry lesion found on chest x-ray. Admitted for TB workup. 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 Patient denies any night sweats, hemoptysis at this time, however he does state having night sweats in the past few months. Chest x-ray shows extensive bilateral infiltrate, which appears cavitary in the upper lung zones Chest CT shows Extensive cavitary miliary parenchymal disease throughout the lungs, most severe at the right apex, including septated right upper lobe cavitary lesion 5.6 x 5.2cm Blood culture-negative 48 hours Influenza negative, COVID-negative, HIV negative, Aspergillus negative Sputum cultures negative AFBs positive for tuberculosis, plan is to continue 7 days of treatment and repeat AFBs Wednesday night, to be sent on Wednesday AFBs positive for tuberculosis, will repeat AFBs AFBs from 11/09 + resulted on 11/13 are positive for tuberculosis AFB 11/17-11/18 results are positive Possible discharge on 11/30/2024 pending [facility] department recommendations. Plan: pending AFB 11/22-11/23 results Isolation precautions On Rifampin, isoniazid, pyrazinamid and pyridoxine therapy ID consulted, appreciate recommendation #Chest pain- resolved #Shortness of breath - resolved Patient complained of generalized chest pain 2/10 and shortness of breath at rest for the past 2 days Troponin <0.002 EKG significant for rate 71, sinus rhythm, early repolarization abnormality. No further workup warranted. Hospital Management: Disposition: Pending AFB 11/22-11/23 results. Possible discharge on 11/28/2024 pending [facility] department recommendations. Diet: Regular Lines: pIVs GI Prophylaxis: None DVT prophylaxis: Enoxaparin 40 Mg SC daily Code status: FULL CODE Patient seen and examined with attending Dr. Mata and senior resident Dr. Debi Husain, PGY-1 Attending Provider Attestation/Addendum I reviewed labs, imaging, EKG, home medications and prior available records. Face to face evaluation was performed by me. I have personally examined the patient and discussed assessment and plan with the IM team. I reviewed the resident note and agree with the plan with exceptions as below. Active tuberculosis Social problem Chest pain at rest, resolved AFB samples continue to be positive Discussed with social media job titles: Needs all his family members to be started on treatment before he can be discharged ID is following Continue other Dyazide/rifampin/pyrazinamide. Continue vitamin B6
[2024-11-29 12:00] VITALS: BP 137/82; PULSE 90; RESP 18; TEMP 36.3; O2SAT 99
--- NOTE | 2024-11-29 13:35 | PD.IDPROG ---
Subjective Subjective Interval history: ordered more afb's for tonite and tomorrow am. if not collected, consider bal if unable to produce sputum. cx still pos from early nov. Exam Vital Signs Temp Pulse Resp BP Pulse Ox O2 Del Method 97.4 F 90 18 137/82 H 99 Room Air 11/29/24 12:00 11/29/24 12:00 11/29/24 12:00 11/29/24 12:00 11/29/24 12:00 11/29/24 12:00 Narrative Exam limited eval Objective - Internal Medicine Labs 11/27/24 07:32 11/27/24 07:32 Assessment & Plan A&P Narrative pulm tb, neg cocci IgM and neg procal (insensitive to fungal and atypical antigens) and pos afb smears with repeats also pos. cx pos from 10/21 and 11/06 rx to be long. 6-12 mo. later sputum also pos. recommend more afb smears each /Wednesday . it usually takes about 2 weeks to become non contagious. health dept may determine the isolation status and their criteria for release no objection to outpt f/u by health dept but it is at their discretion. hotel stays can help if that can be arranged he lives with young children (pre school age or less) then they should be tested for tb. apparently one is positive (by word of mouth) we do not have any details though . will check in again on Wednesday. hiv and hep c neg. Time Spent With Patient Time: Total time spent is greater than 50% in coordination of care (as documented) at patient's floor/unit and/or counseling patient:
--- NOTE | 2024-11-29 13:54 | PC.NURSE ---
Addendum entered by Nasima Vick RN 11/29/24 17:54: afb sputum checks Original Note: LEOBARDO FROM [facility] CALLED AND NOTIFIED ME PATIENT NEEDS TO CONTINUE ASB SPUTUM CHECKS. ORDERS ARE IN FOR ASB CHECKS AND NEED TO BE DONE 8 HOURS APART FROM EACH COLLECTION. DR. SRINIVASAN HAS TO GIVE THE OK FOR DISCHARGE. [facility] DOES NOT WANT SPUTUM CHECKS TO BE THE REASON [facility] WILL NOT ALLOW DISCHARGE. PROVIDED PATIENT WITH SPECIMIN CUP. WILL CONTINUE TO MONITOR PATIENT.
[2024-11-29 15:42] VITALS: BMI 21.2
[2024-11-29 16:48] LABS: Cult AFB Sendout- Sputum* See Sep Rpt
[2024-11-29 22:00] VITALS: BP 128/78; PULSE 83; RESP 18; TEMP 36.1; O2SAT 97
[2024-11-30 00:37] LABS: Cult AFB Sendout- Sputum* See Sep Rpt
[2024-11-30 06:00] VITALS: BP 98/76; PULSE 83; RESP 18; TEMP 36.2; O2SAT 95
[2024-11-30 08:00] VITALS: BP 110/77; PULSE 66; RESP 17; TEMP 36.3; O2SAT 99
[2024-11-30] MEDS: PYRIDOXINE 50 MG TABLET PO (09:13)
[2024-11-30] MEDS: ISONIAZID 300 MG TABLET PO (09:19)
[2024-11-30] MEDS: rifAMPin 300 MG CAPSULE 600 MG PO (09:19)
--- NOTE | 2024-11-30 10:18 | PD.RESPRO ---
Documentation for date of: 11/30/24 Subjective Subjective Interval history: 11/30/2024: No acute overnight events to report. Patient continues to be at baseline clinical status. AFB cultures sent from 11/29-11/30 sent out. Pending recommendations from Health Department. Exam Vital Signs Temp Pulse Resp BP Pulse Ox O2 Del Method 97.3 F 66 17 110/77 99 Room Air 11/30/24 08:00 11/30/24 08:00 11/30/24 08:00 11/30/24 08:00 11/30/24 08:00 11/30/24 08:00 Narrative Exam Physical Exam Deferred at this time Objective Labs 11/27/24 07:32 11/27/24 07:32 Labs: Laboratory Results - last 24 hr 11/30/24 00:15 Mycobacterial Culture See Sep Rpt Quality Measures Quality Measures none Assessment & Plan Assessment Current Active Medications: Generic Name Dose Route Start Last Admin Trade Name Freq PRN Reason Stop Dose Admin Acetaminophen 650 mg 11/21/24 17:29 11/21/24 19:51 Acetaminophen 325 Mg Tablet PO 12/21/24 17:28 650 mg Q6HR PRN Administration PAIN Enoxaparin Sodium 40 mg 11/19/24 14:15 11/29/24 17:44 Enoxaparin Sod Inj 40 Mg/0.4 Ml Syringe SC 12/03/24 14:14 Not Given QDAY TORREY Isoniazid 300 mg 10/22/24 10:15 11/30/24 09:19 Isoniazid 300 Mg Tablet PO 12/01/24 10:14 300 mg QDAY TORREY Administration Ondansetron HCl 4 mg 11/17/24 19:56 11/29/24 08:10 Ondansetron Odt 4 Mg Tabrap PO 12/17/24 19:55 4 mg Q6HR PRN Administration NAUSEA OR VOMITING Protocol Pyridoxine HCl 50 mg 11/07/24 09:00 11/30/24 09:13 Pyridoxine 50 Mg Tablet PO 01/30/26 12:00 50 mg QDAY TORREY Administration Rifampin 600 mg 10/22/24 10:15 11/30/24 09:19 Rifampin 300 Mg Capsule PO 12/01/24 10:14 600 mg QDAY TORREY Administration Sodium Chloride 5 ml 11/22/24 08:42 Sodium Chloride Rt 10% 15 Ml Nebu INH 12/22/24 08:41 PRN PRN secretions Sodium Chloride 5 ml 11/29/24 19:07 Sodium Chloride Rt 10% 15 Ml Nebu INH 12/29/24 19:06 PRN PRN sputum Plan 53-year-old male with no past medical history presented to the ED due to cough, recent unintentional weight loss and tarry lesion found on chest x-ray. Admitted for TB workup. 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 Patient denies any night sweats, hemoptysis at this time, however he does state having night sweats in the past few months. Chest x-ray shows extensive bilateral infiltrate, which appears cavitary in the upper lung zones Chest CT shows Extensive cavitary miliary parenchymal disease throughout the lungs, most severe at the right apex, including septated right upper lobe cavitary lesion 5.6 x 5.2cm Blood culture-negative 48 hours Influenza negative, COVID-negative, HIV negative, Aspergillus negative Sputum cultures negative AFBs positive for tuberculosis, plan is to continue 7 days of treatment and repeat AFBs Wednesday night, to be sent on Wednesday AFBs positive for tuberculosis, will repeat AFBs AFBs from 11/09 + resulted on 11/13 are positive for tuberculosis AFB 11/17-11/18 results are positive Possible discharge on 12/01/2024 pending [facility] department recommendations. Plan: pending AFB 11/22-11/23 results Isolation precautions On Rifampin, isoniazid, pyrazinamid and pyridoxine therapy ID consulted, appreciate recommendation #Chest pain- resolved #Shortness of breath - resolved Patient complained of generalized chest pain 2/10 and shortness of breath at rest for the past 2 days Troponin <0.002 EKG significant for rate 71, sinus rhythm, early repolarization abnormality. No further workup warranted. Hospital Management: Disposition: Pending AFB 11/22-11/23 results. Possible discharge on 11/28/2024 pending [facility] department recommendations. Diet: Regular Lines: pIVs GI Prophylaxis: None DVT prophylaxis: Enoxaparin 40 Mg SC daily Code status: FULL CODE Patient seen and examined with attending Dr. Mata and senior resident Dr. Debi Husain, PGY-1 Attending Provider Attestation/Addendum I reviewed labs, imaging, EKG, home medications and prior available records. Face to face evaluation was performed by me. I have personally examined the patient and discussed assessment and plan with the IM team. I reviewed the resident note and agree with the plan with exceptions as below. Active tuberculosis Social problem Chest pain at rest, resolved AFB samples continue to be positive Discussed with social scientist: Needs all his family members to be started on treatment before he can be discharged ID is following Continue other Dyazide/rifampin/pyrazinamide. Continue vitamin B6
[2024-11-30 11:42] LABS: Cult AFB Sendout- Sputum* See Sep Rpt
--- NOTE | 2024-11-30 12:39 | PC.SS ---
Follow up note: Weekly AFBs have been ordered. AFBs have been sent. Pt will return home upon dc.
[2024-11-30 14:00] VITALS: BP 110/77; PULSE 63; RESP 17; TEMP 36.3; O2SAT 99
[2024-11-30 16:08] VITALS: BP 119/73; PULSE 64; RESP 17; TEMP 36.3; O2SAT 98
[2024-11-30 22:00] VITALS: BP 115/70; PULSE 62; RESP 16; TEMP 36.1; O2SAT 98
[2024-12-01 06:00] VITALS: BP 118/67; PULSE 68; RESP 18; TEMP 36.2; O2SAT 98
[2024-12-01] MEDS: PYRIDOXINE 50 MG TABLET PO (08:15)
[2024-12-01] MEDS: ISONIAZID 300 MG TABLET PO (08:15)
[2024-12-01] MEDS: rifAMPin 300 MG CAPSULE 600 MG PO (08:15)
[2024-12-01] MEDS: ONDANSETRON ODT 4 MG TABRAP PO (08:16)
--- NOTE | 2024-12-01 08:55 | PD.IDPROG ---
Subjective Subjective Interval history: cx pos from 11/09. current afb's from the other day 11/09 lab has samples. being processed. Exam Vital Signs Temp Pulse Resp BP Pulse Ox O2 Del Method 97.2 F 68 18 118/67 98 Room Air 12/01/24 06:00 12/01/24 06:00 12/01/24 06:00 12/01/24 06:00 12/01/24 06:00 12/01/24 06:00 Narrative Exam limited eval Objective - Internal Medicine Labs 11/27/24 07:32 11/27/24 07:32 Assessment & Plan A&P Narrative pulm tb, neg cocci IgM and neg procal (insensitive to fungal and atypical antigens) and pos afb smears with repeats also pos. cx pos from 10/21 and 11/06 cx and smear pos from 11/09. current smears and subsequent cx in process. tb grows slowly and only in the dark, so cx are not checked daily but once a week and are incubated in the dark. rx to be long. 6-12 mo. later sputum also pos. recommend more afb smears each /Wednesday . it usually takes about 2 weeks to become non contagious. health dept may determine the isolation status and their criteria for release no objection to outpt f/u by health dept but it is at their discretion. hotel stays can help if that can be arranged he lives with young children (pre school age or less) then they should be tested for tb. apparently one is positive (by word of mouth) we do not have any details though . will check in again on Wednesday. hiv and hep c neg. Time Spent With Patient Time: Total time spent is greater than 50% in coordination of care (as documented) at patient's floor/unit and/or counseling patient:
--- NOTE | 2024-12-01 10:28 | ESPR_ITS ---
Documentation for date of: 12/01/24 Subjective Subjective Interval history: 12/01/2024: No acute overnight events to report. Patient is stable and we are still pending AFB cultures which were sent from 11/29 to 11/30 to result. Exam Vital Signs Temp Pulse Resp BP Pulse Ox O2 Del Method 97.2 F 68 18 118/67 98 Room Air 12/01/24 06:00 12/01/24 06:00 12/01/24 06:00 12/01/24 06:00 12/01/24 06:00 12/01/24 06:00 Narrative Exam Physical Exam Deferred at this time Objective Labs 11/27/24 07:32 11/27/24 07:32 Quality Measures Quality Measures none Assessment & Plan Assessment Current Active Medications: Generic Name Dose Route Start Last Admin Trade Name Freq PRN Reason Stop Dose Admin Acetaminophen 650 mg 11/21/24 17:29 11/21/24 19:51 Acetaminophen 325 Mg Tablet PO 12/21/24 17:28 650 mg Q6HR PRN Administration PAIN Enoxaparin Sodium 40 mg 11/19/24 14:15 12/01/24 08:20 Enoxaparin Sod Inj 40 Mg/0.4 Ml Syringe SC 12/03/24 14:14 Not Given QDAY TORREY Ondansetron HCl 4 mg 11/17/24 19:56 12/01/24 08:16 Ondansetron Odt 4 Mg Tabrap PO 12/17/24 19:55 4 mg Q6HR PRN Administration NAUSEA OR VOMITING Protocol Pyridoxine HCl 50 mg 11/07/24 09:00 12/01/24 08:15 Pyridoxine 50 Mg Tablet PO 01/30/26 12:00 50 mg QDAY TORREY Administration Sodium Chloride 5 ml 11/22/24 08:42 Sodium Chloride Rt 10% 15 Ml Nebu INH 12/22/24 08:41 PRN PRN secretions Sodium Chloride 5 ml 11/29/24 19:07 Sodium Chloride Rt 10% 15 Ml Nebu INH 12/29/24 19:06 PRN PRN sputum Plan 53-year-old male with no past medical history presented to the ED due to cough, recent unintentional weight loss and tarry lesion found on chest x-ray. Admitted for TB workup. 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 Patient denies any night sweats, hemoptysis at this time, however he does state having night sweats in the past few months. Chest x-ray shows extensive bilateral infiltrate, which appears cavitary in the upper lung zones Chest CT shows Extensive cavitary miliary parenchymal disease throughout the lungs, most severe at the right apex, including septated right upper lobe cavitary lesion 5.6 x 5.2cm Blood culture-negative 48 hours Influenza negative, COVID-negative, HIV negative, Aspergillus negative Sputum cultures negative AFBs positive for tuberculosis, plan is to continue 7 days of treatment and repeat AFBs Wednesday night, to be sent on Wednesday AFBs positive for tuberculosis, will repeat AFBs AFBs from 11/09 + resulted on 11/13 are positive for tuberculosis AFB 11/17-11/18 results are positive Possible discharge on pending [facility] department recommendations. Plan: pending AFB 11/29-11/30 results Isolation precautions On Rifampin, isoniazid, pyrazinamid and pyridoxine therapy ID consulted, appreciate recommendation #Chest pain- resolved #Shortness of breath - resolved Patient complained of generalized chest pain 2/10 and shortness of breath at rest for the past 2 days Troponin <0.002 EKG significant for rate 71, sinus rhythm, early repolarization abnormality. No further workup warranted. Hospital Management: Disposition: Pending AFB 11/29-11/30 results. Possible discharge on pending [facility] recommendations. Diet: Regular Lines: pIVs GI Prophylaxis: None DVT prophylaxis: Enoxaparin 40 Mg SC daily Code status: FULL CODE Patient seen and examined with attending Dr. Mata and senior resident Dr. Debi Husain, PGY-1 Attending Provider Attestation/Addendum I reviewed labs, imaging, EKG, home medications and prior available records. Face to face evaluation was performed by me. I have personally examined the patient and discussed assessment and plan with the IM team. I reviewed the resident note and agree with the plan with exceptions as below. Active tuberculosis Social problem Chest pain at rest, resolved AFB samples continue to be positive A new set of AFB was sent and results are pending Discussed with social media campaign manager: Needs all his family members to be started on treatment before he can be discharged ID is following Continue other Dyazide/rifampin/pyrazinamide. Continue vitamin B6
--- NOTE | 2024-12-01 11:36 | PC.SS ---
Follow up note: AFBs have been sent and waiting for results. Pt will return home once he cleared by [facility].
--- NOTE | 2024-12-01 11:44 | PC.IP ---
Faxed and emailed 2nd TB Treatment Discharge Plan to [facility] per her request.
[2024-12-01 14:00] VITALS: BP 112/79; PULSE 76; RESP 16; TEMP 36.6; O2SAT 98
[2024-12-01] MEDS: MG HYD/AL HYD/SIME (Maalox Reg) SUSP 30 ML UDC PO (20:28)
[2024-12-01 22:00] VITALS: BP 132/80; PULSE 75; RESP 16; TEMP 36.6; O2SAT 97
[2024-12-02 05:42] VITALS: BP 107/71; PULSE 69; RESP 20; TEMP 36.9; O2SAT 95
[2024-12-02] MEDS: PYRAZINAMIDE 500 MG TABLET 1500 MG PO (09:32)
[2024-12-02] MEDS: ISONIAZID 300 MG TABLET PO (09:33)
[2024-12-02] MEDS: rifAMPin 300 MG CAPSULE 600 MG PO (09:33)
[2024-12-02] MEDS: ONDANSETRON ODT 4 MG TABRAP PO (09:35)
[2024-12-02] MEDS: PYRIDOXINE 50 MG TABLET PO (11:09)
[2024-12-02 14:00] VITALS: BP 107/71; BP 109/80; PULSE 74; RESP 20; TEMP 36.7; O2SAT 97
--- NOTE | 2024-12-02 15:29 | ESPR_ITS ---
<Statement entered by Falguni Borja MD - 12/03/24 03:43> Patient was seen and examined by me personally. I have directly supervised and reviewed the above documentation by the team resident and agree with its findings with any exceptions or additional findings as below. Plan of care was discussed with the attending, Dr. Guevara. Patient is a 53-year-old male with no past medical history presented to the ED due to cough, recent unintentional weight loss and lesion found on chest x-ray, found to have TB and receiving RIP therapy. Meds fell off today so they were renewed. Last AFB was sent 11/29 and waiting on send-out results for this set. Patient otherwise reports feeling very well, denies phelgm, denies chest pain. Falguni Borja, PGY-2 Documentation for date of: 12/02/24 Subjective Subjective Interval history: 12/02/2024: Patient was seen and examined by the bedside. No acute overnight events. Patient is feeling well. Reports no cough and no phlegm. Patient is stable and we are still pending AFB cultures which were sent from 11/29 to 11/30 to result. Exam Vital Signs Temp Pulse Resp BP Pulse Ox O2 Del Method 98.4 F 69 20 107/71 95 Room Air 12/02/24 05:42 12/02/24 05:42 12/02/24 05:42 12/02/24 05:42 12/02/24 05:42 12/02/24 05:42 Narrative Exam Physical Exam General: Awake and in no acute distress. Conversational and non-toxic appearing. HEENT: Normocephalic, atraumatic, mucous membranes moist. Heart: Regular rate and rhythm, no murmurs. Lungs: Clear to auscultation with no wheezing or crackles. Abdomen: Soft, nondistended, nontender, positive bowel sounds. ?No guarding or rebound tenderness. Neurologic: Alert and oriented x3, no gross neurological deficit, and patient able to move all 4 extremities. Extremities: No edema. Skin: No rash or ecchymoses. Objective Labs 11/27/24 07:32 11/27/24 07:32 Quality Measures Quality Measures VTE prophylaxis Assessment & Plan Assessment Current Active Medications: Generic Name Dose Route Start Last Admin Trade Name Freq PRN Reason Stop Dose Admin Acetaminophen 650 mg 11/21/24 17:29 11/21/24 19:51 Acetaminophen 325 Mg Tablet PO 12/21/24 17:28 650 mg Q6HR PRN Administration PAIN Enoxaparin Sodium 40 mg 11/19/24 14:15 12/02/24 09:35 Enoxaparin Sod Inj 40 Mg/0.4 Ml Syringe SC 12/03/24 14:14 Not Given QDAY TORREY Isoniazid 300 mg 12/02/24 09:00 12/02/24 09:33 Isoniazid 300 Mg Tablet PO 01/01/25 08:59 300 mg QDAY TORREY Administration Ondansetron HCl 4 mg 11/17/24 19:56 12/02/24 09:35 Ondansetron Odt 4 Mg Tabrap PO 12/17/24 19:55 4 mg Q6HR PRN Administration NAUSEA OR VOMITING Protocol Pyrazinamide 1,500 mg 12/02/24 09:00 12/02/24 09:32 Pyrazinamide 500 Mg Tablet PO 01/01/25 08:59 1,500 mg DAILY TORREY Administration Pyridoxine HCl 50 mg 11/07/24 09:00 12/02/24 11:09 Pyridoxine 50 Mg Tablet PO 01/30/26 12:00 50 mg QDAY TORREY Administration Rifampin 600 mg 12/02/24 09:00 12/02/24 09:33 Rifampin 300 Mg Capsule PO 01/01/25 08:59 600 mg QDAY TORREY Administration Sodium Chloride 5 ml 11/29/24 19:07 Sodium Chloride Rt 10% 15 Ml Nebu INH 12/29/24 19:06 PRN PRN sputum Plan 53-year-old male with no past medical history presented to the ED due to cough, recent unintentional weight loss and tarry lesion found on chest x-ray. Admitted for TB workup. 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 Patient denies any night sweats, hemoptysis at this time, however he does state having night sweats in the past few months. Chest x-ray shows extensive bilateral infiltrate, which appears cavitary in the upper lung zones Chest CT shows Extensive cavitary miliary parenchymal disease throughout the lungs, most severe at the right apex, including septated right upper lobe cavitary lesion 5.6 x 5.2cm Blood culture-negative 48 hours Influenza negative, COVID-negative, HIV negative, Aspergillus negative Sputum cultures negative AFBs positive for tuberculosis, plan is to continue 7 days of treatment and repeat AFBs Wednesday night, to be sent on Wednesday AFBs positive for tuberculosis, will repeat AFBs AFBs from 11/09 + resulted on 11/13 are positive for tuberculosis AFB 11/17-11/18 results are positive Possible discharge depending on Afb results. Plan: pending AFB 11/29-11/30 results Isolation precautions On Rifampin, isoniazid, pyrazinamid and pyridoxine therapy ID consulted, appreciate recommendation #Chest pain, resolved #Shortness of breath, resolved Patient complained of generalized chest pain 2/10 and shortness of breath at rest for the past 2 days Troponin <0.002 EKG sinus rhythm, early repolarization abnormality. No further workup warranted. Hospital Management: Disposition: Pending AFB 11/29-11/30 results. Possible discharge pending [facility] department recommendations. Diet: Regular Lines: pIVs GI Prophylaxis: None DVT prophylaxis: Enoxaparin 40 Mg SC daily Code status: FULL CODE Plan of care discussed with attending Dr. Guevara, PGY-[address] Borja. Landy Espinoza MD, PGY 1. Attending Provider Attestation/Addendum I have examined the patient, reviewed labs and imaging findings, discussed the case with the resident(s), and reviewed entered orders. I agree with the plan of care as outlined in this note. Dr. Ismael MD
[2024-12-02 20:13] VITALS: BP 116/75; PULSE 71; RESP 18; TEMP 36.6; O2SAT 98
[2024-12-03] MEDS: MG HYD/AL HYD/SIME (Maalox Reg) SUSP 30 ML UDC PO (05:00)
[2024-12-03 06:00] VITALS: BP 110/74; PULSE 78; RESP 18; TEMP 37; O2SAT 95
[2024-12-03] MEDS: ISONIAZID 300 MG TABLET PO (09:15)
[2024-12-03] MEDS: rifAMPin 300 MG CAPSULE 600 MG PO (09:15)
[2024-12-03] MEDS: PYRIDOXINE 50 MG TABLET PO (09:15)
[2024-12-03] MEDS: PYRAZINAMIDE 500 MG TABLET 1500 MG PO (09:15)
--- NOTE | 2024-12-03 11:38 | ESPR_ITS ---
Documentation for date of: 12/03/24 Subjective Subjective Interval history: Patient was seen and examined in [facility] today. There were no major overnight events and patient is doing great this morning. He has no complaints aside from some reflux. He has been compliant with medication and he was explained that we are waiting for the lead test sputum smear results as well as County recommendations prior to discharge. Exam Vital Signs Temp Pulse Resp BP Pulse Ox O2 Del Method 98.6 F 78 18 110/74 95 Room Air 12/03/24 06:00 12/03/24 06:00 12/03/24 06:00 12/03/24 06:00 12/03/24 06:00 12/03/24 06:00 Narrative Exam Constitutional: Well nourished and in no acute distress CVS: RRR, S1 and S2 present, no murmurs, rubs or gallops . RESP: CTAB, no SOB, no rales, rhonchi or wheezing. No respiratory Distress GI: Normal BS, Nontender/Nondistended. MSK: Full range of motion, No trauma or deformities or masses. Skin: Warm to touch, Dry. No rashes or lesions. No hematomas Neuro: coroner forensic technician II-XII grossly intact. Sensation grossly intact. Psych: (AAO) x3 . Appropriate mood and affect. Objective Labs 11/27/24 07:32 11/27/24 07:32 Quality Measures Quality Measures VTE prophylaxis Assessment & Plan Assessment Current Active Medications: Generic Name Dose Route Start Last Admin Trade Name Freq PRN Reason Stop Dose Admin Acetaminophen 650 mg 11/21/24 17:29 11/21/24 19:51 Acetaminophen 325 Mg Tablet PO 12/21/24 17:28 650 mg Q6HR PRN Administration PAIN Enoxaparin Sodium 40 mg 11/19/24 14:15 12/03/24 09:26 Enoxaparin Sod Inj 40 Mg/0.4 Ml Syringe SC 12/03/24 14:14 Not Given QDAY TORREY Isoniazid 300 mg 12/02/24 09:00 12/03/24 09:15 Isoniazid 300 Mg Tablet PO 01/01/25 08:59 300 mg QDAY TORREY Administration Ondansetron HCl 4 mg 11/17/24 19:56 12/02/24 09:35 Ondansetron Odt 4 Mg Tabrap PO 12/17/24 19:55 4 mg Q6HR PRN Administration NAUSEA OR VOMITING Protocol Pyrazinamide 1,500 mg 12/02/24 09:00 12/03/24 09:15 Pyrazinamide 500 Mg Tablet PO 01/01/25 08:59 1,500 mg DAILY TORREY Administration Pyridoxine HCl 50 mg 11/07/24 09:00 12/03/24 09:15 Pyridoxine 50 Mg Tablet PO 01/30/26 12:00 50 mg QDAY TORREY Administration Rifampin 600 mg 12/02/24 09:00 12/03/24 09:15 Rifampin 300 Mg Capsule PO 01/01/25 08:59 600 mg QDAY TORREY Administration Sodium Chloride 5 ml 11/29/24 19:07 Sodium Chloride Rt 10% 15 Ml Nebu INH 12/29/24 19:06 PRN PRN sputum Plan 53-year-old male with no past medical history presented to the ED due to cough, recent unintentional weight loss and tarry lesion found on chest x-ray. Admitted for TB workup. 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 Patient denies any night sweats, hemoptysis at this time, however he does state having night sweats in the past few months. Chest x-ray shows extensive bilateral infiltrate, which appears cavitary in the upper lung zones Chest CT shows Extensive cavitary miliary parenchymal disease throughout the lungs, most severe at the right apex, including septated right upper lobe cavitary lesion 5.6 x 5.2cm Blood culture-negative 48 hours Influenza negative, COVID-negative, HIV negative, Aspergillus negative Sputum cultures negative AFBs positive for tuberculosis, plan is to continue 7 days of treatment and repeat AFBs Wednesday night, to be sent on Wednesday AFBs positive for tuberculosis, will repeat AFBs AFBs from 11/09 + resulted on 11/13 are positive for tuberculosis AFB 11/17-11/18 results are positive ?12/03/2024?still pending results. Patient is doing okay Possible discharge depending on Afb results. Plan: pending AFB 11/29-11/30 results Isolation precautions On Rifampin, isoniazid, pyrazinamid and pyridoxine therapy ID consulted, appreciate recommendation #Chest pain, resolved #Shortness of breath, resolved Patient complained of generalized chest pain 2/10 and shortness of breath at rest for the past 2 days Troponin <0.002 EKG sinus rhythm, early repolarization abnormality. No further workup warranted. Hospital Management: Disposition: Pending AFB 11/29-11/30 results. Possible discharge pending [facility] department recommendations. Diet: Regular Lines: pIVs GI Prophylaxis: None DVT prophylaxis: Enoxaparin 40 Mg SC daily Code status: FULL CODE I discussed patient's care with attending physician, Dr Aristeo Steward PGY3 Attending Provider Attestation/Addendum I, Chelsy Alberts, DO, attest that I was physically present for the rojas portions of the service and evaluated the patient with the resident and I reviewed and discussed the case with the resident and agree with the resident's findings and plans of care as documented above Patient seen and evaluated this AM. He states he is feeling well. He denies any nausea or vomiting today. He reports that he has had some acid reflux today. Encouraged patient to sit upright after meals for 0.5-1hr prior to laying down in bed. Patient is anxious to go home otherwise. Pending [facility] clearance
[2024-12-03 14:00] VITALS: BP 120/71; PULSE 75; RESP 17; TEMP 36.3; O2SAT 96
[2024-12-03] MEDS: FAMOTIDINE 20 MG TABLET PO (20:28)
[2024-12-03 22:00] VITALS: BP 113/70; PULSE 63; RESP 18; TEMP 36.6; O2SAT 99
[2024-12-04 06:00] VITALS: BP 115/71; PULSE 80; RESP 17; TEMP 36.3; O2SAT 96
[2024-12-04 07:34] LABS: Cult AFB Sendout- Sputum* See Sep Rpt
--- NOTE | 2024-12-04 09:07 | PD.IDPROG ---
Subjective Subjective Interval history: rare afb seen on smear, but likely have to wait for culture. status of home eval not clear to me Exam Vital Signs Temp Pulse Resp BP Pulse Ox O2 Del Method 97.3 F 80 17 115/71 96 Room Air 12/04/24 06:00 12/04/24 06:00 12/04/24 06:00 12/04/24 06:00 12/04/24 06:00 12/04/24 06:00 Narrative Exam limited eval Objective - Internal Medicine Labs 11/27/24 07:32 11/27/24 07:32 Labs: Laboratory Results - last 24 hr 11/29/24 11/29/24 11/30/24 15:00 21:00 09:32 Mycobacterial Culture See Sep Rpt See Sep Rpt See Sep Rpt Assessment & Plan A&P Narrative pulm tb, neg cocci IgM and neg procal (insensitive to fungal and atypical antigens) and pos afb smears with repeats also pos. cx pos from 10/21 and 11/06 smear pos late nov 2024. but cx pending cx pos from 11/15 but in broth only, tb grows slowly and only in the dark, so cx are not checked daily but once a week and are incubated in the dark. broth cx generally mean not much there rx to be long. 6-12 mo. later sputum also pos. recommend more afb smears each /Wednesday. health dept may determine the isolation status and their criteria for release no objection to outpt f/u by health dept but it is at their discretion. hotel stays can help if that can be arranged he lives with young children (pre school age or less) then they should be tested for tb. apparently one is positive (by word of mouth) we do not have any details though . will check in again on Wednesday and will order hiv tests then. ok to cut lab to once a week to minimize phlebotomy. hiv and hep c neg. Time Spent With Patient Time: Total time spent is greater than 50% in coordination of care (as documented) at patient's floor/unit and/or counseling patient:
[2024-12-04] MEDS: rifAMPin 300 MG CAPSULE 600 MG PO (10:06)
[2024-12-04] MEDS: ISONIAZID 300 MG TABLET PO (10:07)
[2024-12-04] MEDS: PYRAZINAMIDE 500 MG TABLET 1500 MG PO (10:07)
[2024-12-04] MEDS: PYRIDOXINE 50 MG TABLET PO (10:07)
[2024-12-04] MEDS: FAMOTIDINE 20 MG TABLET PO ×2 (10:11→20:07)
--- NOTE | 2024-12-04 10:15 | PD.RESPRO ---
Documentation for date of: 12/324 Subjective Subjective Interval history: Patient was seen and examined bedside today. There were no major overnight events the patient had no complaints this morning. Patient's sputum smears were positive for TB which were drawn on 11/29 - 11/30. Patient did not have anymore episodes of hematemesis. Due to patient continuing to be positive in sputum will follow-up with Department of Health as well as ID about current regimen. Exam Vital Signs Temp Pulse Resp BP Pulse Ox O2 Del Method 97.5 F 60 14 109/74 97 Room Air 12/05/24 06:00 12/05/24 06:00 12/05/24 06:00 12/05/24 06:00 12/05/24 06:00 12/05/24 06:00 Narrative Exam Constitutional: Well nourished and in no acute distress Head: Normocephalic/Atraumatic Eyes: PERRL , no conjunctival injection , symmetrical lids. ENMT: Moist Mucous Membranes, No trauma or injury. Neck: Supple to palpation, No JVD CVS: RRR, S1 and S2 present, no murmurs, rubs or gallops . RESP: CTAB, no SOB, no rales, rhonchi or wheezing. No respiratory Distress GI: Normal BS, Nontender/Nondistended. MSK: Full range of motion, No trauma or deformities or masses. Skin: Warm to touch, Dry. No rashes or lesions. No hematomas Neuro: case assembler II-XII grossly intact. Sensation grossly intact. Psych: (AAO) x3 . Appropriate mood and affect. Objective Labs 11/27/24 07:32 11/27/24 07:32 Quality Measures Quality Measures VTE prophylaxis Assessment & Plan Assessment Current Active Medications: Generic Name Dose Route Start Last Admin Trade Name Freq PRN Reason Stop Dose Admin Acetaminophen 650 mg 11/21/24 17:29 11/21/24 19:51 Acetaminophen 325 Mg Tablet PO 12/21/24 17:28 650 mg Q6HR PRN Administration PAIN Famotidine 20 mg 12/03/24 20:10 12/05/24 08:56 Famotidine 20 Mg Tablet PO 01/02/25 20:09 20 mg BID TORREY Administration Isoniazid 300 mg 12/02/24 09:00 12/05/24 08:55 Isoniazid 300 Mg Tablet PO 01/01/25 08:59 300 mg QDAY TORREY Administration Ondansetron HCl 4 mg 11/17/24 19:56 12/02/24 09:35 Ondansetron Odt 4 Mg Tabrap PO 12/17/24 19:55 4 mg Q6HR PRN Administration NAUSEA OR VOMITING Protocol Pyrazinamide 1,500 mg 12/02/24 09:00 12/05/24 08:55 Pyrazinamide 500 Mg Tablet PO 01/01/25 08:59 1,500 mg DAILY TORREY Administration Pyridoxine HCl 50 mg 11/07/24 09:00 12/05/24 08:56 Pyridoxine 50 Mg Tablet PO 01/30/26 12:00 50 mg QDAY TORREY Administration Rifampin 600 mg 12/02/24 09:00 12/05/24 08:56 Rifampin 300 Mg Capsule PO 01/01/25 08:59 600 mg QDAY TORREY Administration Sodium Chloride 5 ml 11/29/24 19:07 Sodium Chloride Rt 10% 15 Ml Nebu INH 12/29/24 19:06 PRN PRN sputum Plan 53-year-old male with no past medical history presented to the ED due to cough, recent unintentional weight loss and tarry lesion found on chest x-ray. Admitted for TB workup. 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 Patient denies any night sweats, hemoptysis at this time, however he does state having night sweats in the past few months. Chest x-ray shows extensive bilateral infiltrate, which appears cavitary in the upper lung zones Chest CT shows Extensive cavitary miliary parenchymal disease throughout the lungs, most severe at the right apex, including septated right upper lobe cavitary lesion 5.6 x 5.2cm Blood culture-negative 48 hours Influenza negative, COVID-negative, HIV negative, Aspergillus negative Sputum cultures negative AFBs positive for tuberculosis, plan is to continue 7 days of treatment and repeat AFBs Wednesday night, to be sent on Wednesday AFBs positive for tuberculosis, will repeat AFBs AFBs from 11/09 + resulted on 11/13 are positive for tuberculosis AFB 11/17-11/18 results are positive ?12/03/2024?still pending results. Patient is doing okay - 12/04/24 AFP results from 11/29 Resulted positive Possible discharge depending on Afb results. Patient was on ripe therapy from 10/22/2024 however ethambutol was discontinued on the as per ID recommendations history of sensitivity of the strain. Plan: AFB 11/29-11/30 results were positive Will follow-up with ID for any recommendations and changes to regimen Isolation precautions On Rifampin, isoniazid, pyrazinamid and pyridoxine therapy ID consulted, appreciate recommendation Will follow-up with infectious control to determine the next steps. #Chest pain, resolved #Shortness of breath, resolved Patient complained of generalized chest pain 2/10 and shortness of breath at rest for the past 2 days Troponin <0.002 EKG sinus rhythm, early repolarization abnormality. No further workup warranted. Hospital Management: Disposition: Pending AFB 11/29-11/30 results. Possible discharge pending [facility] department recommendations. Diet: Regular Lines: pIVs GI Prophylaxis: None DVT prophylaxis: Enoxaparin 40 Mg SC daily Code status: FULL CODE I discussed patient's care with attending physician, Dr Ismael Steward PGY3 Attending Provider Attestation/Addendum I have examined the patient, reviewed labs and imaging findings, discussed the case with the resident(s), and reviewed entered orders. I agree with the plan of care as outlined in this note. Dr. Ismael MD
--- NOTE | 2024-12-04 11:16 | PC.SS ---
Follow up note: SS received call from who explained her 7 year old dtr started treatment on Wednesday from [facility]. SS has informed Anika from infection prevention. Anika who explained patient's information has been sent to [facility] and is waiting for physician (Dr. Orr from [facility]) to review info. Pt will return home upon dc.
[2024-12-04 14:00] VITALS: BP 119/86; RESP 18; TEMP 36.1; O2SAT 97
[2024-12-04 22:00] VITALS: BP 117/71; PULSE 83; RESP 15; TEMP 36.3; O2SAT 97
[2024-12-05 06:00] VITALS: BP 109/74; PULSE 60; RESP 14; TEMP 36.4; O2SAT 97
[2024-12-05] MEDS: PYRAZINAMIDE 500 MG TABLET 1500 MG PO (08:55)
[2024-12-05] MEDS: ISONIAZID 300 MG TABLET PO (08:55)
[2024-12-05] MEDS: rifAMPin 300 MG CAPSULE 600 MG PO (08:56)
[2024-12-05] MEDS: PYRIDOXINE 50 MG TABLET PO (08:56)
[2024-12-05] MEDS: FAMOTIDINE 20 MG TABLET PO ×2 (08:56→21:44)
--- NOTE | 2024-12-05 11:02 | PC.SS ---
Follow up note: SS followed up with Anika from infection prevention who explained she has followed up with Kaleb, public health nurse. The [facility] physician is reviewing patient's information and is following up with patient's family. Pending response from [facility]. Pt will return home at nd.
--- NOTE | 2024-12-05 13:04 | PD.RESDS ---
Planned Discharge Date 12/05/24 DS: Providers Provider Date of admission: 10/21/24 16:00 Primary care physician: Keon Hodgson PA-C Admitting Provider: Chelsy Alberts DO Attending Provider on Admission: Jon Guevara MD Consults: 10/22/24 10:02 Consult to Infectious Diseases Stat Comment: Consulting Provider: Nik Peraza 10/24/24 09:37 Referral Registered Dietitian Stat Comment: Attending Provider on DC: Terrell Steward MD Discharging Provider: Terrell Steward MD DS: Diagnosis Problem List Completed Was Problem List Reviewed/Reconciled?: Yes Hospital Course Hospital Course Hospital course: Patient is a 53-year-old male with no significant past medical history came to the ED on that was admitted on 10/21/2024 with progressive cough. Patient came from [place] about a year prior to presentation and developed progressive productive yellow phlegm that did not resolve despite that persisted for 10 months. Patient also experienced progressive weight loss for 5 months with night sweats and chills. 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 Patient denies recent months denied alcohol or any other illicit substance use. We found that the patient was positive for acid-fast bacilli on sputum collection and as per infectious control regulations we kept the patient on isolation and started patient on treatment for tuberculosis. Patient has been was followed closely throughout his stay as his cough improved and he responded well to therapy with isoniazid pyrazinamide and rifampin. Patient was initially started on ethambutol but sensitivity showed that the tuberculosis during was sensitive and therefore a tablet so was discontinued. Infectious diseases following the patient throughout the case and recommended a long course of 6 to 12 months of RIP therapy. Patient's stay was prolonged as his family was also infected with tuberculosis including his 3 kids for which they needed to be started on therapy prior for the patient to be able to go home on isolation. Patient was stable by the time of discharge and agreed with the planning of isolation. Problems during this stay #Pulmonary tuberculosis Plan: Continue isoniazid 300 mg p.o. daily for at least another 3 months Pyridoxine 50 mg p.o. daily for at least another 3 months Pyrazinamide 1500 mg p.o. daily for least another 3 months Rifampin 600 mg p.o. daily for least another 3 months Follow-up with your PCP and followed the isolation rules as per health department recommendations Follow-up with infectious disease specialist I discussed patient's care with attending physician, Dr Ismael Steward PGY3 Time Spent with Patient Time attestation: Total time spent providing and/or coordinating discharge services: Exam Vital Signs Temp Pulse Resp BP Pulse Ox O2 Del Method 97.5 F 60 14 109/74 97 Room Air 12/05/24 06:00 12/05/24 06:00 12/05/24 06:00 12/05/24 06:00 12/05/24 06:00 12/05/24 06:00 Narrative Exam Constitutional: Well nourished and in no acute distress Head: Normocephalic/Atraumatic Eyes: PERRL , no conjunctival injection , symmetrical lids. ENMT: Moist Mucous Membranes, No trauma or injury. Neck: Supple to palpation, No JVD CVS: RRR, S1 and S2 present, no murmurs, rubs or gallops . RESP: CTAB, no SOB, no rales, rhonchi or wheezing. No respiratory Distress GI: Normal BS, Nontender/Nondistended. MSK: Full range of motion, No trauma or deformities or masses. Skin: Warm to touch, Dry. No rashes or lesions. No hematomas Neuro: night assistant II-XII grossly intact. Sensation grossly intact. Psych: (AAO) x3 . Appropriate mood and affect. Discharge Plan Plan Patient Disposition: HOME (Self Care) Patient condition on transfer: Stable Care Plan Goals: Continue taking Isoniazid, pyrazinamide, pyridoxine and rifampin as directed You will need to take medications for 6-12 months - please follow-up with your PCP to refill these medications Follow-up with Health Department recommendations regarding isolation If you develop new or worsening shortness of breath, chest pain, fever/chills or loss of consciousness - please come back to the ED immediately Prescriptions/Referrals Prescriptions/Med Rec: New isoniazid 300 mg Tablet 300 mg PO QDAY 30 Days Qty: 30 0RF rifampin 300 mg Capsule 600 mg PO QDAY 30 Days Qty: 60 0RF pyridoxine (vitamin B6) 50 mg Tablet 50 mg PO QDAY 30 Days Qty: 30 0RF pyrazinamide 500 mg Tablet 1,500 mg PO DAILY 30 Days Qty: 90 0RF No Action No Known Home Medications Referrals: Keon Hodgson PA-C [Primary Care Provider] - Patient/Caregiver Discharge Instructions Education Materials: Tuberculosis Prevent Spread, Medicine for Tuberculosis, Tuberculosis (TB) Print Language: [place] Stand Alone Forms: Mary Award Info., Patient Portal Info Letter Discharge Order Discharge Orders: Discharge (Routine); Ordered 12/05/24 Ordered By: Terrell Steward Quality Discharge Quality Measures VTE prophylaxis
--- NOTE | 2024-12-05 13:08 | PC.IP ---
Received the Tuberculosis Discharge Treatment Plan signed by Dr. Orr, via email from Jh DEL ROSARIO from [facility]. Marlena Lott Estimator Binding and Jh Burgess Med/Surg Charge Nurse were notified. The Tuberculosis Discharge Treatment Plan placed in Pt.'s chart.
[2024-12-05 14:00] VITALS: BP 122/84; PULSE 81; RESP 18; TEMP 36.2; O2SAT 94
--- NOTE | 2024-12-05 15:49 | PC.NURSE ---
Discharge cancelled by county. Dr. Gueavra,Dr. Steward and explained to patient why he is not going to discharge today. Will continue to monitor patient.
--- NOTE | 2024-12-05 16:20 | PD.RESPRO ---
Documentation for date of: 12/05/24 Subjective Subjective Interval history: Patient was seen and examined in [facility] today. There were no major overnight events and patient feels okay this morning. He has not had any more episodes of hemoptysis. After further communications with Department of Health and the resent results of persistant TB on AFB the decision was made to start patient back on ethambutol which he will continue to need upon discharge. Exam Vital Signs Temp Pulse Resp BP Pulse Ox O2 Del Method 97.2 F 81 18 122/84 94 L Room Air 12/05/24 14:00 12/05/24 14:00 12/05/24 14:00 12/05/24 14:00 12/05/24 14:00 12/05/24 14:00 Narrative Exam Constitutional: Well nourished and in no acute distress CVS: RRR, S1 and S2 present, no murmurs, rubs or gallops . RESP: CTAB, no SOB, no rales, rhonchi or wheezing. No respiratory Distress GI: Normal BS, Nontender/Nondistended. MSK: Full range of motion, No trauma or deformities or masses. Skin: Warm to touch, Dry. No rashes or lesions. 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 Sensation grossly intact. Psych: (AAO) x3 . Appropriate mood and affect. Objective Labs 11/27/24 07:32 11/27/24 07:32 Quality Measures Quality Measures VTE prophylaxis Assessment & Plan Assessment Current Active Medications: Generic Name Dose Route Start Last Admin Trade Name Freq PRN Reason Stop Dose Admin Acetaminophen 650 mg 11/21/24 17:29 11/21/24 19:51 Acetaminophen 325 Mg Tablet PO 12/21/24 17:28 650 mg Q6HR PRN Administration PAIN Ethambutol HCl 1,000 mg 12/05/24 16:00 Ethambutol Hcl 400 Mg Tablet PO 01/04/25 15:59 QDAY TORREY Famotidine 20 mg 12/03/24 20:10 12/05/24 08:56 Famotidine 20 Mg Tablet PO 01/02/25 20:09 20 mg BID TORREY Administration Isoniazid 300 mg 12/02/24 09:00 12/05/24 08:55 Isoniazid 300 Mg Tablet PO 01/01/25 08:59 300 mg QDAY TORREY Administration Ondansetron HCl 4 mg 11/17/24 19:56 12/02/24 09:35 Ondansetron Odt 4 Mg Tabrap PO 12/17/24 19:55 4 mg Q6HR PRN Administration NAUSEA OR VOMITING Protocol Pyrazinamide 1,500 mg 12/02/24 09:00 12/05/24 08:55 Pyrazinamide 500 Mg Tablet PO 01/01/25 08:59 1,500 mg DAILY TORREY Administration Pyridoxine HCl 50 mg 11/07/24 09:00 12/05/24 08:56 Pyridoxine 50 Mg Tablet PO 01/30/26 12:00 50 mg QDAY TORREY Administration Rifampin 600 mg 12/02/24 09:00 12/05/24 08:56 Rifampin 300 Mg Capsule PO 01/01/25 08:59 600 mg QDAY TORREY Administration Sodium Chloride 5 ml 11/29/24 19:07 Sodium Chloride Rt 10% 15 Ml Nebu INH 12/29/24 19:06 PRN PRN sputum Plan 53-year-old male with no past medical history presented to the ED due to cough, recent unintentional weight loss and tarry lesion found on chest x-ray. Admitted for TB workup. 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 Patient denies any night sweats, hemoptysis at this time, however he does state having night sweats in the past few months. Chest x-ray shows extensive bilateral infiltrate, which appears cavitary in the upper lung zones Chest CT shows Extensive cavitary miliary parenchymal disease throughout the lungs, most severe at the right apex, including septated right upper lobe cavitary lesion 5.6 x 5.2cm Blood culture-negative 48 hours Influenza negative, COVID-negative, HIV negative, Aspergillus negative Sputum cultures negative AFBs positive for tuberculosis, plan is to continue 7 days of treatment and repeat AFBs Wednesday night, to be sent on Wednesday AFBs positive for tuberculosis, will repeat AFBs AFBs from 11/09 + resulted on 11/13 are positive for tuberculosis AFB 11/17-11/18 results are positive ?12/03/2024?still pending results. Patient is doing okay - 12/04/24 AFP results from 11/29 Resulted positive Possible discharge depending on Afb results. Patient was on ripe therapy from 10/22/2024 however ethambutol was discontinued on 11/27 as per ID recommendations as per sensitivity of the strain. Plan: AFB 11/29-11/30 results were positive Will follow-up with ID for any recommendations and changes to regimen Isolation precautions On Rifampin, isoniazid, pyrazinamid and pyridoxine therapy since 10/22/24 and restarted ethambutol today 12/05/2024 ID consulted, appreciate recommendation Will follow-up with infectious control to determine the next steps. Patient will likely need to continue isolating at home with his family for a total of at least 6 months up to to 12 months since diagnosis of TB. (From 10/22/24 up to 04/2025-10/2025) #Chest pain, resolved #Shortness of breath, resolved Patient complained of generalized chest pain 2/10 and shortness of breath at rest for the past 2 days Troponin <0.002 EKG sinus rhythm, early repolarization abnormality. No further workup warranted. Hospital Management: Disposition: Pending [facility] department recommendations. Diet: Regular Lines: pIVs GI Prophylaxis: None DVT prophylaxis: Enoxaparin 40 Mg SC daily Code status: FULL CODE I discussed patient's care with attending physician, Dr Ismael Steward PGY3 Attending Provider Attestation/Addendum I have examined the patient, reviewed labs and imaging findings, discussed the case with the resident(s), and reviewed entered orders. I agree with the plan of care as outlined in this note, with these additional summaries/recommendations: Patient seen at bedside. No acute overnight events. Patient was planned for discharge today although I received a call from the replaced by [facility] department stating patient is not cleared for discharge. They report since patient was taken off Ethambutol that he is not safe to discharge home with family. They recommend restarting ethambutol today and will keep us updated on when patient can go home. Patient was updated and although he is sad he is not being discharged she understands. We will keep patient updated daily. Dr. Ismael MD
[2024-12-05] MEDS: ETHAMBUTOL HCL 400 MG TABLET 1000 MG PO (17:22)
[2024-12-05 21:56] VITALS: BP 117/74; PULSE 72; RESP 18; TEMP 36.1; O2SAT 97
[2024-12-05 23:49] VITALS: BP 112/76; PULSE 64; RESP 17; TEMP 36.6; O2SAT 98
--- NOTE | 2024-12-06 03:41 | PC.NURSE ---
computer downtime from 0200 to 0300 a.m.
[2024-12-06] MEDS: FAMOTIDINE 20 MG TABLET PO (08:49)
[2024-12-06] MEDS: ISONIAZID 300 MG TABLET PO (08:49)
[2024-12-06] MEDS: PYRAZINAMIDE 500 MG TABLET 1500 MG PO (08:49)
[2024-12-06] MEDS: rifAMPin 300 MG CAPSULE 600 MG PO (08:49)
[2024-12-06] MEDS: ONDANSETRON ODT 4 MG TABRAP PO (08:49)
[2024-12-06] MEDS: PYRIDOXINE 50 MG TABLET PO (08:49)
[2024-12-06] MEDS: ETHAMBUTOL HCL 400 MG TABLET 1000 MG PO (08:50)
[2024-12-06 09:40] VITALS: BMI 21.2
--- NOTE | 2024-12-06 13:34 | PD.IDPROG ---
Subjective Subjective Interval history: organism is s to inh and rif, so no value to ethambutol. pza is added to speed clearance of sputum. rare organisms continue to be seen on cx. stopped ethambutol. health dept will have to make more sensible case for extension of ethambutol to me Exam Vital Signs Temp Pulse Resp BP Pulse Ox O2 Del Method 97.9 F 64 17 112/76 98 Room Air 12/05/24 23:49 12/05/24 23:49 12/05/24 23:49 12/05/24 23:49 12/05/24 23:49 12/05/24 23:49 Narrative Exam limited visit. stopped ethambutol. pza is used to speed clearance of sputum. not ethambutol. organism is s to inh and rif. Objective - Internal Medicine Labs 11/27/24 07:32 11/27/24 07:32 Assessment & Plan A&P Narrative pulm tb, neg cocci IgM and neg procal (insensitive to fungal and atypical antigens) and pos afb smears with repeats also pos. cx pos from 10/21 and 11/06 smear pos late nov 2024. but cx noted. organism is S to inh and rif, so no need for ethambutol. pza is used to speed clearance of sputumcan leave on that agent pending sputum clearance. ethambutol is not added to speed clearance but in case of r to inh and rifampin cx pos from 11/15 but in broth only, tb grows slowly and only in the dark, so cx are not checked daily but once a week and are incubated in the dark. broth cx generally mean not much there rx to be long. 6-12 mo. later sputum also pos. recommend more afb smears each /Wednesday. health dept may determine the isolation status and their criteria for release no objection to outpt f/u by health dept but disccharge is at their discretion. hotel stays can help if that can be arranged and if it is appropriate for the setting he lives with young children (pre school age or less) then they should be tested for tb. apparently one is positive (by word of mouth) we do not have any details though . will check in again on Wednesday. ok to cut lab to once a week to minimize phlebotomy. hiv and hep c neg. Time Spent With Patient Time: Total time spent is greater than 50% in coordination of care (as documented) at patient's floor/unit and/or counseling patient:
[2024-12-06 14:00] VITALS: BP 122/78; PULSE 80; RESP 20; TEMP 36.1; O2SAT 98
--- NOTE | 2024-12-06 14:20 | PC.IP ---
Dr. Steward notified IP that Dr. Peraza discontinued Ethambutol. IP notified Jh DEL ROSARIO from [facility]. Jh DEL ROSARIO stated she will notified Dr. Orr and will notified care team if Dr. Orr wants to discontinue Ethambutol. Dr. Steward made aware that we are waiting on Dr. Orr's response.
--- NOTE | 2024-12-06 14:30 | ESPR_ITS ---
Documentation for date of: 12/06/24 Subjective Subjective Interval history: Patient was seen and examined in [facility] today. There were no major overnight events the patient had no complaints this morning. Patient was given a dose of ethambutol this morning. Waiting to hear back from Department of Health and ID recommendations to refine patient's antibiotic regimen prior to discharge. Exam Vital Signs Temp Pulse Resp BP Pulse Ox O2 Del Method 97.9 F 64 17 112/76 98 Room Air 12/05/24 23:49 12/05/24 23:49 12/05/24 23:49 12/05/24 23:49 12/05/24 23:49 12/05/24 23:49 Narrative Exam Constitutional: Well nourished and in no acute distress CVS: RRR, S1 and S2 present, no murmurs, rubs or gallops . RESP: CTAB, no SOB, no rales, rhonchi or wheezing. No respiratory Distress GI: Normal BS, Nontender/Nondistended. MSK: Full range of motion, No trauma or deformities or masses. Skin: Warm to touch, Dry. No rashes or lesions. 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 Sensation grossly intact. Psych: (AAO) x3 . Appropriate mood and affect. Objective Labs 11/27/24 07:32 11/27/24 07:32 Quality Measures Quality Measures VTE prophylaxis Assessment & Plan Assessment Current Active Medications: Generic Name Dose Route Start Last Admin Trade Name Freq PRN Reason Stop Dose Admin Acetaminophen 650 mg 11/21/24 17:29 11/21/24 19:51 Acetaminophen 325 Mg Tablet PO 12/21/24 17:28 650 mg Q6HR PRN Administration PAIN Isoniazid 300 mg 12/02/24 09:00 12/06/24 08:49 Isoniazid 300 Mg Tablet PO 01/01/25 08:59 300 mg QDAY TORREY Administration Ondansetron HCl 4 mg 11/17/24 19:56 12/06/24 08:49 Ondansetron Odt 4 Mg Tabrap PO 12/17/24 19:55 4 mg Q6HR PRN Administration NAUSEA OR VOMITING Protocol Pyrazinamide 1,500 mg 12/02/24 09:00 12/06/24 08:49 Pyrazinamide 500 Mg Tablet PO 01/01/25 08:59 1,500 mg DAILY TORREY Administration Pyridoxine HCl 50 mg 11/07/24 09:00 12/06/24 08:49 Pyridoxine 50 Mg Tablet PO 01/30/26 12:00 50 mg QDAY TORREY Administration Rifampin 600 mg 12/02/24 09:00 12/06/24 08:49 Rifampin 300 Mg Capsule PO 01/01/25 08:59 600 mg QDAY TORREY Administration Sodium Chloride 5 ml 11/29/24 19:07 Sodium Chloride Rt 10% 15 Ml Nebu INH 12/29/24 19:06 PRN PRN sputum Plan 53-year-old male with no past medical history presented to the ED due to cough, recent unintentional weight loss and tarry lesion found on chest x-ray. Admitted for TB workup. 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 Patient denies any night sweats, hemoptysis at this time, however he does state having night sweats in the past few months. Chest x-ray shows extensive bilateral infiltrate, which appears cavitary in the upper lung zones Chest CT shows Extensive cavitary miliary parenchymal disease throughout the lungs, most severe at the right apex, including septated right upper lobe cavitary lesion 5.6 x 5.2cm Blood culture-negative 48 hours Influenza negative, COVID-negative, HIV negative, Aspergillus negative Sputum cultures negative AFBs positive for tuberculosis, plan is to continue 7 days of treatment and repeat AFBs Wednesday night, to be sent on Wednesday AFBs positive for tuberculosis, will repeat AFBs AFBs from 11/09 + resulted on 11/13 are positive for tuberculosis AFB 11/17-11/18 results are positive ?12/03/2024?still pending results. Patient is doing okay - 12/04/24 AFP results from 11/29 Resulted positive Possible discharge depending on Afb results. Patient was on ripe therapy from 10/22/2024 however ethambutol was discontinued on 11/27 as per ID recommendations as per sensitivity of the strain. Plan: AFB 11/29-11/30 results were positive Will follow-up with ID for any recommendations and changes to regimen Isolation precautions On Rifampin, isoniazid, pyrazinamid and pyridoxine therapy since 10/22/24 and r estarted ethambutol today 12/05/2024 ID consulted, appreciate recommendation Will follow-up with infectious control to determine the next steps. Patient will likely need to continue isolating at home with his family for a total of at least 6 months up to to 12 months since diagnosis of TB. (From 10/22/24 up to 04/2025-10/2025) 12/06/2024?patient stable, received ethambutol along with RIP therapy. Pending recommendations from ID and Department of Health prior to arranging safe discharge. #Chest pain, resolved #Shortness of breath, resolved Patient complained of generalized chest pain 2/10 and shortness of breath at rest for the past 2 days Troponin <0.002 EKG sinus rhythm, early repolarization abnormality. No further workup warranted. Hospital Management: Disposition: Pending [facility] department recommendations. Diet: Regular Lines: pIVs GI Prophylaxis: None DVT prophylaxis: Enoxaparin 40 Mg SC daily Code status: FULL CODE I discussed patient's care with attending physician, Dr Ismael Steward PGY3 Attending Provider Attestation/Addendum I have examined the patient, reviewed labs and imaging findings, discussed the case with the resident(s), and reviewed entered orders. I agree with the plan of care as outlined in this note, with these additional summaries/recommendations: Patient seen at bedside. No acute overnight events. Patient has no new symptoms to report today. He is anxious to be discharged. We are currently working with in-house infectious disease and [facility] department for safe discharge. [facility] recommends patient receive Ethambutol although there does not appear to indication based off sensitivities. Nonetheless patient is anxious to be discharged and we will give Ethambutol today until the plan is developed for safe discharge. Patient updated on plan and in agreement. Dr. Ismael MD
[2024-12-06 15:21] LABS: Cult AFB Sendout- Sputum* See Sep Rpt
[2024-12-06 18:45] LABS: Cult AFB Sendout- Sputum* See Sep Rpt
[2024-12-06 21:58] VITALS: BMI 22.4
[2024-12-06 22:00] VITALS: BP 112/72; PULSE 78; RESP 18; TEMP 36.4; O2SAT 98
[2024-12-06 23:32] LABS: Cult AFB Sendout- Sputum* See Sep Rpt
--- NOTE | 2024-12-07 01:18 | PC.RT ---
pt expectorated sputum for AFB, thin frothy white obtained at 23:09, sent to lab.
[2024-12-07 05:49] VITALS: BP 107/75; PULSE 75; RESP 17; TEMP 36.3; O2SAT 96
[2024-12-07 07:21] LABS: Cult AFB Sendout- Sputum* See Sep Rpt
--- NOTE | 2024-12-07 07:22 | PC.IP ---
Per Jh DEL ROSARIO from [facility], Dr. Orr wants to continue EMB. until PZA susceptibility results
--- NOTE | 2024-12-07 07:29 | PC.IP ---
Email received this morning, from to continue Ethambutol administration. Spoke to Dr. Guevara and made aware.
--- NOTE | 2024-12-07 07:35 | PC.RT ---
AFB #3 sent to lab
[2024-12-07] MEDS: ISONIAZID 300 MG TABLET PO (08:43)
[2024-12-07] MEDS: PYRAZINAMIDE 500 MG TABLET 1500 MG PO (08:43)
[2024-12-07] MEDS: rifAMPin 300 MG CAPSULE 600 MG PO (08:43)
[2024-12-07] MEDS: ONDANSETRON ODT 4 MG TABRAP PO (08:43)
[2024-12-07] MEDS: ETHAMBUTOL HCL 400 MG TABLET 1000 MG PO (08:44)
[2024-12-07] MEDS: PYRIDOXINE 50 MG TABLET PO (08:44)
--- NOTE | 2024-12-07 09:27 | PC.SS ---
Follow up note: Collected last of the 3 samples of AFBs. Pt will return home pending clearance from [facility].
[2024-12-07 14:00] VITALS: BP 109/82; PULSE 76; RESP 17; TEMP 36.1; O2SAT 96
--- NOTE | 2024-12-07 15:57 | ESPR_ITS ---
Documentation for date of: 12/07/24 Subjective Subjective Interval history: Patient was seen and examined in [facility] today. There were no major overnight events the patient had no complaints this morning. He continues to not have any more episodes of hemoptysis. Patient had questions about the reason why he is still in the hospital and all questions were answered and explained that we are pending Department of Health recommendations on requirements prior to discharge. Patient understands Exam Vital Signs Temp Pulse Resp BP Pulse Ox O2 Del Method 97.3 F 75 17 107/75 96 Room Air 12/07/24 05:49 12/07/24 05:49 12/07/24 05:49 12/07/24 05:49 12/07/24 05:49 12/07/24 05:49 Narrative Exam Constitutional: Well nourished and in no acute distress CVS: RRR, S1 and S2 present, no murmurs, rubs or gallops . RESP: CTAB, no SOB, no rales, rhonchi or wheezing. No respiratory Distress GI: Normal BS, Nontender/Nondistended. MSK: Full range of motion, No trauma or deformities or masses. Skin: Warm to touch, Dry. No rashes or lesions. 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 Sensation grossly intact. Psych: (AAO) x3 . Appropriate mood and affect. Objective Labs 11/27/24 07:32 11/27/24 07:32 Quality Measures Quality Measures VTE prophylaxis Assessment & Plan Assessment Current Active Medications: Generic Name Dose Route Start Last Admin Trade Name Freq PRN Reason Stop Dose Admin Acetaminophen 650 mg 11/21/24 17:29 11/21/24 19:51 Acetaminophen 325 Mg Tablet PO 12/21/24 17:28 650 mg Q6HR PRN Administration PAIN Isoniazid 300 mg 12/02/24 09:00 12/07/24 08:43 Isoniazid 300 Mg Tablet PO 01/01/25 08:59 300 mg QDAY TORREY Administration Ondansetron HCl 4 mg 11/17/24 19:56 12/07/24 08:43 Ondansetron Odt 4 Mg Tabrap PO 12/17/24 19:55 4 mg Q6HR PRN Administration NAUSEA OR VOMITING Protocol Pyrazinamide 1,500 mg 12/02/24 09:00 12/07/24 08:43 Pyrazinamide 500 Mg Tablet PO 01/01/25 08:59 1,500 mg DAILY TORREY Administration Pyridoxine HCl 50 mg 11/07/24 09:00 12/07/24 08:44 Pyridoxine 50 Mg Tablet PO 01/30/26 12:00 50 mg QDAY TORREY Administration Rifampin 600 mg 12/02/24 09:00 12/07/24 08:43 Rifampin 300 Mg Capsule PO 01/01/25 08:59 600 mg QDAY TORREY Administration Sodium Chloride 5 ml 11/29/24 19:07 Sodium Chloride Rt 10% 15 Ml Nebu INH 12/29/24 19:06 PRN PRN sputum Plan 53-year-old male with no past medical history presented to the ED due to cough, recent unintentional weight loss and tarry lesion found on chest x-ray. Admitted for TB workup. 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 Patient denies any night sweats, hemoptysis at this time, however he does state having night sweats in the past few months. Chest x-ray shows extensive bilateral infiltrate, which appears cavitary in the upper lung zones Chest CT shows Extensive cavitary miliary parenchymal disease throughout the lungs, most severe at the right apex, including septated right upper lobe cavitary lesion 5.6 x 5.2cm Blood culture-negative 48 hours Influenza negative, COVID-negative, HIV negative, Aspergillus negative Sputum cultures negative AFBs positive for tuberculosis, plan is to continue 7 days of treatment and repeat AFBs Wednesday night, to be sent on Wednesday AFBs positive for tuberculosis, will repeat AFBs AFBs from 11/09 + resulted on 11/13 are positive for tuberculosis AFB 11/17-11/18 results are positive ?12/03/2024?still pending results. Patient is doing okay - 12/04/24 AFP results from 11/29 Resulted positive Patient was on ripe therapy from 10/22/2024 however ethambutol was discontinued on 11/27 as per ID recommendations as per sensitivity of the strain. Plan: AFB 11/29-11/30 results were positive Isolation precautions On Rifampin, isoniazid, pyrazinamid and pyridoxine therapy since 10/22/24 and r estarted ethambutol today 12/05/2024 ID consulted, appreciate recommendation Will follow-up with infectious control to determine the next steps. Patient will likely need to continue isolating at home with his family for a total of at least 6 months up to to 12 months since diagnosis of TB. (From 10/22/24 up to 04/2025-10/2025) 12/06/2024?patient stable, received ethambutol along with RIP therapy. Pending recommendations from ID and Department of Health prior to arranging safe discharge. 12/06/2024?repeat AFB were sent out yesterday12/06, pending results. Attempt was made to contact Dr. Orr to discuss further steps moving forward. Will continue to attempt communications #Chest pain, resolved #Shortness of breath, resolved Patient complained of generalized chest pain 2/10 and shortness of breath at rest for the past 2 days Troponin <0.002 EKG sinus rhythm, early repolarization abnormality. No further workup warranted. Hospital Management: Disposition: Pending [facility] department recommendations. Diet: Regular Lines: pIVs GI Prophylaxis: None DVT prophylaxis: Enoxaparin 40 Mg SC daily Code status: FULL CODE I discussed patient's care with attending physician, Dr Ismael Steward PGY3 Attending Provider Attestation/Addendum I have examined the patient, reviewed labs and imaging findings, discussed the case with the resident(s), and reviewed entered orders. I agree with the plan of care as outlined in this note, with these additional summaries/recommendations: Patient seen at bedside. No acute overnight events. Patient has no new symptoms to report today. He is anxious to be discharged. We are currently working with in-house infectious disease and Counts include 234 beds at the [facility] department for safe discharge. Counts include 234 beds at the [facility] recommends patient receive Ethambutol although there does not appear to indication based off sensitivities. Nonetheless patient is anxious to be discharged and we will give Ethambutol today until plan is developed for safe discharge. [facility] department also reports patient is not safe to discharge home until AFBs clear. We will order additional AFBs tomorrow 12/08/24. Patient updated on plan and in agreement. Dr. Ismael MD
[2024-12-07 21:49] VITALS: BP 119/82; PULSE 86; RESP 18; TEMP 36.8; O2SAT 92
[2024-12-08 06:00] VITALS: BP 119/82; PULSE 86; RESP 18; TEMP 36.8; O2SAT 92
[2024-12-08] MEDS: PYRIDOXINE 50 MG TABLET PO (08:24)
[2024-12-08] MEDS: PYRAZINAMIDE 500 MG TABLET 1500 MG PO (08:24)
[2024-12-08] MEDS: ONDANSETRON ODT 4 MG TABRAP PO (08:25)
[2024-12-08] MEDS: rifAMPin 300 MG CAPSULE 600 MG PO (08:25)
[2024-12-08] MEDS: ISONIAZID 300 MG TABLET PO (08:25)
--- NOTE | 2024-12-08 09:00 | PD.IDPROG ---
Subjective Subjective Interval history: single dose of ethambutol given today by primary team despite my prior note. rationale for use of that agent not clear. pza used to speed clearance of sputum. ethambutol added in case of rif or inh R. neither seen. ?There is a recent report in [facility] that suggests that sputum smears on rx are not that predictive of contagiousness. I wonder if the health dept gets that journal. Exam Vital Signs Temp Pulse Resp BP Pulse Ox O2 Del Method 98.2 F 86 18 119/82 92 L Room Air 12/08/24 06:00 12/08/24 06:00 12/08/24 06:00 12/08/24 06:00 12/08/24 06:00 12/08/24 06:00 Narrative Exam no distress. minimal cough admitted, is better per pt. sputums noted. not yet smear neg. smear may not be that predictive of contagiousness while on rx Objective - Internal Medicine Labs 11/27/24 07:32 11/27/24 07:32 Assessment & Plan A&P Narrative pulm tb, neg cocci IgMand IgG and neg procal (insensitive to fungal and atypical antigens) and pos afb smears with repeats also pos. cx pos from 10/21 and 11/06 smear pos late nov 2024. but cx noted. organism is S to inh and rif, so no need for ethambutol. pza is used to speed clearance of sputum so will stop that agent at this point in time. ethambutol is not added to speed clearance but in case of r to inh and rifampin (not seen) cx pos from 11/15 but in broth only, tb grows slowly and only in the dark, so cx are not checked daily but once a week and are incubated in the dark. brothonly pos cx generally mean: not much there rx to be long. 6-12 mo. later sputum also pos. recommend more afb smears each /Wednesday. health dept may determine the isolation status and their criteria for release no objection to outpt f/u by health dept but discharge is at their discretion. hotel stays can help if that can be arranged and if it is appropriate for the setting (again up to health dept). he lives with young children (pre school age or less) then they should be tested for tb. apparently one is positive (by word of mouth) we do not have any details though . will check in again on Wednesday. ok to cut lab to once a week to minimize phlebotomy. hiv and hep c neg. stopped ethambutol again as well as pza. organism is S to inh and rif, so ok to use 2 agents at this point.poor documentation of rationale for ethambutol noted. if health dept insists on it, just document that as they never leave a note at all. dr do is also not ID trained to my knowledge. Time Spent With Patient Time: Total time spent is greater than 50% in coordination of care (as documented) at patient's floor/unit and/or counseling patient:
--- NOTE | 2024-12-08 12:02 | PC.SS ---
Follow up note: Physicians were able to speak with Dr. Orr from [facility] and they are waiting for at least 1 AFB to be be negative. Pt will return home upon dc. Per Kate Watts pt is able to ambulate.
[2024-12-08 14:00] VITALS: BP 116/84; PULSE 67; RESP 18; TEMP 36.1; O2SAT 95
--- NOTE | 2024-12-08 14:18 | ESPR_ITS ---
Documentation for date of: 12/08/24 Subjective Subjective Interval history: Patient was seen and examined in [facility] today. There were no major overnight events the patient had no complaints this morning. Received a phone call back from Department of Health, Dr Orr ([phone]) at 8:30 this morning to discuss further planning. Dr. Orr explains that patient needs at least 1 negative AFB now that he is on treatment to consider discharging. He also elaborates that given the fact the patient continues to be positive on cultures he is now a relatively high risk case for which he would rather have the patient on ethambutol for the duration of treatment. Last AFB smears were collected on 12/07/2024. Pending results, will continue current management. Exam Vital Signs Temp Pulse Resp BP Pulse Ox O2 Del Method 98.2 F 86 18 119/82 92 L Room Air 12/08/24 06:00 12/08/24 06:00 12/08/24 06:00 12/08/24 06:00 12/08/24 06:00 12/08/24 06:00 Narrative Exam Constitutional: Well nourished and in no acute distress CVS: RRR, S1 and S2 present, no murmurs, rubs or gallops . RESP: CTAB, no SOB, no rales, rhonchi or wheezing. No respiratory Distress GI: Normal BS, Nontender/Nondistended. MSK: Full range of motion, No trauma or deformities or masses. Skin: Warm to touch, Dry. No rashes or lesions. 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 Sensation grossly intact. Psych: (AAO) x3 . Appropriate mood and affect. Objective Labs 11/27/24 07:32 11/27/24 07:32 Quality Measures Quality Measures VTE prophylaxis Assessment & Plan Assessment Current Active Medications: Generic Name Dose Route Start Last Admin Trade Name Freq PRN Reason Stop Dose Admin Acetaminophen 650 mg 11/21/24 17:29 11/21/24 19:51 Acetaminophen 325 Mg Tablet PO 12/21/24 17:28 650 mg Q6HR PRN Administration PAIN Isoniazid 300 mg 12/02/24 09:00 12/08/24 08:25 Isoniazid 300 Mg Tablet PO 01/01/25 08:59 300 mg QDAY TORREY Administration Ondansetron HCl 4 mg 11/17/24 19:56 12/08/24 08:25 Ondansetron Odt 4 Mg Tabrap PO 12/17/24 19:55 4 mg Q6HR PRN Administration NAUSEA OR VOMITING Protocol Pyridoxine HCl 50 mg 11/07/24 09:00 12/08/24 08:24 Pyridoxine 50 Mg Tablet PO 01/30/26 12:00 50 mg QDAY TORREY Administration Rifampin 600 mg 12/02/24 09:00 12/08/24 08:25 Rifampin 300 Mg Capsule PO 01/01/25 08:59 600 mg QDAY TORREY Administration Sodium Chloride 5 ml 11/29/24 19:07 Sodium Chloride Rt 10% 15 Ml Nebu INH 12/29/24 19:06 PRN PRN sputum Plan 53-year-old male with no past medical history presented to the ED due to cough, recent unintentional weight loss and tarry lesion found on chest x-ray. Admitted for TB workup. 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 Patient denies any night sweats, hemoptysis at this time, however he does state having night sweats in the past few months. Chest x-ray shows extensive bilateral infiltrate, which appears cavitary in the upper lung zones Chest CT shows Extensive cavitary miliary parenchymal disease throughout the lungs, most severe at the right apex, including septated right upper lobe cavitary lesion 5.6 x 5.2cm Blood culture-negative 48 hours Influenza negative, COVID-negative, HIV negative, Aspergillus negative Sputum cultures negative AFBs positive for tuberculosis, plan is to continue 7 days of treatment and repeat AFBs Wednesday night, to be sent on Wednesday AFBs positive for tuberculosis, will repeat AFBs AFBs from 11/09 + resulted on 11/13 are positive for tuberculosis AFB 11/17-11/18 results are positive AFB 11/29 Resulted positive Patient was on ripe therapy from 10/22/2024 however ethambutol was discontinued on 11/27 as per ID recommendations as per sensitivity of the strain. AFB 11/29-11/30 results were positive Plan: Isolation precautions On Rifampin, isoniazid, pyrazinamid and pyridoxine therapy since 10/22/24 and r estarted ethambutol 12/05/2024 Patient will likely need to continue isolating at home with his family for a total of at least 6 months up to to 12 months since diagnosis of TB. (From 10/22/24 up to 04/2025-10/2025) 12/06/2024?patient stable, received ethambutol along with RIP therapy. Pending recommendations from [place] and Department of Health prior to arranging safe discharge. 12/06/2024?repeat AFB were ordered on they are actually collected on 12/07/2024. Pending results After confirming plan with Dr. Orr will continue patient on ethambutol 1 g daily #Chest pain, resolved #Shortness of breath, resolved Patient complained of generalized chest pain 2/10 and shortness of breath at rest for the past 2 days Troponin <0.002 EKG sinus rhythm, early repolarization abnormality. No further workup warranted. Hospital Management: Disposition: Pending [facility] recommendations. Diet: Regular Lines: pIVs GI Prophylaxis: None DVT prophylaxis: Enoxaparin 40 Mg SC daily Code status: FULL CODE I discussed patient's care with attending physician, Dr Ismael Steward PGY3 Attending Provider Attestation/Addendum I have examined the patient, reviewed labs and imaging findings, discussed the case with the resident(s), and reviewed entered orders. I agree with the plan of care as outlined in this note, with these additional summaries/recommendations: Patient seen at bedside. No acute overnight events. AFBs still showing less than 1 per field of acid-fast bacilli observed. Per [facility] patient cannot be discharged until at least 1 AFB negative. Additional AFBs ordered this week and we will review when available. Continue ripe therapy for active tuberculosis. Patient updated on the plan and in agreement. Dr. Ismael MD
[2024-12-08 22:00] VITALS: BP 119/77; PULSE 60; RESP 19; TEMP 36.4; O2SAT 98
[2024-12-09 06:00] VITALS: BP 104/60; PULSE 71; RESP 15; TEMP 36.1; O2SAT 97
--- NOTE | 2024-12-09 07:51 | ESPR_ITS ---
Documentation for date of: 12/09/24 Subjective Subjective Interval history: No acute events overnight.?Patient seen and examined at bedside this AM.?Patient reports feeling fine this morning. He denies chest pain, nausea, vomiting, cough. Reports minimal phelgm. Still pending negative AFB, next result from 3/5 sputum sample.?No further complaints at this time. Review of systems otherwise negative except what is mentioned above. Exam Vital Signs Temp Pulse Resp BP Pulse Ox O2 Del Method 97.5 F 74 15 119/70 98 Room Air 12/10/24 06:00 12/10/24 06:00 12/10/24 06:00 12/10/24 06:00 12/10/24 06:00 12/10/24 06:00 Narrative Exam Physical Exam General: Awake and in no acute distress. Conversational and non-toxic appearing. HEENT: Normocephalic, atraumatic, mucous membranes moist. Heart: Regular rate and rhythm, no murmurs. Lungs: Clear to auscultation with no wheezing or crackles. Abdomen: Soft, nondistended, nontender, positive bowel sounds. ?No guarding or rebound tenderness. Neurologic: Alert and oriented x3, no gross neurological deficit, and patient able to move all 4 extremities. Extremities: No edema. Skin: No rash or ecchymoses. Objective Labs 11/27/24 07:32 11/27/24 07:32 Quality Measures Quality Measures VTE prophylaxis Assessment & Plan Assessment Current Active Medications: Generic Name Dose Route Start Last Admin Trade Name Freq PRN Reason Stop Dose Admin Acetaminophen 650 mg 11/21/24 17:29 11/21/24 19:51 Acetaminophen 325 Mg Tablet PO 12/21/24 17:28 650 mg Q6HR PRN Administration PAIN Isoniazid 300 mg 12/02/24 09:00 12/09/24 08:10 Isoniazid 300 Mg Tablet PO 01/01/25 08:59 300 mg QDAY TORREY Administration Ondansetron HCl 4 mg 11/17/24 19:56 12/08/24 08:25 Ondansetron Odt 4 Mg Tabrap PO 12/17/24 19:55 4 mg Q6HR PRN Administration NAUSEA OR VOMITING Protocol Pyridoxine HCl 50 mg 11/07/24 09:00 12/09/24 08:11 Pyridoxine 50 Mg Tablet PO 01/30/26 12:00 50 mg QDAY TORREY Administration Rifampin 600 mg 12/02/24 09:00 12/09/24 08:10 Rifampin 300 Mg Capsule PO 01/01/25 08:59 600 mg QDAY TORREY Administration Sodium Chloride 5 ml 11/29/24 19:07 Sodium Chloride Rt 10% 15 Ml Nebu INH 12/29/24 19:06 PRN PRN sputum Plan 53-year-old male with no past medical history presented to the ED due to cough, recent unintentional weight loss and tarry lesion found on chest x-ray. Admitted for TB workup. 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 Patient denies any night sweats, hemoptysis at this time, however he does state having night sweats in the past few months. Chest x-ray shows extensive bilateral infiltrate, which appears cavitary in the upper lung zones Chest CT shows Extensive cavitary miliary parenchymal disease throughout the lungs, most severe at the right apex, including septated right upper lobe cavitary lesion 5.6 x 5.2cm Blood culture-negative 48 hours Influenza negative, COVID-negative, HIV negative, Aspergillus negative Sputum cultures negative AFB positive for tuberculosis, plan is to continue 7 days of treatment and repeat AFBs Wednesday night, to be sent on Wednesday AFB positive for tuberculosis, will repeat AFBs AFBs from 11/09 + resulted on 11/13 are positive for tuberculosis AFB 11/17-11/18 results are positive AFB 11/29 Resulted positive Patient was on ripe therapy from 10/22/2024 however ethambutol was discontinued on 11/27 as per ID recommendations as per sensitivity of the strain. AFB 11/29-11/30 results were positive 12/06/2024?patient stable, received ethambutol along with RIP therapy. Pending recommendations from ID and Department of Health prior to arranging safe discharge. 12/06/2024?repeat AFB were ordered on they are actually collected on 12/07/2024. Pending results Plan: -Isolation precautions -On Rifampin, isoniazid, pyrazinamid and pyridoxine therapy since 10/22/24 and r estarted ethambutol 12/05/2024 -Patient will likely need to continue isolating at home with his family for a total of at least 6 months up to to 12 months since diagnosis of TB. (From 10/22/24 up to 04/2025-10/2025) -After confirming plan with Dr. Orr will continue patient on ethambutol 1 g daily #Chest pain, resolved #Shortness of breath, resolved Patient complained of generalized chest pain 2/10 and shortness of breath at rest for the past 2 days Troponin <0.002 EKG sinus rhythm, early repolarization abnormality. -No further workup warranted Hospital Management: Disposition: Pending clearance with [facility] department Diet: Regular Lines: pIVs GI Prophylaxis: None DVT prophylaxis: Enoxaparin 40 Mg SC daily Code status: FULL CODE Patient plan of care was discussed with the attending physician, Dr. Guevara. Falguni Borja, PGY-2 Attending Provider Attestation/Addendum I have examined the patient, reviewed labs and imaging findings, discussed the case with the resident(s), and reviewed entered orders. I agree with the plan of care as outlined in this note, with these additional summaries/recommendations: Patient seen at bedside. No acute overnight events. AFBs still showing less than 1 per field of acid-fast bacilli observed. Per [facility] patient cannot be discharged until at least 1 AFB negative. Additional AFBs ordered this week and we will review when available. Continue ripe therapy for active tuberculosis. Dr. Ismael MD
[2024-12-09] MEDS: ISONIAZID 300 MG TABLET PO (08:10)
[2024-12-09] MEDS: rifAMPin 300 MG CAPSULE 600 MG PO (08:10)
[2024-12-09] MEDS: PYRIDOXINE 50 MG TABLET PO (08:11)
[2024-12-09] MEDS: ETHAMBUTOL HCL 400 MG TABLET 1000 MG PO (08:40)
[2024-12-09 10:00] VITALS: BP 107/70; PULSE 75; RESP 18; TEMP 36.3; O2SAT 98
[2024-12-09 14:00] VITALS: BP 107/70; BP 117/74; PULSE 90; RESP 18; TEMP 36.2; O2SAT 95
[2024-12-09 22:00] VITALS: BP 108/76; BP 117/74; PULSE 73; RESP 15; TEMP 36.6; O2SAT 97
[2024-12-10 06:00] VITALS: BP 119/70; PULSE 74; RESP 15; TEMP 36.4; O2SAT 98
[2024-12-10 08:00] VITALS: BP 106/69; PULSE 64; RESP 14; TEMP 36.2; O2SAT 96
[2024-12-10] MEDS: rifAMPin 300 MG CAPSULE 600 MG PO (09:46)
[2024-12-10] MEDS: ISONIAZID 300 MG TABLET PO (09:47)
[2024-12-10] MEDS: ETHAMBUTOL HCL 400 MG TABLET 1000 MG PO (09:47)
[2024-12-10] MEDS: PYRIDOXINE 50 MG TABLET PO (09:48)
[2024-12-10 14:00] VITALS: BP 104/69; PULSE 68; RESP 14; TEMP 36.6; O2SAT 96
--- NOTE | 2024-12-10 14:42 | PD.RESPRO ---
Documentation for date of: 12/10/24 Subjective Subjective Interval history: No acute events overnight.?Patient seen and examined at bedside this AM. Patient endorsed 2 episodes of cough with slight blood-tinged phelgm production. Patient continues to appear slightly downcast. Will order labs CBC, CMP, Mag, Phos for the morning as labs have not been done in 2 weeks. No further complaints at this time. Continue to await negative AFBs, last sent on 12/06 waiting for the result. Review of systems otherwise negative except what is mentioned above. Exam Vital Signs Temp Pulse Resp BP Pulse Ox O2 Del Method 97.2 F 64 14 106/69 96 Room Air 12/10/24 08:00 12/10/24 08:00 12/10/24 08:00 12/10/24 08:00 12/10/24 08:00 12/10/24 08:00 Narrative Exam Physical Exam General: Awake and in no acute distress. Conversational and non-toxic appearing. HEENT: Normocephalic, atraumatic, mucous membranes moist. Heart: Regular rate and rhythm, no murmurs. Lungs: Clear to auscultation with no wheezing or crackles. Abdomen: Soft, nondistended, nontender, positive bowel sounds. ?No guarding or rebound tenderness. Neurologic: Alert and oriented x3, no gross neurological deficit, and patient able to move all 4 extremities. Extremities: No edema. Skin: No rash or ecchymoses. Objective Labs 12/11/24 05:11 12/11/24 05:11 Quality Measures Quality Measures VTE prophylaxis Assessment & Plan Assessment Current Active Medications: Generic Name Dose Route Start Last Admin Trade Name Freq PRN Reason Stop Dose Admin Acetaminophen 650 mg 11/21/24 17:29 11/21/24 19:51 Acetaminophen 325 Mg Tablet PO 12/21/24 17:28 650 mg Q6HR PRN Administration PAIN Isoniazid 300 mg 12/02/24 09:00 12/10/24 09:47 Isoniazid 300 Mg Tablet PO 01/01/25 08:59 300 mg QDAY TORREY Administration Ondansetron HCl 4 mg 11/17/24 19:56 12/08/24 08:25 Ondansetron Odt 4 Mg Tabrap PO 12/17/24 19:55 4 mg Q6HR PRN Administration NAUSEA OR VOMITING Protocol Pyridoxine HCl 50 mg 11/07/24 09:00 12/10/24 09:48 Pyridoxine 50 Mg Tablet PO 01/30/26 12:00 50 mg QDAY TORREY Administration Rifampin 600 mg 12/02/24 09:00 12/10/24 09:46 Rifampin 300 Mg Capsule PO 01/01/25 08:59 600 mg QDAY TORREY Administration Sodium Chloride 5 ml 11/29/24 19:07 Sodium Chloride Rt 10% 15 Ml Nebu INH 12/29/24 19:06 PRN PRN sputum Plan 53-year-old male with no past medical history presented to the ED due to cough, recent unintentional weight loss and tarry lesion found on chest x-ray. Admitted for TB workup. 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 Patient denies any night sweats, hemoptysis at this time, however he does state having night sweats in the past few months. Chest x-ray shows extensive bilateral infiltrate, which appears cavitary in the upper lung zones Chest CT shows Extensive cavitary miliary parenchymal disease throughout the lungs, most severe at the right apex, including septated right upper lobe cavitary lesion 5.6 x 5.2cm Blood culture-negative 48 hours Influenza negative, COVID-negative, HIV negative, Aspergillus negative Sputum cultures negative AFB positive for tuberculosis, plan is to continue 7 days of treatment and repeat AFBs Wednesday night, to be sent on Wednesday AFB positive for tuberculosis, will repeat AFBs AFBs from 11/09 + resulted on 11/13 are positive for tuberculosis AFB 11/17-11/18 results are positive AFB 11/29 Resulted positive Patient was on ripe therapy from 10/22/2024 however ethambutol was discontinued on 11/27 as per ID recommendations as per sensitivity of the strain. AFB 11/29-11/30 results were positive 12/06/2024?patient stable, received ethambutol along with RIP therapy. Pending recommendations from ID and Department of Health prior to arranging safe discharge. 12/06/2024?repeat AFB were ordered on they are actually collected on 12/07/2024. Pending results Plan: -Isolation precautions -On Rifampin, isoniazid, pyrazinamid and pyridoxine therapy since 10/22/24 and restarted ethambutol 12/05/2024 -Patient will likely need to continue isolating at home with his family for a total of at least 6 months up to to 12 months since diagnosis of TB. (From 10/22/24 up to 04/2025-10/2025) -After confirming plan with Dr. Orr will continue patient on ethambutol 1 g daily #Chest pain, resolved #Shortness of breath, resolved Patient complained of generalized chest pain 2/10 and shortness of breath at rest for the past 2 days Troponin <0.002 EKG sinus rhythm, early repolarization abnormality. -No further workup warranted Hospital Management: Disposition: Pending clearance with [facility] Diet: Regular Lines: pIVs GI Prophylaxis: None DVT prophylaxis: Enoxaparin 40 Mg SC daily Code status: FULL CODE Patient plan of care was discussed with the attending physician, Dr. Guevara. Falguni Borja, PGY-2 Attending Provider Attestation/Addendum I have examined the patient, reviewed labs and imaging findings, discussed the case with the resident(s), and reviewed entered orders. I agree with the plan of care as outlined in this note, with these additional summaries/recommendations: Patient seen at bedside. No acute overnight events. Awaiting results of new AFBs. Per [facility] patient needs 1 negative sputum study before he can be safely discharged. Agree with in-house infectious disease the Ethambutol is likely of little benefit although patient will require this medicine as criteria for discharge per [facility]. Patient in agreement to continue ethambutol. Patient updated on the plan and in agreement. We will obtain hematology and chemistry panel in AM. Dr. Ismael MD
[2024-12-10 22:00] VITALS: BP 118/79; PULSE 71; RESP 19; TEMP 36.1; O2SAT 97
[2024-12-11 06:00] VITALS: BP 109/75; PULSE 65; RESP 14; TEMP 36.3; O2SAT 95
[2024-12-11 06:28] LABS: Basophils % (Auto) 1 % (0-2.5); Eosinophils # (Auto) 0.5 Thou/mm3 (0.0-0.5); Eosinophils % (Auto) 11 % (0-10); Hematocrit 42.1 % (41.0-53.0); Hemoglobin 14.3 g/dL (13.5-16.0); Immature Granulocytes % (Auto) 1 % (0-0); Immature Granulocytes Auto 0.03 Thou/mm3 (0.00-0.00); Lymphocytes # (Auto) 1.3 Thou/mm3 (1.0-4.8); Lymphocytes % (Auto) 28 % (10-50); Mean Corpuscular Hemoglobin 29.1 pg (25.0-35.0); Mean Corpuscular Volume 86 fL (80-100); Monocytes # (Auto) 0.5 Thou/mm3 (0.0-0.8); Monocytes % (Auto) 11 % (0-12); Neutrophils # (Auto) 2.2 Thou/mm3 (1.8-7.7); Neutrophils % (Auto) 50 % (37-80); Nucleated Red Blood Cell % 0 /100 WBC (0); Platelet Count 276 Thou/mm3 (140-440); RDW Standard Deviation 39.9 fL (35.1-43.9); Red Blood Count 4.92 Miln/mm3 (4.50-5.90); White Blood Count 4.5 Thou/mm3 (3.8-10.6)
[2024-12-11 06:51] LABS: Alanine Aminotransferase 21 U/L (10-49); Albumin, Serum 3.8 gm/dL (3.5-5.0); Albumin/Globulin Ratio 1.2 (1.2-2.2); Alkaline Phosphatase 88 U/L (46-116); Anion Gap 6 (7-16); Aspartate Amino Transferase 24 U/L (0-34); BUN/Creatinine Ratio 14 Ratio (12-20); Bilirubin,Total 0.2 mg/dL (0.3-1.2); Blood Urea Nitrogen 10 mg/dL (9-23); Calcium 9.5 mg/dL (8.3-10.6); Calcium (Corrected) 9.7 mg/dL (8.5-10.1); Carbon Dioxide 28.7 mMol/L (20.0-31.0); Chloride 107 mMol/L (98-107); Creatinine (Component) 0.7 mg/dL (0.6-1.3); Estimated Creatinine Clearance 115.4 mL/min (>60); Globulin 3.3 gm/dL (2.3-3.5); Glucose 73 mg/dL (74-106); Osmolality,Calculated 281 (275-295); Phosphorous 3.5 mg/dL (2.4-5.1); Potassium 4.1 mMol/L (3.4-5.1); Sodium 142 mMol/L (136-145); Total Protein 7.1 gm/dL (5.7-8.2); eGFR > 60 See Note
[2024-12-11] MEDS: PYRIDOXINE 50 MG TABLET PO (08:20)
[2024-12-11] MEDS: rifAMPin 300 MG CAPSULE 600 MG PO (08:20)
[2024-12-11] MEDS: ISONIAZID 300 MG TABLET PO (08:20)
[2024-12-11] MEDS: ETHAMBUTOL HCL 400 MG TABLET 1000 MG PO (08:33)
--- NOTE | 2024-12-11 09:14 | PD.IDPROG ---
Subjective Subjective Interval history: smear remains pos but <1, child at home already on rx, so value of continued isolation per health dept. Exam Vital Signs Temp Pulse Resp BP Pulse Ox O2 Del Method 97.3 F 65 14 109/75 95 Room Air 12/11/24 06:00 12/11/24 06:00 12/11/24 06:00 12/11/24 06:00 12/11/24 06:00 12/11/24 06:00 Narrative Exam limited visit Objective - Internal Medicine Labs 12/11/24 05:11 12/11/24 05:11 Labs: Laboratory Results - last 24 hr 12/06/24 12/06/24 12/06/24 15:05 17:45 23:09 WBC RBC Hgb Hct MCV MCH MCHC RDW Std Deviation Plt Count Neut % (Auto) Lymph % (Auto) [place] % (Auto) Eos % (Auto) Baso % (Auto) Neut # (Auto) Lymph # (Auto) [place] # (Auto) Eos # (Auto) Baso # (Auto) Immature Gran # (Auto) Absolute Nucleated RBC Immature Gran % Nucleated RBC % Sodium Potassium Chloride Carbon Dioxide Anion Gap BUN Creatinine Estim Creat Clear Calc eGFR BUN/Creatinine Ratio Glucose Calculated Osmolality Calcium Corrected Calcium Phosphorus Magnesium Total Bilirubin AST ALT Alkaline Phosphatase Total Protein Albumin Globulin Albumin/Globulin Ratio Mycobacterial Culture See Sep Rpt See Sep Rpt See Jun Rpt 12/07/24 12/11/24 07:09 05:11 WBC 4.5 RBC 4.92 Hgb 14.3 Hct 42.1 MCV 86 MCH 29.1 MCHC 34.0 RDW Std Deviation 39.9 Plt Count 276 Neut % (Auto) 50 Lymph % (Auto) 28 [place] % (Auto) 11 Eos % (Auto) 11 H Baso % (Auto) 1 Neut # (Auto) 2.2 Lymph # (Auto) 1.3 [place] # (Auto) 0.5 Eos # (Auto) 0.5 Baso # (Auto) 0.0 Immature Gran # (Auto) 0.03 H Absolute Nucleated RBC 0.00 Immature Gran % 1 H Nucleated RBC % 0 Sodium 142 Potassium 4.1 Chloride 107 Carbon Dioxide 28.7 Anion Gap 6 L BUN 10 Creatinine 0.7 Estim Creat Clear Calc 115.4 eGFR > 60 BUN/Creatinine Ratio 14 Glucose 73 L Calculated Osmolality 281 Calcium 9.5 Corrected Calcium 9.7 Phosphorus 3.5 Magnesium 2.0 Total Bilirubin 0.2 L AST 24 ALT 21 Alkaline Phosphatase 88 Total Protein 7.1 Albumin 3.8 Globulin 3.3 Albumin/Globulin Ratio 1.2 Mycobacterial Culture See Sep Rpt Assessment & Plan A&P Narrative pulm tb, neg cocci IgMand IgG and neg procal (insensitive to fungal and atypical antigens) and pos afb smears with repeats also pos. cx pos from 10/21 and 11/06 smear pos late nov 2024. but cx noted. organism is S to inh and rif, so no need for ethambutol. pza is used to speed clearance of sputum so will stop that agent at this point in time. ethambutol is not added to speed clearance but in case of r to inh and rifampin (not seen) cx pos from 11/15 but in broth only, tb grows slowly and only in the dark, so cx are not checked daily but once a week and are incubated in the dark. brothonly pos cx generally mean: not much there rx to be long. 6-12 mo. later sputum also pos. recommend more afb smears each /Wednesday. health dept may determine the isolation status and their criteria for release no objection to outpt f/u by health dept but discharge is at their discretion. hotel stays can help if that can be arranged and if it is appropriate for the setting (again up to health dept). he lives with young children (pre school age or less) then they should be tested for tb. apparently one is positive (by word of mouth) we do not have any details though other than thru patient. will check in again on Wednesday. ok to cut la as you have done to minimize phlebotomy. hiv and hep c neg. stopped ethambutol again as well as pza on Friday 12/08. organism is S to inh and rif, so ok to use 2 agents at this point.poor documentation of rationale for ethambutol noted. if health dept insists on it, just document that as they never leave a note at all. dr do is also not ID trained to my knowledge. Time Spent With Patient Time: Total time spent is greater than 50% in coordination of care (as documented) at patient's floor/unit and/or counseling patient:
--- NOTE | 2024-12-11 10:18 | PC.SS ---
Follow up note: Waiting for culture results. Pt waiting for [facility] clearance. Pt will return home upon dc. Per bedside nurse, Trini pt has been ambulating in his room.
--- NOTE | 2024-12-11 13:37 | ESPR_ITS ---
Documentation for date of: 12/11/24 Subjective Subjective Interval history: Patient was seen and examined in [facility] today. There were no major overnight events the patient had no complaints this morning. AFB cultures on 12/07/24 were possitive x3 with less than 1 organism per field. Acknowledged ID recommendations moving forward. Attempted to call [facility], Dr Orr ([phone]) this morning to discuss further planning without success. Will continue to follow up. Exam Vital Signs Temp Pulse Resp BP Pulse Ox O2 Del Method 97.3 F 65 14 109/75 95 Room Air 12/11/24 06:00 12/11/24 06:00 12/11/24 06:00 12/11/24 06:00 12/11/24 06:00 12/11/24 06:00 Narrative Exam Constitutional: Well nourished and in no acute distress CVS: RRR, S1 and S2 present, no murmurs, rubs or gallops . RESP: CTAB, no SOB, no rales, rhonchi or wheezing. No respiratory Distress GI: Normal BS, Nontender/Nondistended. MSK: Full range of motion, No trauma or deformities or masses. Skin: Warm to touch, Dry. No rashes or lesions. No hematomas Neuro: food editor II-XII grossly intact. Sensation grossly intact. Psych: (AAO) x3 . Appropriate mood and affect. Objective Labs 12/11/24 05:11 12/11/24 05:11 Labs: Laboratory Results - last 24 hr 12/06/24 12/06/24 12/06/24 15:05 17:45 23:09 WBC RBC Hgb Hct MCV MCH MCHC RDW Std Deviation Plt Count Neut % (Auto) Lymph % (Auto) [place] % (Auto) Eos % (Auto) Baso % (Auto) Neut # (Auto) Lymph # (Auto) [place] # (Auto) Eos # (Auto) Baso # (Auto) Immature Gran # (Auto) Absolute Nucleated RBC Immature Gran % Nucleated RBC % Sodium Potassium Chloride Carbon Dioxide Anion Gap BUN Creatinine Estim Creat Clear Calc eGFR BUN/Creatinine Ratio Glucose Calculated Osmolality Calcium Corrected Calcium Phosphorus Magnesium Total Bilirubin AST ALT Alkaline Phosphatase Total Protein Albumin Globulin Albumin/Globulin Ratio Mycobacterial Culture See Sep Rpt See Sep Rpt See Sep Rpt 12/07/24 12/11/24 07:09 05:11 WBC 4.5 RBC 4.92 Hgb 14.3 Hct 42.1 MCV 86 MCH 29.1 MCHC 34.0 RDW Std Deviation 39.9 Plt Count 276 Neut % (Auto) 50 Lymph % (Auto) 28 [place] % (Auto) 11 Eos % (Auto) 11 H Baso % (Auto) 1 Neut # (Auto) 2.2 Lymph # (Auto) 1.3 [place] # (Auto) 0.5 Eos # (Auto) 0.5 Baso # (Auto) 0.0 Immature Gran # (Auto) 0.03 H Absolute Nucleated RBC 0.00 Immature Gran % 1 H Nucleated RBC % 0 Sodium 142 Potassium 4.1 Chloride 107 Carbon Dioxide 28.7 Anion Gap 6 L BUN 10 Creatinine 0.7 Estim Creat Clear Calc 115.4 eGFR > 60 BUN/Creatinine Ratio 14 Glucose 73 L Calculated Osmolality 281 Calcium 9.5 Corrected Calcium 9.7 Phosphorus 3.5 Magnesium 2.0 Total Bilirubin 0.2 L AST 24 ALT 21 Alkaline Phosphatase 88 Total Protein 7.1 Albumin 3.8 Globulin 3.3 Albumin/Globulin Ratio 1.2 Mycobacterial Culture See Sep Rpt Quality Measures Quality Measures VTE prophylaxis Assessment & Plan Assessment Current Active Medications: Generic Name Dose Route Start Last Admin Trade Name Freq PRN Reason Stop Dose Admin Acetaminophen 650 mg 11/21/24 17:29 11/21/24 19:51 Acetaminophen 325 Mg Tablet PO 12/21/24 17:28 650 mg Q6HR PRN Administration PAIN Isoniazid 300 mg 12/02/24 09:00 12/11/24 08:20 Isoniazid 300 Mg Tablet PO 01/01/25 08:59 300 mg QDAY TORREY Administration Ondansetron HCl 4 mg 11/17/24 19:56 12/08/24 08:25 Ondansetron Odt 4 Mg Tabrap PO 12/17/24 19:55 4 mg Q6HR PRN Administration NAUSEA OR VOMITING Protocol Pyridoxine HCl 50 mg 11/07/24 09:00 12/11/24 08:20 Pyridoxine 50 Mg Tablet PO 01/30/26 12:00 50 mg QDAY TORREY Administration Rifampin 600 mg 12/02/24 09:00 12/11/24 08:20 Rifampin 300 Mg Capsule PO 01/01/25 08:59 600 mg QDAY TORREY Administration Sodium Chloride 5 ml 11/29/24 19:07 Sodium Chloride Rt 10% 15 Ml Nebu INH 12/29/24 19:06 PRN PRN sputum Plan 53-year-old male with no past medical history presented to the ED due to cough, recent unintentional weight loss and tarry lesion found on chest x-ray. Admitted for TB workup. 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 Patient denies any night sweats, hemoptysis at this time, however he does state having night sweats in the past few months. Chest x-ray shows extensive bilateral infiltrate, which appears cavitary in the upper lung zones Chest CT shows Extensive cavitary miliary parenchymal disease throughout the lungs, most severe at the right apex, including septated right upper lobe cavitary lesion 5.6 x 5.2cm Blood culture-negative 48 hours Influenza negative, COVID-negative, HIV negative, Aspergillus negative Sputum cultures negative AFB positive for tuberculosis, plan is to continue 7 days of treatment and repeat AFBs Wednesday night, to be sent on Wednesday AFB positive for tuberculosis, will repeat AFBs AFBs from 11/09 resulted on 11/13 are positive for tuberculosis AFB 11/17-11/18 results are positive AFB 11/29 Resulted positive Patient was on ripe therapy from 10/22/2024 however ethambutol was discontinued on 11/27 as per ID recommendations as per sensitivity of the strain. AFB 11/29-11/30 results were positive 12/06/2024?patient stable, received ethambutol along with RIP therapy. Pending recommendations from ID and Department of Health prior to arranging safe discharge. 12/06/2024?repeat AFB were ordered on they are actually collected on 12/07/2024. Pending results Plan: -Isolation precautions -Continue Isoniazid and refampin and discontinued pza and ethambutol per ID recommendations -Patient will likely need to continue isolating at home with his family for a total of at least 6 months up to to 12 months since diagnosis of TB. (From 10/22/24 up to 04/2025-10/2025) - Will touch base again with Dr Orr at department of health for further discharge planning. #Chest pain, resolved #Shortness of breath, resolved Patient complained of generalized chest pain 2/10 and shortness of breath at rest for the past 2 days Troponin <0.002 EKG sinus rhythm, early repolarization abnormality. -No further workup warranted Hospital Management: Disposition: Pending clearance with [facility] Diet: Regular Lines: pIVs GI Prophylaxis: None DVT prophylaxis: Enoxaparin 40 Mg SC daily Code status: FULL CODE I discussed patient's care with attending physician, Dr Ismael Steward PGY3 Attending Provider Attestation/Addendum I have examined the patient, reviewed labs and imaging findings, discussed the case with the resident(s), and reviewed entered orders. I agree with the plan of care as outlined in this note, with these additional summaries/recommendations: Patient seen at bedside. No acute overnight events. No AFB results still showing acid-fast bacilli observed with less than 1 per field. We will send 3 additional sputum studies this week. Per [facility] patient needs 1 negative sputum study before he can be safely discharged. Agree with in-house infectious disease the Ethambutol is likely of little benefit although patient will require this medicine as criteria for discharge per [facility]. Patient in agreement to continue ethambutol. Patient updated on the plan and in agreement. We will obtain hematology and chemistry panel in AM. Dr. Ismael MD
[2024-12-11 14:00] VITALS: BP 131/81; PULSE 84; RESP 18; TEMP 36.4; O2SAT 94
[2024-12-11 21:45] VITALS: BP 103/73; PULSE 69; RESP 18; TEMP 36.2; O2SAT 98
[2024-12-12 06:00] VITALS: BP 108/73; PULSE 64; RESP 18; TEMP 36.1; O2SAT 96
[2024-12-12] MEDS: ISONIAZID 300 MG TABLET PO (09:22)
[2024-12-12] MEDS: PYRIDOXINE 50 MG TABLET PO (09:22)
[2024-12-12] MEDS: rifAMPin 300 MG CAPSULE 600 MG PO (09:22)
[2024-12-12] MEDS: MG HYD/AL HYD/SIME (Maalox Reg) SUSP 30 ML UDC PO (10:26)
[2024-12-12 10:55] LABS: Cult AFB Sendout- Sputum* See Sep Rpt
[2024-12-12] MEDS: ETHAMBUTOL HCL 400 MG TABLET 1000 MG PO (11:08)
--- NOTE | 2024-12-12 11:14 | PC.RT ---
Sputum #1 collected at 0950. Sputum sent to lab.
--- NOTE | 2024-12-12 12:52 | PC.SS ---
Follow up note: Cultures are still positive. Ordering 3 more AFBs today. Pt will return home upon dc once he has been cleared from [facility].
[2024-12-12 14:00] VITALS: BP 99/69; PULSE 62; RESP 20; TEMP 36.2; O2SAT 97
--- NOTE | 2024-12-12 14:28 | PC.IP ---
Faxed and email history order and MAR for Pyrazinamide from 10/22/2024 to 12/08/2024 per [facility] request. Per J[facility] Ledesma, no discharge orders from Dr. Orr at this time
--- NOTE | 2024-12-12 15:28 | ESPR_ITS ---
Documentation for date of: 12/12/24 Subjective Subjective Interval history: Patient was seen and examined in [facility] today. There were no major overnight events and patient had no complaints this morning. Attempts were made to contact Dr. Orr once again however no communication was made. Informed infectious disease control to please try and contact the Department of Health and see if Dr. Orr can communicate with our infectious disease specialist so they can discuss in detail the best regimen for patient discharge. Ordered repeat AFB cultures today Exam Vital Signs Temp Pulse Resp BP Pulse Ox O2 Del Method 97.2 F 62 20 99/69 97 Room Air 12/12/24 14:00 12/12/24 14:00 12/12/24 14:00 12/12/24 14:00 12/12/24 14:12/11/24 06:00 Narrative Exam Constitutional: Well nourished and in no acute distress CVS: RRR, S1 and S2 present, no murmurs, rubs or gallops . RESP: CTAB, no SOB, no rales, rhonchi or wheezing. No respiratory Distress GI: Normal BS, Nontender/Nondistended. MSK: Full range of motion, No trauma or deformities or masses. Skin: Warm to touch, Dry. No rashes or lesions. No hematomas Neuro: forming department end finder II-XII grossly intact. Sensation grossly intact. Psych: (AAO) x3 . Appropriate mood and affect. Objective Labs 12/11/24 05:11 12/11/24 05:11 Quality Measures Quality Measures VTE prophylaxis Assessment & Plan Assessment Current Active Medications: Generic Name Dose Route Start Last Admin Trade Name Freq PRN Reason Stop Dose Admin Acetaminophen 650 mg 11/21/24 17:29 11/21/24 19:51 Acetaminophen 325 Mg Tablet PO 12/21/24 17:28 650 mg Q6HR PRN Administration PAIN Isoniazid 300 mg 12/02/24 09:00 12/12/24 09:22 Isoniazid 300 Mg Tablet PO 01/01/25 08:59 300 mg QDAY TORREY Administration Ondansetron HCl 4 mg 11/17/24 19:56 12/08/24 08:25 Ondansetron Odt 4 Mg Tabrap PO 12/17/24 19:55 4 mg Q6HR PRN Administration NAUSEA OR VOMITING Protocol Pyridoxine HCl 50 mg 11/07/24 09:00 12/12/24 09:22 Pyridoxine 50 Mg Tablet PO 01/30/26 12:00 50 mg QDAY TORREY Administration Rifampin 600 mg 12/02/24 09:00 12/12/24 09:22 Rifampin 300 Mg Capsule PO 01/01/25 08:59 600 mg QDAY TORREY Administration Sodium Chloride 5 ml 11/29/24 19:07 Sodium Chloride Rt 10% 15 Ml Nebu INH 12/29/24 19:06 PRN PRN sputum Plan 53-year-old male with no past medical history presented to the ED due to cough, recent unintentional weight loss and tarry lesion found on chest x-ray. Admitted for TB workup. 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 Patient denies any night sweats, hemoptysis at this time, however he does state having night sweats in the past few months. Chest x-ray shows extensive bilateral infiltrate, which appears cavitary in the upper lung zones Chest CT shows Extensive cavitary miliary parenchymal disease throughout the lungs, most severe at the right apex, including septated right upper lobe cavitary lesion 5.6 x 5.2cm Blood culture-negative 48 hours Influenza negative, COVID-negative, HIV negative, Aspergillus negative Sputum cultures negative AFB positive for tuberculosis, plan is to continue 7 days of treatment and repeat AFBs Wednesday night, to be sent on Wednesday AFB positive for tuberculosis, will repeat AFBs AFBs from 11/09 + resulted on 11/13 are positive for tuberculosis AFB 11/17-11/18 results are positive AFB 11/29 Resulted positive Patient was on ripe therapy from 10/22/2024 however ethambutol was discontinued on 11/27 as per ID recommendations as per sensitivity of the strain. AFB 11/29-11/30 results were positive 12/06/2024?patient stable, received ethambutol along with RIP therapy. Pending recommendations from ID and Department of Health prior to arranging safe discharge. 12/06/2024?repeat AFB were ordered on they are actually collected on 12/07/2024. Pending results Plan: -Isolation precautions -Continue Isoniazid and refampin and discontinued pza and ethambutol per ID recommendations -Patient will likely need to continue isolating at home with his family for a total of at least 6 months up to to 12 months since diagnosis of TB. (From 10/22/24 up to 04/2025-10/2025) - Will touch base again with Dr Or[facility] for further discharge planning. #Chest pain, resolved #Shortness of breath, resolved Patient complained of generalized chest pain 2/10 and shortness of breath at rest for the past 2 days Troponin <0.002 EKG sinus rhythm, early repolarization abnormality. -No further workup warranted Hospital Management: Disposition: Pending clearance with [facility] department Diet: Regular Lines: pIVs GI Prophylaxis: None DVT prophylaxis: Enoxaparin 40 Mg SC daily Code status: FULL CODE I discussed patient's care with attending physician, Dr Esperanza Steward PGY3 Attending Provider Attestation/Addendum I reviewed labs, imaging, EKG, home medications and prior available records. Face to face evaluation was performed by me. I have personally examined the patient and discussed assessment and plan with the IM team. I reviewed the resident note and agree with the plan with exceptions as below. Active TB Social problem Continues to have positive AFBs. Discussed with [facility]: Cannot do discharge before having negative AFBs. Continue rifampicin, isoniazid, and ethambutol. photofinishing laboratory worker is following ID is following
[2024-12-12 17:57] LABS: Cult AFB Sendout- Sputum* See Sep Rpt
[2024-12-12 22:00] VITALS: BP 104/76; PULSE 79; RESP 18; TEMP 36.1; O2SAT 99
[2024-12-13 01:19] LABS: Cult AFB Sendout- Sputum* See Sep Rpt
[2024-12-13 06:00] VITALS: BP 107/74; PULSE 62; RESP 18; TEMP 36.1; O2SAT 98
[2024-12-13 07:34] VITALS: BP 113/78; PULSE 64; RESP 19; TEMP 36.2; O2SAT 99
[2024-12-13] MEDS: PYRIDOXINE 50 MG TABLET PO (08:18)
[2024-12-13] MEDS: rifAMPin 300 MG CAPSULE 600 MG PO (08:18)
[2024-12-13] MEDS: ISONIAZID 300 MG TABLET PO (08:18)
--- NOTE | 2024-12-13 10:12 | PC.SS ---
Follow up note: AFBs have been sent. Pt is waiting for clearance from [facility]. Physician residents have attempted to contact Dr. Orr from [facility] but have been unsuccessful.
[2024-12-13 10:49] VITALS: BMI 22.4
--- NOTE | 2024-12-13 11:31 | ESPR_ITS ---
Documentation for date of: 12/13/24 Subjective Subjective Interval history: Patient seen and examined in [facility] today. There were no major overnight events the patient feels fine this morning. Got a hold of Dr. Orr this morning to clarify plans moving forward. Agreement on continuing with just isoniazid and rifampin as patient was cultures are sensitive. Patient will remain in house until all 3 AFB cultures are negative prior to discharge. There was a consideration of discharge and patient on full RIPE therapy despite sensitivity as patient was going home to a high risk environment. However patient's sputum cultures continue to be positive. Exam Vital Signs Temp Pulse Resp BP Pulse Ox O2 Del Method 97.1 F 64 19 113/78 99 Room Air 12/13/24 07:34 12/13/24 07:34 12/13/24 07:34 12/13/24 07:34 12/13/24 07:34 12/13/24 07:34 Narrative Exam Constitutional: Well nourished and in no acute distress CVS: RRR, S1 and S2 present, no murmurs, rubs or gallops . RESP: CTAB, no SOB, no rales, rhonchi or wheezing. No respiratory Distress GI: Normal BS, Nontender/Nondistended. MSK: Full range of motion, No trauma or deformities or masses. Skin: Warm to touch, Dry. No rashes or lesions. No hematomas Neuro: naval architect II-XII grossly intact. Sensation grossly intact. Psych: (AAO) x3 . Appropriate mood and affect. Objective Labs 12/11/24 05:11 12/11/24 05:11 Quality Measures Quality Measures VTE prophylaxis Assessment & Plan Assessment Current Active Medications: Generic Name Dose Route Start Last Admin Trade Name Freq PRN Reason Stop Dose Admin Acetaminophen 650 mg 11/21/24 17:29 11/21/24 19:51 Acetaminophen 325 Mg Tablet PO 12/21/24 17:28 650 mg Q6HR PRN Administration PAIN Isoniazid 300 mg 12/02/24 09:00 12/13/24 08:18 Isoniazid 300 Mg Tablet PO 01/01/25 08:59 300 mg QDAY TORREY Administration Ondansetron HCl 4 mg 11/17/24 19:56 12/08/24 08:25 Ondansetron Odt 4 Mg Tabrap PO 12/17/24 19:55 4 mg Q6HR PRN Administration NAUSEA OR VOMITING Protocol Pyridoxine HCl 50 mg 11/07/24 09:00 12/13/24 08:18 Pyridoxine 50 Mg Tablet PO 01/30/26 12:00 50 mg QDAY TORREY Administration Rifampin 600 mg 12/02/24 09:00 12/13/24 08:18 Rifampin 300 Mg Capsule PO 01/01/25 08:59 600 mg QDAY TORREY Administration Sodium Chloride 5 ml 11/29/24 19:07 Sodium Chloride Rt 10% 15 Ml Nebu INH 12/29/24 19:06 PRN PRN sputum Plan 53-year-old male with no past medical history presented to the ED due to cough, recent unintentional weight loss and tarry lesion found on chest x-ray. Admitted for TB workup. 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 Patient denies any night sweats, hemoptysis at this time, however he does state having night sweats in the past few months. Chest x-ray shows extensive bilateral infiltrate, which appears cavitary in the upper lung zones Chest CT shows Extensive cavitary miliary parenchymal disease throughout the lungs, most severe at the right apex, including septated right upper lobe cavitary lesion 5.6 x 5.2cm Blood culture-negative 48 hours Influenza negative, COVID-negative, HIV negative, Aspergillus negative Sputum cultures negative AFB positive for tuberculosis, plan is to continue 7 days of treatment and repeat AFBs Wednesday night, to be sent on Wednesday AFB positive for tuberculosis, will repeat AFBs AFBs from 11/09 + resulted on 11/13 are positive for tuberculosis AFB 11/17-11/18 results are positive AFB 11/29 Resulted positive Patient was on ripe therapy from 10/22/2024 however ethambutol was discontinued on 11/27 as per ID recommendations as per sensitivity of the strain. AFB 11/29-11/30 results were positive 12/06/2024?patient stable, received ethambutol along with RIP therapy. Pending recommendations from ID and Department of Health prior to arranging safe discharge. 12/06/2024?repeat AFB were ordered on they are actually collected on 12/07/2024. Resulted positive 12/12/2024 -repeat AFB cultures were collected. Pending results Plan: -Isolation precautions -Continue Isoniazid and rifampin and discontinued pza and ethambutol per ID recommendations -Patient will likely need to continue isolating at home with his family for a total of at least 6 months up to to 12 months since diagnosis of TB. (From 10/22/24 up to 04/2025-10/2025) -Will continue patient on isoniazid and rifampin until all 3 sputum cultures returned negative. ? Appreciate ID recommendations as well as Department of Health parameters for discharge #Chest pain, resolved #Shortness of breath, resolved Patient complained of generalized chest pain 2/10 and shortness of breath at rest for the past 2 days Troponin <0.002 EKG sinus rhythm, early repolarization abnormality. -No further workup warranted Hospital Management: Disposition: Pending clearance with [facility] department Diet: Regular Lines: pIVs GI Prophylaxis: None DVT prophylaxis: Enoxaparin 40 Mg SC daily Code status: FULL CODE I discussed patient's care with attending physician, Dr Esperanza Steward PGY3 Attending Provider Attestation/Addendum I reviewed labs, imaging, EKG, home medications and prior available records. Face to face evaluation was performed by me. I have personally examined the patient and discussed assessment and plan with the IM team. I reviewed the resident note and agree with the plan with exceptions as below. Active TB Social problem Continues to have positive AFBs. Discussed with [facility]: Cannot do discharge before having negative AFBs x3. Continue rifampicin and isoniazid. sub assembly team worker is following ID is following
--- NOTE | 2024-12-13 12:50 | PD.IDPROG ---
Subjective Subjective Interval history: afb's rare. value of isolation debatable. [place] and has young children at home. so he may need to wait till sputums neg. Exam Vital Signs Temp Pulse Resp BP Pulse Ox O2 Del Method 97.1 F 64 19 113/78 99 Room Air 12/13/24 07:34 12/13/24 07:34 12/13/24 07:34 12/13/24 07:34 12/13/24 07:34 12/13/24 07:34 Narrative Exam limited eval today Objective - Internal Medicine Labs 12/11/24 05:11 12/11/24 05:11 Assessment & Plan A&P Narrative pulm tb, neg cocci IgMand IgG and neg procal (insensitive to fungal and atypical antigens) and pos afb smears with repeats also pos. cx pos from 10/21 and 11/06 smear pos late nov 2024. but cx noted. organism is S to inh and rif, so no need for ethambutol. pza is used to speed clearance of sputum so stopped pza on 12/11. Ethambutol is not added to speed clearance but in case of r to inh and rifampin (not seen) cx pos from 11/15 but in broth only,but health dept deferring to state on release . contagiousness seems low. tb grows slowly and only in the dark, so cx are not checked daily but once a week and are incubated in the dark. brothonly pos cx generally mean: not much there rx to be long. 6-12 mo. later sputum also pos on smear but rare. recommend more afb smears each /Wednesday. health dept may determine the isolation status and their criteria for release no objection to outpt f/u by health dept but discharge is at their discretion. hotel stays can help if that can be arranged and if it is appropriate for the setting (again up to health dept). he lives with young children (pre school age or less) then they should be tested for tb. apparently one is positive (by word of mouth) we do not have any details though other than thru patient. will check in again on Wednesday. ok to cut la as you have done to minimize phlebotomy. hiv and hep c neg. stopped ethambutol again as well as pza on Friday 12/08. organism is S to inh and rif, so ok to use 2 agents at this point. Time Spent With Patient Time: Total time spent is greater than 50% in coordination of care (as documented) at patient's floor/unit and/or counseling patient:
[2024-12-13] MEDS: MG HYD/AL HYD/SIME (Maalox Reg) SUSP 30 ML UDC PO (13:53)
[2024-12-13 13:57] VITALS: BP 111/79; PULSE 73; RESP 18; TEMP 36.1; O2SAT 98
[2024-12-13 22:00] VITALS: BP 106/60; PULSE 69; RESP 16; TEMP 36.2; O2SAT 98
[2024-12-14 05:09] VITALS: PULSE 70; RESP 18; O2SAT 99
[2024-12-14] MEDS: SODIUM CHLORIDE RT 10% 15 ML NEBU 5 ML INH ×2 (05:09→13:04)
--- NOTE | 2024-12-14 05:09 | PC.RT ---
1st afb obtained. Sent to lab 0509.
[2024-12-14 05:44] LABS: Cult AFB Sendout- Sputum* See Sep Rpt
[2024-12-14 06:00] VITALS: BP 106/73; PULSE 71; RESP 16; TEMP 36.3; O2SAT 97
[2024-12-14 08:00] VITALS: BP 100/77; PULSE 84; RESP 16; TEMP 36.3; O2SAT 97
[2024-12-14] MEDS: PYRIDOXINE 50 MG TABLET PO (09:01)
[2024-12-14] MEDS: rifAMPin 300 MG CAPSULE 600 MG PO (09:01)
[2024-12-14] MEDS: ISONIAZID 300 MG TABLET PO (09:01)
--- NOTE | 2024-12-14 09:42 | PC.SS ---
Follow up note: Cultures from 12-12-24 came back positive. Pt is waiting for [facility]. Pt will return home upon dc.
[2024-12-14 12:01] VITALS: BP 115/72; PULSE 64; RESP 16; TEMP 36.3; O2SAT 97
[2024-12-14] MEDS: MG HYD/AL HYD/SIME (Maalox Reg) SUSP 30 ML UDC PO (12:22)
[2024-12-14 13:08] VITALS: PULSE 86; RESP 18; O2SAT 100
[2024-12-14 13:22] LABS: Cult AFB Sendout- Sputum* See Sep Rpt
--- NOTE | 2024-12-14 13:44 | ESPR_ITS ---
Documentation for date of: 12/14/24 Subjective Subjective Interval history: Patient seen and examined in [facility] today. There were no major overnight events the patient feels fine this morning. Exam Vital Signs Temp Pulse Resp BP Pulse Ox O2 Del Method 97.3 F 86 18 115/72 100 Room Air 12/14/24 12:01 12/14/24 13:08 12/14/24 13:08 12/14/24 12:01 12/14/24 13:08 12/14/24 12:01 Narrative Exam Constitutional: Well nourished and in no acute distress CVS: RRR, S1 and S2 present, no murmurs, rubs or gallops . RESP: CTAB, no SOB, no rales, rhonchi or wheezing. No respiratory Distress GI: Normal BS, Nontender/Nondistended. MSK: Full range of motion, No trauma or deformities or masses. Skin: Warm to touch, Dry. No rashes or lesions. No hematomas Neuro: brisket puller II-XII grossly intact. Sensation grossly intact. Psych: (AAO) x3 . Appropriate mood and affect. Objective Labs 12/11/24 05:11 12/11/24 05:11 Labs: Laboratory Results - last 24 hr 12/12/24 09:50 Mycobacterial Culture See Sep Rpt Quality Measures Quality Measures VTE prophylaxis Assessment & Plan Assessment Current Active Medications: Generic Name Dose Route Start Last Admin Trade Name Freq PRN Reason Stop Dose Admin Acetaminophen 650 mg 11/21/24 17:29 11/21/24 19:51 Acetaminophen 325 Mg Tablet PO 12/21/24 17:28 650 mg Q6HR PRN Administration PAIN Al Hydrox/Mg Hydrox/Simethicone 30 ml 12/13/24 13:42 12/14/24 12:22 Mg Hyd/Al Hyd/Bari (Maalox Reg) Susp 30 Ml Udc PO 01/12/25 13:41 30 ml Q4HR PRN Administration UPSET STOMACH/INDIGESTION Isoniazid 300 mg 12/02/24 09:00 12/14/24 09:01 Isoniazid 300 Mg Tablet PO 01/01/25 08:59 300 mg QDAY TORREY Administration Ondansetron HCl 4 mg 11/17/24 19:56 12/08/24 08:25 Ondansetron Odt 4 Mg Tabrap PO 12/17/24 19:55 4 mg Q6HR PRN Administration NAUSEA OR VOMITING Protocol Pyridoxine HCl 50 mg 11/07/24 09:00 12/14/24 09:01 Pyridoxine 50 Mg Tablet PO 01/30/26 12:00 50 mg QDAY OTRREY Administration Rifampin 600 mg 12/02/24 09:00 12/14/24 09:01 Rifampin 300 Mg Capsule PO 01/01/25 08:59 600 mg QDAY TORREY Administration Sodium Chloride 5 ml 11/29/24 19:07 12/14/24 13:04 Sodium Chloride Rt 10% 15 Ml Nebu INH 12/29/24 19:06 5 ml PRN PRN Administration sputum Plan 53-year-old male with no past medical history presented to the ED due to cough, recent unintentional weight loss and tarry lesion found on chest x-ray. Admitted for TB workup. 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 Patient denies any night sweats, hemoptysis at this time, however he does state having night sweats in the past few months. Chest x-ray shows extensive bilateral infiltrate, which appears cavitary in the upper lung zones Chest CT shows Extensive cavitary miliary parenchymal disease throughout the lungs, most severe at the right apex, including septated right upper lobe cavitary lesion 5.6 x 5.2cm Blood culture-negative 48 hours Influenza negative, COVID-negative, HIV negative, Aspergillus negative Sputum cultures negative AFB positive for tuberculosis, plan is to continue 7 days of treatment and repeat AFBs Wednesday night, to be sent on Wednesday AFB positive for tuberculosis, will repeat AFBs AFBs from 11/09 + resulted on 11/13 are positive for tuberculosis AFB 11/17-11/18 results are positive AFB 11/29 Resulted positive Patient was on ripe therapy from 10/22/2024 however ethambutol was discontinued on 11/27 as per ID recommendations as per sensitivity of the strain. AFB 11/29-11/30 results were positive 12/06/2024?patient stable, received ethambutol along with RIP therapy. Pending recommendations from ID and Department of Health prior to arranging safe discharge. 12/06/2024?repeat AFB were ordered on they are actually collected on 12/07/2024. Resulted positive 12/12/2024 -repeat AFB cultures were collected. Positive culture Plan: -Isolation precautions -Continue Isoniazid and rifampin and discontinued pza and ethambutol per ID recommendations as the strain is sensitive to rif and izo -Patient will likely need to continue isolating at home with his family for a total of at least 6 months up to to 12 months since diagnosis of TB. (From 10/22/24 up to 04/2025-10/2025) -Will continue patient on isoniazid and rifampin until all 3 sputum cultures returned negative. ? Appreciate ID recommendations as well as Department of Health parameters for discharge - Will repeat cultures eary next week #Chest pain, resolved #Shortness of breath, resolved Patient complained of generalized chest pain 2/10 and shortness of breath at rest for the past 2 days Troponin <0.002 EKG sinus rhythm, early repolarization abnormality. -No further workup warranted Hospital Management: Disposition: Pending clearance with [facility] department Diet: Regular Lines: pIVs GI Prophylaxis: None DVT prophylaxis: Enoxaparin 40 Mg SC daily Code status: FULL CODE I discussed patient's care with attending physician, Dr Esperanza Steward PGY3 Attending Provider Attestation/Addendum I reviewed labs, imaging, EKG, home medications and prior available records. Face to face evaluation was performed by me. I have personally examined the patient and discussed assessment and plan with the IM team. I reviewed the resident note and agree with the plan with exceptions as below. Active TB Social problem Continues to have positive AFBs. Discussed with [facility] health: Cannot do discharge before having negative AFBs x3. Continue rifampicin and isoniazid. spout worker is following ID is following
--- NOTE | 2024-12-14 17:59 | PD.IDPROG ---
Subjective Subjective Interval history: afb's weakly pos but there is at least one child at home. one is pos by report. Exam Vital Signs Temp Pulse Resp BP Pulse Ox O2 Del Method 97.3 F 86 18 115/72 100 Room Air 12/14/24 12:01 12/14/24 13:08 12/14/24 13:08 12/14/24 12:01 12/14/24 13:08 12/14/24 12:01 Narrative Exam limited eval. Objective - Internal Medicine Labs 12/11/24 05:11 12/11/24 05:11 Labs: Laboratory Results - last 24 hr 12/12/24 09:50 Mycobacterial Culture See Sep Rpt Assessment & Plan A&P Narrative pulm tb, neg cocci IgMand IgG and neg procal (insensitive to fungal and atypical antigens) and pos afb smears with repeats also pos. cx pos from 10/21 and 11/06 smear pos late nov 2024. but cx noted. organism is S to inh and rif, so no need for ethambutol. pza is used to speed clearance of sputum so stopped pza on 12/11. Ethambutol is not added to speed clearance but in case of r to inh and rifampin (not seen) cx pos from 11/15 but in broth only,but health dept deferring to state on release . contagiousness seems low. tb grows slowly and only in the dark, so cx are not checked daily but once a week and are incubated in the dark. brothonly pos cx generally mean: not much there rx to be long. 6-12 mo. later sputum also pos on smear but rare. recommend more afb smears each /Wednesday. health dept may determine the isolation status and their criteria for release no objection to outpt f/u by health dept but discharge is at their discretion. hotel stays can help if that can be arranged and if it is appropriate for the setting (again up to health dept). he lives with young children (pre school age or less) then they should be tested for tb. apparently one is positive (by word of mouth) we do not have any details though other than thru patient. will check in again on Wednesday. ok to cut la as you have done to minimize phlebotomy. hiv and hep c neg. stopped ethambutol again as well as pza on Friday 12/08. organism is S to inh and rif, so ok to use 2 agents at this point. Time Spent With Patient Time: Total time spent is greater than 50% in coordination of care (as documented) at patient's floor/unit and/or counseling patient:
[2024-12-14 23:09] LABS: Cult AFB Sendout- Sputum* See Sep Rpt
[2024-12-15 06:00] VITALS: BP 111/63; PULSE 63; RESP 18; TEMP 36.2; O2SAT 96
--- NOTE | 2024-12-15 07:57 | PD.RESPRO ---
Documentation for date of: 12/15/24 Subjective Subjective Interval history: No acute events overnight.?Patient seen and examined at bedside this AM. No complaints at this time.?Discussed with Dr. Peraza on [facility]. Patient will continue on rifampin and isoniazid. Next AFB should be drawn next week. Review of systems otherwise negative except what is mentioned above. Exam Vital Signs Temp Pulse Resp BP Pulse Ox O2 Del Method 97.6 F 64 18 112/75 97 Room Air 12/16/24 05:08 12/16/24 05:08 12/16/24 05:08 12/16/24 05:08 12/16/24 05:08 12/15/24 06:00 Narrative Exam Physical Exam General: Awake and in no acute distress. Conversational and non-toxic appearing. HEENT: Normocephalic, atraumatic, mucous membranes moist. Heart: Regular rate and rhythm, no murmurs. Lungs: Clear to auscultation with no wheezing or crackles. Abdomen: Soft, nondistended, nontender, positive bowel sounds. ?No guarding or rebound tenderness. Neurologic: Alert and oriented x3, no gross neurological deficit, and patient able to move all 4 extremities. Extremities: No edema. Skin: No rash or ecchymoses. Objective Labs 12/11/24 05:11 12/11/24 05:11 Quality Measures Quality Measures VTE prophylaxis Assessment & Plan Assessment Current Active Medications: Generic Name Dose Route Start Last Admin Trade Name Freq PRN Reason Stop Dose Admin Acetaminophen 650 mg 11/21/24 17:29 11/21/24 19:51 Acetaminophen 325 Mg Tablet PO 12/21/24 17:28 650 mg Q6HR PRN Administration PAIN Al Hydrox/Mg Hydrox/Simethicone 30 ml 12/13/24 13:42 12/14/24 12:22 Mg Hyd/Al Hyd/Bari (Maalox Reg) Susp 30 Ml Udc PO 01/12/25 13:41 30 ml Q4HR PRN Administration UPSET STOMACH/INDIGESTION Isoniazid 300 mg 12/02/24 09:00 12/15/24 09:00 Isoniazid 300 Mg Tablet PO 01/01/25 08:59 300 mg QDAY TORREY Administration Ondansetron HCl 4 mg 11/17/24 19:56 12/08/24 08:25 Ondansetron Odt 4 Mg Tabrap PO 12/17/24 19:55 4 mg Q6HR PRN Administration NAUSEA OR VOMITING Protocol Pyridoxine HCl 50 mg 11/07/24 09:00 12/15/24 09:00 Pyridoxine 50 Mg Tablet PO 01/30/26 12:00 50 mg QDAY TORREY Administration Rifampin 600 mg 12/02/24 09:00 12/15/24 09:00 Rifampin 300 Mg Capsule PO 01/01/25 08:59 600 mg QDAY TORREY Administration Sodium Chloride 5 ml 11/29/24 19:07 12/14/24 13:04 Sodium Chloride Rt 10% 15 Ml Nebu INH 12/29/24 19:06 5 ml PRN PRN Administration sputum Plan 53-year-old male with no past medical history presented to the ED due to cough, recent unintentional weight loss and tarry lesion found on chest x-ray. Admitted for TB workup. 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 Patient denies any night sweats, hemoptysis at this time, however he does state having night sweats in the past few months. Chest x-ray shows extensive bilateral infiltrate, which appears cavitary in the upper lung zones Chest CT shows Extensive cavitary miliary parenchymal disease throughout the lungs, most severe at the right apex, including septated right upper lobe cavitary lesion 5.6 x 5.2cm Blood culture-negative 48 hours Influenza negative, COVID-negative, HIV negative, Aspergillus negative Sputum cultures negative AFB positive for tuberculosis, plan is to continue 7 days of treatment and repeat AFBs Wednesday night, to be sent on Wednesday AFB positive for tuberculosis, will repeat AFBs AFBs from 11/09 + resulted on 11/13 are positive for tuberculosis AFB 11/17-11/18 results are positive AFB 11/29 Resulted positive Patient was on ripe therapy from 10/22/2024 however ethambutol was discontinued on 11/27 as per ID recommendations as per sensitivity of the strain. AFB 11/29-11/30 results were positive 12/06/2024?patient stable, received ethambutol along with RIP therapy. Pending recommendations from ID and Department of Health prior to arranging safe discharge. 12/06/2024?repeat AFB were ordered on they are actually collected on 12/07/2024. Resulted positive 12/12/2024 -repeat AFB cultures were collected. Positive culture Plan: -Isolation precautions -Continue Isoniazid and rifampin and discontinued pza and ethambutol per ID recommendations as the strain is sensitive to rif and izo -Patient will likely need to continue isolating at home with his family for a total of at least 6 months up to to 12 months since diagnosis of TB. (From 10/22/24 up to 04/2025-10/2025) -Will continue patient on isoniazid and rifampin until all 3 sputum cultures returned negative. ?Appreciate ID recommendations as well as Department of Health parameters for discharge -Will repeat cultures early next week #Chest pain, resolved #Shortness of breath, resolved Patient complained of generalized chest pain 2/10 and shortness of breath at rest for the past 2 days Troponin <0.002 EKG sinus rhythm, early repolarization abnormality. -No further workup warranted Hospital Management: Disposition: Pending clearance with [facility] department Diet: Regular Lines: pIVs GI Prophylaxis: None DVT prophylaxis: Enoxaparin 40 Mg SC daily Code status: FULL CODE Patient plan of care was discussed with the attending physician, Dr. Mata. Falguni Borja, PGY-2 Attending Provider Attestation/Addendum I reviewed labs, imaging, EKG, home medications and prior available records. Face to face evaluation was performed by me. I have personally examined the patient and discussed assessment and plan with the IM team. I reviewed the resident note and agree with the plan with exceptions as below. Active TB Social problem Continues to have positive AFBs. Discussed with [facility]: Cannot do discharge before having negative AFBs x3. Continue rifampicin and isoniazid. rodent control worker is following ID is following
[2024-12-15] MEDS: ISONIAZID 300 MG TABLET PO (09:00)
[2024-12-15] MEDS: rifAMPin 300 MG CAPSULE 600 MG PO (09:00)
[2024-12-15] MEDS: PYRIDOXINE 50 MG TABLET PO (09:00)
--- NOTE | 2024-12-15 09:12 | PD.ADDPROG ---
Addendum Progress Note Addendum Date of report being addended: 12/15/24 Narrative: note timed 12/13 is from 12/15
--- NOTE | 2024-12-15 11:02 | PC.SS ---
Follow up note: Waiting for [facility] clearance. Last AFB was collected last night. Pt will return home upon dc.
[2024-12-15 14:00] VITALS: BP 124/32; PULSE 66; RESP 17; TEMP 36.9; O2SAT 98
[2024-12-15 22:00] VITALS: BP 105/69; PULSE 64; RESP 18; TEMP 36.3; O2SAT 98
[2024-12-16 05:08] VITALS: BP 112/75; PULSE 64; RESP 18; TEMP 36.4; O2SAT 97
[2024-12-16 08:00] VITALS: BP 120/85; PULSE 67; RESP 19; TEMP 36.5; O2SAT 99
[2024-12-16] MEDS: PYRIDOXINE 50 MG TABLET PO (08:14)
[2024-12-16] MEDS: ISONIAZID 300 MG TABLET PO (08:17)
[2024-12-16] MEDS: rifAMPin 300 MG CAPSULE 600 MG PO (08:18)
--- NOTE | 2024-12-16 11:42 | ESPR_ITS ---
Documentation for date of: 12/16/24 Subjective Subjective Interval history: Patient seen and examined in [facility] today. There were no major overnight events the patient feels fine this morning. Exam Vital Signs Temp Pulse Resp BP Pulse Ox O2 Del Method 97.7 F 67 19 120/85 H 99 Room Air 12/16/24 08:00 12/16/24 08:00 12/16/24 08:00 12/16/24 08:00 12/16/24 08:00 12/16/24 08:00 Narrative Exam Constitutional: Well nourished and in no acute distress CVS: RRR, S1 and S2 present, no murmurs, rubs or gallops . RESP: CTAB, no SOB, no rales, rhonchi or wheezing. No respiratory Distress GI: Normal BS, Nontender/Nondistended. MSK: Full range of motion, No trauma or deformities or masses. Skin: Warm to touch, Dry. No rashes or lesions. No hematomas Neuro: victims advocate clerk/specialist II-XII grossly intact. Sensation grossly intact. Psych: (AAO) x3 . Appropriate mood and affect. Objective Labs 12/11/24 05:11 12/11/24 05:11 Quality Measures Quality Measures VTE prophylaxis Assessment & Plan Assessment Current Active Medications: Generic Name Dose Route Start Last Admin Trade Name Freq PRN Reason Stop Dose Admin Acetaminophen 650 mg 11/21/24 17:29 11/21/24 19:51 Acetaminophen 325 Mg Tablet PO 12/21/24 17:28 650 mg Q6HR PRN Administration PAIN Al Hydrox/Mg Hydrox/Simethicone 30 ml 12/13/24 13:42 12/14/24 12:22 Mg Hyd/Al Hyd/Bari (Maalox Reg) Susp 30 Ml Udc PO 01/12/25 13:41 30 ml Q4HR PRN Administration UPSET STOMACH/INDIGESTION Isoniazid 300 mg 12/02/24 09:00 12/16/24 08:17 Isoniazid 300 Mg Tablet PO 01/01/25 08:59 300 mg QDAY TORREY Administration Ondansetron HCl 4 mg 11/17/24 19:56 12/08/24 08:25 Ondansetron Odt 4 Mg Tabrap PO 12/17/24 19:55 4 mg Q6HR PRN Administration NAUSEA OR VOMITING Protocol Pyridoxine HCl 50 mg 11/07/24 09:00 12/16/24 08:14 Pyridoxine 50 Mg Tablet PO 01/30/26 12:00 50 mg QDAY TORREY Administration Rifampin 600 mg 12/02/24 09:00 12/16/24 08:18 Rifampin 300 Mg Capsule PO 01/01/25 08:59 600 mg QDAY TORREY Administration Sodium Chloride 5 ml 11/29/24 19:07 12/14/24 13:04 Sodium Chloride Rt 10% 15 Ml Nebu INH 12/29/24 19:06 5 ml PRN PRN Administration sputum Plan 53-year-old male with no past medical history presented to the ED due to cough, recent unintentional weight loss and tarry lesion found on chest x-ray. Admitted for TB workup. 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 Patient denies any night sweats, hemoptysis at this time, however he does state having night sweats in the past few months. Chest x-ray shows extensive bilateral infiltrate, which appears cavitary in the upper lung zones Chest CT shows Extensive cavitary miliary parenchymal disease throughout the lungs, most severe at the right apex, including septated right upper lobe cavitary lesion 5.6 x 5.2cm Blood culture-negative 48 hours Influenza negative, COVID-negative, HIV negative, Aspergillus negative Sputum cultures negative AFB positive for tuberculosis, plan is to continue 7 days of treatment and repeat AFBs Wednesday night, to be sent on Wednesday AFB positive for tuberculosis, will repeat AFBs AFBs from 11/09 + resulted on 11/13 are positive for tuberculosis AFB 11/17-11/18 results are positive AFB 11/29 Resulted positive Patient was on ripe therapy from 10/22/2024 however ethambutol was discontinued on 11/27 as per ID recommendations as per sensitivity of the strain. AFB 11/29-11/30 results were positive 12/06/2024?patient stable, received ethambutol along with RIP therapy. Pending recommendations from ID and Department of Health prior to arranging safe discharge. 12/06/2024?repeat AFB were ordered on they are actually collected on 12/07/2024. Resulted positive 12/12/2024 -repeat AFB cultures were collected. Positive culture Plan: -Isolation precautions -Continue Isoniazid and rifampin and discontinued pza and ethambutol per ID recommendations as the strain is sensitive to rif and izo -Patient will likely need to continue isolating at home with his family for a total of at least 6 months up to to 12 months since diagnosis of TB. (From 10/22/24 up to 04/2025-10/2025) -Will continue patient on isoniazid and rifampin until all 3 sputum cultures returned negative. ?Appreciate ID recommendations as well as Department of Health parameters for discharge -Will repeat cultures early next week #Chest pain, resolved #Shortness of breath, resolved Patient complained of generalized chest pain 2/10 and shortness of breath at rest for the past 2 days Troponin <0.002 EKG sinus rhythm, early repolarization abnormality. -No further workup warranted Hospital Management: Disposition: Pending clearance with [facility] department Diet: Regular Lines: pIVs GI Prophylaxis: None DVT prophylaxis: Enoxaparin 40 Mg SC daily Code status: FULL CODE I discussed patient's care with attending physician, Dr Esperanza Steward PGY3 Attending Provider Attestation/Addendum I reviewed labs, imaging, EKG, home medications and prior available records. Face to face evaluation was performed by me. I have personally examined the patient and discussed assessment and plan with the IM team. I reviewed the resident note and agree with the plan with exceptions as below. Active TB Social problem Continues to have positive AFBs. Discussed with [facility]: Cannot do discharge before having negative AFBs x3. Continue rifampicin and isoniazid. relay worker is following ID is following
[2024-12-16 14:00] VITALS: BP 121/83; PULSE 63; RESP 18; TEMP 36.3; O2SAT 99
[2024-12-16 22:00] VITALS: BP 104/64; PULSE 66; RESP 18; TEMP 36.6; O2SAT 98
[2024-12-17 06:00] VITALS: BP 101/68; PULSE 79; RESP 18; TEMP 36.4; O2SAT 96
[2024-12-17] MEDS: PYRIDOXINE 50 MG TABLET PO (08:07)
[2024-12-17] MEDS: ISONIAZID 300 MG TABLET PO (08:07)
[2024-12-17] MEDS: rifAMPin 300 MG CAPSULE 600 MG PO (08:07)
--- NOTE | 2024-12-17 08:20 | ESPR_ITS ---
Documentation for date of: 12/17/24 Subjective Subjective Interval history: Patient seen and examined in [facility] today. There were no major overnight events the patient feels fine this morning. Exam Vital Signs Temp Pulse Resp BP Pulse Ox O2 Del Method 97.6 F 79 18 101/68 96 Room Air 12/17/24 06:00 12/17/24 06:00 12/17/24 06:00 12/17/24 06:00 12/17/24 06:00 12/17/24 06:00 Narrative Exam Constitutional: Well nourished and in no acute distress CVS: RRR, S1 and S2 present, no murmurs, rubs or gallops . RESP: CTAB, no SOB, no rales, rhonchi or wheezing. No respiratory Distress GI: Normal BS, Nontender/Nondistended. MSK: Full range of motion, No trauma or deformities or masses. Skin: Warm to touch, Dry. No rashes or lesions. 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 Sensation grossly intact. Psych: (AAO) x3 . Appropriate mood and affect. Objective Labs 12/11/24 05:11 12/11/24 05:11 Quality Measures Quality Measures VTE prophylaxis Assessment & Plan Assessment Current Active Medications: Generic Name Dose Route Start Last Admin Trade Name Freq PRN Reason Stop Dose Admin Acetaminophen 650 mg 11/21/24 17:29 11/21/24 19:51 Acetaminophen 325 Mg Tablet PO 12/21/24 17:28 650 mg Q6HR PRN Administration PAIN Al Hydrox/Mg Hydrox/Simethicone 30 ml 12/13/24 13:42 12/14/24 12:22 Mg Hyd/Al Hyd/Bari (Maalox Reg) Susp 30 Ml Udc PO 01/12/25 13:41 30 ml Q4HR PRN Administration UPSET STOMACH/INDIGESTION Isoniazid 300 mg 12/02/24 09:00 12/17/24 08:07 Isoniazid 300 Mg Tablet PO 01/01/25 08:59 300 mg QDAY TORREY Administration Ondansetron HCl 4 mg 11/17/24 19:56 12/08/24 08:25 Ondansetron Odt 4 Mg Tabrap PO 12/17/24 19:55 4 mg Q6HR PRN Administration NAUSEA OR VOMITING Protocol Pyridoxine HCl 50 mg 11/07/24 09:00 12/17/24 08:07 Pyridoxine 50 Mg Tablet PO 01/30/26 12:00 50 mg QDAY TORREY Administration Rifampin 600 mg 12/02/24 09:00 12/17/24 08:07 Rifampin 300 Mg Capsule PO 01/01/25 08:59 600 mg QDAY TORREY Administration Plan 53-year-old male with no past medical history presented to the ED due to cough, recent unintentional weight loss and tarry lesion found on chest x-ray. Admitted for TB workup. 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 Patient denies any night sweats, hemoptysis at this time, however he does state having night sweats in the past few months. Chest x-ray shows extensive bilateral infiltrate, which appears cavitary in the upper lung zones Chest CT shows Extensive cavitary miliary parenchymal disease throughout the lungs, most severe at the right apex, including septated right upper lobe cavitary lesion 5.6 x 5.2cm Blood culture-negative 48 hours Influenza negative, COVID-negative, HIV negative, Aspergillus negative Sputum cultures negative AFB positive for tuberculosis, plan is to continue 7 days of treatment and repeat AFBs Wednesday night, to be sent on Wednesday AFB positive for tuberculosis, will repeat AFBs AFBs from 11/09 + resulted on 11/13 are positive for tuberculosis AFB 11/17-11/18 results are positive AFB 11/29 Resulted positive Patient was on ripe therapy from 10/22/2024 however ethambutol was discontinued on 11/27 as per ID recommendations as per sensitivity of the strain. AFB 11/29-11/30 results were positive 12/06/2024?patient stable, received ethambutol along with RIP therapy. Pending recommendations from ID and Department of Health prior to arranging safe discharge. 12/06/2024?repeat AFB were ordered on they are actually collected on 12/07/2024. Resulted positive 12/12/2024 -repeat AFB cultures were collected. Positive culture Plan: -Isolation precautions -Continue Isoniazid and rifampin and discontinued pza and ethambutol per ID recommendations as the strain is sensitive to rif and izo -Patient will likely need to continue isolating at home with his family for a total of at least 6 months up to to 12 months since diagnosis of TB. (From 10/22/24 up to 04/2025-10/2025) -Will continue patient on isoniazid and rifampin until all 3 sputum cultures returned negative. ?Appreciate ID recommendations as well as Department of Health parameters for discharge -Will repeat cultures #Chest pain, resolved #Shortness of breath, resolved Patient complained of generalized chest pain 2/10 and shortness of breath at rest for the past 2 days Troponin <0.002 EKG sinus rhythm, early repolarization abnormality. -No further workup warranted Hospital Management: Disposition: Pending clearance with [facility] department Diet: Regular Lines: pIVs GI Prophylaxis: None DVT prophylaxis: Enoxaparin 40 Mg SC daily Code status: FULL CODE I discussed patient's care with attending physician, Dr Esperanza Steward PGY3 Attending Provider Attestation/Addendum I reviewed labs, imaging, EKG, home medications and prior available records. Face to face evaluation was performed by me. I have personally examined the patient and discussed assessment and plan with the IM team. I reviewed the resident note and agree with the plan with exceptions as below. Active TB Social problem Continues to have positive AFBs. Discussed with [facility] health: Cannot do discharge before having negative AFBs x3. Continue rifampicin and isoniazid. 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
[2024-12-17 14:00] VITALS: BP 117/69; PULSE 81; RESP 19; TEMP 36.1; O2SAT 97
[2024-12-17 22:00] VITALS: BP 119/76; PULSE 65; RESP 18; TEMP 36.6; O2SAT 98
[2024-12-18 05:36] VITALS: BP 111/68; PULSE 71; RESP 18; TEMP 36.3; O2SAT 97
[2024-12-18 08:18] VITALS: BP 115/64; PULSE 62; RESP 19; TEMP 36.2; O2SAT 98
[2024-12-18] MEDS: PYRIDOXINE 50 MG TABLET PO (08:48)
[2024-12-18] MEDS: rifAMPin 300 MG CAPSULE 600 MG PO (08:48)
[2024-12-18] MEDS: ISONIAZID 300 MG TABLET PO (08:48)
--- NOTE | 2024-12-18 09:00 | PD.IDPROG ---
Subjective Subjective Interval history: latests smears still pos. cx pos from mid nov. notes suggest health dept wants neg cx before release. that can take quite a while. Exam Vital Signs Temp Pulse Resp BP Pulse Ox O2 Del Method 97.2 F 62 19 115/64 98 Room Air 12/18/24 08:18 12/18/24 08:18 12/18/24 08:18 12/18/24 08:18 12/18/24 08:18 12/18/24 08:18 Narrative Exam limited visit Objective - Internal Medicine Labs 12/20/24 05:05 12/20/24 05:05 Labs: Laboratory Results - last 24 hr 12/14/24 22:30 Mycobacterial Culture See Sep Rpt Assessment & Plan A&P Narrative pulm tb, neg cocci IgMand IgG and neg procal (insensitive to fungal and atypical antigens) and pos afb smears with repeats also pos. cx pos from 10/21 and nd after that with broth pos only smear pos late nov 2024. but cx noted. organism is S to inh and rif, so no need for ethambutol. pza is used to speed clearance of sputum so stopped pza on 12/11. Ethambutol is not added to speed clearance but in case of r to inh and rifampin (not seen) cx pos from 11/15 but in broth only,but health dept deferring to state on release . contagiousness seems low. tb grows slowly and only in the dark, so cx are not checked daily but once a week and are incubated in the dark. brothonly pos cx generally mean: not much there rx to be long. 6-12 mo. later sputum also pos on smear but rare. recommend more afb smears each /Wednesday. health dept may determine the isolation status and their criteria for release no objection to outpt f/u by health dept but discharge is at their discretion. hotel stays can help if that can be arranged and if it is appropriate for the setting (again up to health dept). he lives with young children (pre school age or less) then they should be tested for tb. apparently one is positive (by word of mouth) we do not have any details though other than thru patient. will check in again on Wednesday. ok to cut lab as you have done to minimize phlebotomy. hiv and hep c neg. stopped ethambutol again as well as pza on Friday 12/08. organism is S to inh and rif, so ok to use 2 agents at this point. will check in again on wed. Time Spent With Patient Time: Total time spent is greater than 50% in coordination of care (as documented) at patient's floor/unit and/or counseling patient:
[2024-12-18 11:32] LABS: Cult AFB Sendout- Sputum* See Sep Rpt
--- NOTE | 2024-12-18 11:54 | ESPR_ITS ---
Documentation for date of: 12/18/24 Subjective Subjective Interval history: Patient seen and examined in [facility] today. There were no major overnight events the patient feels fine this morning. Exam Vital Signs Temp Pulse Resp BP Pulse Ox O2 Del Method 97.2 F 62 19 115/64 98 Room Air 12/18/24 08:18 12/18/24 08:18 12/18/24 08:18 12/18/24 08:18 12/18/24 08:18 12/18/24 08:18 Narrative Exam Constitutional: Well nourished and in no acute distress CVS: RRR, S1 and S2 present, no murmurs, rubs or gallops . RESP: CTAB, no SOB, no rales, rhonchi or wheezing. No respiratory Distress GI: Normal BS, Nontender/Nondistended. MSK: Full range of motion, No trauma or deformities or masses. Skin: Warm to touch, Dry. No rashes or lesions. 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 Sensation grossly intact. Psych: (AAO) x3 . Appropriate mood and affect. Objective Labs 12/11/24 05:11 12/11/24 05:11 Labs: Laboratory Results - last 24 hr 12/14/24 22:30 Mycobacterial Culture See Sep Rpt Quality Measures Quality Measures VTE prophylaxis Assessment & Plan Assessment Current Active Medications: Generic Name Dose Route Start Last Admin Trade Name Freq PRN Reason Stop Dose Admin Acetaminophen 650 mg 11/21/24 17:29 11/21/24 19:51 Acetaminophen 325 Mg Tablet PO 12/21/24 17:28 650 mg Q6HR PRN Administration PAIN Al Hydrox/Mg Hydrox/Simethicone 30 ml 12/13/24 13:42 12/14/24 12:22 Mg Hyd/Al Hyd/Bari (Maalox Reg) Susp 30 Ml Udc PO 01/12/25 13:41 30 ml Q4HR PRN Administration UPSET STOMACH/INDIGESTION Isoniazid 300 mg 12/02/24 09:00 12/18/24 08:48 Isoniazid 300 Mg Tablet PO 01/01/25 08:59 300 mg QDAY TORREY Administration Pyridoxine HCl 50 mg 11/07/24 09:00 12/18/24 08:48 Pyridoxine 50 Mg Tablet PO 01/30/26 12:00 50 mg QDAY TORREY Administration Rifampin 600 mg 12/02/24 09:00 12/18/24 08:48 Rifampin 300 Mg Capsule PO 01/01/25 08:59 600 mg QDAY TORREY Administration Plan 53-year-old male with no past medical history presented to the ED due to cough, recent unintentional weight loss and tarry lesion found on chest x-ray. Admitted for TB workup. 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 Patient denies any night sweats, hemoptysis at this time, however he does state having night sweats in the past few months. Chest x-ray shows extensive bilateral infiltrate, which appears cavitary in the upper lung zones Chest CT shows Extensive cavitary miliary parenchymal disease throughout the lungs, most severe at the right apex, including septated right upper lobe cavitary lesion 5.6 x 5.2cm Blood culture-negative 48 hours Influenza negative, COVID-negative, HIV negative, Aspergillus negative Sputum cultures negative AFB positive for tuberculosis, plan is to continue 7 days of treatment and repeat AFBs Wednesday night, to be sent on Wednesday AFB positive for tuberculosis, will repeat AFBs AFBs from 11/09 + resulted on 11/13 are positive for tuberculosis AFB 11/17-11/18 results are positive AFB 11/29 Resulted positive Patient was on ripe therapy from 10/22/2024 however ethambutol was discontinued on 11/27 as per ID recommendations as per sensitivity of the strain. AFB 11/29-11/30 results were positive 12/06/2024?patient stable, received ethambutol along with RIP therapy. Pending recommendations from ID and Department of Health prior to arranging safe discharge. 12/06/2024?repeat AFB were ordered on they are actually collected on 12/07/2024. Resulted positive 12/12/2024 -repeat AFB cultures were collected. Positive culture Plan: -Isolation precautions -Continue Isoniazid and rifampin and discontinued pza and ethambutol per ID recommendations as the strain is sensitive to rif and izo -Patient will likely need to continue isolating at home with his family for a total of at least 6 months up to to 12 months since diagnosis of TB. (From 10/22/24 up to 04/2025-10/2025) -Will continue patient on isoniazid and rifampin until all 3 sputum cultures returned negative. ?Appreciate ID recommendations as well as Department of Health parameters for discharge -Will repeat cultures TODAY #Chest pain, resolved #Shortness of breath, resolved Patient complained of generalized chest pain 2/10 and shortness of breath at rest for the past 2 days Troponin <0.002 EKG sinus rhythm, early repolarization abnormality. -No further workup warranted Hospital Management: Disposition: Pending clearance with [facility] department Diet: Regular Lines: pIVs GI Prophylaxis: None DVT prophylaxis: Enoxaparin 40 Mg SC daily Code status: FULL CODE I discussed patient's care with attending physician, Dr Esperanza Steward PGY3 Attending Provider Attestation/Addendum I reviewed labs, imaging, EKG, home medications and prior available records. Face to face evaluation was performed by me. I have personally examined the patient and discussed assessment and plan with the IM team. I reviewed the resident note and agree with the plan with exceptions as below. Active TB Social problem Continues to have positive AFBs. Discussed with [facility]: Cannot do discharge before having negative AFBs x3. Continue rifampicin and isoniazid. social worker is following ID is following
--- NOTE | 2024-12-18 12:07 | PC.RT ---
first of three afb has been sent to lab at 1100
[2024-12-18 12:12] VITALS: BP 120/60; PULSE 76; RESP 19; TEMP 36.1; O2SAT 98
--- NOTE | 2024-12-18 15:15 | PC.SS ---
Rounding: New set of AFBs sent
[2024-12-18 16:26] VITALS: BP 110/69; PULSE 60; RESP 18; TEMP 36.6; O2SAT 97
[2024-12-18 19:28] LABS: Cult AFB Sendout- Sputum* See Sep Rpt
[2024-12-18 22:00] VITALS: BP 131/73; PULSE 75; RESP 17; TEMP 36.4; O2SAT 98
[2024-12-19 04:06] LABS: Cult AFB Sendout- Sputum* See Sep Rpt
--- NOTE | 2024-12-19 08:01 | ESPR_ITS ---
Documentation for date of: 12/19/24 Subjective Subjective Interval history: Patient seen and examined in [facility] today. There were no major overnight events the patient feels fine this morning. Patient states he had a couple more episodes of coughing out blood tinched sputum that was less than a teaspoon worth. Exam Vital Signs Temp Pulse Resp BP Pulse Ox O2 Del Method 97.5 F 75 17 131/73 H 98 Room Air 12/18/24 22:00 12/18/24 22:00 12/18/24 22:00 12/18/24 22:00 12/18/24 22:00 12/18/24 22:00 Narrative Exam Constitutional: Well nourished and in no acute distress CVS: RRR, S1 and S2 present, no murmurs, rubs or gallops . RESP: CTAB, no SOB, no rales, rhonchi or wheezing. No respiratory Distress GI: Normal BS, Nontender/Nondistended. MSK: Full range of motion, No trauma or deformities or masses. Skin: Warm to touch, Dry. No rashes or lesions. 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 Sensation grossly intact. Psych: (AAO) x3 . Appropriate mood and affect. Objective Labs 12/11/24 05:11 12/11/24 05:11 Quality Measures Quality Measures VTE prophylaxis Assessment & Plan Assessment Current Active Medications: Generic Name Dose Route Start Last Admin Trade Name Freq PRN Reason Stop Dose Admin Acetaminophen 650 mg 11/21/24 17:29 11/21/24 19:51 Acetaminophen 325 Mg Tablet PO 12/21/24 17:28 650 mg Q6HR PRN Administration PAIN Al Hydrox/Mg Hydrox/Simethicone 30 ml 12/13/24 13:42 12/14/24 12:22 Mg Hyd/Al Hyd/Bari (Maalox Reg) Susp 30 Ml Udc PO 01/12/25 13:41 30 ml Q4HR PRN Administration UPSET STOMACH/INDIGESTION Isoniazid 300 mg 12/02/24 09:00 12/18/24 08:48 Isoniazid 300 Mg Tablet PO 01/01/25 08:59 300 mg QDAY TORREY Administration Pyridoxine HCl 50 mg 11/07/24 09:00 12/18/24 08:48 Pyridoxine 50 Mg Tablet PO 01/30/26 12:00 50 mg QDAY TORREY Administration Rifampin 600 mg 12/02/24 09:00 12/18/24 08:48 Rifampin 300 Mg Capsule PO 01/01/25 08:59 600 mg QDAY TORREY Administration Plan 53-year-old male with no past medical history presented to the ED due to cough, recent unintentional weight loss and tarry lesion found on chest x-ray. Admitted for TB workup. 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 Patient denies any night sweats, hemoptysis at this time, however he does state having night sweats in the past few months. Chest x-ray shows extensive bilateral infiltrate, which appears cavitary in the upper lung zones Chest CT shows Extensive cavitary miliary parenchymal disease throughout the lungs, most severe at the right apex, including septated right upper lobe cavitary lesion 5.6 x 5.2cm Blood culture-negative 48 hours Influenza negative, COVID-negative, HIV negative, Aspergillus negative Sputum cultures negative AFB positive for tuberculosis, plan is to continue 7 days of treatment and repeat AFBs Wednesday night, to be sent on Wednesday AFB positive for tuberculosis, will repeat AFBs AFBs from 11/09 + resulted on 11/13 are positive for tuberculosis AFB 11/17-11/18 results are positive AFB 11/29 Resulted positive Patient was on ripe therapy from 10/22/2024 however ethambutol was discontinued on 11/27 as per ID recommendations as per sensitivity of the strain. AFB 11/29-11/30 results were positive 12/06/2024?patient stable, received ethambutol along with RIP therapy. Pending recommendations from ID and Department of Health prior to arranging safe discharge. 12/06/2024?repeat AFB were ordered on they are actually collected on 12/07/2024. Resulted positive 12/12/2024 -repeat AFB cultures were collected. Positive culture 12/16/2024 - Repeat AFB resulted positive Plan: -Isolation precautions -Continue Isoniazid and rifampin and discontinued pza and ethambutol per ID recommendations as the strain is sensitive to rif and izo -Patient will likely need to continue isolating at home with his family for a total of at least 6 months up to to 12 months since diagnosis of TB. (From 10/22/24 up to 04/2025-10/2025) -Will continue patient on isoniazid and rifampin until all 3 sputum cultures returned negative. ?Appreciate ID recommendations as well as Department of Health parameters for discharge - 12/19/24 Sent AFB cultures - pending results #Chest pain, resolved #Shortness of breath, resolved Patient complained of generalized chest pain 2/10 and shortness of breath at rest for the past 2 days Troponin <0.002 EKG sinus rhythm, early repolarization abnormality. -No further workup warranted Hospital Management: Disposition: Pending clearance with [facility] department Diet: Regular Lines: pIVs GI Prophylaxis: None DVT prophylaxis: Enoxaparin 40 Mg SC daily Code status: FULL CODE I discussed patient's care with attending physician, Dr Esperanza Steward PGY3 Attending Provider Attestation/Addendum I reviewed labs, imaging, EKG, home medications and prior available records. Face to face evaluation was performed by me. I have personally examined the patient and discussed assessment and plan with the IM team. I reviewed the resident note and agree with the plan with exceptions as below. Active TB Social problem Continues to have positive AFBs. Discussed with [facility]: Cannot do discharge before having negative AFBs x3. Continue rifampicin and isoniazid. horticulture worker is following ID is following
[2024-12-19] MEDS: PYRIDOXINE 50 MG TABLET PO (08:59)
[2024-12-19] MEDS: rifAMPin 300 MG CAPSULE 600 MG PO (09:00)
[2024-12-19] MEDS: ISONIAZID 300 MG TABLET PO (09:00)
--- NOTE | 2024-12-19 11:19 | PC.IP ---
ZULEMA and Progressed notes from 12/12/2024 to 12/19/2024 faxed to Jh DEL ROSARIO from [facility] upon Jh Jose's request
[2024-12-19 22:00] VITALS: BP 114/77; PULSE 68; RESP 15; TEMP 36.7; O2SAT 97
[2024-12-20 06:00] VITALS: BP 100/70; PULSE 61; RESP 17; TEMP 36.3; O2SAT 97
[2024-12-20 06:15] LABS: Basophils % (Auto) 1 % (0-2.5); Eosinophils # (Auto) 0.4 Thou/mm3 (0.0-0.5); Eosinophils % (Auto) 8 % (0-10); Hematocrit 42.3 % (41.0-53.0); Hemoglobin 14.4 g/dL (13.5-16.0); Immature Granulocytes % (Auto) 1 % (0-0); Immature Granulocytes Auto 0.05 Thou/mm3 (0.00-0.00); Lymphocytes # (Auto) 1.4 Thou/mm3 (1.0-4.8); Lymphocytes % (Auto) 29 % (10-50); Mean Corpuscular Hemoglobin 29.3 pg (25.0-35.0); Mean Corpuscular Volume 86 fL (80-100); Monocytes # (Auto) 0.5 Thou/mm3 (0.0-0.8); Monocytes % (Auto) 10 % (0-12); Neutrophils # (Auto) 2.5 Thou/mm3 (1.8-7.7); Neutrophils % (Auto) 52 % (37-80); Nucleated Red Blood Cell % 0 /100 WBC (0); Platelet Count 228 Thou/mm3 (140-440); RDW Standard Deviation 39.9 fL (35.1-43.9); Red Blood Count 4.92 Miln/mm3 (4.50-5.90); White Blood Count 4.9 Thou/mm3 (3.8-10.6)
[2024-12-20 06:53] LABS: Anion Gap 9 (7-16); BUN/Creatinine Ratio 11 Ratio (12-20); Blood Urea Nitrogen 9 mg/dL (9-23); Calcium 8.7 mg/dL (8.3-10.6); Carbon Dioxide 28.2 mMol/L (20.0-31.0); Chloride 103 mMol/L (98-107); Creatinine (Component) 0.8 mg/dL (0.6-1.3); Estimated Creatinine Clearance 100.9 mL/min (>60); Glucose 80 mg/dL (74-106); Osmolality,Calculated 277 (275-295); Potassium 3.6 mMol/L (3.4-5.1); Sodium 140 mMol/L (136-145); eGFR > 60 See Note
[2024-12-20] MEDS: PYRIDOXINE 50 MG TABLET PO (08:25)
[2024-12-20] MEDS: rifAMPin 300 MG CAPSULE 600 MG PO (08:25)
[2024-12-20] MEDS: ISONIAZID 300 MG TABLET PO (08:26)
--- NOTE | 2024-12-20 10:09 | ESPR_ITS ---
Documentation for date of: 12/20/24 Subjective Subjective Interval history: Patient seen and examined in [facility] today. There were no major overnight events the patient feels fine this morning. Exam Vital Signs Temp Pulse Resp BP Pulse Ox O2 Del Method 97.4 F 61 17 100/70 97 Room Air 12/20/24 06:00 12/20/24 06:00 12/20/24 06:00 12/20/24 06:00 12/20/24 06:00 12/20/24 06:00 Narrative Exam Constitutional: Well nourished and in no acute distress CVS: RRR, S1 and S2 present, no murmurs, rubs or gallops . RESP: CTAB, no SOB, no rales, rhonchi or wheezing. No respiratory Distress GI: Normal BS, Nontender/Nondistended. MSK: Full range of motion, No trauma or deformities or masses. Skin: Warm to touch, Dry. No rashes or lesions. 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 Sensation grossly intact. Psych: (AAO) x3 . Appropriate mood and affect. Objective Labs 12/20/24 05:05 12/20/24 05:05 Labs: Laboratory Results - last 24 hr 12/18/24 12/20/24 11:10 05:05 WBC 4.9 RBC 4.92 Hgb 14.4 Hct 42.3 MCV 86 MCH 29.3 MCHC 34.0 RDW Std Deviation 39.9 Plt Count 228 D Neut % (Auto) 52 Lymph % (Auto) 29 [place] % (Auto) 10 Eos % (Auto) 8 Baso % (Auto) 1 Neut # (Auto) 2.5 Lymph # (Auto) 1.4 [place] # (Auto) 0.5 Eos # (Auto) 0.4 Baso # (Auto) 0.0 Immature Gran # (Auto) 0.05 H Absolute Nucleated RBC 0.00 Immature Gran % 1 H Nucleated RBC % 0 Sodium 140 Potassium 3.6 Chloride 103 Carbon Dioxide 28.2 Anion Gap 9 BUN 9 Creatinine 0.8 Estim Creat Clear Calc 100.9 eGFR > 60 BUN/Creatinine Ratio 11 L Glucose 80 Calculated Osmolality 277 Calcium 8.7 Mycobacterial Culture See Jun Rpt Quality Measures Quality Measures VTE prophylaxis Assessment & Plan Assessment Current Active Medications: Generic Name Dose Route Start Last Admin Trade Name Freq PRN Reason Stop Dose Admin Acetaminophen 650 mg 11/21/24 17:29 11/21/24 19:51 Acetaminophen 325 Mg Tablet PO 12/21/24 17:28 650 mg Q6HR PRN Administration PAIN Al Hydrox/Mg Hydrox/Simethicone 30 ml 12/13/24 13:42 12/14/24 12:22 Mg Hyd/Al Hyd/Bari (Maalox Reg) Susp 30 Ml Udc PO 01/12/25 13:41 30 ml Q4HR PRN Administration UPSET STOMACH/INDIGESTION Isoniazid 300 mg 12/02/24 09:00 12/20/24 08:26 Isoniazid 300 Mg Tablet PO 01/01/25 08:59 300 mg QDAY TORREY Administration Pyridoxine HCl 50 mg 11/07/24 09:00 12/20/24 08:25 Pyridoxine 50 Mg Tablet PO 01/30/26 12:00 50 mg QDAY TORREY Administration Rifampin 600 mg 12/02/24 09:00 12/20/24 08:25 Rifampin 300 Mg Capsule PO 01/01/25 08:59 600 mg QDAY TORREY Administration Plan 53-year-old male with no past medical history presented to the ED due to cough, recent unintentional weight loss and tarry lesion found on chest x-ray. Admitted for TB workup. 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 Patient denies any night sweats, hemoptysis at this time, however he does state having night sweats in the past few months. Chest x-ray shows extensive bilateral infiltrate, which appears cavitary in the upper lung zones Chest CT shows Extensive cavitary miliary parenchymal disease throughout the lungs, most severe at the right apex, including septated right upper lobe cavitary lesion 5.6 x 5.2cm Blood culture-negative 48 hours Influenza negative, COVID-negative, HIV negative, Aspergillus negative Sputum cultures negative AFB positive for tuberculosis, plan is to continue 7 days of treatment and repeat AFBs Wednesday night, to be sent on Wednesday AFB positive for tuberculosis, will repeat AFBs AFBs from 11/09 + resulted on 11/13 are positive for tuberculosis AFB 11/17-11/18 results are positive AFB 11/29 Resulted positive Patient was on ripe therapy from 10/22/2024 however ethambutol was discontinued on 11/27 as per ID recommendations as per sensitivity of the strain. AFB 11/29-11/30 results were positive 12/06/2024?patient stable, received ethambutol along with RIP therapy. Pending recommendations from ID and Department of Health prior to arranging safe discharge. 12/06/2024?repeat AFB were ordered on they are actually collected on 12/07/2024. Resulted positive 12/12/2024 -repeat AFB cultures were collected. Positive culture 12/16/2024 - Repeat AFB resulted positive Plan: -Isolation precautions -Continue Isoniazid and rifampin and discontinued pza and ethambutol per ID recommendations as the strain is sensitive to rif and izo -Patient will likely need to continue isolating at home with his family for a total of at least 6 months up to to 12 months since diagnosis of TB. (From 10/22/24 up to 04/2025-10/2025) -Will continue patient on isoniazid and rifampin until all 3 sputum cultures returned negative. ?Appreciate ID recommendations as well as Department of Health parameters for discharge - 12/19/24 Sent AFB cultures - pending results #Chest pain, resolved #Shortness of breath, resolved Patient complained of generalized chest pain 2/10 and shortness of breath at rest for the past 2 days Troponin <0.002 EKG sinus rhythm, early repolarization abnormality. -No further workup warranted Hospital Management: Disposition: Pending clearance with [facility] department Diet: Regular Lines: pIVs GI Prophylaxis: None DVT prophylaxis: Enoxaparin 40 Mg SC daily Code status: FULL CODE I discussed patient's care with attending physician, Dr Aristeo Steward PGY3 Attending Provider Attestation/Addendum I, Chelsy Alberts, , attest that I was physically present for the rojas portions of the service and evaluated the patient with the resident and I reviewed and discussed the case with the resident and agree with the resident's findings and plans of care as documented above Patient seen and evaluated this AM. He denies any hemoptysis, weakness, cough, fevers or chills. No acute events overnight.
--- NOTE | 2024-12-20 10:32 | ESPR_ITS ---
Subjective Subjective Interval history: afb's pendin from the other day, so will not get any more this week. Exam Vital Signs Temp Pulse Resp BP Pulse Ox O2 Del Method 97.4 F 61 17 100/70 97 Room Air 12/20/24 06:00 12/20/24 06:00 12/20/24 06:00 12/20/24 06:00 12/20/24 06:00 12/20/24 06:00 Narrative Exam limited eval Objective - Internal Medicine Labs 12/20/24 05:05 12/20/24 05:05 Labs: Laboratory Results - last 24 hr 12/18/24 12/20/24 11:10 05:05 WBC 4.9 RBC 4.92 Hgb 14.4 Hct 42.3 MCV 86 MCH 29.3 MCHC 34.0 RDW Std Deviation 39.9 Plt Count 228 D Neut % (Auto) 52 Lymph % (Auto) 29 [place] % (Auto) 10 Eos % (Auto) 8 Baso % (Auto) 1 Neut # (Auto) 2.5 Lymph # (Auto) 1.4 [place] # (Auto) 0.5 Eos # (Auto) 0.4 Baso # (Auto) 0.0 Immature Gran # (Auto) 0.05 H Absolute Nucleated RBC 0.00 Immature Gran % 1 H Nucleated RBC % 0 Sodium 140 Potassium 3.6 Chloride 103 Carbon Dioxide 28.2 Anion Gap 9 BUN 9 Creatinine 0.8 Estim Creat Clear Calc 100.9 eGFR > 60 BUN/Creatinine Ratio 11 L Glucose 80 Calculated Osmolality 277 Calcium 8.7 Mycobacterial Culture See Jun Rpt Assessment & Plan A&P Narrative pulm tb, neg cocci IgMand IgG and neg procal (insensitive to fungal and atypical antigens) and pos afb smears with repeats also pos. cx pos from 10/21 and nd after that with broth pos only smear pos late nov 2024. but cx noted. organism is S to inh and rif, so no need for ethambutol. pza is used to speed clearance of sputum so stopped pza on 12/11. Ethambutol is not added to speed clearance but in case of r to inh and rifampin (not seen) cx pos from 11/15 but in broth only,but health dept deferring to state on release . contagiousness seems low. tb grows slowly and only in the dark, so cx are not checked daily but once a week and are incubated in the dark. broth only pos cx generally means: not much there rx to be long. 6-12 mo. later sputum also pos on smear but rare. recommend more afb smears each /Wednesday. health dept may determine the isolation status and their criteria for release no objection to outpt f/u by health dept but discharge is at their discretion. hotel stays can help if that can be arranged and if it is appropriate for the setting (again up to health dept). he lives with young children (pre school age or less) then they should be tested for tb. apparently one is positive (by word of mouth) we do not have any details though other than thru patient. will check in again on Wednesday. ok to cut lab as you have done to minimize phlebotomy. hiv and hep c neg. stopped ethambutol again as well as pza on Friday 12/08. organism is S to inh and rif, so ok to use 2 agents at this point. will check in again on wed. Time Spent With Patient Time: Total time spent is greater than 50% in coordination of care (as documented) at patient's floor/unit and/or counseling patient:
[2024-12-20 12:01] VITALS: BMI 22.4
[2024-12-20 14:00] VITALS: BP 114/73; PULSE 54; RESP 16; TEMP 36.1; O2SAT 98
--- NOTE | 2024-12-20 15:13 | PC.SS ---
Follow up note: AFBs were sent out for the week and is pending results. Pt is waiting for [facility] to clear. Pt will return home upon dc.
[2024-12-20 22:00] VITALS: BP 118/76; PULSE 65; RESP 18; TEMP 36.2; O2SAT 98
[2024-12-21 05:23] VITALS: BP 106/68; PULSE 63; RESP 18; TEMP 36.1; O2SAT 98
[2024-12-21] MEDS: ISONIAZID 300 MG TABLET PO (09:59)
[2024-12-21] MEDS: rifAMPin 300 MG CAPSULE 600 MG PO (09:59)
[2024-12-21] MEDS: PYRIDOXINE 50 MG TABLET PO (10:00)
[2024-12-21 14:00] VITALS: BP 110/72; PULSE 66; RESP 17; TEMP 36.2; O2SAT 97
--- NOTE | 2024-12-21 14:35 | ESPR_ITS ---
Documentation for date of: 12/21/24 Subjective Subjective Interval history: Patient was seen and examined in [facility] today. There were no major overnight events the patient had no complaints this morning. Patient's last AFB cultures continue to show positive for tuberculosis with less than 1 per feel. Patient was informed. Exam Vital Signs Temp Pulse Resp BP Pulse Ox O2 Del Method 97.0 F 63 18 106/68 98 Room Air 12/21/24 05:23 12/21/24 05:23 12/21/24 05:23 12/21/24 05:23 12/21/24 05:23 12/21/24 05:23 Narrative Exam Constitutional: Well nourished and in no acute distress CVS: RRR, S1 and S2 present, no murmurs, rubs or gallops . RESP: CTAB, no SOB, no rales, rhonchi or wheezing. No respiratory Distress GI: Normal BS, Nontender/Nondistended. MSK: Full range of motion, No trauma or deformities or masses. Skin: Warm to touch, Dry. No rashes or lesions. 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 Sensation grossly intact. Psych: (AAO) x3 . Appropriate mood and affect. Objective Labs 12/20/24 05:05 12/20/24 05:05 Labs: Laboratory Results - last 24 hr 12/18/24 12/19/24 19:05 03:26 Mycobacterial Culture See Sep Rpt See Sep Rpt Quality Measures Quality Measures VTE prophylaxis Assessment & Plan Assessment Current Active Medications: Generic Name Dose Route Start Last Admin Trade Name Freq PRN Reason Stop Dose Admin Acetaminophen 650 mg 11/21/24 17:29 11/21/24 19:51 Acetaminophen 325 Mg Tablet PO 12/21/24 17:28 650 mg Q6HR PRN Administration PAIN Al Hydrox/Mg Hydrox/Simethicone 30 ml 12/13/24 13:42 12/14/24 12:22 Mg Hyd/Al Hyd/Bari (Maalox Reg) Susp 30 Ml Udc PO 01/12/25 13:41 30 ml Q4HR PRN Administration UPSET STOMACH/INDIGESTION Isoniazid 300 mg 12/02/24 09:00 12/21/24 09:59 Isoniazid 300 Mg Tablet PO 01/01/25 08:59 300 mg QDAY TORREY Administration Pyridoxine HCl 50 mg 11/07/24 09:00 12/21/24 10:00 Pyridoxine 50 Mg Tablet PO 01/30/26 12:00 50 mg QDAY TORREY Administration Rifampin 600 mg 12/02/24 09:00 12/21/24 09:59 Rifampin 300 Mg Capsule PO 01/01/25 08:59 600 mg QDAY TORREY Administration Plan 53-year-old male with no past medical history presented to the ED due to cough, recent unintentional weight loss and tarry lesion found on chest x-ray. Admitted for TB workup. 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 Patient denies any night sweats, hemoptysis at this time, however he does state having night sweats in the past few months. Chest x-ray shows extensive bilateral infiltrate, which appears cavitary in the upper lung zones Chest CT shows Extensive cavitary miliary parenchymal disease throughout the lungs, most severe at the right apex, including septated right upper lobe cavitary lesion 5.6 x 5.2cm Blood culture-negative 48 hours Influenza negative, COVID-negative, HIV negative, Aspergillus negative Sputum cultures negative AFB positive for tuberculosis, plan is to continue 7 days of treatment and repeat AFBs Wednesday night, to be sent on Wednesday AFB positive for tuberculosis, will repeat AFBs AFBs from 11/09 + resulted on 11/13 are positive for tuberculosis AFB 11/17-11/18 results are positive AFB 11/29 Resulted positive Patient was on ripe therapy from 10/22/2024 however ethambutol was discontinued on 11/27 as per ID recommendations as per sensitivity of the strain. AFB 11/29-11/30 results were positive 12/06/2024?patient stable, received ethambutol along with RIP therapy. Pending recommendations from ID and Department of Health prior to arranging safe discharge. 12/06/2024?repeat AFB were ordered on they are actually collected on 12/07/2024. Resulted positive 12/12/2024 -repeat AFB cultures were collected. Positive culture 12/16/2024 - Repeat AFB resulted positive Plan: -Isolation precautions -Continue Isoniazid and rifampin and discontinued pza and ethambutol per ID recommendations as the strain is sensitive to rif and izo -Patient will likely need to continue isolating at home with his family for a total of at least 6 months up to to 12 months since diagnosis of TB. (From 10/22/24 up to 04/2025-10/2025) -Will continue patient on isoniazid and rifampin until all 3 sputum cultures returned negative. ?Appreciate ID recommendations as well as Department of Health parameters for discharge - 12/19/24 Sent AFB cultures -resulted positive with less than 1 per field on all 3 samples. #Chest pain, resolved #Shortness of breath, resolved Patient complained of generalized chest pain 2/10 and shortness of breath at rest for the past 2 days Troponin <0.002 EKG sinus rhythm, early repolarization abnormality. -No further workup warranted Hospital Management: Disposition: Pending clearance with [facility] department Diet: Regular Lines: pIVs GI Prophylaxis: None DVT prophylaxis: Enoxaparin 40 Mg SC daily Code status: FULL CODE I discussed patient's care with attending physician, Dr Aristeo Steward PGY3 Attending Provider Attestation/Addendum I, Chelsy Alberts, DO, attest that I was physically present for the rojas portions of the service and evaluated the patient with the resident and I reviewed and discussed the case with the resident and agree with the resident's findings and plans of care as documented above Patient seen and evaluated this AM. No acute events overnight. continue with current management
[2024-12-21] MEDS: MG HYD/AL HYD/SIME (Maalox Reg) SUSP 30 ML UDC PO (17:58)
[2024-12-21 22:00] VITALS: BP 106/66; PULSE 63; RESP 18; TEMP 36.1; O2SAT 97
[2024-12-22 06:00] VITALS: BP 100/61; PULSE 60; RESP 17; TEMP 36.1; O2SAT 98
--- NOTE | 2024-12-22 08:47 | PC.SS ---
Follow up note: Waiting for [facility] clearance. Pt will return home upon d.c.
[2024-12-22 08:58] VITALS: BP 127/74; PULSE 64; RESP 18; TEMP 36.1; O2SAT 94
[2024-12-22] MEDS: ISONIAZID 300 MG TABLET PO (09:02)
[2024-12-22] MEDS: rifAMPin 300 MG CAPSULE 600 MG PO (09:02)
[2024-12-22] MEDS: PYRIDOXINE 50 MG TABLET PO (09:02)
--- NOTE | 2024-12-22 09:40 | PD.IDPROG ---
Subjective Subjective Interval history: pt doing ok. child already on rx, so value of keeping pt here up to health dept. maybe there is another child at home? Exam Vital Signs Temp Pulse Resp BP Pulse Ox O2 Del Method 97 F 64 18 127/74 94 L Room Air 12/22/24 08:58 12/22/24 08:58 12/22/24 08:58 12/22/24 08:58 12/22/24 08:58 12/22/24 08:58 Narrative Exam limited eval Objective - Internal Medicine Labs 12/20/24 05:05 12/20/24 05:05 Assessment & Plan A&P Narrative pulm tb, neg cocci IgMand IgG and neg procal (insensitive to fungal and atypical antigens) and pos afb smears with repeats also pos. cx pos from 10/21 and nd after that with broth pos only smear pos late nov 2024. but cx noted. organism is S to inh and rif, so no need for ethambutol. pza is used to speed clearance of sputum so stopped pza on 12/11. Ethambutol is not added to speed clearance but in case of r to inh and rifampin (not seen) cx pos from 11/15 but in broth only,but health dept deferring to state on release . contagiousness seems low. tb grows slowly and only in the dark, so cx are not checked daily but once a week and are incubated in the dark. broth only pos cx generally means: not much there rx to be long. 6-12 mo. later sputums also pos on smear but rare. recommend more afb smears each Wednesday/. health dept may determine the isolation status and their criteria for release no objection to outpt f/u by health dept and discharge is at their discretion. hotel stays can help if that can be arranged and if it is appropriate for the setting (again up to health dept). he lives with young children (pre school age or less) then they should be tested for tb. apparently one is positive (by word of mouth) we do not have any details though other than thru patient. and do not know if others are at risk at home will check in again on Wednesday. ok to cut lab as you have done to minimize phlebotomy. hiv and hep c neg. stopped ethambutol again as well as pza on Friday 12/08. organism is S to inh and rif, so ok to use 2 agents at this point. will check in again on Wednesday Time Spent With Patient Time: Total time spent is greater than 50% in coordination of care (as documented) at patient's floor/unit and/or counseling patient:
--- NOTE | 2024-12-22 11:32 | PD.RESPRO ---
Documentation for date of: 12/22/24 Subjective Subjective Interval history: Patient seen and examined dimensions today. There were no major overnight events patient no complaints this morning. Exam Vital Signs Temp Pulse Resp BP Pulse Ox O2 Del Method 97 F 64 18 127/74 94 L Room Air 12/22/24 08:58 12/22/24 08:58 12/22/24 08:58 12/22/24 08:58 12/22/24 08:58 12/22/24 08:58 Narrative Exam Constitutional: Well nourished and in no acute distress CVS: RRR, S1 and S2 present, no murmurs, rubs or gallops . RESP: CTAB, no SOB, no rales, rhonchi or wheezing. No respiratory Distress GI: Normal BS, Nontender/Nondistended. MSK: Full range of motion, No trauma or deformities or masses. Skin: Warm to touch, Dry. No rashes or lesions. 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 Sensation grossly intact. Psych: (AAO) x3 . Appropriate mood and affect. Objective Labs 12/20/24 05:05 12/20/24 05:05 Quality Measures Quality Measures VTE prophylaxis Assessment & Plan Assessment Current Active Medications: Generic Name Dose Route Start Last Admin Trade Name Freq PRN Reason Stop Dose Admin Al Hydrox/Mg Hydrox/Simethicone 30 ml 12/13/24 13:42 12/21/24 17:58 Mg Hyd/Al Hyd/Bari (Maalox Reg) Susp 30 Ml Udc PO 01/12/25 13:41 30 ml Q4HR PRN Administration UPSET STOMACH/INDIGESTION Isoniazid 300 mg 12/02/24 09:00 12/22/24 09:02 Isoniazid 300 Mg Tablet PO 01/01/25 08:59 300 mg QDAY TORREY Administration Pyridoxine HCl 50 mg 11/07/24 09:00 12/22/24 09:02 Pyridoxine 50 Mg Tablet PO 01/30/26 12:00 50 mg QDAY TORREY Administration Rifampin 600 mg 12/02/24 09:00 12/22/24 09:02 Rifampin 300 Mg Capsule PO 01/01/25 08:59 600 mg QDAY TORREY Administration Plan 53-year-old male with no past medical history presented to the ED due to cough, recent unintentional weight loss and tarry lesion found on chest x-ray. Admitted for TB workup. 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 Patient denies any night sweats, hemoptysis at this time, however he does state having night sweats in the past few months. Chest x-ray shows extensive bilateral infiltrate, which appears cavitary in the upper lung zones Chest CT shows Extensive cavitary miliary parenchymal disease throughout the lungs, most severe at the right apex, including septated right upper lobe cavitary lesion 5.6 x 5.2cm Blood culture-negative 48 hours Influenza negative, COVID-negative, HIV negative, Aspergillus negative Sputum cultures negative AFB positive for tuberculosis, plan is to continue 7 days of treatment and repeat AFBs Wednesday night, to be sent on Wednesday AFB positive for tuberculosis, will repeat AFBs AFBs from 11/09 resulted on 11/13 are positive for tuberculosis AFB 11/17-11/18 results are positive AFB 11/29 Resulted positive Patient was on ripe therapy from 10/22/2024 however ethambutol was discontinued on 11/27 as per ID recommendations as per sensitivity of the strain. AFB 11/29-11/30 results were positive 12/06/2024?patient stable, received ethambutol along with RIP therapy. Pending recommendations from ID and Department of Health prior to arranging safe discharge. 12/06/2024?repeat AFB were ordered on they are actually collected on 12/07/2024. Resulted positive 12/12/2024 -repeat AFB cultures were collected. Positive culture 12/16/2024 - Repeat AFB resulted positive 12/19/24 Sent AFB cultures -resulted positive with less than 1 per field on all 3 samples. Plan: -Isolation precautions -Continue Isoniazid and rifampin and discontinued pza and ethambutol per ID recommendations as the strain is sensitive to rif and izo -Patient will likely need to continue isolating at home with his family for a total of at least 6 months up to to 12 months since diagnosis of TB. (From 10/22/24 up to 04/2025-10/2025) -Will continue patient on isoniazid and rifampin until all 3 sputum cultures returned negative. ?Appreciate ID recommendations as well as Department of Health parameters for discharge - Will repeat afb cultures next week #Chest pain, resolved #Shortness of breath, resolved Patient complained of generalized chest pain 2/10 and shortness of breath at rest for the past 2 days Troponin <0.002 EKG sinus rhythm, early repolarization abnormality. -No further workup warranted Hospital Management: Disposition: Pending clearance with [facility] department Diet: Regular Lines: pIVs GI Prophylaxis: None DVT prophylaxis: Enoxaparin 40 Mg SC daily Code status: FULL CODE I discussed patient's care with attending physician, Dr Aristeo Steward PGY3 Attending Provider Attestation/Addendum I, Chelsy Alberts DO, attest that I was physically present for the rojas portions of the service and evaluated the patient with the resident and I reviewed and discussed the case with the resident and agree with the resident's findings and plans of care as documented above Patient seen and evaluated this afternoon. He is anxious to go home. However, explained to him that his sputum cultures remain positive.Will continue [facility] current treatment. He otherwise has no complaints and denies any hemoptysis, nausea, vomiting, shortness of breath, fevers, chills.
[2024-12-22 14:00] VITALS: BP 115/69; PULSE 67; RESP 18; TEMP 36.1; O2SAT 96
[2024-12-22 22:00] VITALS: BP 109/71; PULSE 61; RESP 16; TEMP 36.3; O2SAT 97
[2024-12-23 06:00] VITALS: BP 106/61; PULSE 63; RESP 17; TEMP 36.2; O2SAT 98
[2024-12-23] MEDS: ISONIAZID 300 MG TABLET PO (08:37)
[2024-12-23] MEDS: PYRIDOXINE 50 MG TABLET PO (08:37)
[2024-12-23] MEDS: rifAMPin 300 MG CAPSULE 600 MG PO (08:37)
[2024-12-23 14:00] VITALS: BP 114/74; PULSE 67; RESP 18; TEMP 36.3; O2SAT 98
--- NOTE | 2024-12-23 15:11 | PD.RESPRO ---
Documentation for date of: 12/23/24 Subjective Subjective Interval history: No acute events overnight.?Patient seen and examined at bedside this AM.?Next AFBs will be taken next week. No further complaints at this time. Review of systems otherwise negative except what is mentioned above. Exam Vital Signs Temp Pulse Resp BP Pulse Ox O2 Del Method 97.1 F 63 17 106/61 98 Room Air 12/23/24 06:00 12/23/24 06:00 12/23/24 06:00 12/23/24 06:00 12/23/24 06:00 12/23/24 06:00 Narrative Exam Constitutional: Well nourished and in no acute distress CVS: RRR, S1 and S2 present, no murmurs, rubs or gallops . RESP: CTAB, no SOB, no rales, rhonchi or wheezing. No respiratory Distress GI: Normal BS, Nontender/Nondistended. MSK: Full range of motion, No trauma or deformities or masses. Skin: Warm to touch, Dry. No rashes or lesions. No hematomas Neuro: b2b appointment setter II-XII grossly intact. Sensation grossly intact. Psych: (AAO) x3 . Appropriate mood and affect. Objective Labs 12/20/24 05:05 12/20/24 05:05 Quality Measures Quality Measures VTE prophylaxis Assessment & Plan Assessment Current Active Medications: Generic Name Dose Route Start Last Admin Trade Name Freq PRN Reason Stop Dose Admin Al Hydrox/Mg Hydrox/Simethicone 30 ml 12/13/24 13:42 12/21/24 17:58 Mg Hyd/Al Hyd/Bari (Maalox Reg) Susp 30 Ml Udc PO 01/12/25 13:41 30 ml Q4HR PRN Administration UPSET STOMACH/INDIGESTION Isoniazid 300 mg 12/02/24 09:00 12/23/24 08:37 Isoniazid 300 Mg Tablet PO 01/01/25 08:59 300 mg QDAY TORREY Administration Pyridoxine HCl 50 mg 11/07/24 09:00 12/23/24 08:37 Pyridoxine 50 Mg Tablet PO 01/30/26 12:00 50 mg QDAY TORREY Administration Rifampin 600 mg 12/02/24 09:00 12/23/24 08:37 Rifampin 300 Mg Capsule PO 01/01/25 08:59 600 mg QDAY TORREY Administration Plan 53-year-old male with no past medical history presented to the ED due to cough, recent unintentional weight loss and tarry lesion found on chest x-ray. Admitted for TB workup. 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 Patient denies any night sweats, hemoptysis at this time, however he does state having night sweats in the past few months. Chest x-ray shows extensive bilateral infiltrate, which appears cavitary in the upper lung zones Chest CT shows Extensive cavitary miliary parenchymal disease throughout the lungs, most severe at the right apex, including septated right upper lobe cavitary lesion 5.6 x 5.2cm Blood culture-negative 48 hours Influenza negative, COVID-negative, HIV negative, Aspergillus negative Sputum cultures negative AFB positive for tuberculosis, plan is to continue 7 days of treatment and repeat AFBs Wednesday night, to be sent on Wednesday AFB positive for tuberculosis, will repeat AFBs AFBs from 11/09 + resulted on 11/13 are positive for tuberculosis AFB 11/17-11/18 results are positive AFB 11/29 Resulted positive Patient was on ripe therapy from 10/22/2024 however ethambutol was discontinued on 11/27 as per ID recommendations as per sensitivity of the strain. AFB 11/29-11/30 results were positive 12/06/2024?patient stable, received ethambutol along with RIP therapy. Pending recommendations from ID and Department of Health prior to arranging safe discharge. 12/06/2024?repeat AFB were ordered on they are actually collected on 12/07/2024. Resulted positive 12/12/2024 -repeat AFB cultures were collected. Positive culture 12/16/2024 - Repeat AFB resulted positive 12/19/24 Sent AFB cultures -resulted positive with less than 1 per field on all 3 samples. Plan: -Isolation precautions -Continue Isoniazid and rifampin and discontinued pza and ethambutol per ID recommendations as the strain is sensitive to rif and izo -Patient will likely need to continue isolating at home with his family for a total of at least 6 months up to to 12 months since diagnosis of TB. (From 10/22/24 up to 04/2025-10/2025) -Will continue patient on isoniazid and rifampin until all 3 sputum cultures returned negative. ?Appreciate ID recommendations as well as Department of Health parameters for discharge - Will repeat afb cultures next week #Chest pain, resolved #Shortness of breath, resolved Patient complained of generalized chest pain 2/10 and shortness of breath at rest for the past 2 days Troponin <0.002 EKG sinus rhythm, early repolarization abnormality. -No further workup warranted Hospital Management: Disposition: Pending clearance with [facility] Diet: Regular Lines: pIVs GI Prophylaxis: None DVT prophylaxis: Enoxaparin 40 Mg SC daily Code status: FULL CODE Patient plan of care was discussed with the attending physician, Dr. Alberts. Falguni Borja, PGY-2 Attending Provider Attestation/Addendum I, Chelsy Alberts, DO, attest that I was physically present for the rojas portions of the service and evaluated the patient with the resident and I reviewed and discussed the case with the resident and agree with the resident's findings and plans of care as documented above No acute events overnight. Pending repeat AFB on Wednesday. Patient tolerating medications, no episodes of emesis or hemoptysis
[2024-12-23 22:00] VITALS: BP 128/86; PULSE 88; RESP 15; TEMP 36.2; O2SAT 97
[2024-12-24 06:00] VITALS: BP 107/74; PULSE 72; RESP 15; TEMP 36.3; O2SAT 95
--- NOTE | 2024-12-24 09:47 | ESPR_ITS ---
Documentation for date of: 12/24/24 Subjective Subjective Interval history: Patient seen and examined dimensions today. There were no major overnight events patient no complaints this morning. Patient has not had anymore episodes of blood in sputum for 5 days. We will repeat AFB smears tomorrow Exam Vital Signs Temp Pulse Resp BP Pulse Ox O2 Del Method 97.3 F 72 15 107/74 95 Room Air 12/24/24 06:00 12/24/24 06:00 12/24/24 06:00 12/24/24 06:00 12/24/24 06:00 12/24/24 06:00 Narrative Exam Constitutional: Well nourished and in no acute distress CVS: RRR, S1 and S2 present, no murmurs, rubs or gallops . RESP: CTAB, no SOB, no rales, rhonchi or wheezing. No respiratory Distress GI: Normal BS, Nontender/Nondistended. MSK: Full range of motion, No trauma or deformities or masses. Skin: Warm to touch, Dry. No rashes or lesions. No hematomas Neuro: account solutions analyst II-XII grossly intact. Sensation grossly intact. Psych: (AAO) x3 . Appropriate mood and affect. Objective Labs 12/20/24 05:05 12/20/24 05:05 Quality Measures Quality Measures VTE prophylaxis Assessment & Plan Assessment Current Active Medications: Generic Name Dose Route Start Last Admin Trade Name Freq PRN Reason Stop Dose Admin Al Hydrox/Mg Hydrox/Simethicone 30 ml 12/13/24 13:42 12/21/24 17:58 Mg Hyd/Al Hyd/Bari (Maalox Reg) Susp 30 Ml Udc PO 01/12/25 13:41 30 ml Q4HR PRN Administration UPSET STOMACH/INDIGESTION Isoniazid 300 mg 12/02/24 09:00 12/23/24 08:37 Isoniazid 300 Mg Tablet PO 01/01/25 08:59 300 mg QDAY TORREY Administration Pyridoxine HCl 50 mg 11/07/24 09:00 12/23/24 08:37 Pyridoxine 50 Mg Tablet PO 01/30/26 12:00 50 mg QDAY TORREY Administration Rifampin 600 mg 12/02/24 09:00 12/23/24 08:37 Rifampin 300 Mg Capsule PO 01/01/25 08:59 600 mg QDAY TORREY Administration Plan 53-year-old male with no past medical history presented to the ED due to cough, recent unintentional weight loss and tarry lesion found on chest x-ray. Admitted for TB workup. 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 Patient denies any night sweats, hemoptysis at this time, however he does state having night sweats in the past few months. Chest x-ray shows extensive bilateral infiltrate, which appears cavitary in the upper lung zones Chest CT shows Extensive cavitary miliary parenchymal disease throughout the lungs, most severe at the right apex, including septated right upper lobe cavitary lesion 5.6 x 5.2cm Blood culture-negative 48 hours Influenza negative, COVID-negative, HIV negative, Aspergillus negative Sputum cultures negative AFB positive for tuberculosis, plan is to continue 7 days of treatment and repeat AFBs Wednesday night, to be sent on Wednesday AFB positive for tuberculosis, will repeat AFBs AFBs from 11/09 + resulted on 11/13 are positive for tuberculosis AFB 11/17-11/18 results are positive AFB 11/29 Resulted positive Patient was on ripe therapy from 10/22/2024 however ethambutol was discontinued on 11/27 as per ID recommendations as per sensitivity of the strain. AFB 11/29-11/30 results were positive 12/06/2024?patient stable, received ethambutol along with RIP therapy. Pending recommendations from ID and Department of Health prior to arranging safe discharge. 12/06/2024?repeat AFB were ordered on they are actually collected on 12/07/2024. Resulted positive 12/12/2024 -repeat AFB cultures were collected. Positive culture 12/16/2024 - Repeat AFB resulted positive 12/19/24 Sent AFB cultures -resulted positive with less than 1 per field on all 3 samples. Plan: -Isolation precautions -Continue Isoniazid and rifampin and discontinued pza and ethambutol per ID recommendations as the strain is sensitive to rif and izo -Patient will likely need to continue isolating at home with his family for a total of at least 6 months up to to 12 months since diagnosis of TB. (From 10/22/24 up to 04/2025-10/2025) -Will continue patient on isoniazid and rifampin until all 3 sputum cultures returned negative. ?Appreciate ID recommendations as well as Department of Health parameters for discharge - Will repeat afb cultures tomorrow #Chest pain, resolved #Shortness of breath, resolved Patient complained of generalized chest pain 2/10 and shortness of breath at rest for the past 2 days Troponin <0.002 EKG sinus rhythm, early repolarization abnormality. -No further workup warranted Hospital Management: Disposition: Pending clearance with [facility] department Diet: Regular Lines: pIVs GI Prophylaxis: None DVT prophylaxis: Enoxaparin 40 Mg SC daily Code status: FULL CODE I discussed patient's care with attending physician, Dr Aristeo Steward PGY3 Attending Provider Attestation/Addendum I, Chelsy Alberts, , attest that I was physically present for the rojas portions of the service and evaluated the patient with the resident and I reviewed and discussed the case with the resident and agree with the resident's findings and plans of care as documented above Patient seen and evaluated this AM. No acute events overnight. Will repeat AFB tomorrow.
[2024-12-24] MEDS: PYRIDOXINE 50 MG TABLET PO (09:52)
[2024-12-24] MEDS: ISONIAZID 300 MG TABLET PO (09:53)
[2024-12-24] MEDS: rifAMPin 300 MG CAPSULE 600 MG PO (09:53)
[2024-12-24 14:00] VITALS: BP 124/71; PULSE 99; RESP 17; TEMP 36.4; O2SAT 96
[2024-12-24 22:00] VITALS: BP 145/90; PULSE 83; RESP 17; TEMP 36.1; O2SAT 97
[2024-12-25 06:00] VITALS: BP 94/69; PULSE 67; RESP 18; TEMP 36.4; O2SAT 98
--- NOTE | 2024-12-25 07:39 | PD.RESPRO ---
Documentation for date of: 12/25/24 Subjective Subjective Interval history: Patient seen and examined in [facility] today. There were no major overnight events. This patient is known to patient today he is very adamant about leaving. Patient's was also at bedside who stresses that patient being isolated in the room is having a mental and emotional toll on the patient and his family. Attempts were made to contact the Department of Health for possible alternative plans for discharge however it was unsuccessful. Will attempt to contact Department Health once again tomorrow. Explained to the patient that leaving AMA will require to hospital to reported to the authorities. Patient agreed to stay 1 more night to give us more time to contact the Department of Health. Exam Vital Signs Temp Pulse Resp BP Pulse Ox O2 Del Method 97.5 F 67 18 94/69 98 Room Air 12/25/24 06:00 12/25/24 06:00 12/25/24 06:00 12/25/24 06:00 12/25/24 06:00 12/25/24 06:00 Narrative Exam Constitutional: Well nourished and in no acute distress CVS: RRR, S1 and S2 present, no murmurs, rubs or gallops . RESP: CTAB, no SOB, no rales, rhonchi or wheezing. No respiratory Distress GI: Normal BS, Nontender/Nondistended. MSK: Full range of motion, No trauma or deformities or masses. Skin: Warm to touch, Dry. No rashes or lesions. No hematomas Neuro: family educator II-XII grossly intact. Sensation grossly intact. Psych: (AAO) x3 . Appropriate mood and affect. Objective Labs 12/20/24 05:05 12/20/24 05:05 Quality Measures Quality Measures VTE prophylaxis Assessment & Plan Assessment Current Active Medications: Generic Name Dose Route Start Last Admin Trade Name Freq PRN Reason Stop Dose Admin Al Hydrox/Mg Hydrox/Simethicone 30 ml 12/13/24 13:42 12/21/24 17:58 Mg Hyd/Al Hyd/Bari (Maalox Reg) Susp 30 Ml Udc PO 01/12/25 13:41 30 ml Q4HR PRN Administration UPSET STOMACH/INDIGESTION Isoniazid 300 mg 12/02/24 09:00 12/24/24 09:53 Isoniazid 300 Mg Tablet PO 01/01/25 08:59 300 mg QDAY TORREY Administration Pyridoxine HCl 50 mg 11/07/24 09:00 12/24/24 09:52 Pyridoxine 50 Mg Tablet PO 01/30/26 12:00 50 mg QDAY TORREY Administration Rifampin 600 mg 12/02/24 09:00 12/24/24 09:53 Rifampin 300 Mg Capsule PO 01/01/25 08:59 600 mg QDAY TORREY Administration Sodium Chloride 5 ml 12/25/24 07:38 Sodium Chloride Rt 10% 15 Ml Nebu INH 12/25/24 07:39 X1 ONE Plan 53-year-old male with no past medical history presented to the ED due to cough, recent unintentional weight loss and tarry lesion found on chest x-ray. Admitted for TB workup. 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 Patient denies any night sweats, hemoptysis at this time, however he does state having night sweats in the past few months. Chest x-ray shows extensive bilateral infiltrate, which appears cavitary in the upper lung zones Chest CT shows Extensive cavitary miliary parenchymal disease throughout the lungs, most severe at the right apex, including septated right upper lobe cavitary lesion 5.6 x 5.2cm Blood culture-negative 48 hours Influenza negative, COVID-negative, HIV negative, Aspergillus negative Sputum cultures negative AFB positive for tuberculosis, plan is to continue 7 days of treatment and repeat AFBs Wednesday night, to be sent on Wednesday AFB positive for tuberculosis, will repeat AFBs AFBs from 11/09 + resulted on 11/13 are positive for tuberculosis AFB 11/17-11/18 results are positive AFB 11/29 Resulted positive Patient was on ripe therapy from 10/22/2024 however ethambutol was discontinued on 11/27 as per ID recommendations as per sensitivity of the strain. AFB 11/29-11/30 results were positive 12/06/2024?patient stable, received ethambutol along with RIP therapy. Pending recommendations from ID and Department of Health prior to arranging safe discharge. 12/06/2024?repeat AFB were ordered on they are actually collected on 12/07/2024. Resulted positive 12/12/2024 -repeat AFB cultures were collected. Positive culture 12/16/2024 - Repeat AFB resulted positive 12/19/24 Sent AFB cultures -resulted positive with less than 1 per field on all 3 samples. Plan: -Isolation precautions -Continue Isoniazid and rifampin and discontinued pza and ethambutol per ID recommendations as the strain is sensitive to rif and izo -Patient will likely need to continue isolating at home with his family for a total of at least 6 months up to to 12 months since diagnosis of TB. (From 10/22/24 up to 04/2025-10/2025) -Will continue patient on isoniazid and rifampin until all 3 sputum cultures returned negative. ?Appreciate ID recommendations as well as Department of Health parameters for discharge -Repeat AFB cultures ordered Patient adamant on leaving despite medical advice however he agreed to stay 1 additional night while we try to contact the Department of Health. #Chest pain, resolved #Shortness of breath, resolved Patient complained of generalized chest pain 2/10 and shortness of breath at rest for the past 2 days Troponin <0.002 EKG sinus rhythm, early repolarization abnormality. -No further workup warranted Hospital Management: Disposition: Pending clearance with [facility] department Diet: Regular Lines: pIVs GI Prophylaxis: None DVT prophylaxis: Enoxaparin 40 Mg SC daily Code status: FULL CODE I discussed patient's care with attending physician, Dr Aristeo Steward PGY3 Attending Provider Attestation/Addendum I, Chelsy Alberts DO, attest that I was physically present for the rojas portions of the service and evaluated the patient with the resident and I reviewed and discussed the case with the resident and agree with the resident's findings and plans of care as documented above Patient frustrated about prolonged hospital stay and wants to leave against medical advice, understanding the risks of leaving without county clearance. Efforts made to contact the county, but unsuccesful. Patient states he will wait another day for an answer. He has had insomnia in the hospital and really wishes to return home.
[2024-12-25 08:29] LABS: Cult AFB Sendout- Sputum* See Sep Rpt
--- NOTE | 2024-12-25 09:15 | PD.IDPROG ---
Subjective Subjective Interval history: latest smear still pos. but weakly, await cx. usually read weekly as light kills the germ, so cx are kept in the dark and only reviewed weekly Exam Vital Signs Temp Pulse Resp BP Pulse Ox O2 Del Method 97.5 F 67 18 94/69 98 Room Air 12/25/24 06:00 12/25/24 06:00 12/25/24 06:00 12/25/24 06:00 12/25/24 06:00 12/25/24 06:00 Narrative Exam limited eval Objective - Internal Medicine Labs 12/20/24 05:05 12/20/24 05:05 Assessment & Plan A&P Narrative pulm tb, neg cocci IgMand IgG and neg procal (insensitive to fungal and atypical antigens) and pos afb smears with repeats also pos. cx pos from 10/21 and after that with broth pos only smear pos late nov 2024. but cx noted. organism is S to inh and rif, so no need for ethambutol. pza is used to speed clearance of sputum so stopped pza on 12/11. Ethambutol is not added to speed clearance but in case of r to inh and rifampin (not seen) cx pos from 11/15 but in broth only,but health dept deferring to state on release . contagiousness seems low. tb grows slowly and only in the dark, so cx are not checked daily but once a week and are incubated in the dark. broth only pos cx generally means: not much there rx to be long. 6-12 mo. later sputums also pos on smear but rare. recommend more afb smears each week. health dept may determine the isolation status and their criteria for release no objection to outpt f/u by health dept and discharge is at their discretion. hotel stays can help if that can be arranged and if it is appropriate for the setting (again up to health dept). he lives with young children (pre school age or less) then they should be tested for tb. apparently one is positive (by word of mouth) we do not have any details though other than thru patient. and do not know if others are at risk at home will check in again on Wednesday. ok to cut lab as you have done to minimize phlebotomy. hiv and hep c neg. stopped ethambutol again as well as pza on Friday 12/08. organism is S to inh and rif, so ok to use 2 agents at this point. will check in again on Wednesday Time Spent With Patient Time: Total time spent is greater than 50% in coordination of care (as documented) at patient's floor/unit and/or counseling patient:
[2024-12-25] MEDS: ISONIAZID 300 MG TABLET PO (10:36)
[2024-12-25] MEDS: rifAMPin 300 MG CAPSULE 600 MG PO (10:36)
[2024-12-25 14:00] VITALS: BP 117/80; PULSE 71; RESP 18; TEMP 36.4; O2SAT 99
[2024-12-25] MEDS: PYRIDOXINE 50 MG TABLET PO (14:26)
[2024-12-25 15:11] LABS: Cult AFB Sendout- Sputum* See Sep Rpt
--- NOTE | 2024-12-25 15:58 | PC.SS ---
Follow up note: AFB sent. SS was informed by resident physician, Dr. Rose pt is requesting to leave. Dr. Rose will speak with pt about the outcome (consequences) of leaving AMA. Pt is waiting to be cleared by [facility]. provided Dr. Rose with Dr. Orr's phone#.
[2024-12-25 22:00] VITALS: BP 121/81; PULSE 103; RESP 18; TEMP 36.4; O2SAT 97
[2024-12-26 02:00] LABS: Cult AFB Sendout- Sputum* See Sep Rpt
[2024-12-26 05:30] VITALS: BP 116/73; PULSE 79; RESP 18; TEMP 36.3; O2SAT 98
[2024-12-26] MEDS: PYRIDOXINE 50 MG TABLET PO (08:18)
[2024-12-26] MEDS: rifAMPin 300 MG CAPSULE 600 MG PO (08:18)
[2024-12-26] MEDS: ISONIAZID 300 MG TABLET PO (08:18)
[2024-12-26] MEDS: ETHAMBUTOL HCL 400 MG TABLET 1000 MG PO (10:51)
[2024-12-26] MEDS: PYRAZINAMIDE 500 MG TABLET 1500 MG PO (10:51)
[2024-12-26] MEDS: ONDANSETRON ODT 4 MG TABRAP PO (11:27)
--- NOTE | 2024-12-26 12:19 | XR_ITS ---
Examination: AP chest single view Technique one AP portable upright chest single view Exam date and time: December 26, 2024 12:36 PM Comparison October 21, 2024 INDICATIONS: Coughing shortness of breath today FINDINGS: Extensive upper lobe infiltrates again noted including 30 mm cavitary lesion right upper lobe Normal heart size Moderate osteopenia IMPRESSION: Extensive upper lobe infiltrates again noted, differential would include active tuberculosis, please see the CT chest report October 21, 2024, consider follow-up CT chest without contrast
[2024-12-26 14:00] VITALS: BP 116/68; PULSE 66; RESP 16; TEMP 36.1; O2SAT 94
--- NOTE | 2024-12-26 14:43 | PC.SS ---
Follow up note: Dr. Rose spoke to Dr. Orr (physician from [facility]) and pt will start all 4 medications for TB. Sputum cultures were sent out yesterday and we are waiting for results to come back. Pt will return home upon dc.
--- NOTE | 2024-12-26 15:05 | PD.RESPRO ---
Documentation for date of: 12/26/24 Subjective Subjective Interval history: Patient was seen and examined in [facility] today. There were no major overnight events and patient had no complaints this morning. Patient is still fairly attentive to the plan on discharge. Spoke to Dr. Orr today about patient's concerns and deteriorating mental health. Due to patient's continual positive AFB result despite treatment with isoniazid and rifampin, will restart patient on the quadruple therapy including the ethambutol and pyrazinamide. We are pending the results from this week's AFB cultures, once those return will follow-up with the Department of Health. Repeat chest x-ray showed decrease in the cavitary lesion size compared to the one initially obtained on admission. Exam Vital Signs Temp Pulse Resp BP Pulse Ox O2 Del Method 97.0 F 66 16 116/68 94 L Room Air 12/26/24 14:00 12/26/24 14:00 12/26/24 14:00 12/26/24 14:00 12/26/24 14:12/26/24 14:00 Narrative Exam Constitutional: Well nourished and in no acute distress CVS: RRR, S1 and S2 present, no murmurs, rubs or gallops . RESP: CTAB, no SOB, no rales, rhonchi or wheezing. No respiratory Distress GI: Normal BS, Nontender/Nondistended. MSK: Full range of motion, No trauma or deformities or masses. Skin: Warm to touch, Dry. No rashes or lesions. 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 Sensation grossly intact. Psych: (AAO) x3 . Appropriate mood and affect. Objective Labs 12/20/24 05:05 12/20/24 05:05 Quality Measures Quality Measures VTE prophylaxis Assessment & Plan Assessment Current Active Medications: Generic Name Dose Route Start Last Admin Trade Name Freq PRN Reason Stop Dose Admin Acetaminophen 650 mg 12/26/24 11:05 Acetaminophen 325 Mg Tablet PO 01/25/25 11:04 Q6HR PRN Fever >100.4 or Pain Al Hydrox/Mg Hydrox/Simethicone 30 ml 12/13/24 13:42 12/21/24 17:58 Mg Hyd/Al Hyd/Bari (Maalox Reg) Susp 30 Ml Udc PO 01/12/25 13:41 30 ml Q4HR PRN Administration UPSET STOMACH/INDIGESTION Ethambutol HCl 1,000 mg 12/26/24 09:00 12/26/24 10:51 Ethambutol Hcl 400 Mg Tablet PO 01/25/25 08:59 1,000 mg QDAY TORREY Administration Isoniazid 300 mg 12/02/24 09:00 12/26/24 08:18 Isoniazid 300 Mg Tablet PO 01/01/25 08:59 300 mg QDAY TORREY Administration Ondansetron HCl 4 mg 12/26/24 11:05 12/26/24 11:27 Ondansetron Odt 4 Mg Tabrap PO 01/25/25 11:04 4 mg Q8HR PRN Administration NAUSEA OR VOMITING Protocol Pyrazinamide 1,500 mg 12/26/24 09:00 12/26/24 10:51 Pyrazinamide 500 Mg Tablet PO 01/25/25 08:59 1,500 mg QDAY TORREY Administration Pyridoxine HCl 50 mg 11/07/24 09:00 12/26/24 08:18 Pyridoxine 50 Mg Tablet PO 01/30/26 12:00 50 mg QDAY TORREY Administration Rifampin 600 mg 12/02/24 09:00 12/26/24 08:18 Rifampin 300 Mg Capsule PO 01/01/25 08:59 600 mg QDAY TORREY Administration Plan 53-year-old male with no past medical history presented to the ED due to cough, recent unintentional weight loss and tarry lesion found on chest x-ray. Admitted for TB workup. 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 Patient denies any night sweats, hemoptysis at this time, however he does state having night sweats in the past few months. Chest x-ray shows extensive bilateral infiltrate, which appears cavitary in the upper lung zones Chest CT shows Extensive cavitary miliary parenchymal disease throughout the lungs, most severe at the right apex, including septated right upper lobe cavitary lesion 5.6 x 5.2cm Blood culture-negative 48 hours Influenza negative, COVID-negative, HIV negative, Aspergillus negative Sputum cultures negative AFB positive for tuberculosis, plan is to continue 7 days of treatment and repeat AFBs Wednesday night, to be sent on Wednesday AFB positive for tuberculosis, will repeat AFBs AFBs from 11/09 resulted on 11/13 are positive for tuberculosis AFB 11/17-11/18 results are positive AFB 11/29 Resulted positive Patient was on ripe therapy from 10/22/2024 however ethambutol was discontinued on 11/27 as per ID recommendations as per sensitivity of the strain. AFB 11/29-11/30 results were positive 12/06/2024?patient stable, received ethambutol along with RIP therapy. Pending recommendations from ID and Department of Health prior to arranging safe discharge. 12/06/2024?repeat AFB were ordered on they are actually collected on 12/07/2024. Resulted positive 12/12/2024 -repeat AFB cultures were collected. Positive culture 12/16/2024 - Repeat AFB resulted positive 12/19/24 Sent AFB cultures -resulted positive with less than 1 per field on all 3 samples. 12/25/2024 AFB cultures sent?pending results Plan: -Isolation precautions -Continue Isoniazid and rifampin and discontinued pza and ethambutol per ID recommendations as the strain is sensitive to rif and izo -Patient will likely need to continue isolating at home with his family for a total of at least 6 months up to to 12 months since diagnosis of TB. (From 10/22/24 up to 04/2025-10/2025) -Will continue patient on isoniazid and rifampin until all 3 sputum cultures returned negative. ?Appreciate ID recommendations as well as Department of Health parameters for discharge ?Spoke to the Department of Health today and the current plan is to restart patient on quadruple therapy (RIPE) as he continues to be positive on smear despite sensitivity Will plan for discharge depending on the results of the AFB culture #Chest pain, resolved #Shortness of breath, resolved Patient complained of generalized chest pain 2/10 and shortness of breath at rest for the past 2 days Troponin <0.002 EKG sinus rhythm, early repolarization abnormality. -No further workup warranted Hospital Management: Disposition: Pending clearance with [facility] department Diet: Regular Lines: pIVs GI Prophylaxis: None DVT prophylaxis: Enoxaparin 40 Mg SC daily Code status: FULL CODE I discussed patient's care with attending physician, Dr Aristeo Steward PGY3 Attending Provider Attestation/Addendum I, Chelsy Alberts DO, attest that I was physically present for the rojas portions of the service and evaluated the patient with the resident and I reviewed and discussed the case with the resident and agree with the resident's findings and plans of care as documented above Patient remains eager to go home. Pending county clearance. Repeat sputum cultures are also pending.
[2024-12-26 22:00] VITALS: BP 114/74; PULSE 72; RESP 16; TEMP 36.6; O2SAT 93
[2024-12-27 05:26] VITALS: BP 123/80; PULSE 73; RESP 18; TEMP 36.6; O2SAT 96
--- NOTE | 2024-12-27 09:15 | PC.IP ---
TB Discharge Plan faxed from [facility] with Dr. Orr's signature. Dr. Steward made aware that pt. can be discharge per [facility] and call TB RX (Rifampin, Isoniazid, and B6) to pt.'s pharmacy. TB Discharge Plan signed form placed in pt.'s chart.
--- NOTE | 2024-12-27 09:31 | PD.RESDS ---
Planned Discharge Date 12/27/24 DS: Providers Provider Date of admission: 10/21/24 16:00 Primary care physician: Keon Hodgson PA-C Admitting Provider: Chelsy Alberts DO Attending Provider on Admission: Indiana Tang MD Consults: 10/22/24 10:02 Consult to Infectious Diseases Stat Comment: Consulting Provider: Nik Peraza 10/24/24 09:37 Referral Registered Dietitian Stat Comment: Attending Provider on DC: Terrell Steward MD Discharging Provider: Terrell Steward MD DS: Diagnosis Problem List Completed Was Problem List Reviewed/Reconciled?: Yes Hospital Course Hospital Course Hospital course: Patient is a 54 yo male with no significant past medical history who came in initially on 10/21/2024 with shortness of breath and progressive cough. Patient had recently come from [place] about a year prior to presentation and had developed a cough that was productive of yellow phlegm for the past 10 months without resolution. He also experienced weight loss in the last 5 months prior to presentation with night sweats and chills in the few months leading up to admission. 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 He was following with his PCP and he was told in the past that he has had water in his lungs however patient was found to have a cavitary lesion on x-ray in our ED. Patient was subsequently tested for tuberculosis and AFBs returned positive. CT scan showed extensive cavitary miliary parenchymal disease throughout the lungs most severe on the right apex including septated right upper lobe cavitary lesion of 5.6 x 5.2 cm. Patient was initiated on RIPE therapy from 22 October and in-house infectious disease as well as Department of Health were on board and determining patient's disposition. Patient's sensitivity resulted around 27 of November after which patient was found to be sensitive to isoniazid and rifampin therefore ethambutol as well as PZA were discontinued. Patient's stay was prolonged due to persistent of positive sputum's despite therapy. It was also found out the patient's children were also to be positive back home and were also started on treatments for which the patient cannot be sent back home until patient's family were on treatment. Patient's was negative upon testing. Due to persistent weekly AFB cultures testings being positive with less than 1 bacterium per field the decision was made with the Department of Health to restart the patient on full RIPE therapy and allow patient to return home to his family and follow isolation precautions as per Department of Health recommendations. Repeat chest x-ray just prior to discharge revealed improvement with decreased size of the cavitary lesion. Patient was stable prior to discharge without any coughs. #Active Cavitary pulmonary tuberculosis Plan: Continue taking Isoniazid, pyrazinamide, pyridoxine, ethambutol and rifampin as directed You will need to take medications for 6-12 months - please follow-up with your PCP to refill these medications Follow-up with Health Department recommendations regarding isolation If you develop new or worsening shortness of breath, chest pain, fever/chills or loss of consciousness - please come back to the ED immediately I discussed patient's care with attending physician, Dr. Tang, Dr Terrell Steward PGY3 Time Spent with Patient Time attestation: Total time spent providing and/or coordinating discharge services: Exam Vital Signs Temp Pulse Resp BP Pulse Ox O2 Del Method 98 F 73 18 123/80 96 Room Air 12/27/24 05:26 12/27/24 05:26 12/27/24 05:26 12/27/24 05:26 12/27/24 05:26 12/27/24 05:26 Narrative Exam Constitutional: Well nourished and in no acute distress CVS: RRR, S1 and S2 present, no murmurs, rubs or gallops . RESP: CTAB, no SOB, no rales, rhonchi or wheezing. No respiratory Distress GI: Normal BS, Nontender/Nondistended. MSK: Full range of motion, No trauma or deformities or masses. Skin: Warm to touch, Dry. No rashes or lesions. 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 Sensation grossly intact. Psych: (AAO) x3 . Appropriate mood and affect. Discharge Plan Plan Patient Disposition: HOME (Self Care) Patient condition on transfer: Stable Care Plan Goals: Continue taking Isoniazid, pyrazinamide, pyridoxine, ethambutol and rifampin as directed continue tomando Isoniazid,pyrazinamide,pyridoxine,ethambutol y rifampin sean indicado You will need to take medications for 6-12 months - please follow-up with your PCP to refill these medications necesita tracy medicamentos por 6-12 meses, jung lester con tinoco doctor de cabezera para rellenar estos medicamentos Follow-up with Health Department recommendations regarding isolation jung lester con el departamento de sergio para recomendaciones respecto al aislamiento If you develop new or worsening shortness of breath, chest pain, fever/chills or loss of consciousness - please come back to the ED immediately Si desarolla nuevo o empiora tinoco dificultad para respirar,dolor de pecho,fiebre/resfrillados o perdida de consiencia- regrese a la erick de emergencia imediatamente Prescriptions/Referrals Prescriptions/Med Rec: New ethambutol 400 mg tablet 1,000 mg PO QDAY Qty: 30 2RF rifampin 300 mg capsule 600 mg PO QDAY 30 Days Qty: 60 2RF isoniazid 300 mg tablet 300 mg PO QDAY 30 Days Qty: 30 0RF pyrazinamide 500 mg tablet 1,500 mg PO QDAY 30 Days Qty: 90 0RF pyridoxine (vitamin B6) 50 mg tablet 50 mg PO QDAY 30 Days Qty: 30 2RF Referrals: Keon Hodgson PA-C [Primary Care Provider] - Patient/Caregiver Discharge Instructions Education Materials: Tuberculosis Prevent Spread, Medicine for Tuberculosis, Tuberculosis (TB) Print Language: Scottish Stand Alone Forms: Mary Award Info., Patient Portal Info Letter Discharge Order Discharge Orders: Discharge (Routine); Ordered 12/27/24 Ordered By: Terrell Steward Quality Discharge Quality Measures VTE prophylaxis MD Attestestation MD Attestation I attest that I was physically present for the evaluation, physical examination, lab and imaging review of the patient with the residents. I discussed the case with the residents and agree with the findings and plans of care as documented above. Indiana Tang MD
[2024-12-27] MEDS: ISONIAZID 300 MG TABLET PO (10:07)
[2024-12-27] MEDS: rifAMPin 300 MG CAPSULE 600 MG PO (10:07)
[2024-12-27] MEDS: ETHAMBUTOL HCL 400 MG TABLET 1000 MG PO (10:08)
[2024-12-27] MEDS: PYRAZINAMIDE 500 MG TABLET 1500 MG PO (10:09)
[2024-12-27] MEDS: PYRIDOXINE 50 MG TABLET PO (10:10)
[2024-12-27 11:31] VITALS: BP 119/81; PULSE 71; RESP 18; TEMP 36.6; O2SAT 98
--- NOTE | 2024-12-27 12:34 | PC.IP ---
Jh DEL ROSARIO made aware of pt.'s comment to Dr. Arreola that she did not have transportation to the pharmacy to get Rx. Per [facility], [facility] staff will get the Rx. for the pt.
== END 2024-12-27 11:28 | disposition home or self-care (01) | DRG 137 ==
LOC: SERX 16:20 → SERHOLD 16:36 → S3NX 19:51
PROVIDERS: Internal Medicine; Internal Medicine Infectious Disease; Nurse Practitioner Family; Nurse Practitioner Primary Care; Student in an Organized Health Care Education/Training Program; Admitting Provider Internal Medicine; Emergency Provider Emergency Medicine; PCP Physician Assistant Medical; Visit Provider Student in an Organized Health Care Education/Training Program
DX: A15.0 Tuberculosis of lung (principal); R63.4 Abnormal weight loss; Z68.21 Body mass index [BMI] 21.0-21.9, adult; R61 Generalized hyperhidrosis; J18.9 Pneumonia, unspecified organism; D38.1 Neoplasm of uncertain behavior of trachea, bronchus and lung; K21.9 Gastro-esophageal reflux disease without esophagitis; Z78.9 Other specified health status
CPT/HCPCS: 36415; 71045; 71046; 71250; 80048; 80053; 80074; 80076; 83605; 83735; 84100; 84145; 84484; 85025; 86140; 86331; 86480; 86635; 86703; 86803; 87015; 87040; 87116; 87205; 87206; 87305; 87389; 87811; 89220; 93005; 99285; J1650; Q0162; 94640; A9270

== ENCOUNTER → 2025-03-29 | Outpatient (CLI) | payer MEDICAID, SELFPAY ==
--- NOTE | 2025-03-29 12:32 | XR_ITS ---
Examination: PA lateral chest 2 views TECHNIQUE: Upright PA lateral chest 2 views Date and time: 03/29/2025, 12:47 PM Comparison December 26, 2024 INDICATIONS: Diagnosis active tuberculosis since October 2024 FINDINGS: There remains extensive cavitary parenchymal disease in both upper lobes Normal heart size Prominent osteopenia IMPRESSION: There remains extensive cavitary parenchymal disease in the upper lobes
== END | disposition home or self-care (01) ==
LOC: CDIM 12:22
PROVIDERS: Referring Provider Student in an Organized Health Care Education/Training Program; Visit Provider Student in an Organized Health Care Education/Training Program
DX: R91.8 Other nonspecific abnormal finding of lung field (principal)
CPT/HCPCS: 71046

== ENCOUNTER 2025-05-29 15:04 | Emergency (ER) | payer MEDICAID, SELFPAY ==
--- NOTE | 2025-05-29 16:58 | XR_ITS ---
Examination: PA chest single view TECHNIQUE: Upright PA chest single view Date and time: May 29, 2025, 1659 hours, comparison March 29, 2025 INDICATIONS: Fever coughing headache chest pain beginning one week ago. FINDINGS: Extensive parenchymal disease in the upper lung zones again noted, which is cavitary on the CT chest October 21, 2024 Normal heart size Osseous structures are intact IMPRESSION: Very extensive abnormal parenchymal disease in the upper lung zones again noted Recommend repeat CT chest without contrast follow-up to compare with the October 21, 2024 exam Differential includes active tuberculosis
--- NOTE | 2025-05-29 16:58 | XR_ITS ---
Examination: CT brain head without contrast. 2-D sagittal coronal reconstructions Date and time of exam:May 29, 2025, 1941 hours INDICATIONS: Onset headaches beginning 5 days ago. CTDI: vol (mGy):46.1 DLP: (mGycm):903 Technique: Multiple CT axial sections of the brain have been obtained, 5 mm slice thickness. Contrast has not been administered. 2-D sagittal, coronal reconstructions have been obtained Low dose protocols were performed. One or more of the following dose reduction techniques were used; automated exposure control, adjustment of the mA and/or KV according to patient size, use of iterative reconstruction technique. Findings: No significant ventricular enlargement. Intra-axial or extra-axial hemorrhage density is not seen. No mass effect or midline shift Basal cisterns are not remarkable. Fourth ventricle is midline. Cranial vault intact. Impression: Negative for acute hemorrhage, mass effect or midline shift
[2025-05-29 17:02] VITALS: BP 113/76; PULSE 89; RESP 18; TEMP 37.8; O2SAT 96; BMI 25.2
[2025-05-29 17:18] LABS: Basophils # (Auto) 0.0 Thou/mm3 (0.0-0.2); Basophils % (Auto) 0 % (0-2.5); Eosinophils # (Auto) 0.0 Thou/mm3 (0.0-0.5); Eosinophils % (Auto) 0 % (0-10); Hematocrit 44.0 % (41.0-53.0); Hemoglobin 15.9 g/dL (13.5-16.0); Immature Granulocytes Auto 0.01 Thou/mm3 (0.00-0.00); Lymphocytes # (Auto) 1.2 Thou/mm3 (1.0-4.8); Lymphocytes % (Auto) 33 % (10-50); Mean Corpuscular HGB Conc 36.1 g/dl (31.0-37.0); Mean Corpuscular Hemoglobin 30.6 pg (25.0-35.0); Mean Corpuscular Volume 85 fL (80-100); Monocytes # (Auto) 0.4 Thou/mm3 (0.0-0.8); Monocytes % (Auto) 10 % (0-12); Neutrophils # (Auto) 2.1 Thou/mm3 (1.8-7.7); Neutrophils % (Auto) 56 % (37-80); Nucleated Red Blood Cell # 0.00 Thou/mm3 (0.00-0.00); Nucleated Red Blood Cell % 0 /100 WBC (0); Platelet Count 151 Thou/mm3 (140-440); RDW Standard Deviation 39.2 fL (35.1-43.9); Red Blood Count 5.20 Miln/mm3 (4.50-5.90); White Blood Count 3.7 Thou/mm3 (3.8-10.6)
[2025-05-29 17:41] LABS: Alanine Aminotransferase 46 U/L (10-49); Albumin, Serum 4.1 gm/dL (3.5-5.0); Albumin/Globulin Ratio 1.4 (1.2-2.2); Alkaline Phosphatase 73 U/L (46-116); Anion Gap 7 (7-16); Aspartate Amino Transferase 71 U/L (0-34); BUN/Creatinine Ratio 6 Ratio (12-20); Bilirubin,Total 0.4 mg/dL (0.3-1.2); Blood Urea Nitrogen < 5 mg/dL (9-23); Calcium 9.0 mg/dL (8.3-10.6); Calcium (Corrected) 9.0 mg/dL (8.5-10.1); Carbon Dioxide 28.9 mMol/L (20.0-31.0); Chloride 98 mMol/L (98-107); Creatinine (Component) 0.8 mg/dL (0.6-1.3); Estimated Creatinine Clearance 94.1 mL/min (>60); Globulin 2.9 gm/dL (2.3-3.5); Glucose 97 mg/dL (74-106); Osmolality,Calculated 265 (275-295); Potassium 4.1 mMol/L (3.4-5.1); Sodium 134 mMol/L (136-145); Total Protein 7.0 gm/dL (5.7-8.2); Troponin I < 0.020 ng/mL (0.0-0.045); eGFR > 60 See Note
--- NOTE | 2025-05-29 19:41 | EDNOTE_ITS ---
ED Headache RME/HPI General Chief Complaint: Headache Stated Complaint: DIZZY, FEVER, HEADACHE, NAUSEOUS X 5 DAYS Time Seen by Provider: 05/29/25 15:21 Arrival date/time: 05/29/25 15:04 This is a case of 54-year-old male with history of cavitation of lung on medication came in in the emergency room due to headache on and off for 5 days associated with dizziness nausea and subjective fever cough nasal congestion persistence of the symptoms now with chest pain no shortness of breath this patient decided to sought consult here in the emergency room Limitations: no limitations Related Data Previous Rx's ?Medication ?Instructions ?Recorded ethambutol 400 mg tablet 1,000 mg (2.5 x 400 mg) PO Q DAY 12/27/24 #30 tabs pyridoxine (vitamin B6) 50 mg 50 mg PO QDAY 30 days #3 0 tabs 12/27/24 tablet rifampin 300 mg capsule 600 mg (2 x 300 mg) PO QDAY 30 12/27/24 days #60 caps albuterol sulfate 90 mcg/actuation 2 puff inhalation Q 6H PRN 05/29/25 aerosol inhaler (Ventolin HFA) shortness of breath or wheezing #8.5 grams azithromycin 250 mg tablet See Rx Instructions PO .COM PLEX #6 05/29/25 tabs ibuprofen 800 mg tablet 800 mg PO Q8H PRN pain #20 t abs 05/29/25 ondansetron 4 mg disintegrating 4 mg PO Q8H PRN nausea and 05/29/25 tablet vomiting #20 tabs prednisone 20 mg tablet 20 mg PO BID 5 days #10 tabs 05/29/25 promethazine-DM 6.25 mg-15 mg/5 mL 5 ml PO Q6H PRN cou gh #118 mL 05/29/25 oral syrup Allergies Allergy/AdvReac Type Severity Reaction Status Date / Time No Known Allergies Allergy Verified 05/29/25 15:07 Review of Systems Review of Systems Systems Reviewed: All systems reviewed, normal except as documented Constitutional Constitutional: Reports system reviewed and no additional complaints, except as documented, Reports as per HPI and Denies weakness ENT Ears, Nose, Mouth, and Throat: Reports dizziness and Reports vertigo Cardiovascular Cardiovascular: Reports system reviewed and no additional complaints, except as documented, Reports as per HPI, Reports chest pain, Denies dyspnea and Denies syncope Respiratory Respiratory: Reports system reviewed and no additional complaints, except as documented, Reports as per HPI, Reports cough and Denies dyspnea Gastrointestinal Gastrointestinal: Reports system reviewed and no additional complaints, except as documented, Reports as per HPI and Reports nausea Musculoskeletal Musculoskeletal: Reports system reviewed and no additional complaints, except as documented, Reports as per HPI, Denies numbness and Denies tingling Neurologic Neurologic: Reports system reviewed and no additional complaints, except as documented, Reports as per HPI, Reports dizziness, Denies memory loss, Denies numbness, Denies restless legs, Denies seizure-like activity, Denies sensory deficit, Denies syncope, Denies tingling, Denies tremor(s), Reports vertigo and Denies weakness Psychiatric Psychiatric: Denies memory loss Past Medical History Past Medical History CARDIAC: Negative Congestive Heart Failure RESPIRATORY: Negative Chronic Obstructive Pulmonary Disease (COPD) GENITOURINARY: Negative Renal Disease ENDOCRINE: Negative Diabetes Mellitus Type 1 or Diabetes Mellitus Type 2 Social History SMOKING STATUS: Never smoker ED Exam General Limitations: Present no limitations General appearance: Present alert, in no apparent distress and other (Patient is awake alert oriented not in distress nontoxic looking well-hydrated well- nourished) Head Head exam: Present atraumatic, normocephalic and normal inspection Eye Eye exam: Present normal appearance, PERRL, EOMI and other (no pappiledema no hyphema) ENT ENT exam: Present normal exam, normal oropharynx, mucous membranes moist and other (Normal HEENT exam) Neck Neck exam: Present normal inspection, full ROM, trachea midline and other (Negative for meningeal sign); Absent tenderness, meningismus, lymphadenopathy or thyromegaly Chest Chest inspection: Present normal inspection and symmetric chest wall rise; Absent tenderness Respiratory Respiratory exam: Present normal lung sounds bilaterally; Absent respiratory distress, wheezes, stridor, accessory muscle use or prolonged expiratory phase Cardiovascular Cardiovascular exam: Present regular rate, normal rhythm and normal heart sounds; Absent bradycardia, tachycardia, irregular rhythm, systolic murmur or diastolic murmur Abdominal Exam Abdominal exam: Present soft and normal bowel sounds; Absent distention, tenderness, guarding, rebound, rigidity, diminished bowel sounds, hyperactive bowel sounds, hypoactive bowel sounds or organomegaly Extremities Exam Extremities exam: Present normal inspection and full ROM Back Exam Back exam: Present normal inspection and full ROM Neurological Exam Neurological exam: Present alert, oriented X3, CN II-XII intact, normal gait, reflexes normal and other (Awake alert oriented x 4 no focal deficit GCS 15/15 steady gait memory intact no slurring of speech no facial droop CN II through XII is normal motor or sensory reflex normal negative Babinski); Absent motor sensory deficit Psychiatric Psychiatric exam: Present normal affect and normal mood Skin Skin exam: Present warm, dry, intact and normal color Course Quality Measures none Orders Category Date Time Status Bedside COVID-19 Antigen Test NOW Care 05/29/25 16:58 Active Bedside Influenza A&B Antigen Test NOW Care 05/29/25 16:58 Completed EKG (ED ONLY) *Do not use* NOW Care 05/29/25 16:[address] head/brain wo con Stat Exams 05/29/25 16:58 Completed EKG (ED Only) Stat Exams 05/29/25 16:58 Ordered XR chest 1V portable Stat Exams 05/29/25 16:58 Completed CBC Stat Lab 05/29/25 17:10 Completed CMP [Comprehensive Metabolic Panel] Stat Lab 05/29/25 17:10 Completed Troponin I Stat Lab 05/29/25 17:10 Completed HYDROcodone*/APAP 5/325 [[place] 5/325] Med 05/29/25 19:35 Discontinued 1 tab PO X1 ONE Ondansetron Odt [Zofran Odt] Med 05/29/25 19:35 Discontinued 4 mg PO X1 ONE Vital Signs Vital signs: Vital Signs Temperature 100.1 F 05/29/25 17:02 Pulse Rate 89 05/29/25 17:02 Respiratory Rate 18 05/29/25 17:02 Blood Pressure 113/76 05/29/25 17:02 Pulse Oximetry (%) 96 05/29/25 17:02 Oxygen Delivery Method Room Air 05/29/25 17:02 Oxygen saturation 96% on room air Headache MDM Narrative MDM Narrative:: This is a case of 54-year-old male with history of cavitation of lung on medication came in in the emergency room due to headache on and off for 5 days associated with dizziness nausea and subjective fever cough nasal congestion persistence of the symptoms now with chest pain no shortness of breath this patient decided to sought consult here in the emergency room physical examination patient is awake alert oriented not in distress nontoxic looking vital signs stable BP stable not tachycardic not tachypneic not hypoxic and patient lung sounds showed wheezing on right lower lung field no crackles no rales no retraction no stridor heart normal rate regular rhythm no murmur neurological exam is normal awake alert oriented x 4 no focal deficit GCS 15/15 steady gait HEENT X normal the rest of the physical examination and neurological exam is normal and unremarkable blood test showed no leukocytosis no anemia kidney and liver function is normal no electrolyte imbalance patient troponin is negative patient is positive for influenza A negative for COVID patient x-ray showed cavitation on the right lower lung possible tuberculosis patient is already on medication patient CT scan of the head were normal based on my physical examination and history patient symptoms suggestive of headache possible sinus headache tension headache or migraine headache I do not think patient is having CVA brain mass or TIA or meningitis negative for meningeal sign patient chest pain is noncardiac possibly due to acute bronchitis patient was given [place] and Zofran which improved and resolved the condition of the patient patient will follow-up with PCP in 2 days for reevaluation and to be 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 Patient verbalized no further complains explained diagnosis and answered patient question. Patient is comfortable with the proposed management plan including the need to follow up with his/her primary care physician and any specialist if applicable Discussed patient for any urgent condition or worsening sx, He/She needed to go to emergency room immediately or call 911. Patient acknowledge the responsibility to follow up as instructed and to monitor her/his symptoms. For any persistence of the symptoms for more than 3-5 days return precaution advised. Discussed the result of the test and was given printed discharge instruction Patient data External records reviewed:: [facility] previous records Clinical information provided by:: patient Social determinants that could affect healthcare access:: none Patient has the following chronic illnesses:: None How is presenting disease/condition affected by chronic disease/condition?: no chronic disease Evaluation data The following diagnostics were reviewed and interpreted by me:: lab results, radiology exam(s) and EKG tracing(s) Lab and/or radiology exams considered but not ordered:: Reviewed Interpretation Summary: Reviewed Medications / Prescriptions Medications or Prescriptions considered but not ordered:: Given Medication administrations:: Medication Administration History Discontinued Medications Hydrocodone Bitart/Acetaminophen (Hydrocodone/[place] 5/325 Tablet) 1 tab PO X1 ONE Stop: 05/29/25 19:36 Ondansetron HCl (Ondansetron Odt 4 Mg Tabrap) 4 mg PO X1 ONE; Protocol Stop: 05/29/25 19:36 Given Consultations Consultation(s) initiated? (list below): No Diagnosis Differential diagnosis headache: migraine, tension headache, headache and sinusitis Most likely diagnosis given after review of the tests above:: Headache Admission Indicated Admission indicated?: not indicated Explain why admission is indicated or not indicated:: Not indicated Admission Request Was there a request for admission?: No Admission Attestation Admission request attestation: Not indicated Disposition Plan Disposition Plan: Discharge Discharge Attestation Discharge Attestation: The patient and all family members were given an opportunity to ask questions and understood the discharge instructions. Discharge instructions specifically effects, indications for sooner follow up or return to the emergency department, and the expected course of current diagnosis. Patient condition: Stable Discharge Plan Plan Patient Disposition: HOME (Self Care) Patient condition on transfer: Stable Prescriptions/Referrals Prescriptions/Med Rec: New albuterol sulfate [Ventolin HFA] 90 mcg/actuation HFA aerosol inhaler 2 puff inhalation Q6H PRN (Reason: shortness of breath or wheezing) Qty: 8.5 0RF promethazine-DM 6.25-15 mg/5 mL syrup 5 ml PO Q6H PRN (Reason: cough) Qty: 118 0RF ibuprofen 800 mg tablet 800 mg PO Q8H PRN (Reason: pain) Qty: 20 0RF ondansetron 4 mg tablet,disintegrating 4 mg PO Q8H PRN (Reason: nausea and vomiting) Qty: 20 0RF prednisone 20 mg tablet 20 mg PO BID 5 Days Qty: 10 0RF azithromycin 250 mg tablet See Rx Instructions .ROUTE .COMPLEX Qty: 6 0RF Rx Instructions: For 250 mg dose pack: take 500 mg today (day 1), then 250 mg for 4 days (days 2-5) No Action ethambutol 400 mg tablet 1,000 mg PO QDAY Qty: 30 2RF rifampin 300 mg capsule 600 mg PO QDAY 30 Days Qty: 60 2RF pyridoxine (vitamin B6) 50 mg tablet 50 mg PO QDAY 30 Days Qty: 30 2RF Referrals: No Primary/Family,Physician [Primary Care Provider] - In 1 week Problem List Clinical Impression: Headache, Chest pain of unknown etiology, Bronchitis, Influenza Patient/Caregiver Discharge Instructions Education Materials: Self-Care for Headaches, ED Bronchitis with Wheezing (Adult), ED Chest Pain, Uncertain Cause, ED Influenza (Adult) Additional Instructions: Follow-up with your primary care physician in 2 days for reevaluation and to be referred to neurologist for headache to be referred to pouch making machine operator for further evaluation and treatment of chest pain for possible echocardiogram stress test and Holter monitor recurrence persistent worsening symptoms or any emergent concern call 911 or go to the nearest emergency room take your medication as directed finish the course of antibiotic increase water intake keep hydrated spatulate Gatorade for hydration is advised Print Language: Urdu Stand Alone Forms: Mary Award Info., Patient Portal Info Letter PA/NEWS VIDEOTAPE EDITOR Supervising Physician PA/NEWS VIDEOTAPE EDITOR Supervising Physician: Dr. sanchez
[2025-05-29] MEDS: ONDANSETRON ODT 4 MG TABRAP PO (19:48)
[2025-05-29] MEDS: HYDROcodone/APAP 5/325 TABLET 1 TAB PO (19:48)
== END 2025-05-29 19:51 | disposition home or self-care (01) ==
PROVIDERS: Nurse Practitioner Family; Emergency Provider Emergency Medicine
DX: J10.1 Influenza due to other identified influenza virus with other respiratory manifestations (principal); R51.9 Headache, unspecified
CPT/HCPCS: 36415; 70450; 71045; 80053; 84484; 85025; 87400; 87811; 93005; 99283; Q0162; A9270